=== PATIENT | female | born 1950 | race Caucasian/White ===

== ENCOUNTER 2020-01-13 08:04 | Outpatient (REF) | payer MEDICARE, OTHER, SELFPAY ==
[2020-01-13 09:45] LABS: Thyroid Stimulating Hormone 7.43 uIU/mL (0.32-4.0)
[2020-01-18 07:26] LABS: Thyroglobulin Antibody <1 IU/mL (<=1); Thyroglobulin Level 0.1 ng/mL
== END 2020-01-13 08:05 | disposition home or self-care (01) ==
LOC: HO.LAB 08:04
PROVIDERS: PCP Internal Medicine; Visit Provider Internal Medicine Endocrinology, Diabetes & Metabolism
DX: C73 Malignant neoplasm of thyroid gland (principal)
CPT/HCPCS: 36415; 84432; 84439; 84443; 86800

== ENCOUNTER → 2020-01-17 07:51 | Outpatient (BNVA) | payer MEDICARE, OTHER, SELFPAY | PROVIDERS: PCP Internal Medicine; Visit Provider Internal Medicine Endocrinology, Diabetes & Metabolism | DX: E89.0 Postprocedural hypothyroidism (principal); Z85.850 Personal history of malignant neoplasm of thyroid | CPT/HCPCS: 99212 ==

== ENCOUNTER → 2020-03-04 14:34 | Outpatient (BNVA) | payer MEDICARE, OTHER, SELFPAY | PROVIDERS: Visit Provider Internal Medicine | DX: Z13.89 Encounter for screening for other disorder (principal) | CPT/HCPCS: Q3014 ==

== ENCOUNTER 2020-04-03 | Outpatient (REF) | payer MEDICARE, OTHER, SELFPAY | END 2020-04-03 00:01 | disposition home or self-care (01) | LOC: HO.VC | PROVIDERS: Visit Provider Internal Medicine | DX: Z23 Encounter for immunization (principal) | CPT/HCPCS: 0011A ==

== ENCOUNTER 2020-04-30 | Outpatient (REF) | payer MEDICARE, OTHER, SELFPAY | END 2020-04-30 00:01 | disposition home or self-care (01) | LOC: HO.VC | PROVIDERS: Visit Provider Internal Medicine | DX: Z23 Encounter for immunization (principal) | CPT/HCPCS: 0012A ==

== ENCOUNTER 2020-07-12 09:10 | Outpatient (REF) | payer MEDICARE, OTHER, SELFPAY ==
[2020-07-12 10:49] LABS: Alanine Aminotransferase 21 U/L (0-31); Anion Gap 10 (12-20); Aspartate Amino Transferase 26 U/L (5-31); Blood Urea Nitrogen 28 mg/dL (9-16); Calcium 8.9 mg/dL (8.4-10.2); Carbon Dioxide 28 mmol/L (22-29); Chloride 106 mmol/L (96-108); Cholesterol 200 mg/dL; Estimated Glomerular Filt Rate > 60; Glucose Fasting 82 mg/dL (60-99); HDL Cholesterol 69 mg/dL; LDL Cholesterol Calculated 122 mg/dl; Potassium 4.3 mmol/L (3.3-5.1); Sodium 140 mmol/L (135-145); Triglycerides 46 mg/dL
[2020-07-12 11:01] LABS: Free T4 (Free Thyroxine) 1.31 ng/dL (0.71-1.85)
[2020-07-12 11:13] LABS: Thyroid Stimulating Hormone 0.22 uIU/mL (0.32-4.0); Vitamin D 25-OH Total 31.3 ng/mL (>30)
[2020-07-16 07:56] LABS: Thyroglobulin Antibody <1 IU/mL (<=1); Thyroglobulin Level <0.1 ng/mL
== END 2020-07-12 09:11 | disposition home or self-care (01) ==
LOC: HO.LAB 09:10
PROVIDERS: PCP Internal Medicine; Visit Provider Internal Medicine Endocrinology, Diabetes & Metabolism
DX: I10 Essential (primary) hypertension (principal); J44.9 Chronic obstructive pulmonary disease, unspecified; E89.0 Postprocedural hypothyroidism; Z78.0 Asymptomatic menopausal state
CPT/HCPCS: 36415; 80048; 80061; 82306; 84432; 84439; 84443; 84450; 84460; 86800

== ENCOUNTER → 2020-07-16 07:51 | Outpatient (BNVA) | payer MEDICARE, OTHER, SELFPAY | PROVIDERS: PCP Internal Medicine; Visit Provider Internal Medicine Endocrinology, Diabetes & Metabolism | DX: E89.0 Postprocedural hypothyroidism (principal); C73 Malignant neoplasm of thyroid gland | CPT/HCPCS: 99212 ==

== ENCOUNTER 2020-07-31 13:46 | Outpatient (REF) | payer MEDICARE, OTHER, SELFPAY ==
--- NOTE | ~2020-07-31 | US_ITS ---
EXAMINATION: US SOFT TISSUE NECK CLINICAL INFORMATION: History of thyroid cancer, status post total thyroidectomy in 2000. COMPARISON: 07/20/2019 soft tissue ultrasound. TECHNIQUE: Ultrasound of the neck soft tissues is performed with high- frequency olivera-scale imaging and color Doppler. FINDINGS: THYROID BED: Prior thyroidectomy. No residual thyroid tissue demonstrated in the thyroid bed. No cystic or solid nodules demonstrated in the thyroid bed. RIGHT NECK SOFT TISSUES: Scattered architecturally normal nodes are present. The nodes show normal fatty hilus, normal cortical thickness, and no cystic change or calcification. No abnormal color flow. The largest nodes are as follows: Level 3: 1.0 cm, Long axis Normal german architecture. LEFT NECK SOFT TISSUES: Scattered architecturally normal nodes are present. The nodes show normal fatty hilus, normal cortical thickness, and no cystic change or calcification. No abnormal color flow. The largest nodes are as follows: Level 3: 0.9 cm, long axis. Normal german architecture. US/US soft tiss head and/or neck IMPRESSION: 1. Cervical lymph nodes without pathologic enlargement as detailed above.
== END 2020-07-31 13:47 | disposition home or self-care (01) ==
LOC: HO.US 13:46
PROVIDERS: Visit Provider Internal Medicine Endocrinology, Diabetes & Metabolism
DX: C73 Malignant neoplasm of thyroid gland (principal)
CPT/HCPCS: 76536

== ENCOUNTER 2020-08-28 06:22 | Outpatient (REF) | payer MEDICARE, OTHER, SELFPAY ==
[2020-08-28 07:48] LABS: Free T4 (Free Thyroxine) 1.45 ng/dL (0.71-1.85); Thyroid Stimulating Hormone 0.28 uIU/mL (0.32-4.0)
== END 2020-08-28 06:23 | disposition home or self-care (01) ==
LOC: HO.LAB 06:22
PROVIDERS: PCP Internal Medicine; Visit Provider Internal Medicine Endocrinology, Diabetes & Metabolism
DX: C73 Malignant neoplasm of thyroid gland (principal)
CPT/HCPCS: 36415; 84439; 84443

== ENCOUNTER 2020-11-15 06:07 | Outpatient (REF) | payer MEDICARE, OTHER, SELFPAY ==
[2020-11-15 08:05] LABS: Alanine Aminotransferase 13 U/L (0-31); Alkaline Phosphatase 90 U/L (39-117); Anion Gap 13 (12-20); Aspartate Amino Transferase 20 U/L (5-31); Bilirubin Total 0.6 mg/dL (0.0-1.0); Blood Urea Nitrogen 25 mg/dL (9-16); Carbon Dioxide 28 mmol/L (22-29); Chloride 105 mmol/L (96-108); Estimated Glomerular Filt Rate > 60; Glucose Random 83 mg/dL (60-115); Potassium 4.5 mmol/L (3.3-5.1); Sodium 141 mmol/L (135-145); Total Protein 6.3 g/dL (6.5-8.0)
[2020-11-15 08:27] LABS: Vitamin D 25-OH Total 25.2 ng/mL (>30)
[2020-11-18 14:02] LABS: Calcium (PTHI) 8.9 mg/dL (8.6-10.4); PTHI 52 pg/mL (14-64)
[2020-11-20 15:01] LABS: N-Telopeptide 35 (see note); NTXCreaRU 40 mg/dL (20-275)
== END 2020-11-15 06:08 | disposition home or self-care (01) ==
LOC: HO.LAB 06:07
PROVIDERS: PCP Internal Medicine; Visit Provider Obstetrics & Gynecology Gynecology
DX: M85.9 Disorder of bone density and structure, unspecified (principal)
CPT/HCPCS: 36415; 80053; 82306; 82523; 83970; 84443

== ENCOUNTER 2020-11-22 02:53 | Emergency (ER) | payer MEDICARE, OTHER, SELFPAY ==
[2020-11-22 04:58] VITALS: BP 182/85; PULSE 71; RESP 18; TEMP 36.4; O2SAT 100; BMI 39.3
--- NOTE | 2020-11-22 05:39 | ED_ITS ---
HPI - General Adult General Chief complaint: General Medical Stated complaint: swollen glands/neck spasms Time Seen by Provider: 11/22/20 05:39 Source: patient Mode of arrival: ambulatory Limitations: no limitations History of Present Illness HPI narrative: Neck pain with spasm with waking up. patient could not sleep. no injury, no fever, no sore throat. Right posterior neck Onset (ago): hour(s) Radiation: neck Severity: moderate Pain Consistency: constant Associated symptoms: denies other symptoms Related Data Home Medications Medication Instructions Recorded Confirmed allopurinol 100 mg tablet 100 mg PO BID 12/14/19 07/16/20 calcium citrate 500 mg-vit D3 12.5 g PO 12/14/19 07/16/20 mcg (500 unit)/5 gram oral powder celecoxib 200 mg capsule (Celebrex) 200 mg PO DAILY 12/14/19 07/16/20 cholecalciferol (vitamin D3) 50 50 mcg PO DAILY 12/14/19 07/16/20 mcg (2,000 unit) capsule diclofenac sodium 1 % topical gel 2 g TOPICAL QID 12/14/19 07/16/20 (Voltaren) fluticasone propionate 50 1 spray INTRANASAL DAILY 12/14/19 07/16/20 mcg/actuation nasal spray,suspension (Flonase Allergy Relief) multivit with 1 tab PO DAILY 12/14/19 07/16/20 xnkehqwa-curs-RH-lutein 8 mg iron-400 mcg-300 mcg tablet (Centrum Silver Women) turmeric root extract 500 mg 500 mg PO DAILY 12/14/19 07/16/20 capsule vitamins A,C,N-orhv-sulqyr 7,160 2 tab PO BID 12/14/19 07/16/20 unit-113 mg-100 unit tablet (PreserVision AREDS) flu vacc [id number] 6mos up(PF) ml IM ONCE 02/27/20 07/16/20 pneumococcal 23-constanza ps vaccine 25 ml IM ONCE 02/27/20 07/16/20 mcg/0.5 mL injection syringe varicella-zoster glycoE [id number] IM 02/27/20 07/16/20 adj(PF) 50 mcg/0.5 mL IM susp, kit clotrimazole-betamethasone 1 appl TOPICAL BID 03/04/20 07/16/20 %-0.05 % topical cream furosemide 20 mg tablet (Lasix) 20 mg PO DAILY PRN 03/04/20 07/16/20 escitalopram oxalate 10 mg tablet 10 mg PO DAILY 07/16/20 07/16/20 quetiapine 25 mg tablet 25 mg PO BEDTIME PRN tab 07/16/20 07/16/20 clonazepam 0.5 mg tablet 0.5 mg PO DAILY 08/30/20 escitalopram oxalate 10 mg tablet 10 mg PO DAILY 08/30/20 fluocinolone acetonide oil 0.01 % 2 drp OTIC (EARS) 2XW 08/30/20 ear drops quetiapine 25 mg tablet 25 mg PO BEDTIME 08/30/20 Previous Rx's Medication Instructions Recorded montelukast 10 mg tablet 10 mg PO BEDTIME #90 tab 01/01/20 inhalational spacing device #1 ea 02/27/20 (Flexichamber) losartan 100 mg tablet 100 mg PO DAILY #90 tab 04/11/20 budesonide-formoterol HFA 160 2 puff INHALATION BID #30.6 g 06/11/20 mcg-4.5 mcg/actuation aerosol inhaler (Symbicort) loratadine 10 mg tablet (Allergy 10 mg PO DAILY #90 tab 07/02/20 Relief (loratadine)) amlodipine 2.5 mg tablet 2.5 mg PO DAILY #90 tab 07/19/20 Levoxyl 137 mcg tablet 137 mcg PO DAILY 90 Days #90 tab NS 08/29/20 (levothyroxine) cetirizine 10 mg tablet 10 mg PO BEDTIME PRN #90 tab 09/08/20 albuterol sulfate 90 mcg/actuation 2 puff INHALATION Q4-6H PRN 90 11/14/20 aerosol inhaler Days #8.5 g umeclidinium 62.5 mcg/actuation 1 inh INHALATION Q24H 90 Days #90 11/20/20 blister powder for inhalation ea (Libby Ellipta) naproxen 500 mg tablet (Naprosyn) 500 mg PO BID #20 tab 11/22/20 Allergies Allergy/AdvReac Type Severity Reaction Status Date / Time No Known Allergies Allergy Verified 11/22/20 04:58 Review of Systems Constitutional: Constitutional: Reports no additional constitutional c omplaints Eyes: Eyes: Reports no additional eye complaints ENT: Denies dizziness Cardiovascular: Cardiovascular: Reports no additional cardiovascular complaints Respiratory: Respiratory: Reports as per HPI Gastrointestinal: Gastrointestinal: Reports no additional gastrointestinal complaints Genitourinary: Genitourinary: Reports no additional female genitourinary complaints Musculoskeletal: Musculoskeletal: Reports no additional musculoskeletal complaints Integumentary/Breasts: Skin/Breast: Denies rash Neurologic: Reports system reviewed and no additional complaints, except as documented, Denies dizziness and Denies Sensory deficit (Neuro) Psychiatric: Psychiatric: Denies anxiety PMFSH Past Medical History Medical History Allergic rhinitis COPD (chronic obstructive pulmonary disease) Environmental and seasonal allergies Essential hypertension Generalized anxiety disorder Gout Grief counseling Left humeral fracture Morbid obesity JUAREZ on CPAP Osteoarthritis Papillary thyroid carcinoma Pernicious anemia Postsurgical hypothyroidism Varicose veins of right lower extremity with pain Surgical History Gastric bypass status for obesity H/O vein stripping History of thyroidectomy, total History of total left knee replacement (TKR) Family History Family History Daughter Breast cancer Social History Social History Alcohol intake: current Patient Tobacco Use Status: Never used Tobacco Advance Directives: No Advance Directives Information Provided: No Physical Exam Vital Signs: Vital Signs: Last Vital Signs Temp 97.5 F 11/22/20 04:58 Pulse 71 11/22/20 06:15 Resp 16 11/22/20 06:15 BP 189/72 H 11/22/20 06:15 Pulse Ox 99 11/22/20 06:15 Body Mass Index 39.3 Const: General: healthy appearing Nutritional Appearance: average body habitus Orientation/consciousness: oriented to person and patient oriented x3 Limitations: no limitations HENMT: Head: Yes normal to inspection Ears: external ears normal General nose exam: Normal external nose present Mouth: Normal oral and palatal mucosa present and oropharynx normal Throat: Yes posterior oropharynx normal Eyes: General: appearance normal, both eyes and all related structures Neck: Other: patient with spasm of right trapezius tenderness Chest: Chest palpation & inspection: normal inspection of the chest Resp: Auscultation: clear to auscultation bilaterally Cardio: Jugular venous distension: no JVD Rate: regular rate Rhythm: regular rhythm Heart sounds: S1 normal heart sound present and S2 normal heart sound present GI: Inspection: Yes normal to inspection Palpation (GI): Soft to palpation, nontender and No hepatosplenomegaly present Auscultation: normal bowel sounds : General: Yes no CVA tenderness Back/Spine/Pelvis: Back: no CVA tenderness Skin: General skin exam: no rashes or lesions noted Neuro: General: oriented to person and patient oriented x3 Cranial nerves: Yes CN's II-XII intact bilaterally Motor exam (neuro): 5/5 motor strength present throughout Sensory Exam: No Sensory deficit (Neuro) Extrem: General: Yes normal to inspection Psych: Appearance: grossly normal Course Reevaluation(s) Reevaluation #1: patient neck improved can start to turn her neck will dc home Time: 06:49 Discharge Plan Discharge Clinical Impression: Torticollis Patient Disposition: Home, Self-Care Instructions: Neck Pain (ED) Prescriptions: New naproxen [Naprosyn] 500 mg tablet 500 mg PO BID Qty: 20 RF: 0 No Action montelukast 10 mg tablet 10 mg PO BEDTIME Qty: 90 RF: 3 losartan 100 mg tablet 100 mg PO DAILY Qty: 90 RF: 3 budesonide-formoterol [Symbicort] 160-4.5 mcg/actuation HFA aerosol inhaler 2 puff inhalation BID Qty: 30.6 RF: 4 loratadine [Allergy Relief (loratadine)] 10 mg tablet 10 mg PO DAILY Qty: 90 RF: 0 amlodipine 2.5 mg tablet 2.5 mg PO DAILY Qty: 90 RF: 3 levothyroxine [Levoxyl] 137 mcg tablet 137 mcg PO DAILY 90 Days Qty: 90 RF: 2 cetirizine 10 mg tablet 10 mg PO BEDTIME PRN (Reason: for allergies) Qty: 90 RF: 1 albuterol sulfate 90 mcg/actuation HFA aerosol inhaler 2 puff inhalation Q4-6H PRN (Reason: shortness of breath or wheezing) 90 Days Qty: 8.5 RF: 5 Incruse Ellipta 62.5 mcg/actuation blister with device 1 inh inhalation Q24H 90 Days Qty: 90 RF: 3 fluocinolone acetonide oil 0.01 % drops 2 drp otic (ears) 2XW RF: 0 quetiapine 25 mg tablet 25 mg PO BEDTIME RF: 0 escitalopram oxalate 10 mg tablet 10 mg PO DAILY RF: 0 clonazepam 0.5 mg tablet 0.5 mg PO DAILY RF: 0 cholecalciferol (vitamin D3) 50 mcg (2,000 unit) capsule 50 mcg PO DAILY RF: 0 Centrum Silver Women 8 mg iron-400 mcg-300 mcg tablet 1 tab PO DAILY RF: 0 turmeric root extract 500 mg capsule 500 mg PO DAILY RF: 0 PreserVision AREDS 7,160-113-100 dfjb-nn-luch tablet 2 tab PO BID RF: 0 calcium citrate-vitamin D3 500 mg-12.5 mcg /5 gram powder PO RF: 0 allopurinol 100 mg tablet 100 mg PO BID RF: 0 diclofenac sodium [Voltaren] 1 % gel 2 g topical QID RF: 0 fluticasone propionate [Flonase Allergy Relief] 50 mcg/actuation spray,suspension 1 spray intranasal DAILY RF: 0 celecoxib [Celebrex] 200 mg capsule 200 mg PO DAILY RF: 0 furosemide [Lasix] 20 mg tablet 20 mg PO DAILY PRNRF: 0 Shingrix (PF) 50 mcg/0.5 mL suspension for reconstitution IM RF: 0 Fluzone Quad [id number] (PF) 60 mcg (15 mcg x 4)/0.5 mL syringe IM ONCE RF: 0 Pneumovax-23 25 mcg/0.5 mL syringe IM ONCE RF: 0 (DME) Flexichamber Spacer See Rx Instructions .ROUTE .MEDSUPPLY Qty: 1 RF: 0 quetiapine 25 mg tablet 25 mg PO BEDTIME PRN (Reason: insomnia) RF: 0 escitalopram oxalate 10 mg tablet 10 mg PO DAILY RF: 0 clotrimazole-betamethasone 1-0.05 % cream topical BID RF: 0 Referrals: Jacqueline Thurston MD [Primary Care Provider] - 1 week
--- NOTE | 2020-11-22 05:44 | PC.NURSE ---
Provider at bed side for primary assessment. PT complaining of right sided neck pain. PT is calm and cooperative. Pain is rated 10/10.
[2020-11-22] MEDS: Ketorolac Tromethamine 60 MG/2 ML VIAL IM (05:58)
[2020-11-22 06:15] VITALS: BP 189/72; PULSE 71; RESP 16; O2SAT 99
== END 2020-11-22 07:07 | disposition home or self-care (01) ==
PROVIDERS: Emergency Provider Emergency Medicine; PCP Internal Medicine
DX: M43.6 Torticollis (principal); M54.2 Cervicalgia; R59.0 Localized enlarged lymph nodes; Z79.899 Other long term (current) drug therapy
CPT/HCPCS: 96372; 99284; J1885

== ENCOUNTER → 2021-01-16 07:28 | Outpatient (BNVA) | payer MEDICARE, OTHER, SELFPAY | PROVIDERS: PCP Internal Medicine; Visit Provider Internal Medicine | DX: Z13.89 Encounter for screening for other disorder (principal) | CPT/HCPCS: 99212 ==

== ENCOUNTER 2021-01-16 08:28 | Outpatient (REF) | payer MEDICARE, OTHER, SELFPAY ==
[2021-01-16 11:01] LABS: Alanine Aminotransferase 16 U/L (0-31); Alkaline Phosphatase 89 U/L (39-117); Anion Gap 11 (12-20); Aspartate Amino Transferase 21 U/L (5-31); Bilirubin Total 0.4 mg/dL (0.0-1.0); Blood Urea Nitrogen 17 mg/dL (9-16); Carbon Dioxide 27 mmol/L (22-29); Chloride 106 mmol/L (96-108); Estimated Glomerular Filt Rate > 60; Glucose Random 84 mg/dL (60-115); Phosphorus 3.5 mg/dL (2.7-4.5); Potassium 4.3 mmol/L (3.3-5.1); Sodium 140 mmol/L (135-145); Total Protein 6.5 g/dL (6.5-8.0)
[2021-01-16 11:26] LABS: Free T4 (Free Thyroxine) 1.47 ng/dL (0.71-1.85); Thyroid Stimulating Hormone 0.29 uIU/mL (0.32-4.0)
[2021-01-17 13:07] LABS: Prot Elec - Albumin 3.9 g/dL (3.8-4.8); Prot Elec - Alpha1 0.3 g/dL (0.2-0.3); Prot Elec - Alpha2 0.8 g/dL (0.5-0.9); Prot Elec - Beta 1 0.4 g/dL (0.4-0.6); Prot Elec - Beta 2 0.4 g/dL (0.2-0.5); Prot Elec - Gamma 0.8 g/dL (0.8-1.7); Prot Elec - Total Protein 6.5 g/dL (6.1-8.1)
[2021-01-17 21:27] LABS: Thyroglobulin <0.1 ng/mL; Thyroglobulin Antibodies <1 IU/mL (< or = 1)
[2021-01-18 02:50] LABS: Calcium (PTHI) 9.4 mg/dL (8.6-10.4); PTHI 53 pg/mL (14-64)
[2021-01-20 14:42] LABS: Alkaline Phosphatase Bone 15.7 mcg/L (5.6-29.0)
== END 2021-01-16 08:29 | disposition home or self-care (01) ==
LOC: HO.10HDL 08:28
PROVIDERS: Visit Provider Internal Medicine
DX: M81.0 Age-related osteoporosis without current pathological fracture (principal); E55.9 Vitamin D deficiency, unspecified; E89.0 Postprocedural hypothyroidism; Z85.850 Personal history of malignant neoplasm of thyroid
CPT/HCPCS: 36415; 80053; 82306; 82330; 83970; 84075; 84100; 84165; 84432; 84439; 84443; 86800; 99212

== ENCOUNTER 2021-01-22 09:23 | Outpatient (REF) | payer MEDICARE, OTHER, SELFPAY ==
[2021-01-22 10:54] LABS: Creatinine, mg/dL 77.68
[2021-01-22 15:25] LABS: Creatinine, 24Hr Urine 1.1 G/Day (1.0-2.0); Total Volume 24 Hour Urine 1400 mL
[2021-01-24 16:51] LABS: Calcium, 24 Hr Urine 45 mg/24 h; Calcium/Creatinine Ratio 42 mg/g creat (30-275); Creatinine 24Hr Urine 1.08 g/24 h (0.50-2.15)
[2021-01-28 08:32] LABS: N-Telopeptide 62 (see note); NTXCreaRU 53 mg/dL (20-275)
== END 2021-01-22 09:24 | disposition home or self-care (01) ==
LOC: HO.10HDL 09:23
PROVIDERS: Visit Provider Internal Medicine
DX: M81.0 Age-related osteoporosis without current pathological fracture (principal)
CPT/HCPCS: 82340; 82523; 82570

== ENCOUNTER 2021-02-04 08:00 | Outpatient (RCR) | payer MEDICARE, OTHER, SELFPAY ==
--- NOTE | 2020-12-18 16:24 | MHC.PT.EP ---
[facility] [place] [facility] [place] [facility] [place] [facility] [address] Blayne Garcia [address] [phone] F: [phone] F: [phone] F: [phone] F: [phone] Physical Therapy Plan of Care Date of Evaluation: Date of Surgery: Diagnosis: This is a 70 yo female presenting to skilled PT with a script for torticollis Assessment: This is a 70 yo female presenting to skilled PT with a script for torticollis. Patient states that she woke up early that morning with difficulty moving her neck and pain. Pain has improved since then. She now gets small twinges when turning her head to the R, getting out of bed in the AM. She was prescribed naproxen, which afforded some relief. Denies any accompanying dizziness, no headache, no weakness in extremities reported. Pain is located at the R UT described as stiffness. She has some general achiness at upper back as well. She has been using heat and lidocaine that has been helping. Assessment reveals pain that ranges up to a 4/10. She demos decreased cervical ROM (and shoulder *L shoulder has a history of spiral humeral fx so be cautious with ROM), decreased shoulder and cervical strength, impaired posture with forward head and rounded shoulders, impaired joint mobility with new dx of OP as well as gross functional decline with pain management (more so in the AM) and with turning her head to the R. She is a good candidate for skilled PT 2x/wk for 5wks in order to improve functional movements improve pain and return to normal daily routines safely. Frequency and Duration: The patient will be seen 2x/wk for 5wks Short Term Goals: I in HEP Demo proper cervical alignment and posture with ther-ex, no PT cuing Snf Goals: Demo normal cervical AROM without pain Improve pain to no more than 2/10 at the worst Improve NDI by 8 Tolerate sleeping through the night without waking from pain Demo at least 4+/5 scapular and shoulder strength Treatment Plan: Modalities to reduce pain, spasms and effusion. Manual therapy to restore motion and function. Therapeutic exercise to improve strength and flexibility. Neuromuscular re-education for posture and balance. Therapeutic activities to return to functional activities of daily living. Electronically signed by: Inocencia Bradley PT Please sign and return to therapist. Thank you for your referral.
--- NOTE | 2021-03-06 13:26 | MHC.PT.DC ---
[facility] [place] Office [place] Office [place] [facility] [address] Blayne Garcia [address] [phone] F: [phone] F: [phone] F: [phone] F: [phone] Physical Therapy Discharge Report Diagnosis: This is a 70 yo female presenting to skilled PT with a script for torticollis Date of Surgery: Date of Evaluation: 12/18/20 Date of Discharge: 03/06/21 Treatments to Date: 10 Cancellations to Date: 0 No Shows to Date: 0 Discharge Status: Achieved Goals Improved Function Independent with HEP Discharge Summary: Patient with improved cervical ROM, pain and strength. She is I in HEP, has met her goals and is ready for DC at this time. I kept chart open for 30 days in case symptoms return and patient was educated on this. She is happy with her progress and understands how to manage her pain if it returns Electronically signed by: Inocencia Bradley, PT Please sign and return to therapist. Thank you for your referral.
== END 2021-03-06 13:26 | disposition home or self-care (01) ==
LOC: HO.PTCHIC 08:00
PROVIDERS: PCP Internal Medicine; Visit Provider Internal Medicine
DX: M43.6 Torticollis (principal)
CPT/HCPCS: 97110; 97140; 97162

== ENCOUNTER 2021-02-27 10:20 | Outpatient (REF) | payer MEDICARE, OTHER, SELFPAY ==
[2021-02-27 14:08] LABS: Thyroid Stimulating Hormone 1.16 uIU/mL (0.32-4.0)
== END 2021-02-27 10:21 | disposition home or self-care (01) ==
LOC: HO.10HDL 10:20
PROVIDERS: PCP Internal Medicine; Visit Provider Internal Medicine
DX: E89.0 Postprocedural hypothyroidism (principal)
CPT/HCPCS: 36415; 84439; 84443

== ENCOUNTER 2021-04-02 12:06 | Outpatient (REF) | payer MEDICARE, OTHER, SELFPAY ==
[2021-04-02 15:18] LABS: Vitamin D 25-OH Total 26.3 ng/mL (>30)
== END 2021-04-02 12:07 | disposition home or self-care (01) ==
LOC: HO.10HDL 12:06
PROVIDERS: Visit Provider Obstetrics & Gynecology Gynecology
DX: E55.9 Vitamin D deficiency, unspecified (principal)
CPT/HCPCS: 36415; 82306

== ENCOUNTER → 2021-05-26 08:44 | Outpatient (BNVA) | payer MEDICARE, OTHER, SELFPAY | PROVIDERS: PCP Internal Medicine; Visit Provider Internal Medicine | DX: C73 Malignant neoplasm of thyroid gland (principal) | CPT/HCPCS: 96372 ==

== ENCOUNTER → 2021-05-27 08:46 | Outpatient (BNVA) | payer MEDICARE, OTHER, SELFPAY | PROVIDERS: PCP Internal Medicine; Visit Provider Internal Medicine Endocrinology, Diabetes & Metabolism | DX: Z85.850 Personal history of malignant neoplasm of thyroid (principal) | CPT/HCPCS: 96372 ==

== ENCOUNTER 2021-05-28 06:58 | Outpatient (REF) | payer MEDICARE, OTHER, SELFPAY ==
[2021-05-28 10:04] LABS: Thyroid Stimulating Hormone > 100.00 uIU/mL (0.32-4.0)
[2021-05-29 09:27] LABS: Thyroglobulin <0.1 ng/mL; Thyroglobulin Antibodies <1 IU/mL (< or = 1)
== END 2021-05-28 06:59 | disposition home or self-care (01) ==
LOC: HO.LAB 06:58
PROVIDERS: PCP Internal Medicine; Visit Provider Internal Medicine
DX: Z85.850 Personal history of malignant neoplasm of thyroid (principal)
CPT/HCPCS: 36415; 84432; 84443; 86800

== ENCOUNTER 2021-05-30 06:05 | Outpatient (REF) | payer MEDICARE, OTHER, SELFPAY ==
[2021-05-30 07:32] LABS: Thyroid Stimulating Hormone 21.17 uIU/mL (0.32-4.0)
[2021-06-02 16:25] LABS: Thyroglobulin 0.1 ng/mL; Thyroglobulin Antibodies <1 IU/mL (< or = 1)
== END 2021-05-30 06:06 | disposition home or self-care (01) ==
LOC: HO.LAB 06:05
PROVIDERS: PCP Internal Medicine; Visit Provider Internal Medicine
DX: Z85.850 Personal history of malignant neoplasm of thyroid (principal)
CPT/HCPCS: 36415; 84432; 84443; 86800

== ENCOUNTER 2021-06-05 15:16 | Outpatient (REF) | payer MEDICARE, OTHER, SELFPAY ==
[2021-06-05 16:38] LABS: Free T4 (Free Thyroxine) 1.31 ng/dL (0.71-1.85)
== END 2021-06-05 15:17 | disposition home or self-care (01) ==
LOC: HO.LAB 15:16
PROVIDERS: PCP Internal Medicine; Visit Provider Internal Medicine Endocrinology, Diabetes & Metabolism
DX: E89.0 Postprocedural hypothyroidism (principal)
CPT/HCPCS: 36415; 84439; 84443

== ENCOUNTER 2021-06-27 10:22 | Outpatient (REF) | payer MEDICARE, OTHER, SELFPAY ==
[2021-06-27 12:10] LABS: Vitamin D 25-OH Total 28.8 ng/mL (>30)
[2021-06-30 12:47] LABS: PTHI 76 pg/mL (16-77)
== END 2021-06-27 10:23 | disposition home or self-care (01) ==
LOC: HO.LAB 10:22
PROVIDERS: PCP Internal Medicine; Visit Provider Obstetrics & Gynecology Gynecology
DX: M85.9 Disorder of bone density and structure, unspecified (principal)
CPT/HCPCS: 36415; 82306; 83970

== ENCOUNTER → 2021-07-24 08:13 | Outpatient (BNVA) | payer MEDICARE, OTHER, SELFPAY | PROVIDERS: PCP Internal Medicine; Visit Provider Internal Medicine | DX: E89.0 Postprocedural hypothyroidism (principal); E55.9 Vitamin D deficiency, unspecified; M81.0 Age-related osteoporosis without current pathological fracture; Z85.850 Personal history of malignant neoplasm of thyroid | CPT/HCPCS: Q3014 ==

== ENCOUNTER 2021-08-24 01:50 | Inpatient (IN) | payer MEDICARE, OTHER, SELFPAY ==
[2021-08-24] VITALS (11 sets, daily range): BP systolic 126–159; BP diastolic 31–104; PULSE 73–142; RESP 12–18; TEMP 36.6–36.7; O2SAT 95–100; BMI 40.7
--- NOTE | 2021-08-24 | ECG_ITS ---
Test Reason : RYTHMN CHANGE Blood Pressure : / mmHG Vent. Rate : 069 BPM Atrial Rate : 069 BPM P-R Int : 156 ms QRS Dur : 072 ms QT Int : 406 ms P-R-T Axes : 048 012 021 degrees QTc Int : 435 ms Normal sinus rhythm Possible Left atrial enlargement Cannot rule out Anterior infarct , age undetermined Abnormal ECG When compared with ECG of 24-AUG-2021 02:42, Sinus rhythm has replaced Atrial fibrillation Vent. rate has decreased BY 67 BPM Nonspecific T wave abnormality, improved in Inferior leads Referred By: Jacqueline Saez Electronically Signed By:SANDY WINN
--- NOTE | ~2021-08-24 | XR_ITS ---
EXAMINATION: XR KNEE, LEFT CLINICAL INFORMATION: Fall, pain. COMPARISON: None TECHNIQUE: Four views of the left knee. FINDINGS: A total left knee prosthesis is identified. No fractures are identified. Marked prepatellar soft tissue prominence and subcutaneous reticulation is noted. XR/XR knee LT 4V IMPRESSION: *No acute fractures. *Prepatellar soft tissue inflammatory changes. *Status post total knee arthroplasty.
--- NOTE | ~2021-08-24 | CT_ITS ---
EXAMINATION: CT CERVICAL SPINE WITHOUT CONTRAST; UNENHANCED CT OF THE HEAD. CLINICAL INFORMATION: Fall, pain. COMPARISON: None TECHNIQUE: Routine unenhanced CT of the head with multiple coronal and sagittal reformatted images; routine unenhanced CT of the cervical spine with multiple coronal and sagittal reformatted images. This CT examination was performed using dose optimization techniques as appropriate, variously including the following: *Automated exposure control *Adjustment of mA and/or kV according to patient size (this includes techniques or standardized protocols for targeted exams where dose is matched to indication/reason for exam; i.e. extremities or head) *Use of iterative reconstruction technique DLP: 1315 mGy-cm FINDINGS: A 1.5 cm x 0.8 cm x 1.0 cm extra-axial focus is noted in continuity with the inferior margin of the left tentorial leaf (series 8 image 105, series 3 image 27. This region demonstrates central heterogeneous density with areas of density measuring up to 75 Hounsfield units. The ventricles and sulci are normal in size and configuration. Mild periventricular and subcortical white matter patchy hypodensities are identified. No definitive acute infarcts or areas of definitive intracranial hemorrhage are noted. Prominent frontal and left parietal areas of extracranial soft tissue inflammatory changes are noted. The orbits and globes are normal in appearance. No significant opacification of the visualized paranasal sinuses, mastoid air cells and middle ear cavities. CT cervical spine: No fractures or acute appearing subluxations are noted. Moderate multilevel intervertebral disc space narrowing and endplate osteophytosis is present. 2 mm degenerative type grade 1 anterolisthesis of C2 on C3 is noted. The visualized lung apices are clear. The thyroid is absent and multiple vascular clips are noted in the thyroid bed. Moderate bilateral carotid bulb calcific atherosclerotic plaques. CT/CT cervical spine wo con IMPRESSION: CT head: *No definitive acute intracranial abnormalities. *1.5 cm extra-axial tumor contiguous with the inferior margin of the left tentorium. This finding is suspicious for a meningioma with areas of psammomatous calcification. As clinically indicated, this finding may be further evaluated with unenhanced and IV contrast enhanced MRI. No edema in the adjacent brain parenchyma. *Acute multifocal extracranial soft tissue inflammatory changes. CT cervical spine: *No acute abnormalities. *Multilevel chronic spondylosis. *Status post thyroidectomy. *Moderate bilateral carotid bulb calcific atherosclerosis.
--- NOTE | ~2021-08-24 | CT_ITS ---
EXAMINATION: CT ANGIOGRAM OF THE CHEST WITH AND WITHOUT CONTRAST (CT PULMONARY ANGIOGRAM FOR PE) CLINICAL INFORMATION: Reason for Exam new onset afib, elevated ddimer, fall. COMPARISON: Chest radiograph 05/10/2017 TECHNIQUE: Prior to contrast administration, noncontrast localization images were obtained. Subsequently, multidetector volumetric imaging was performed from the thoracic inlet to below the diaphragms following the administration of 80 mL Omnipaque 350 intravenous contrast. No contrast reaction reported Sagittal, coronal, and MIP oblique sagittal reformatted images were obtained on the CT workstation, uploaded to PACS, and reviewed. This CT examination was performed using dose optimization techniques as appropriate, variously including the following: *Automated exposure control *Adjustment of mA and/or kV according to patient size (this includes techniques or standardized protocols for targeted exams where dose is matched to indication/reason for exam; i.e. extremities or head) *Use of iterative reconstruction technique Total exam dose-length product 630 mGy-cm FINDINGS: Pulmonary arterial system: High density intraluminal opacification of the pulmonary arterial system is noted. No intraluminal filling defects of the pulmonary arteries are noted to specifically suggest pulmonary emboli. The main and central pulmonary arteries are normal in caliber. Mediastinum: The thoracic aorta is normal in caliber and contour. Mild scattered aortic atherosclerosis is noted. Bilateral surgical clips are noted in the expected location of the thyroid. No mediastinal lymphadenopathy. Normal heart size. No pericardial thickening or fluid collections. Lungs and pleura: No pleural effusions or pneumothoraces. No focal pulmonary consolidation. CHEST WALL: No axillary lymphadenopathy. Incidentally visualized abdominal structures: Cholecystectomy clips noted. Suture material which may represent a gastric sleeve resection is noted. The adrenal glands are normal in appearance. Osseous structures: Mild multilevel endplate osteophytosis of the thoracic spine. CT/CT angio chest PE protocol IMPRESSION: *CT pulmonary angiogram negative for pulmonary emboli. *No acute cardiopulmonary abnormalities. VTE: negative
--- NOTE | 2021-08-24 02:21 | ECG_ITS ---
Test Reason : AFIB Blood Pressure : / mmHG Vent. Rate : 136 BPM Atrial Rate : 000 BPM P-R Int : 000 ms QRS Dur : 080 ms QT Int : 308 ms P-R-T Axes : 000 013 -40 degrees QTc Int : 463 ms Atrial fibrillation with rapid ventricular response Low voltage QRS Nonspecific ST and T wave abnormality Abnormal ECG When compared with ECG of 31-MAY-2011 08:57, Atrial fibrillation has replaced Sinus rhythm Vent. rate has increased BY 66 BPM Nonspecific T wave abnormality now evident in Lateral leads Referred By: Jacqueline Saez Electronically Signed By:COOPER DUFFY MD
[2021-08-24] MEDS: ondansetron HCL 4 MG/2 ML VIAL IVPUSH ×2 (02:43→21:03)
[2021-08-24] MEDS: HYDROmorphone HCl 1 MG/ML SYRINGE IVPUSH ×2 (02:45→04:54)
[2021-08-24 02:46] LABS: MANUAL DIFF FLAG NO
[2021-08-24 02:48] LABS: Basophils Absolute Auto 0.1 X10*3/uL (0.0-0.2); Basophils Percent Auto 0.5 % (0-2); Eosinophils Absolute Auto 0.2 X10*3/uL (0.0-0.4); Eosinophils Percent Auto 1.4 % (0-4); Hematocrit 40.1 % (37.0-47.0); Hemoglobin 12.8 g/dl (12.0-16.0); Imm Gran Abs Auto 0.13 X10*3/uL (0.00-0.03); Lymphocytes Absolute Auto 1.6 X10*3/uL (1.2-4.9); Lymphocytes Percent Auto 11.7 % (20-40); Mean Corpuscular HGB Conc 31.9 g/dl (31.0-35.0); Mean Corpuscular Hemoglobin 29.6 pg (27.0-33.0); Mean Corpuscular Volume 92.8 fL (80.0-98.0); Mean Platelet Volume 10.1 fL (9.4-12.3); Monocytes Absolute Auto 0.9 X10*3/uL (0.1-1.2); Monocytes Percent Auto 6.9 % (2-11); Neutrophils Absolute Auto 10.4 x10*3/uL (2.0-8.3); Neutrophils Percent Auto 78.5 % (45-73); Platelet Count 267 X10*3/uL (160-400); Red Blood Count 4.32 X10*6/uL (4.20-5.50); Red Cell Distribution Width 14.2 % (11.0-16.0); White Blood Count 13.2 X10*3/uL (4.8-10.8)
--- NOTE | 2021-08-24 02:50 | ED_ITS ---
HPI - Fall General Chief Complaint: Fall Stated Complaint: fall Time Seen by Provider: 08/24/21 02:20 Source: patient Mode of arrival: EMS Limitations: no limitations History of Present Illness HPI Narrative: 71 yo female with hx of obesity, COPD, thyroid cancer, HTN, arthritis who was drinking ETOH tonight then she states she remembers going to get up and woke up on the floor when she woke up she felt a bump on her head and L knee pain unable to get up. She is unsure what happened. MD complaint: fall Onset (ago): hour(s) (last couple of hours) Fall from: standing Fall witnessed: no Place fall occurred: home Loss of consciousness: unsure Prolonged down time: unclear Symptoms prior to fall: none Context: other (unsure per patient) Location of injury: head Location of injury - extremities: left: knee Severity: moderate Quality: dull and aching Associated symptoms (after fall): other (headache and unable to walk ) Related Data Home Medications Medication Instructions Recorded Confirmed allopurinol 100 mg tablet 100 mg PO BID 12/14/19 07/24/21 calcium citrate 500 mg-vit D3 12.5 g PO 12/14/19 07/24/21 mcg (500 unit)/5 gram oral powder celecoxib 200 mg capsule (Celebrex) 200 mg PO DAILY 12/14/19 07/24/21 cholecalciferol (vitamin D3) 50 50 mcg PO DAILY 12/14/19 07/24/21 mcg (2,000 unit) capsule diclofenac sodium 1 % topical gel 2 g topical QID 12/14/19 07/24/21 (Voltaren) fluticasone propionate 50 1 spray intranasal DAILY 12/14/19 07/24/21 mcg/actuation nasal spray,suspension (Flonase Allergy Relief) multivit with 1 tab PO DAILY 12/14/19 07/24/21 fhukebgg-sqgq-HX-lutein 8 mg iron-400 mcg-300 mcg tablet (Centrum Silver Women) turmeric root extract 500 mg 500 mg PO DAILY 12/14/19 07/24/21 capsule vitamins A,C,E-lxsu-qyscge 7,160 2 tab PO BID 12/14/19 07/24/21 unit-113 mg-100 unit tablet (PreserVision AREDS) varicella-zoster glycoE [id number] IM 02/27/20 07/24/21 adj(PF) 50 mcg/0.5 mL IM susp, kit clotrimazole-betamethasone 1 appl topical BID 03/04/20 07/24/21 %-0.05 % topical cream furosemide 20 mg tablet (Lasix) 20 mg PO DAILY PRN 03/04/20 07/24/21 clonazepam 0.5 mg tablet 0.5 mg PO DAILY 08/30/20 07/24/21 escitalopram oxalate 10 mg tablet 10 mg PO DAILY 08/30/20 07/24/21 fluocinolone acetonide oil 0.01 % 2 drp otic (ears) 2XW 08/30/20 07/24/21 ear drops albuterol sulfate 90 mcg/actuation inhalation 08/24/21 aerosol inhaler allopurinol 100 mg tablet 2 tab PO BID 08/24/21 08/24/21 amlodipine 2.5 mg tablet 1 tab PO DAILY 08/24/21 08/24/21 ammonium lactate 12 % topical cream 1 applic topical BID 08/24/21 08/24/21 budesonide-formoterol HFA 160 inhalation 08/24/21 mcg-4.5 mcg/actuation aerosol inhaler (Symbicort) celecoxib 200 mg capsule 1 cap PO DAILY 08/24/21 08/24/21 clonazepam 0.5 mg tablet 1 tab PO DAILY PRN anxiety 08/24/21 08/24/21 clotrimazole-betamethasone 1 appl topical BID 08/24/21 %-0.05 % topical cream ergocalciferol (vitamin D2) 1,250 1 cap PO QWEEK 08/24/21 08/24/21 mcg (50,000 unit) capsule escitalopram oxalate 10 mg tablet 1 tab PO QAM 08/24/21 08/24/21 levothyroxine 137 mcg tablet 1 tab PO DAILY 08/24/21 08/24/21 (Levoxyl) losartan 100 mg tablet 1 tab PO DAILY 08/24/21 08/24/21 montelukast 10 mg tablet 10 mg PO 08/24/21 naproxen 500 mg tablet 1 tab PO BID 08/24/21 08/24/21 umeclidinium 62.5 mcg/actuation 1 puff inhalation DAILY 08/24/21 08/24/21 blister powder for inhalation (Incruse Ellipta) Previous Rx's Medication Instructions Recorded montelukast 10 mg tablet 10 mg PO BEDTIME #90 tabs 01/01/20 losartan 100 mg tablet 100 mg PO DAILY #90 tabs 04/11/20 loratadine 10 mg tablet (Allergy 10 mg PO DAILY #90 tabs 07/02/20 Relief (loratadine)) albuterol sulfate 90 mcg/actuation 2 puff inhalation Q4-6H PRN 11/14/20 aerosol inhaler shortness of breath or wheezing 90 days #8.5 grams naproxen 500 mg tablet (Naprosyn) 500 mg PO BID #20 tabs 11/22/20 tizanidine 4 mg tablet 4 mg PO BID PRN muscle spasticity 11/26/20 #20 tabs umeclidinium 62.5 mcg/actuation 1 inh inhalation Q24H 90 days #90 12/02/20 blister powder for inhalation ea (Incruse Ellipta) Symbicort 160 mcg-4.5 2 puff inhalation BID 90 days 05/14/21 mcg/actuation HFA aerosol inhaler #30.6 grams (budesonide-formoterol) inhalational spacing device #1 ea 05/28/21 (Flexichamber) cetirizine 10 mg tablet 10 mg PO BEDTIME PRN for allergies 06/23/21 #90 tabs amlodipine 2.5 mg tablet 2.5 mg PO DAILY #90 tabs 07/07/21 Levoxyl 137 mcg tablet 137 mcg PO DAILY 90 days #90 tabs 08/04/21 (levothyroxine) Allergies Allergy/AdvReac Type Severity Reaction Status Date / Time No Known Allergies Allergy Verified 07/24/21 08:20 Review of Systems Review of Systems: Constitutional : No Fever, No Chills ENT/Mouth : No Ear Pain, No Hoarseness, No sore throat Eyes: No Eye Pain, No Swelling, No Redness, No Foreign Body Cardiovascular : No Chest Pain, No SOB Respiratory : No Cough, No Dyspnea Gastrointestinal : No Nausea, No Vomiting, No Diarrhea, No abdominal Pain Genitourinary : No Dysuria, No Hematuria Musculoskeletal : positive joint pain, No Myalgias, pos Joint Swelling Skin : No Skin lacerations, No rash Neuro : No Weakness, No Numbness, pos Loss of Consciousness, No Dizziness, pos Headache Psych : No Anxiety/Panic, No Depression Heme/Lymph: no easy bruising, no Lymphadenopathy Endocrine : No Polyuria, No Polydipsia All other systems reviewed and are negative [facility] Past Medical History Attestation statement: The following information was validated with the patient. Medical History COPD (chronic obstructive pulmonary disease) Essential hypertension Generalized anxiety disorder Gout History of thyroid cancer Left humeral fracture JUAREZ on CPAP Osteoporosis Pernicious anemia Surgical History Gastric bypass status for obesity H/O vein stripping History of total left knee replacement (TKR) Hx of cholecystectomy Hx of shoulder surgery Family History Family History Daughter Breast cancer Social History Social History Housing: House Alcohol intake: current Patient Tobacco Use Status: Never used Tobacco Advance Directives: No Current occupational status: retired Physical Exam Vital Signs: Vital Signs: Last Vital Signs Temp 98.0 F 08/24/21 02:06 Pulse 115 H 08/24/21 02:06 BP 154/104 H 08/24/21 02:06 Pulse Ox 96 08/24/21 02:06 O2 Del Method 08/24/21 02:06 BMI result Body Mass Index 40.7 Appearance: Alert. Oriented X3. No acute distress. Eyes: Pupils equal, round and reactive to light. ENT: Pharynx normal. contusion to posterior occiput Neck: Normal inspection. Neck supple. CVS: tachycardic and irregular heart rate and rhythm. Pulses normal. Respiratory: No respiratory distress. Breath sounds slightly diminished, no chest wall pain Abdomen: Soft and nontender. Obese Skin: Skin warm and dry. Normal skin color. Normal skin turgor. Extremities: No lower extremity edema. L knee tense around knee with large joint effusion and ecchymosis - distal NV intact bounding DP/PT pulse and SILT intact can wiggle toes without issue Neuro: Oriented X 3. No motor deficit. No sensory deficit. Course Course Course Narrative: ddimer elevated new onset afib - CTA ordered dilt gtt ordered still in afib post IV bolus of dilt still increasing dilt gtt repeat pain medications after xrays repeat compartment checks - can wiggle toes, no pain with passive movement of toes, foot warm to touch, SILT intact, 2+ DP pulse hospitalist notified 5am of admission MDM - Fall MDM Narrative Medical decision making narrative: 71 yo female with hx of obesity, COPD, thyroid cancer, HTN, arthritis who was drinking ETOH tonight had a fall - at this time will need CT head, labs, EKG for suspected afib, ddimer, L knee xray - she is NV intact no signs of compartment syndrome at this time. Likely admit. Lab Data Result diagrams: 08/24/21 02:30 08/24/21 02:30 Labs: Lab Results 08/24/21 08/24/21 08/24/21 Range/Units 02:30 02:30 02:30 WBC 13.2 H (4.8-10.8) X10*3/uL RBC 4.32 (4.20-5.50) X10*6/uL Hgb 12.8 (12.0-16.0) g/dl Hct 40.1 (37.0-47.0) % MCV 92.8 (80.0-98.0) fL MCH 29.6 (27.0-33.0) pg MCHC 31.9 (31.0-35.0) g/dl RDW 14.2 (11.0-16.0) % Plt Count 267 (160-400) X10*3/uL MPV 10.1 (9.4-12.3) fL Immature Gran % (Auto) 1.0 H (0.0-0.4) % Neut % (Auto) 78.5 H (45-73) % Lymph % (Auto) 11.7 L (20-40) % [place] % (Auto) 6.9 (2-11) % Eos % (Auto) 1.4 (0-4) % Baso % (Auto) 0.5 (0-2) % Lymph # (Auto) 1.6 (1.2-4.9) X10*3/uL [place] # (Auto) 0.9 (0.1-1.2) X10*3/uL Eos # (Auto) 0.2 (0.0-0.4) X10*3/uL Baso # (Auto) 0.1 (0.0-0.2) X10*3/uL Abs Immat Gran (auto) 0.13 H (0.00-0.03) X10*3/uL Absolute Neuts (auto) 10.4 H (2.0-8.3) x10*3/uL Absolute Nucleated RBC 0.000 (0.0-0.012) X10*3/uL Nucleated RBC % (auto) 0.0 (0.0-0.2) /100WBC PT 10.6 (9.9-13.0) SEC INR 0.9 (0.9-1.1) APTT 33.5 (24.1-38.0) SEC D-Dimer High Sensitivty 943 NG/ML Sodium 144 (135-145) mmol/L Potassium 4.2 (3.3-5.1) mmol/L Chloride 109 H (96-108) mmol/L Carbon Dioxide 25 (22-29) mmol/L Anion Gap 14 (12-20) BUN 16 (9-16) mg/dL Creatinine 0.74 (0.5-1.4) mg/dL Estim Creat Clear Calc 80.5 Estimated GFR > 60 Random Glucose 101 (60-115) mg/dL Calcium 8.6 (8.4-10.2) mg/dL Magnesium 2.0 (1.6-2.6) mg/dL Total Bilirubin < 0.2 (0.0-1.0) mg/dL Direct Bilirubin < 0.2 (0.0-0.5) mg/dL AST 27 (5-31) U/L ALT 15 (0-31) U/L Alkaline Phosphatase 106 (39-117) U/L Total Creatine Kinase 138 (26-140) U/L Troponin I High Sens (<3.5-17.0) ng/L Total Protein 6.7 (6.5-8.0) g/dL Albumin 4.1 (3.5-5.0) g/dL Urine Color Urine Appearance Urine pH (5.0-8.0) Ur Specific [place] (1.005-1.025) Urine Protein (NEG-TRACE) MG/DL Urine Glucose (UA) (NEG) MG/DL Urine Ketones (NEG) MG/DL Urine Blood (NEG) Urine Nitrite (NEG) Ur Leukocyte Esterase (NEG) Urine RBC (0) /HPF Urine WBC (0-4) /HPF Ur Squamous Epith Cells /LPF Urine Bacteria /LPF Urine Mucus /LPF Urine Trichomonas Urine Yeast /HPF Ethyl Alcohol mg/dL COVID-19 (THIERNO) (Negative) COVID-19 Clin Com 08/24/21 08/24/21 08/24/21 Range/Units 02:30 02:30 02:30 WBC (4.8-10.8) X10*3/uL RBC (4.20-5.50) X10*6/uL Hgb (12.0-16.0) g/dl Hct (37.0-47.0) % MCV (80.0-98.0) fL MCH (27.0-33.0) pg MCHC (31.0-35.0) g/dl RDW (11.0-16.0) % Plt Count (160-400) X10*3/uL MPV (9.4-12.3) fL Immature Gran % (Auto) (0.0-0.4) % Neut % (Auto) (45-73) % Lymph % (Auto) (20-40) % [place] % (Auto) (2-11) % Eos % (Auto) (0-4) % Baso % (Auto) (0-2) % Lymph # (Auto) (1.2-4.9) X10*3/uL [place] # (Auto) (0.1-1.2) X10*3/uL Eos # (Auto) (0.0-0.4) X10*3/uL Baso # (Auto) (0.0-0.2) X10*3/uL Abs Immat Gran (auto) (0.00-0.03) X10*3/uL Absolute Neuts (auto) (2.0-8.3) x10*3/uL Absolute Nucleated RBC (0.0-0.012) X10*3/uL Nucleated RBC % (auto) (0.0-0.2) /100WBC PT (9.9-13.0) SEC INR (0.9-1.1) APTT (24.1-38.0) SEC D-Dimer High Sensitivty NG/ML Sodium (135-145) mmol/L Potassium (3.3-5.1) mmol/L Chloride (96-108) mmol/L Carbon Dioxide (22-29) mmol/L Anion Gap (12-20) BUN (9-16) mg/dL Creatinine (0.5-1.4) mg/dL Estim Creat Clear Calc Estimated GFR Random Glucose (60-115) mg/dL Calcium (8.4-10.2) mg/dL Magnesium (1.6-2.6) mg/dL Total Bilirubin (0.0-1.0) mg/dL Direct Bilirubin (0.0-0.5) mg/dL AST (5-31) U/L ALT (0-31) U/L Alkaline Phosphatase (39-117) U/L Total Creatine Kinase (26-140) U/L Troponin I High Sens 3.8 (<3.5-17.0) ng/L Total Protein (6.5-8.0) g/dL Albumin (3.5-5.0) g/dL Urine Color Urine Appearance Urine pH (5.0-8.0) Ur Specific [place] (1.005-1.025) Urine Protein (NEG-TRACE) MG/DL Urine Glucose (UA) (NEG) MG/DL Urine Ketones (NEG) MG/DL Urine Blood (NEG) Urine Nitrite (NEG) Ur Leukocyte Esterase (NEG) Urine RBC (0) /HPF Urine WBC (0-4) /HPF Ur Squamous Epith Cells /LPF Urine Bacteria /LPF Urine Mucus /LPF Urine Trichomonas Urine Yeast /HPF Ethyl Alcohol 191 mg/dL COVID-19 (THIERNO) Negative (Negative) COVID-19 Clin Com See Note 08/24/21 Range/Units 04:14 WBC (4.8-10.8) X10*3/uL RBC (4.20-5.50) X10*6/uL Hgb (12.0-16.0) g/dl Hct (37.0-47.0) % MCV (80.0-98.0) fL MCH (27.0-33.0) pg MCHC (31.0-35.0) g/dl RDW (11.0-16.0) % Plt Count (160-400) X10*3/uL MPV (9.4-12.3) fL Immature Gran % (Auto) (0.0-0.4) % Neut % (Auto) (45-73) % Lymph % (Auto) (20-40) % [place] % (Auto) (2-11) % Eos % (Auto) (0-4) % Baso % (Auto) (0-2) % Lymph # (Auto) (1.2-4.9) X10*3/uL [place] # (Auto) (0.1-1.2) X10*3/uL Eos # (Auto) (0.0-0.4) X10*3/uL Baso # (Auto) (0.0-0.2) X10*3/uL Abs Immat Gran (auto) (0.00-0.03) X10*3/uL Absolute Neuts (auto) (2.0-8.3) x10*3/uL Absolute Nucleated RBC (0.0-0.012) X10*3/uL Nucleated RBC % (auto) (0.0-0.2) /100WBC PT (9.9-13.0) SEC INR (0.9-1.1) APTT (24.1-38.0) SEC D-Dimer High Sensitivty NG/ML Sodium (135-145) mmol/L Potassium (3.3-5.1) mmol/L Chloride (96-108) mmol/L Carbon Dioxide (22-29) mmol/L Anion Gap (12-20) BUN (9-16) mg/dL Creatinine (0.5-1.4) mg/dL Estim Creat Clear Calc Estimated GFR Random Glucose (60-115) mg/dL Calcium (8.4-10.2) mg/dL Magnesium (1.6-2.6) mg/dL Total Bilirubin (0.0-1.0) mg/dL Direct Bilirubin (0.0-0.5) mg/dL AST (5-31) U/L ALT (0-31) U/L Alkaline Phosphatase (39-117) U/L Total Creatine Kinase (26-140) U/L Troponin I High Sens (<3.5-17.0) ng/L Total Protein (6.5-8.0) g/dL Albumin (3.5-5.0) g/dL Urine Color YELLOW Urine Appearance HAZY Urine pH 5.0 (5.0-8.0) Ur Specific [place] 1.025 (1.005-1.025) Urine Protein NEG (NEG-TRACE) MG/DL Urine Glucose (UA) NEG (NEG) MG/DL Urine Ketones NEG (NEG) MG/DL Urine Blood TRACE (NEG) Urine Nitrite NEG (NEG) Ur Leukocyte Esterase NEG (NEG) Urine RBC 0 (0) /HPF Urine WBC 0-2 (0-4) /HPF Ur Squamous Epith Cells TRACE /LPF Urine Bacteria 4+ /LPF Urine Mucus TRACE /LPF Urine Trichomonas Urine Yeast 2+ /HPF Ethyl Alcohol mg/dL COVID-19 ([facility]IERNO) (Negative) COVID-19 Clin Com ECG Data Attestation: I personally reviewed and interpreted this ECG as follows: ECG interpretation date: 08/24/21 ECG interpretation time: 02:56 Interpretation: Rate: 136 Rhythm: afib with RVR [place]: normal . Normal QRS complex. ST T wave : no FREEDOM< nonspecific qTC: normal prior studies: changed from prior The study has been interpreted contemporaneously by me. . Critical Care Time Critical Care Time Critical Care Time: Yes Total Critical Care Time: 45 Attestation: dilt bolus, dilt gtt, CT scans I attest to this time spent taking care of the patient Discharge Plan Discharge Clinical Impression: Atrial fibrillation with rapid ventricular response, Contusion of scalp Contusion of knee, left Qualifiers: Encounter type: initial encounter Qualified Code(s): S80.02XA - Contusion of left knee, initial encounter Alcohol intoxication Qualifiers: Complication of substance-induced condition: uncomplicated Qualified Code(s): F10.920 - Alcohol use, unspecified with intoxication, uncomplicated Patient Disposition: Admitted As Inpatient
[2021-08-24 03:01] LABS: Ethanol 191 mg/dL
[2021-08-24 03:02] LABS: INTERNATIONAL NORM RATIO 0.9 (0.9-1.1); Prothrombin Time 10.6 SEC (9.9-13.0)
[2021-08-24] MEDS: dilTIAZem HCL 50 MG/10 ML VIAL 10 MG IVPUSH (03:02)
[2021-08-24 03:05] LABS: D Dimer High Sensitivity 943 NG/ML; Partial Thromboplastin Time 33.5 SEC (24.1-38.0)
[2021-08-24 03:06] LABS: Alanine Aminotransferase 15 U/L (0-31); Albumin Level 4.1 g/dL (3.5-5.0); Alkaline Phosphatase 106 U/L (39-117); Anion Gap 14 (12-20); Aspartate Amino Transferase 27 U/L (5-31); Bilirubin Direct < 0.2 mg/dL (0.0-0.5); Bilirubin Total < 0.2 mg/dL (0.0-1.0); Blood Urea Nitrogen 16 mg/dL (9-16); Calcium 8.6 mg/dL (8.4-10.2); Carbon Dioxide 25 mmol/L (22-29); Chloride 109 mmol/L (96-108); Creatinine Clr Calc Pharmacy 80.5; Estimated Glomerular Filt Rate > 60; Glucose Random 101 mg/dL (60-115); Potassium 4.2 mmol/L (3.3-5.1); Sodium 144 mmol/L (135-145); Total Protein 6.7 g/dL (6.5-8.0)
[2021-08-24 03:09] LABS: COVID-19 Test Negative (Negative); Troponin-I High Sensitivity 3.8 ng/L (<3.5-17.0)
[2021-08-24] MEDS: iohexoL 350 MG/ML 100 ML INFUS..BTL IV (03:49)
[2021-08-24 04:19] LABS: Appearance Urine HAZY; Color Urine YELLOW; Glucose Urine UA NEG (NEG); Leukocyte Esterase Urine NEG (NEG); Nitrite Urine NEG (NEG); Specific Gravity - Urine 1.025 (1.005-1.025); UACC Culture Trigger NO; Urine Blood TRACE (NEG); Urine Ketones NEG (NEG); Urine Protein NEG (NEG-TRACE)
[2021-08-24] MEDS: dilTIAZem HCL 125 MG in 0.9 % Sodium Chloride 100 ML IVCONT (04:19)
[2021-08-24 04:26] LABS: Bacteria Urine 4+ /LPF; Mucus Urine TRACE /LPF; RBC Urine 0 /HPF (0); Squamous Epithelial Cell Urine TRACE /LPF; WBC Urine 0-2 /HPF (0-4)
--- NOTE | 2021-08-24 07:48 | PC.NURSE ---
patient alert A/O X4 . pupils equal and reactive . lungs clear . skin warm pink and dry .heart beat irregular , AFFib on monitor at 116-120 . Heamatoma noted on back of head from fall , rbady wrap on left knee . scans negative . positive bowel sounds . patient up to bathroom one assist . patient aware plan of care .
--- NOTE | 2021-08-24 07:55 | PC.NURSE ---
patient at rest heart rate on monitor AFFIB 113-150. patient asymptomatic . aware .
--- NOTE | 2021-08-24 08:28 | P.HPHOSP_ITS ---
History of Present Illness Date of Service: 08/24/21 Chief Complaint: Fall 71-year-old woman presented to the ER after a fall. She reports that she was walking out of her rooms and slipped and fell. She fell on both of her knees and may have hit her head but she denies losing consciousness. She was able to open her door and scream at her digital voice/assistant clinical nurse manager device to call an ambulance which was done. She reported that she had drank some alcohol last night but only had about 2 drinks of vodka mixed with cream liquor. She reports that she drinks occasionally on the weekends but not a heavy drinker. She denied chest pain, shortness breath, nausea, vomiting, diarrhea, recent travel, sick contacts, recent illness. In the ER she was found to be in atrial fibrillation with rapid ventricular response in the 130s. , CT showed no acute abnormality but showed question of a meningioma, knee x-ray was negative for any acute fracture dislocation, chest CT was negative for PE. Blood pressures remain stable, she has not been hypoxic. she was given IV Cardizem along with Zofran, Dilaudid in the ER. She will be admitted for further management treatment of acute atrial fibrillation with rapid ventricular response. Review of Systems Review of Systems: Denies any recent fever chills or decrease in appetite respiratory denies any shortness of breath coverage production cardiovascular Denies chest pain gastrointestinal denies any dysphagia abdominal pain nausea vomiting or diarrhea genitourinary denies any dysuria frequency or hematuria musculoskeletal bilateral knee swelling and pain neuropsych denies any weakness or seizures all other systems reviewed are negative [facility] Medical History COPD (chronic obstructive pulmonary disease) Essential hypertension Generalized anxiety disorder Gout History of thyroid cancer Left humeral fracture JUAREZ on CPAP Osteoporosis Pernicious anemia Family History Daughter Breast cancer Pertinent family history: brother had a pacemaker Surgical History Gastric bypass status for obesity H/O vein stripping History of total left knee replacement (TKR) Hx of cholecystectomy Hx of shoulder surgery Social History Housing: House Alcohol intake: current Alcohol intake frequency: a few times a week Alcohol type: hard liquor Patient Tobacco Use Status: Never used Tobacco Advance Directives: No Current occupational status: retired Meds Allergies Allergy/AdvReac Type Severity Reaction Status Date / Time No Known Allergies Allergy Verified 07/24/21 08:20 Active Medications: Current Medications Diltiazem HCl 125 mg/ Sodium (Chloride) 125 mls @ 0 mls/hr IVCONT .Q0M BRYAN; Protocol Last Titration: 08/24/21 05:33 Dose: 20 mg/hr, 20 mls/hr Pharmacy Consult (Consult Rx Perform Med Rec) 1 each MISCELLANE ONCE PRN PRN Reason: Consult order Home Medications Medication Instructions Recorded Confirmed Last Taken Type albuterol sulfate 90 mcg/actuation 2 puff inhalation Q4H PRN 08/24/21 08/24/21 Unknown History aerosol inhaler Shortness Of Breath allopurinol 100 mg tablet 2 tab PO BID 08/24/21 08/24/21 Unknown History amlodipine 2.5 mg tablet 1 tab PO DAILY 08/24/21 08/24/21 Unknown History ammonium lactate 12 % topical cream 1 applic topical BID 08/24/21 08/24/21 Unknown History budesonide-formoterol HFA 160 2 puff inhalation BID 08/24/21 08/24/21 Unknown History mcg-4.5 mcg/actuation aerosol inhaler (Symbicort) celecoxib 200 mg capsule 1 cap PO DAILY 08/24/21 08/24/21 Unknown History clonazepam 0.5 mg tablet 1 tab PO DAILY PRN anxiety 08/24/21 08/24/21 Unknown History clotrimazole-betamethasone 1 1 appl topical BID 08/24/21 08/24/21 Unknown History %-0.05 % topical cream ergocalciferol (vitamin D2) 1,250 1 cap PO QWEEK 08/24/21 08/24/21 Unknown History mcg (50,000 unit) capsule escitalopram oxalate 10 mg tablet 1 tab PO DAILY 08/24/21 08/24/21 Unknown Hist ory levothyroxine 137 mcg tablet 1 tab PO DAILY 08/24/21 08/24/21 Unknown History (Levoxyl) losartan 100 mg tablet 1 tab PO DAILY 08/24/21 08/24/21 Unknown History montelukast 10 mg tablet 10 mg PO BEDTIME 08/24/21 08/24/21 Unknown History naproxen 500 mg tablet 1 tab PO BID 08/24/21 08/24/21 Unknown History quetiapine 25 mg tablet 1 - 2 tab PO BEDTIME PRN insomnia 08/24/21 08/24/21 Unknown History umeclidinium 62.5 mcg/actuation 1 puff inhalation DAILY 08/24/21 08/24/21 Unknow n History blister powder for inhalation (Incruse Ellipta) Physical Exam Vital Signs and Narrative: Vital Signs: Last Vital Signs Temp 98.0 F 08/24/21 07:07 Pulse 97 08/24/21 07:07 Resp 12 08/24/21 07:07 BP 153/60 H 08/24/21 07:07 Pulse Ox 100 08/24/21 07:07 O2 Del Method 08/24/21 07:07 O2 Flow Rate 2 08/24/21 07:07 BMI result Body Mass Index 40.7 Appearing in no acute distress head is normocephalic atraumatic eyes pupils are PERRLA sclera is anicteric mouth throat mucous membranes are intact and moist neck is supple no lymphadenopathy, no JVD noted lung sounds are clear to auscultation Heart rate irregularly irregular positive bowel sounds, abdomen is soft, nontender neuro patient is alert x3, no focal deficits Bilateral knee swelling with bruising Results Labs CBC and Chem 7: 08/24/21 02:30 08/24/21 02:30 Labs: Laboratory Results - last 24 hr 08/24/21 08/24/21 08/24/21 02:30 02:30 02:30 MCV 92.8 MCH 29.6 MCHC 31.9 RDW 14.2 Plt Count 267 MPV 10.1 Immature Gran % (Auto) 1.0 H Neut % (Auto) 78.5 H Lymph % (Auto) 11.7 L Green % (Auto) 6.9 Eos % (Auto) 1.4 Baso % (Auto) 0.5 Lymph # (Auto) 1.6 Green # (Auto) 0.9 Eos # (Auto) 0.2 Baso # (Auto) 0.1 Abs Immat Gran (auto) 0.13 H Absolute Neuts (auto) 10.4 H Absolute Nucleated RBC 0.000 Nucleated RBC % (auto) 0.0 PT 10.6 INR 0.9 APTT 33.5 D-Dimer High Sensitivty 943 Anion Gap 14 Estim Creat Clear Calc 80.5 Estimated GFR > 60 Random Glucose 101 Calcium 8.6 Magnesium 2.0 Total Bilirubin < 0.2 Direct Bilirubin < 0.2 AST 27 ALT 15 Alkaline Phosphatase 106 Total Creatine Kinase 138 Troponin I High Sens Total Protein 6.7 Albumin 4.1 Urine Color Urine Appearance Urine pH Ur Specific [place] Urine Protein Urine Glucose (UA) Urine Ketones Urine Blood Urine Nitrite Ur Leukocyte Esterase Urine RBC Urine WBC Ur Squamous Epith Cells Urine Bacteria Urine Mucus Urine Trichomonas Urine Yeast Ethyl Alcohol COVID-19 ([facility]) COVID-19 Clin Com 08/24/21 08/24/21 08/24/21 02:30 02:30 02:30 MCV MCH MCHC RDW Plt Count MPV Immature Gran % (Auto) Neut % (Auto) Lymph % (Auto) Green % (Auto) Eos % (Auto) Baso % (Auto) Lymph # (Auto) Green # (Auto) Eos # (Auto) Baso # (Auto) Abs Immat Gran (auto) Absolute Neuts (auto) Absolute Nucleated RBC Nucleated RBC % (auto) PT INR APTT D-Dimer High Sensitivty Anion Gap Estim Creat Clear Calc Estimated GFR Random Glucose Calcium Magnesium Total Bilirubin Direct Bilirubin AST ALT Alkaline Phosphatase Total Creatine Kinase Troponin I High Sens 3.8 Total Protein Albumin Urine Color Urine Appearance Urine pH Ur Specific [place] Urine Protein Urine Glucose (UA) Urine Ketones Urine Blood Urine Nitrite Ur Leukocyte Esterase Urine RBC Urine WBC Ur Squamous Epith Cells Urine Bacteria Urine Mucus Urine Trichomonas Urine Yeast Ethyl Alcohol 191 COVID-19 ([facility]) Negative COVID-19 Clin Com See Note 08/24/21 04:14 MCV MCH MCHC RDW Plt Count MPV Immature Gran % (Auto) Neut % (Auto) Lymph % (Auto) Green % (Auto) Eos % (Auto) Baso % (Auto) Lymph # (Auto) Green # (Auto) Eos # (Auto) Baso # (Auto) Abs Immat Gran (auto) Absolute Neuts (auto) Absolute Nucleated RBC Nucleated RBC % (auto) PT INR APTT D-Dimer High Sensitivty Anion Gap Estim Creat Clear Calc Estimated GFR Random Glucose Calcium Magnesium Total Bilirubin Direct Bilirubin AST ALT Alkaline Phosphatase Total Creatine Kinase Troponin I High Sens Total Protein Albumin Urine Color YELLOW Urine Appearance HAZY Urine pH 5.0 Ur Specific [place] 1.025 Urine Protein NEG Urine Glucose (UA) NEG Urine Ketones NEG Urine Blood TRACE Urine Nitrite NEG Ur Leukocyte Esterase NEG Urine RBC 0 Urine WBC 0-2 Ur Squamous Epith Cells TRACE Urine Bacteria 4+ Urine Mucus TRACE Urine Trichomonas Urine Yeast 2+ Ethyl Alcohol COVID-19 ([facility]) COVID-19 Clin Com Imaging Radiologist's Impressions: Impressions Cervical Spine CT 08/24/21 03:45 IMPRESSION: CT head: *No definitive acute intracranial abnormalities. *1.5 cm extra-axial tumor contiguous with the inferior margin of the left tentorium. This finding is suspicious for a meningioma with areas of psammomatous calcification. As clinically indicated, this finding may be further evaluated with unenhanced and IV contrast enhanced MRI. No edema in the adjacent brain parenchyma. *Acute multifocal extracranial soft tissue inflammatory changes. CT cervical spine: *No acute abnormalities. *Multilevel chronic spondylosis. *Status post thyroidectomy. *Moderate bilateral carotid bulb calcific atherosclerosis. Chest CTA 08/24/21 03:45 IMPRESSION: *CT pulmonary angiogram negative for pulmonary emboli. *No acute cardiopulmonary abnormalities. VTE: negative Head CT 08/24/21 03:45 IMPRESSION: CT head: *No definitive acute intracranial abnormalities. *1.5 cm extra-axial tumor contiguous with the inferior margin of the left tentorium. This finding is suspicious for a meningioma with areas of psammomatous calcification. As clinically indicated, this finding may be further evaluated with unenhanced and IV contrast enhanced MRI. No edema in the adjacent brain parenchyma. *Acute multifocal extracranial soft tissue inflammatory changes. CT cervical spine: *No acute abnormalities. *Multilevel chronic spondylosis. *Status post thyroidectomy. *Moderate bilateral carotid bulb calcific atherosclerosis. Knee X-Ray 08/24/21 03:55 IMPRESSION: *No acute fractures. *Prepatellar soft tissue inflammatory changes. *Status post total knee arthroplasty. Assessment and Plan (1) Atrial fibrillation with rapid ventricular response: Status: Acute Plan 71-year-old woman admitted with atrial fibrillation with rapid ventricular resp onse likely secondary to alcohol use and fall with no traumatic injury Atrial fibrillation with rapid ventricular response Possibly related to alcohol use Check TSH, BNP, magnesium Started on Eliquis Metoprolol 25 mg every 6 hours along with digoxin load x3 doses Cardiology following Echocardiogram Fall No traumatic injury other than bruising Physical therapy consultation Alcohol abuse Patient denies heavy alcohol use Discussed the importance of alcohol cessation Care team consult Hypertension Continue home medications Asthma/copd No exacerbation Continue home medications Mental health continue home medications DVT prophylaxis with Shy Full code Attending Arpita Patient likely requires 2 midnights in the hospital for treatment of acute atrial fibrillation with rapid ventricular response, necessitating medication adjustment and additions. She also needs physical therapy consultation after a fall with care team consultation for alcohol use. Quality Stroke Does the patient have a stroke diagnosis?: No VTE Prior VTE?: No VTE Risk Level:: Medical - moderate - high VTE Device Contraindication: Treatment Not Indicated VTE Drug Contraindication: N/A - Med Ordered
--- NOTE | 2021-08-24 08:32 | PHA.MEDREC ---
Pharmacy Consult ? Medication Reconciliation Pharmacy has completed the medication reconciliation. Reviewed med rec done by Carlos Aranda
[2021-08-24] MEDS: Apixaban 5 MG TABLET PO ×2 (09:43→21:51)
[2021-08-24] MEDS: Acetaminophen 325 MG TABLET 650 MG PO ×2 (09:43→16:25)
--- NOTE | 2021-08-24 09:43 | PC.NURSE ---
patient remains in AFFib on monitor in a rate of 124-145 . patient is asymptomatic . aware .
--- NOTE | 2021-08-24 10:14 | PC.NURSE ---
dr. beasley (cardioloist) at bedside pt aware of plan of care.
--- NOTE | 2021-08-24 10:36 | PM.CNCAR ---
History of Present Illness History of Present Illness Date of Service: 08/24/21 Requesting physician: Kya Santiago Consult reason: atrial fibrillation Chief complaint: AFIB RVR Narrative: I was consulted to see Marjorie in cardiology consultation today for new onset atrial fibrillation. She is 71-year-old woman who yesterday tripped and fell down at her home and had knee discomfort as well as had a lump on her head. She therefore decided to come to the emergency room. In the emergency room she was noted to be in atrial fibrillation rapid ventricular response. She was not at all aware that she was having fast heart rate. She was started on Cardizem drip and currently on maximal Cardizem drip at 15 mg an hour. However since mentioning to her she is not feeling rapid heart rate. But had not notice this at home. She said she had visited urgent care 2 weeks ago for ear infection at that time was told that everything was okay and there were no issues with the heart. She has longstanding history of hypertension, sleep apnea, obesity. He has no other cardiac history of congestive heart failure, coronary artery disease, myocardial infarction, stroke, diabetes. Review of Systems Constitutional: Constitutional: Reports no additional constitutional complaints Eyes: Eyes: Reports no additional eye complaints Cardiovascular: Cardiovascular: Denies chest pain, Reports rapid heart rate, Denies leg edema, Denies lightheadedness, Denies Loss of Consciousness and Denies dyspnea Respiratory: Respiratory: Reports no additional respiratory complaints and Denies dyspnea Gastrointestinal: Gastrointestinal: Reports no additional gastrointestinal complaints Genitourinary: Genitourinary: Reports no additional female genitourinary complaints Musculoskeletal: Musculoskeletal: Reports no additional musculoskeletal complaints Integumentary/Breasts: Skin/Breast: Reports system reviewed and no additional complaints, except as docu Neurologic: Reports system reviewed and no additional complaints, except as documented Psychiatric: Psychiatric: Reports no additional psychiatric complaints Endocrine: Endocrine: Reports no additional endocrine complaints Hematologic/Lymphatic: Hematologic/Lymphatic: Reports no additional hematologic/lymphatic complaints Allergic/Immunologic: Allergic/Immunologic: Reports no additional allergic/immunologic complaints PMFSH Past Medical History Medical History COPD (chronic obstructive pulmonary disease) Essential hypertension Generalized anxiety disorder Gout History of thyroid cancer Left humeral fracture JUAREZ on CPAP Osteoporosis Pernicious anemia Family History Family History Daughter Breast cancer Surgical History Surgical History Gastric bypass status for obesity H/O vein stripping History of total left knee replacement (TKR) Hx of cholecystectomy Hx of shoulder surgery Social History Social History Housing: House Alcohol intake: current Alcohol intake frequency: a few times a week Alcohol type: hard liquor Patient Tobacco Use Status: Never used Tobacco Advance Directives: No Current occupational status: retired Meds Allergies Allergy/AdvReac Type Severity Reaction Status Date / Time No Known Allergies Allergy Verified 07/24/21 08:20 Active Medications: Current Medications Acetaminophen (Acetaminophen 325 Mg Tablet) 650 mg PO Q6H PRN PRN Reason: Pain, Mild (Pain Scale 1-3) Last Admin: 08/24/21 09:43 Dose: 650 mg Apixaban (Apixaban 5 Mg Tablet) 5 mg PO BID [facility] Last Admin: 08/24/21 09:43 Dose: 5 mg Diltiazem HCl 125 mg/ Sodium (Chloride) 125 mls @ 0 mls/hr IVCONT .Q0M [facility]; Protocol Last Titration: 08/24/21 05:33 Dose: 20 mg/hr, 20 mls/hr Ondansetron HCl (Ondansetron Hcl 4 Mg/2 Ml Vial) 4 mg IVPUSH Q8H PRN PRN Reason: Nausea and Vomiting Oxycodone HCl (Oxycodone Hcl Immed Release 5 Mg Tablet) 5 mg PO Q4H PRN PRN Reason: Pain, Mild (Pain Scale 1-3) Pharmacy Consult (Consult Rx Perform Med Rec) 1 each MISCELLANE ONCE PRN PRN Reason: Consult order Sodium Chloride (0.9 % Sodium Chloride Flush 3 Ml Syringe) [facility] Medications Medication Instructions Recorded Confirmed Last Taken Type albuterol sulfate 90 mcg/actuation 2 puff inhalation Q4H PRN 08/24/21 08/24/21 Unknown History aerosol inhaler Shortness Of Breath allopurinol 100 mg tablet 2 tab PO BID 08/24/21 08/24/21 Unknown History amlodipine 2.5 mg tablet 1 tab PO DAILY 08/24/21 08/24/21 Unknown History ammonium lactate 12 % topical cream 1 applic topical BID 08/24/21 08/24/21 Unknown History budesonide-formoterol HFA 160 2 puff inhalation BID 08/24/21 08/24/21 Unknown History mcg-4.5 mcg/actuation aerosol inhaler (Symbicort) celecoxib 200 mg capsule 1 cap PO DAILY 08/24/21 08/24/21 Unknown History clonazepam 0.5 mg tablet 1 tab PO DAILY PRN anxiety 08/24/21 08/24/21 Unknown History clotrimazole-betamethasone 1 1 appl topical BID 08/24/21 08/24/21 Unknown History %-0.05 % topical cream ergocalciferol (vitamin D2) 1,250 1 cap PO QWEEK 08/24/21 08/24/21 Unknown History mcg (50,000 unit) capsule escitalopram oxalate 10 mg tablet 1 tab PO DAILY 08/24/21 08/24/21 Unknown History levothyroxine 137 mcg tablet 1 tab PO DAILY 08/24/21 08/24/21 Unknown History (Levoxyl) losartan 100 mg tablet 1 tab PO DAILY 08/24/21 08/24/21 Unknown History montelukast 10 mg tablet 10 mg PO BEDTIME 08/24/21 08/24/21 Unknown History naproxen 500 mg tablet 1 tab PO BID 08/24/21 08/24/21 Unknown History quetiapine 25 mg tablet 1 - 2 tab PO BEDTIME PRN insomnia 08/24/21 08/24/21 Unknown History umeclidinium 62.5 mcg/actuation 1 puff inhalation DAILY 08/24/21 08/24/21 Unknown History blister powder for inhalation (Incruse Ellipta) Physical Exam Vital Signs: Vital Signs: Last Vital Signs Temp 98.0 F 08/24/21 09:45 Pulse 125 H 08/24/21 09:45 Resp 18 08/24/21 09:45 BP 147/31 H 08/24/21 09:45 Pulse Ox 98 08/24/21 09:45 O2 Del Method 08/24/21 09:45 O2 Flow Rate 2 08/24/21 07:07 BMI result Body Mass Index 40.7 Const: General: cooperative, comfortable, no acute distress, alert, awake and anxious Nutritional Appearance: obese Orientation/consciousness: patient oriented x3 Limitations: no limitations HEENT: Head: Yes normocephalic and Yes atraumatic Neck: Neck: Yes trachea midline, Yes supple and Yes no JVD Chest: Chest palpation & inspection: normal inspection of the chest Resp: Effort & Inspection: normal respiratory effort Auscultation: clear to auscultation bilaterally Cardio: Jugular venous distension: no JVD Rate: tachycardic Rhythm: abnormal rhythm irregularly irregular Heart sounds: S1 normal heart sound present, S2 normal heart sound present, no click, no gallops, no murmurs and no rubs GI: Inspection: Yes obesity Auscultation: normal bowel sounds Skin: General skin exam: no rashes or lesions noted Neuro: General: patient oriented x3 and no focal motor deficits Extrem: General: Yes no clubbing, cyanosis or edema Objective Labs and Meds Result diagrams: 08/24/21 02:30 08/24/21 02:30 Lab results: Laboratory Results - last 24 hr 08/24/21 08/24/21 08/24/21 02:30 02:30 02:30 WBC 13.2 H RBC 4.32 Hgb 12.8 Hct 40.1 MCV 92.8 MCH 29.6 MCHC 31.9 RDW 14.2 Plt Count 267 MPV 10.1 Immature Gran % (Auto) 1.0 H Neut % (Auto) 78.5 H Lymph % (Auto) 11.7 L Lawrence % (Auto) 6.9 Eos % (Auto) 1.4 Baso % (Auto) 0.5 Lymph # (Auto) 1.6 Lawrence # (Auto) 0.9 Eos # (Auto) 0.2 Baso # (Auto) 0.1 Abs Immat Gran (auto) 0.13 H Absolute Neuts (auto) 10.4 H Absolute Nucleated RBC 0.000 Nucleated RBC % (auto) 0.0 PT 10.6 INR 0.9 APTT 33.5 D-Dimer High Sensitivty 943 Sodium 144 Potassium 4.2 Chloride 109 H Carbon Dioxide 25 Anion Gap 14 BUN 16 Creatinine 0.74 Estim Creat Clear Calc 80.5 Estimated GFR > 60 Random Glucose 101 Calcium 8.6 Magnesium 2.0 Total Bilirubin < 0.2 Direct Bilirubin < 0.2 AST 27 ALT 15 Alkaline Phosphatase 106 Total Creatine Kinase 138 Troponin I High Sens Total Protein 6.7 Albumin 4.1 Urine Color Urine Appearance Urine pH Ur Specific [place] Urine Protein Urine Glucose (UA) Urine Ketones Urine Blood Urine Nitrite Ur Leukocyte Esterase Urine RBC Urine WBC Ur Squamous Epith Cells Urine Bacteria Urine Mucus Urine Trichomonas Urine Yeast Ethyl Alcohol COVID-19 ([facility]) COVID-19 Clin Com 08/24/21 08/24/21 08/24/21 02:30 02:30 02:30 WBC RBC Hgb Hct MCV MCH MCHC RDW Plt Count MPV Immature Gran % (Auto) Neut % (Auto) Lymph % (Auto) Lawrence % (Auto) Eos % (Auto) Baso % (Auto) Lymph # (Auto) Lawrence # (Auto) Eos # (Auto) Baso # (Auto) Abs Immat Gran (auto) Absolute Neuts (auto) Absolute Nucleated RBC Nucleated RBC % (auto) PT INR APTT D-Dimer High Sensitivty Sodium Potassium Chloride Carbon Dioxide Anion Gap BUN Creatinine Estim Creat Clear Calc Estimated GFR Random Glucose Calcium Magnesium Total Bilirubin Direct Bilirubin AST ALT Alkaline Phosphatase Total Creatine Kinase Troponin I High Sens 3.8 Total Protein Albumin Urine Color Urine Appearance Urine pH Ur Specific [place] Urine Protein Urine Glucose (UA) Urine Ketones Urine Blood Urine Nitrite Ur Leukocyte Esterase Urine RBC Urine WBC Ur Squamous Epith Cells Urine Bacteria Urine Mucus Urine Trichomonas Urine Yeast Ethyl Alcohol 191 COVID-19 ([facility]IERNO) Negative COVID-19 [employer] Com See Note 08/24/21 04:14 WBC RBC Hgb Hct MCV MCH MCHC RDW Plt Count MPV Immature Gran % (Auto) Neut % (Auto) Lymph % (Auto) Lawrence % (Auto) Eos % (Auto) Baso % (Auto) Lymph # (Auto) Lawrence # (Auto) Eos # (Auto) Baso # (Auto) Abs Immat Gran (auto) Absolute Neuts (auto) Absolute Nucleated RBC Nucleated RBC % (auto) PT INR APTT D-Dimer High Sensitivty Sodium Potassium Chloride Carbon Dioxide Anion Gap BUN Creatinine Estim Creat Clear Calc Estimated GFR Random Glucose Calcium Magnesium Total Bilirubin Direct Bilirubin AST ALT Alkaline Phosphatase Total Creatine Kinase Troponin I High Sens Total Protein Albumin Urine Color YELLOW Urine Appearance HAZY Urine pH 5.0 Ur Specific [place] 1.025 Urine Protein NEG Urine Glucose (UA) NEG Urine Ketones NEG Urine Blood TRACE Urine Nitrite NEG Ur Leukocyte Esterase NEG Urine RBC 0 Urine WBC 0-2 Ur Squamous Epith Cells TRACE Urine Bacteria 4+ Urine Mucus TRACE Urine Trichomonas Urine Yeast 2+ Ethyl Alcohol COVID-19 ([facility]) COVID-19 Clin Com Imaging Radiologist's impression: Impressions Cervical Spine CT 08/24/21 03:45 IMPRESSION: CT head: *No definitive acute intracranial abnormalities. *1.5 cm extra-axial tumor contiguous with the inferior margin of the left tentorium. This finding is suspicious for a meningioma with areas of psammomatous calcification. As clinically indicated, this finding may be further evaluated with unenhanced and IV contrast enhanced MRI. No edema in the adjacent brain parenchyma. *Acute multifocal extracranial soft tissue inflammatory changes. CT cervical spine: *No acute abnormalities. *Multilevel chronic spondylosis. *Status post thyroidectomy. *Moderate bilateral carotid bulb calcific atherosclerosis. Chest CTA 08/24/21 03:45 IMPRESSION: *CT pulmonary angiogram negative for pulmonary emboli. *No acute cardiopulmonary abnormalities. VTE: negative Head CT 08/24/21 03:45 IMPRESSION: CT head: *No definitive acute intracranial abnormalities. *1.5 cm extra-axial tumor contiguous with the inferior margin of the left tentorium. This finding is suspicious for a meningioma with areas of psammomatous calcification. As clinically indicated, this finding may be further evaluated with unenhanced and IV contrast enhanced MRI. No edema in the adjacent brain parenchyma. *Acute multifocal extracranial soft tissue inflammatory changes. CT cervical spine: *No acute abnormalities. *Multilevel chronic spondylosis. *Status post thyroidectomy. *Moderate bilateral carotid bulb calcific atherosclerosis. Knee X-Ray 08/24/21 03:55 IMPRESSION: *No acute fractures. *Prepatellar soft tissue inflammatory changes. *Status post total knee arthroplasty. Assessment and Plan (1) Atrial fibrillation with rapid ventricular response: Status: Acute Atrial fibrillation with rapid ventricular response, new onset. Patient is not noticing some symptoms of fast heart rate drop presentation when she was in atrial fibrillation she did not have any symptoms. Unknown duration of atrial fibrillation this point time. Rate is been difficult control on IV Cardizem which is at maximal dose. Will start on p.o. metoprolol 25 mg q.6 hours and give digoxin loading with 0.25 mg IV push q.6 x3 doses. If rate is adequately controlled, will pursue rate control for now. Agree with starting oral anticoagulation therapy with Eliquis, CHADSVSc score of at least 3. We discussed management of atrial fibrillation in details. Will need an echocardiogram which will be done tomorrow. Based on the biatrial chamber sizes LV systolic function will proceed with further treatment options. At this point time given that she is minimally symptomatic with no signs of cardiac decompensation will pursue rate control on LEs rate control is difficult to achieve will pursue QUINTON guided cardioversion. This was discussed with the patient. She understands and agrees. Will continue to follow with you. Procedures Date of Service Date of Service: 08/24/21
[2021-08-24] MEDS: oxyCODONE HCl Immed Release 5 MG TABLET PO ×2 (10:51→21:09)
--- NOTE | 2021-08-24 11:00 | PC.NURSE ---
patient remain remains at AFFIB rythmn on monitor at 130-145 rate . patient asymptomatic . MD aware . patient aware of plan of care .
--- NOTE | 2021-08-24 12:07 | PC.NURSE ---
patient remains at a AFFIB rythmn on monitor at a rate of 128-132 . patient is asymptomatic . MD aware . patient aware of plan of care
[2021-08-24] MEDS: Digoxin 0.5 MG/2 ML AMPUL 0.125 MG IVPUSH ×2 (12:40→18:03)
[2021-08-24] MEDS: Metoprolol Tartrate 25 MG TABLET PO ×3 (12:40→21:02)
[2021-08-24 13:02] LABS: Thyroid Stimulating Hormone 1.09 uIU/mL (0.32-4.0)
--- NOTE | 2021-08-24 13:26 | PC.NURSE ---
AFFIB rythm changed no normal sinus with PVCs at 1231 EKG obtained . patient asymptomatic . vital signs 139/59 HR. 73 . provider aware . patient aware of plan of care.
[2021-08-24] MEDS: 0.9 % Sodium Chloride Flush 3 ML SYRINGE IVFLUSH (16:16)
--- NOTE | 2021-08-24 18:10 | PC.NURSE ---
patient affib on monitor hr regular at 80 . patient asymptomatic . md aware
[2021-08-24] MEDS: Montelukast Sodium 10 MG TABLET PO (21:02)
[2021-08-24] MEDS: allopurinoL 100 MG TABLET 200 MG PO (21:03)
[2021-08-25] VITALS (9 sets, daily range): BP systolic 113–164; BP diastolic 46–78; PULSE 71–87; RESP 12–18; TEMP 36.5–36.8; O2SAT 94–98; BMI 45.5
[2021-08-25] MEDS: 0.9 % Sodium Chloride Flush 3 ML SYRINGE IVFLUSH ×4 (00:56→20:56)
[2021-08-25] MEDS: Digoxin 0.5 MG/2 ML AMPUL 0.125 MG IVPUSH (00:57)
[2021-08-25] MEDS: oxyCODONE HCl Immed Release 5 MG TABLET PO ×3 (01:30→20:54)
--- NOTE | 2021-08-25 04:26 | PC.NURSE ---
Pt alert/oriented. States pain to left knee and lump to head. Noted to be NSR on tele upon first contact. Pt denies any associated sx. PRN Oxy given for pain control, asleep at this time.
[2021-08-25] MEDS: Levothyroxine Sodium 25 MCG TABLET PO (06:56)
[2021-08-25] MEDS: Levothyroxine Sodium 112 MCG TABLET PO (06:56)
[2021-08-25 07:42] LABS: MANUAL DIFF FLAG NO
[2021-08-25 07:44] LABS: Basophils Percent Auto 0.5 % (0-2); Eosinophils Absolute Auto 0.1 X10*3/uL (0.0-0.4); Eosinophils Percent Auto 1.6 % (0-4); Hematocrit 34.6 % (37.0-47.0); Hemoglobin 10.9 g/dl (12.0-16.0); Imm Gran Abs Auto 0.03 X10*3/uL (0.00-0.03); Imm Gran Pct Auto 0.4 % (0.0-0.4); Lymphocytes Absolute Auto 1.4 X10*3/uL (1.2-4.9); Lymphocytes Percent Auto 18.7 % (20-40); Mean Corpuscular HGB Conc 31.5 g/dl (31.0-35.0); Mean Corpuscular Hemoglobin 29.7 pg (27.0-33.0); Mean Corpuscular Volume 94.3 fL (80.0-98.0); Mean Platelet Volume 10.9 fL (9.4-12.3); Monocytes Absolute Auto 1.1 X10*3/uL (0.1-1.2); Monocytes Percent Auto 14.4 % (2-11); Neutrophils Absolute Auto 4.9 x10*3/uL (2.0-8.3); Neutrophils Percent Auto 64.4 % (45-73); Platelet Count 207 X10*3/uL (160-400); Red Blood Count 3.67 X10*6/uL (4.20-5.50); Red Cell Distribution Width 14.2 % (11.0-16.0); White Blood Count 7.7 X10*3/uL (4.8-10.8)
--- NOTE | 2021-08-25 07:46 | PC.NURSE ---
Patient brought over to OVERFLOW room 7 from main ER at approx 0615. Patient helped to reposition for comfort. Patient alert and oriented. Denies drinking daily, just the night she had her fall. HR 70-80, SR. Oriented to unit, bed alarm put on for safety.
[2021-08-25 08:01] LABS: Anion Gap 12 (12-20); Blood Urea Nitrogen 19 mg/dL (9-16); Calcium 8.3 mg/dL (8.4-10.2); Carbon Dioxide 27 mmol/L (22-29); Chloride 104 mmol/L (96-108); Creatinine Clr Calc Pharmacy 79.4; Estimated Glomerular Filt Rate > 60; Glucose Random 97 mg/dL (60-115); Potassium 4.4 mmol/L (3.3-5.1); Sodium 139 mmol/L (135-145)
--- NOTE | 2021-08-25 08:36 | P.CDIC_ITS ---
CDI Concurrent Query Documentation Clarification: PHYSICIAN'S DOCUMENTATION REQUEST Date of Query: 08/25/21 0836 Patient Name: Marjorie Guerrero Admit Date: 08/24/21 Dear Doctor, A review of the medical record indicates additional documentation may be needed. Please review below and update the documentation accordingly Other Clinical Notes Supporting Significance of the BMI: Risk Factors/Clinical Indicators/Treatments BMI: 40.7 5' 3 in height Cardiology notes - Obesity If possible, please provide an associated diagnosis related to the abnormal BMI, such as: For a BMI >= 40: * Overweight * Obesity * Due to excess calories * Drug induced * Due to other cause * Severe or Morbid Obesity * With alveolar hypoventilation * Without alveolar hypoventilation Or: * BMI is not significant * Other (please specify) * Unable to determine Use of terms such as suspected, likely, concern for, or probable (associated with a specific diagnosis that is being evaluated, monitored, or treated as if it exists) are acceptable and can be coded in the inpatient setting, when documented at the time of discharge. Thank you, Dara Lombardi [facility], CDIS Extension: [phone] Please use your independent medical judgment in providing your response. THIS QUERY IS PART OF THE PERMANENT MEDICAL RECORD
--- NOTE | 2021-08-25 08:36 | MHC.CDI.CONC ---
CDI Concurrent Query Documentation Clarification: PHYSICIAN'S DOCUMENTATION REQUEST Date of Query: 08/25/21 0836 Patient Name: Marjorie Guerrero Admit Date: 08/24/21 Dear Doctor, A review of the medical record indicates additional documentation may be needed. Please review below and update the documentation accordingly Other Clinical Notes Supporting Significance of the BMI: Risk Factors/Clinical Indicators/Treatments BMI: 40.7 5' 3 in height Cardiology notes - Obesity If possible, please provide an associated diagnosis related to the abnormal BMI, such as: For a BMI >= 40: Overweight Obesity Due to excess calories Drug induced Due to other cause Severe or Morbid Obesity With alveolar hypoventilation Without alveolar hypoventilation Or: BMI is not significant Other (please specify) Unable to determine Use of terms such as suspected, likely, concern for, or probable (associated with a specific diagnosis that is being evaluated, monitored, or treated as if it exists) are acceptable and can be coded in the inpatient setting, when documented at the time of discharge. Thank you, Dara Lombardi [facility], CDIS Extension: [phone] Please use your independent medical judgment in providing your response. THIS QUERY IS PART OF THE PERMANENT MEDICAL RECORD
--- NOTE | 2021-08-25 09:42 | P.PNCA_ITS ---
Subjective Subjective Date of Service: 08/25/21 Interval history: She states that she feels okay. No specific cardiac complaints at this time. Review of Systems Review of Systems Yes all other systems are reviewed and are negative Constitutional: Reports as per HPI Eyes: Reports as per HPI Reports as per HPI Cardiovascular: Reports as per HPI, Denies acrocyanosis, Denies cool extremities, Denies chest pain, Denies leg edema, Denies lightheadedness, Denies palpitations and Denies dyspnea Respiratory: Reports as per HPI, Reports no additional respiratory complaints and Denies dyspnea Gastrointestinal: Reports as per HPI and Reports no additional gastrointestinal complaints Genitourinary: Reports as per HPI Musculoskeletal: Reports no additional musculoskeletal complaints and Reports as per HPI Skin/Breast: Reports system reviewed and no additional complaints, except as docu Reports system reviewed and no additional complaints, except as documented and Reports as per HPI Psychiatric: Reports no additional psychiatric complaints and Reports as per HPI Endocrine: Reports no additional endocrine complaints, Reports as per HPI and Denies palpitations Hematologic/Lymphatic: Reports no additional hematologic/lymphatic complaints and Reports as per HPI Allergic/Immunologic: Reports no additional allergic/immunologic complaints and Reports as per HPI Physical Exam Vital Signs: Last Vital Signs Temp 97.9 F 08/25/21 06:19 Pulse 87 08/25/21 07:53 Resp 18 08/25/21 07:35 BP 164/78 H 08/25/21 07:53 Pulse Ox 98 08/25/21 07:53 O2 Del Method 08/25/21 07:35 O2 Flow Rate 2 08/24/21 21:10 BMI result Body Mass Index 40.7 Const General: comfortable and no acute distress Orientation/consciousness: patient oriented x3 HEENT Other: Unremarkable Head: Yes normal to inspection Neck Neck: Yes normal visual inspection Chest Chest palpation & inspection: normal inspection of the chest Resp Auscultation: clear to auscultation bilaterally Cardio Palpation: normal PMI Heart sounds: S1 normal heart sound present, S2 normal heart sound present, no gallops, no murmurs and no rubs GI Palpation (GI): Soft to palpation Back/Spine/Pelvis Other: unremarkable Skin General skin exam: no rashes or lesions noted Neuro General: patient oriented x3 Extrem Other: Left knee bruising. Psych Mental Status: mental status grossly normal Objective Labs and Meds Result diagrams: 08/25/21 07:19 08/25/21 07:19 Lab results: Laboratory Results - last 24 hr 08/24/21 08/25/21 08/25/21 02:30 07:19 07:19 WBC 7.7 RBC 3.67 L Hgb 10.9 L Hct 34.6 L MCV 94.3 MCH 29.7 MCHC 31.5 RDW 14.2 Plt Count 207 MPV 10.9 Immature Gran % (Auto) 0.4 Neut % (Auto) 64.4 Lymph % (Auto) 18.7 L Anderson % (Auto) 14.4 H Eos % (Auto) 1.6 Baso % (Auto) 0.5 Lymph # (Auto) 1.4 Anderson # (Auto) 1.1 Eos # (Auto) 0.1 Baso # (Auto) 0.0 Abs Immat Gran (auto) 0.03 Absolute Neuts (auto) 4.9 Absolute Nucleated RBC 0.000 Nucleated RBC % (auto) 0.0 Sodium 139 Potassium 4.4 Chloride 104 Carbon Dioxide 27 Anion Gap 12 BUN 19 H Creatinine 0.75 Estim Creat Clear Calc 79.4 Estimated GFR > 60 Random Glucose 97 Calcium 8.3 L TSH 1.09 Progress Note: A&P Assessment and plan (1) Atrial fibrillation with rapid ventricular response: Status: Acute (2) Essential hypertension: Status: Acute Plan Currently, she is back in sinus rhythm. She is on metoprolol 25 mg q.i.d.. This can be changed to sustained release on discharge. Anticoagulation has already been started. Blood pressure is running high. At home, she is on amlod ipine and losartan. May need medication adjustment as outpatient. Echocardiogram pending for LV function. Time Spent With Patient Time: Total time spent is greater than 50% in coordination of care (as documented) at patient's floor/unit and/or counseling patient: Progress Note: Quality Stroke Does the patient have a stroke diagnosis?: No Procedures Date of Service Date of Service: 08/25/21
[2021-08-25] MEDS: allopurinoL 100 MG TABLET 200 MG PO ×2 (10:51→20:55)
[2021-08-25] MEDS: Celecoxib 200 MG CAPSULE PO (10:51)
[2021-08-25] MEDS: Metoprolol Tartrate 25 MG TABLET PO ×4 (10:52→20:54)
[2021-08-25] MEDS: amLODIPine Besylate 2.5 MG TABLET PO (10:52)
[2021-08-25] MEDS: Apixaban 5 MG TABLET PO ×2 (10:52→20:54)
[2021-08-25] MEDS: Losartan Potassium 50 MG TABLET 100 MG PO (10:53)
[2021-08-25] MEDS: Escitalopram Oxalate 10 MG TABLET PO (10:53)
--- NOTE | 2021-08-25 10:57 | MHC.RECOVRN ---
Met with pt in [facility] 7 after consult placed to CARE Team for alcohol use. Upon approach, pt sitting on edge of bed, awake, alert, engaged in conversation. Pt does not appear in any distress or withdrawal. Pt states I feel better, just sore. Pt reports drinking alcohol occasionally, maybe more in the last year, due to boyfriend passing away in April 2020. Pt states I have a couple vodka drinks on the weekend or to relax after a long day of doing housework. Pt denies concerns regarding alcohol use, has never received treatment around alcohol use, denies ever experiencing withdrawal symptoms, denies cravings. Pt reports this past year has been difficult but engaging in therapy through [facility] in [place] has been helpful. Pt plans to continue with therapy to discuss alcohol use. Discussed other outpatient supports, pt declines referrals at this time. Pt provided with t/w contact information if needed.
--- NOTE | 2021-08-25 11:05 | P.PNIM_ITS ---
Subjective Subjective Date of Service: 08/25/21 Interval History: seen and examined this AM sister in law bedside pt reports knee pain and headache but denies any cardiac symptoms Review of Systems negative except HPI Physical Exam Vital Signs: Vital Signs: Last Vital Signs Temp 97.9 F 08/25/21 06:19 Pulse 87 08/25/21 07:53 Resp 18 08/25/21 07:35 BP 164/78 H 08/25/21 07:53 Pulse Ox 98 08/25/21 07:53 O2 Del Method 08/25/21 07:35 O2 Flow Rate 2 08/24/21 21:10 BMI result Body Mass Index 40.7 Const: Other: General - no acute distress, appears comfortable Cardiovascular - regular rate and rhythm, S1-S2 Lungs - normal respiratory effort, clear to auscultation bilaterally, no wheezing Abdomen - soft, nontender, no rebound or guarding Extremities - L knee in brace Neuro - awake and alert, no focal deficits Objective Data Active Medications Acetaminophen (Acetaminophen 325 Mg Tablet) 650 mg PO Q6H PRN PRN Reason: Pain, Mild (Pain Scale 1-3) Last Admin: 08/24/21 16:25 Dose: 650 mg Documented By: LILY Albuterol Sulfate (Albuterol Sulfate 90 Mcg 8 Gm Inhaler) 2 puff INHALE Q4H PRN PRN Reason: Shortness Of Breath Allopurinol (Allopurinol 100 Mg Tablet) 200 mg PO BID [facility] Last Admin: 08/25/21 10:51 Dose: 200 mg Documented By: GALINA Amlodipine Besylate (Amlodipine Besylate 2.5 Mg Tablet) 2.5 mg PO DAILY [facility]; Protocol Last Admin: 08/25/21 10:52 Dose: 2.5 mg Documented By: GALINA Apixaban (Apixaban 5 Mg Tablet) 5 mg PO BID [facility] Last Admin: 08/25/21 10:52 Dose: 5 mg Documented By: GALINA Celecoxib (Celecoxib 200 Mg Capsule) 200 mg PO DAILY [facility] Last Admin: 08/25/21 10:51 Dose: 200 mg Documented By: GALINA Clonazepam (Clonazepam 0.5 Mg Tablet) 0.5 mg PO DAILY PRN PRN Reason: anxiety Ergocalciferol (Ergocalciferol (Vitamin D2) 1,250 Mcg Capsule) 1,250 mcg PO [facility] Escitalopram Oxalate (Escitalopram Oxalate 10 Mg Tablet) 10 mg PO DAILY [facility] Last Admin: 08/25/21 10:53 Dose: 10 mg Documented By: GALINA Levothyroxine Sodium (Levothyroxine Sodium 25 Mcg Tablet) 25 mcg PO DAILY@0600 [facility] Last Admin: 08/25/21 06:56 Dose: 25 mcg Documented By: ELVIS Levothyroxine Sodium (Levothyroxine Sodium 112 Mcg Tablet) 112 mcg PO DAILY@0600 [facility] Last Admin: 08/25/21 06:56 Dose: 112 mcg Documented By: ELVIS Loratadine (Loratadine 10 Mg Tablet) 10 mg PO BEDTIME PRN PRN Reason: for allergies Losartan Potassium (Losartan Potassium 50 Mg Tablet) 100 mg PO DAILY [facility]; Protocol Last Admin: 08/25/21 10:53 Dose: 100 mg Documented By: GALINA Metoprolol Tartrate (Metoprolol Tartrate 25 Mg Tablet) 25 mg PO QID [facility]; Protocol Last Admin: 08/25/21 10:52 Dose: 25 mg Documented By: GALINA Montelukast Sodium (Montelukast Sodium 10 Mg Tablet) 10 mg PO BEDTIME [facility] Last Admin: 08/24/21 21:02 Dose: 10 mg Documented By: STEPHANIE Non-Formulary Medication (Umeclidinium [Incruse Ellipta]) 1 puff INHALE DAILY [facility] Nystatin/Triamcinolone Acetonide (Nystatin/Triamcinolone Cream 15 Gm Tube) 1 appl TOPICAL BID [facility] Last Admin: 08/25/21 10:44 Dose: Not Given Documented By: GALINA Non-Admin Reason: Patient Refused Ondansetron HCl (Ondansetron Hcl 4 Mg/2 Ml Vial) 4 mg IVPUSH Q8H PRN PRN Reason: Nausea and Vomiting Last Admin: 08/24/21 21:03 Dose: 4 mg Documented By: STEPHANIE Oxycodone HCl (Oxycodone Hcl Immed Release 5 Mg Tablet) 5 mg PO Q4H PRN PRN Reason: Pain, Mild (Pain Scale 1-3) Last Admin: 08/25/21 10:51 Dose: 5 mg Documented By: GALINA Pharmacy Consult (Consult Rx Perform Med Rec) 1 each MISCELLANE ONCE PRN PRN Reason: Consult order Quetiapine Fumarate (Quetiapine Fumarate 25 Mg Tablet) 25 mg PO BEDTIME PRN PRN Reason: insomnia Sodium Chloride (0.9 % Sodium Chloride Flush 3 Ml Syringe) 3 ml IVFLUSH QSHIFT [facility] Last Admin: 08/25/21 10:42 Dose: 3 ml Documented By: GALINA Labs CBC & Chem 7: 08/25/21 07:19 08/25/21 07:19 Labs: Laboratory Results - last 24 hr 08/24/21 08/25/21 08/25/21 02:30 07:19 07:19 MCV 94.3 MCH 29.7 MCHC 31.5 RDW 14.2 Plt Count 207 MPV 10.9 Immature Gran % (Auto) 0.4 Neut % (Auto) 64.4 Lymph % (Auto) 18.7 L Lipscomb % (Auto) 14.4 H Eos % (Auto) 1.6 Baso % (Auto) 0.5 Lymph # (Auto) 1.4 Lipscomb # (Auto) 1.1 Eos # (Auto) 0.1 Baso # (Auto) 0.0 Abs Immat Gran (auto) 0.03 Absolute Neuts (auto) 4.9 Absolute Nucleated RBC 0.000 Nucleated RBC % (auto) 0.0 Anion Gap 12 Estim Creat Clear Calc 79.4 Estimated GFR > 60 Random Glucose 97 Calcium 8.3 L TSH 1.09 Assessment and Plan (1) Atrial fibrillation with rapid ventricular response: Status: Acute Plan ?71-year-old woman admitted with atrial fibrillation with rapid ventricular response likely secondary to alcohol use and fall with no traumatic injury Atrial fibrillation with rapid ventricular response clinically does not appear to be in CHF, TSH wnl coverted over night continue metoprolol 25 q6h echo today on eliquis -- d/w her the risks and benefits including increased bleeding risk with falls. at this time, she would like to continue eliquis cardiology input appreciated Fall No traumatic injury? other than bruising Physical therapy consultation -- home with PT with FWW Alcohol use Patient denies heavy alcohol use Discussed the importance of alcohol cessation Care team consult Hypertension Continue home medications Asthma/copd No exacerbation Continue home medications Mental health continue home medications DVT pptx, Eliquis Full Code Dispo: Home with services pending Echo. Possible d/c later today. Quality Stroke Does the patient have a stroke diagnosis?: No VTE Prior VTE?: No VTE Risk Level:: Medical - moderate - high VTE Device Contraindication: Treatment Not Indicated VTE Drug Contraindication: N/A - Med Ordered
--- NOTE | 2021-08-25 11:05 | PC.NURSE ---
Addendum entered by Gretchen Corona RN 08/25/21 11:12: No remors noted. Original Note: 1045-pt assessed. GCS 15, PEARLALUCILAE. pt up and ambulates with walker. Pain in left knee and top posterior head, where hematoma is noted. Ice pack applied. Left knee wrapped. Dr. Hess at bedside. Pt c/o pain 10/10 on head and 5/10 on left knee. pt denies nausea at this time, taking po well. +2 pitting edema noted on BLE. Left knee and leg is tender to touch, and is wrapped in brady wrap. Pt on RA, lung sounds clear A&P bilaterally throughout. Bowel sounds present. Pt NSR on monitor. SBP 160's and pt took PO BP meds. pulses +2 x4 and pt denies numbness and tingling x4. visitor at bedside.
--- NOTE | 2021-08-25 14:02 | MHC.CM.PN ---
Addendum entered by Brooke Lopez 08/25/21 16:18: [facility] REFERRAL COMPLETED Addendum entered by Brooke Lopez 08/25/21 14:35: P.T. EVALUATION- HOME WITH P.T. AND SCRIPT FOR FRONT WHEELED WALKER Original Note: PT REPORTS SHE LIVES WITH HER DOG, ELENA. SHE DOES NOT HAVE ANY HOME SERVICES AND USES A WALKER AND CRUTCHES NEEDED. SHE IS COVID VACCINATED X3 (MODERNA). PCP ON FILE-VERONICA MENESES. NO HCP ON FILE, PT EDUCATED, REPORTS WILL COMPLETE ONE AT A LATER DATE. HER FRIEND WILL TRANSPORT HER HOME. IMM DELIVERED DISCHARGE PLAN: HOME WITH [facility] SERVICES vs HOME WITHOUT SERVICES
--- NOTE | 2021-08-25 15:18 | PC.NURSE ---
pt is a&ox3, active directory administrator intact, pt ambulated with walker to bathroom with steady gait, vss, denies pain or discomfort, call cervantes within reach, will continue to monitor.
--- NOTE | 2021-08-25 15:19 | PC.NURSE ---
director of cardiac rehabilitation nsr, vss, will continue to monitor.
--- NOTE | 2021-08-25 19:02 | PC.NURSE ---
patient a&ox3, satellite project site monitor intact, nsr, pt denies pain/discomfort, ambulating with walker independently to bathroom-steady gait, pt medicated per order, call cervantes within reach, will continue to monitor.
[2021-08-25] MEDS: Montelukast Sodium 10 MG TABLET PO (20:54)
[2021-08-26 04:00] VITALS: BP 150/69; PULSE 73; RESP 19; TEMP 36.6; O2SAT 94
[2021-08-26] MEDS: Levothyroxine Sodium 25 MCG TABLET PO (06:01)
[2021-08-26] MEDS: Levothyroxine Sodium 112 MCG TABLET PO (06:01)
--- NOTE | 2021-08-26 07:00 | CA_ITS ---
Transthoracic Echocardiogram Patient (Last, First, Middle): Marjorie Guerrero C Gender: Female Date of : 1950 Age: 71 Procedure Date: 08/26/2021 Procedure Type: Transthoracic Echocardiogram Location: [facility] [place] Height: 160.02 cm Weight: 104.33 kg BSA: 2.05 m2 Heart Rate: 70 bpm BP: 152 / 53 mmHg Sfdc Consultant: ROXIE Referring MD: Kya Santiago NP Nut Feeder: Abiel Pelayo MD Symptoms: afib rvr Study Quality: Fair/Contrast ECG Rhythm: Sinus Conclusions: - The left ventricular systolic function is normal. The calculated ejection fraction is 57% by biplane method. - No obvious valvular pathology seen on this study. Findings Procedure Information Contrast agent, definity, is being given per protocol without apparent complications. Left Ventricle Normal left ventricular cavity size. There is normal left ventricular wall thickness. The left ventricular systolic function is normal. The calculated ejection fraction is 57% by biplane method. There is no evidence of regional wall motion abnormalities. E/E prime ratio is >15, consistent with elevated filling pressures. Evidence suggests grade I (mild) diastolic dysfunction. Right Ventricle Normal right ventricular cavity size and systolic function. Atria The left atrium is moderately dilated. The right atrium is normal in size. Aortic Valve There is a normal trileaflet aortic valve. There is no aortic valve stenosis. There is trace (trivial) aortic valve regurgitation. Mitral Valve There is mild mitral annular calcification. There is trace mitral valve regurgitation. There is no mitral valve stenosis. Pulmonic Valve The pulmonic valve is likely normal. Tricuspid Valve There is trace tricuspid valve regurgitation. Tricuspid regurgitation envelope is inadequate for calculation of right ventricular systolic pressure. Great Vessels The asc aorta is normal in size. Venous The inferior vena cava is normal in size and collapses greater than 50% with inspiration. Pericardium/Pleural There is no evidence of pericardial effusion. Prior Study Comparison No significant change compared to prior study dated: 05/17/2017. Recommendations, Care & Conclusions No obvious valvular pathology seen on this study. Measurements 2D Linear Measurements IVSd: 1.01 0.6-0.9/0.6-1.0 cm LVIDd: 5.74 3.9-5.3/4.2-5.9 cm LVIDd Index: 2.80 2.4-3.2/2.2-3.1 cm/m2 LVIDs: 3.79 2.0-3.6 cm LVPWd: 0.87 0.7-1.1 cm Ao Root: 0.00 2.1-3.5 cm LA Diam: 4.80 2.7-3.8/3.0-4.0 cm LAIDs Index: 2.34 1.5-2.3 cm/m2 LV Mass: 263.28 67-162/88-224 g LV Mass Index: 128.43 43-95/49-115 g/m2 LVOT Diam: 2.20 3.0+(-)1.3 cm 2D Systolic Function EF 4C: 60.20 >55% EF 2C: 55.80 >55% EF BiP: 57.30 >55% Mitral Valve MV Pk E: 1.32 MV PK A: 1.14 MV Decel Time: 165.00 E/A: 1.20 E'Lateral: 7.07 E'Medial: 5.11 E/E' Med: 25.80 E/E' Lat: 18.70 PHT: 48.00 MVA PHT: 4.58 Decel [place]: 8.03 Aortic Valve AoV Pk Aleksander: 1.82 AoV Mn Aleksander: 1.28 AoV VTI: 0.37 AoV Pk Grad: 13.00 Aov Mn Grad: 7.00 LEWIS Cont.VTI: 2.11 LVOT LVOT Pk [place]: 0.90 LVOT Mn Aleksander: 0.65 LVOT VTI: 0.21 LVOT Pk Grad: 3.00 LVOT Mn Grad: 2.00 LVOT Diam: 2.20 LVOT Area: 3.80 Diastolic Function MV Pk E: 1.32 MV Pk A: 1.14 E/A: 1.20 E'Medial: 5.11 E/E' Med: 25.80 E' Laterial: 7.07 E/E' Lat: 18.70 Right Ventricle TAPSE (mm): 23.90 TVS' Aleksander: 14.50 Tricuspid Valve RA Press: 3.00 Great Vessels Aorta Ao Root-2D: 0.00 2.0-3.7 cm Sinus of Valsalva: 3.50 2.0-3.[address] [place]: 3.00 1.7-3.4 cm Ao Asc: 3.70 2.1-3.4 cm Pulmonary Veins Pulm Vein S/D 1.90 Pulmonary Valve PV Pk Aleksander: 0.99 Peak PV Grad: 4.00 Updated in Other Vendor System with Status of Final Abiel Pelayo MD electronically signed on 08/26/2021 10:37:22 AM with status of Final
[2021-08-26 07:40] VITALS: BP 157/84; PULSE 80; RESP 18; TEMP 36.4; O2SAT 97
[2021-08-26] MEDS: Metoprolol Tartrate 25 MG TABLET PO ×2 (08:20→13:14)
[2021-08-26] MEDS: oxyCODONE HCl Immed Release 5 MG TABLET PO (08:21)
[2021-08-26] MEDS: allopurinoL 100 MG TABLET 200 MG PO (08:21)
[2021-08-26] MEDS: amLODIPine Besylate 2.5 MG TABLET PO (08:21)
[2021-08-26] MEDS: Apixaban 5 MG TABLET PO (08:21)
[2021-08-26] MEDS: Celecoxib 200 MG CAPSULE PO (08:22)
[2021-08-26] MEDS: 0.9 % Sodium Chloride Flush 3 ML SYRINGE IVFLUSH (08:22)
[2021-08-26] MEDS: Losartan Potassium 50 MG TABLET 100 MG PO (08:22)
[2021-08-26] MEDS: Escitalopram Oxalate 10 MG TABLET PO (08:22)
--- NOTE | 2021-08-26 10:37 | PM.PNCARD ---
Subjective Subjective Date of Service: 08/26/21 Interval history: She denies any cardiac symptoms. Has aches and pains but they seem to be improving as well. Review of Systems Review of Systems Yes all other systems are reviewed and are negative Constitutional: Reports as per HPI Eyes: Reports as per HPI Reports as per HPI Cardiovascular: Reports as per HPI, Denies acrocyanosis, Denies cool extremities, Denies chest pain, Denies leg edema, Denies lightheadedness, Denies palpitations and Denies dyspnea Respiratory: Reports as per HPI, Reports no additional respiratory complaints and Denies dyspnea Gastrointestinal: Reports as per HPI and Reports no additional gastrointestinal complaints Genitourinary: Reports as per HPI Musculoskeletal: Reports no additional musculoskeletal complaints and Reports as per HPI Skin/Breast: Reports system reviewed and no additional complaints, except as docu Reports system reviewed and no additional complaints, except as documented and Reports as per HPI Psychiatric: Reports no additional psychiatric complaints and Reports as per HPI Endocrine: Reports no additional endocrine complaints, Reports as per HPI and Denies palpitations Hematologic/Lymphatic: Reports no additional hematologic/lymphatic complaints and Reports as per HPI Allergic/Immunologic: Reports no additional allergic/immunologic complaints and Reports as per HPI Physical Exam Vital Signs: Last Vital Signs Temp 97.5 F 08/26/21 07:40 Pulse 80 08/26/21 07:40 Resp 18 08/26/21 07:40 BP 157/84 H 08/26/21 07:40 Pulse Ox 97 08/26/21 07:40 O2 Del Method 08/26/21 07:40 O2 Flow Rate 2 08/24/21 21:10 BMI result Body Mass Index 45.5 Const General: comfortable and no acute distress Orientation/consciousness: patient oriented x3 HEENT Other: Unremarkable Head: Yes normal to inspection Neck Neck: Yes normal visual inspection Chest Chest palpation & inspection: normal inspection of the chest Resp Auscultation: clear to auscultation bilaterally Cardio Palpation: normal PMI Heart sounds: S1 normal heart sound present, S2 normal heart sound present, no gallops, no murmurs and no rubs GI Palpation (GI): Soft to palpation Back/Spine/Pelvis Other: unremarkable Skin General skin exam: no rashes or lesions noted Neuro General: patient oriented x3 Extrem Other: Left knee bruising. Psych Mental Status: mental status grossly normal Objective Labs and Meds Result diagrams: 08/25/21 07:19 08/25/21 07:19 Progress Note: A&P Assessment and plan (1) Atrial fibrillation with rapid ventricular response: Status: Acute (2) Essential hypertension: Status: Acute Plan Echocardiogram with preserved LVEF. No significant abnormalities otherwise. She remains in sinus rhythm. Can consolidate beta-neeta dosing. Otherwise, agree with Shy that she is already on. Blood pressure management. She is on amlodipine and losartan. Probably will need higher doses as the blood pressure is running high. Follow-up in the office can be arranged. Time Spent With Patient Time: Total time spent is greater than 50% in coordination of care (as documented) at patient's floor/unit and/or counseling patient: Progress Note: Quality Stroke Does the patient have a stroke diagnosis?: No Procedures Date of Service Date of Service: 08/26/21
--- NOTE | 2021-08-26 11:35 | PM.DS ---
DS: Providers Provider Date of Service: 08/26/21 Date of admission: 08/24/21 08:34 Primary care physician: Jacqueline Thurston MD Consults: 08/24/21 08:24 Consult to Cardiology Routine Consulting Provider: Osmar Ferrari Reason for consultation: afib rvr Has provider been notified: No 08/24/21 12:01 Consult to Care Team Routine Comment: Reason for consultation: alcohol abuse Attending physician on discharge: Dat Hess Discharging clinician: Kya Santiago DS: Diagnosis Discharge Diagnosis (1) Atrial fibrillation with rapid ventricular response: Status: Acute (2) Essential hypertension: Status: Acute DS: Summary Hospital Course Hospital Course: 71-year-old woman presented to the ER after a fall.? She reports that? she was walking out of her rooms and slipped and fell.? She fell on both of her knees and may have hit her head but she denies losing consciousness.? She was able to open her door and scream at? her digital voice/paraprofessional education assistant device to call an ambulance which was done.? She reported that she had drank some alcohol last night but only had about 2 drinks of vodka mixed with cream liquor.? She reports that she drinks occasionally on the weekends but not a heavy drinker.? She denied chest pain, shortness breath, nausea, vomiting, diarrhea, recent travel, sick contacts, recent illness.? In the ER she was found to be in atrial fibrillation with rapid ventricular response in the 130s. , CT showed no acute abnormality but showed question of a meningioma, knee x-ray was negative for any acute fracture dislocation, chest CT was negative for PE.? Blood pressures remain stable, she has not been hypoxic. ? she was given IV Cardizem along with Zofran, Dilaudid in the ER.? She will be admitted for further management treatment of acute atrial fibrillation with rapid ventricular response. Atrial fibrillation with rapid ventricular response. Resolved clinically not to be in CHF, TSH wnl coverted over to NSR Initially on metoprolol 25 q6h, changed to metoprolol SR 50mg BID normal echo on eliquis -- d/w her the risks and benefits including increased bleeding risk with falls. at this time, she would like to continue eliquis cardiology input appreciated Fall No traumatic injury? other than bruising Physical therapy consultation -- home with PT Alcohol use Patient denies heavy alcohol use Discussed the importance of alcohol cessation Care team consulted Hypertension Continue home medications Amlodipine increased to 5mg daily Asthma/copd No exacerbation Continue home medications Mental health continue home medications Time Spent with Patient Time attestation: Total time spent providing and/or coordinating discharge services: Discharge coordination time: Greater than 30 minutes Quality: Safe Use of Opioids Does Pt have an Active Cancer Diagnosis on the Problem List?: No Quality: Stroke Does the patient have a stroke diagnosis?: No Physical Exam Vital Signs: Vital Signs: Last Vital Signs Temp 97.5 F 08/26/21 07:40 Pulse 80 08/26/21 07:40 Resp 18 08/26/21 07:40 BP 157/84 H 08/26/21 07:40 Pulse Ox 97 08/26/21 07:40 O2 Del Method 08/26/21 07:40 O2 Flow Rate 2 08/24/21 21:10 BMI result Body Mass Index 45.5 Appearing in no acute distress head is normocephalic atraumatic eyes pupils are PERRLA sclera is anicteric mouth throat mucous membranes are intact and moist neck is supple no lymphadenopathy, no JVD noted lung sounds are clear to auscultation heart regular rate rhythm, clear S1, S2 positive bowel sounds, abdomen is soft, nontender neuro patient is alert x3, no focal deficits Discharge Plan Discharge Anticipated Discharge Date/Time: 08/26/21 11:18 Patient Disposition: Home Health Service Discharge Diagnosis: atrial fibrillation with rapid ventricular response Referrals: Jacqueline Thurston MD [Primary Care Provider] - 1 Week Osmar Ferrari MD [Physician] - 1 Week Discharge Medications: New amlodipine 2.5 mg Tablet 5 mg PO DAILY Qty: 60 0RF Protocol: Hold for SBP< HOLD for SBP < : 90 Eliquis 5 mg Tablet 5 mg PO BID Qty: 60 0RF metoprolol succinate 50 mg tablet extended release 24 hr 50 mg PO Q12H Qty: 60 0RF Continued (DME) Flexichamber Spacer See Rx Instructions .ROUTE .MEDSUPPLY Qty: 1 0RF Rx Instructions: As directed cetirizine 10 mg tablet 10 mg PO BEDTIME PRN (Reason: for allergies) Qty: 90 1RF allopurinol 100 mg tablet 2 tab PO BID albuterol sulfate 90 mcg/actuation HFA aerosol inhaler 2 puff inhalation Q4H PRN (Reason: Shortness Of Breath) ammonium lactate 12 % cream 1 applic topical BID celecoxib 200 mg capsule 1 cap PO DAILY clonazepam 0.5 mg tablet 1 tab PO DAILY PRN (Reason: anxiety) clotrimazole-betamethasone 1-0.05 % cream 1 appl topical BID escitalopram oxalate 10 mg tablet 1 tab PO DAILY Incruse Ellipta 62.5 mcg/actuation blister with device 1 puff inhalation DAILY levothyroxine [Levoxyl] 137 mcg tablet 1 tab PO DAILY losartan 100 mg tablet 1 tab PO DAILY montelukast 10 mg tablet 10 mg PO BEDTIME naproxen 500 mg tablet 1 tab PO BID budesonide-formoterol [Symbicort] 160-4.5 mcg/actuation HFA aerosol inhaler 2 puff inhalation BID ergocalciferol (vitamin D2) 1,250 mcg (50,000 unit) capsule 1 cap PO QWEEK quetiapine 25 mg tablet 1 - 2 tab PO BEDTIME PRN (Reason: insomnia) Discontinued amlodipine 2.5 mg tablet 1 tab PO DAILY Discharge Orders: Discharge Order (Routine); Ordered 08/26/21 Ordered By: Kya Santiago Diet: advance to usual diet Activity on Discharge: As tolerated Stand Alone Forms: Patient Portal Discharge page Care Plan Goals: avoid alcohol intake Health Concerns: atrial fibrillation with rapid ventricular response Plan of Treatment: Follow-up with plasma center technician for management of medications for atrial fibrillation Take all medications as prescribed Assessment: the discharge summary
--- NOTE | 2021-08-26 11:57 | MHC.CM.PN ---
Patient has been medically cleared for to dc to home today with services. A referral was made to [facility] who has been notified of today's dc.
[2021-08-26 13:15] VITALS: BP 128/59; PULSE 75
--- NOTE | 2021-08-26 14:33 | W.MHC.F2F ---
Service Date Service Date: 08/26/21 Encounter Date of encounter: 08/26/21 Reasons for Services Signs and symptoms assessed: Weakness, knee pain Reason for care home: CV/CP assess and/or care and teach disease management Homebound: Leaving the home is medically contraindicated at this time without the asist of a device and/or another person due th the listed conditions above and below. Reason homebound: unsteady gait / fall risk Certification: Based on the above findings, I certify that this patient is confined to the home and needs intermittent care home care, physical therapy and/or speech therapy, or continues to need occupational therapy. The patient is under my care, and I have initiated the establishment of the plan of care. The patient will be followed by a physician who will periodically review the plan of care.
--- NOTE | 2021-08-26 15:11 | PC.NURSE ---
Alert and oriented. C/O right shoulder blade pain, prn oxycodone given with good effect. VSS, afebrile, no acute resp. distress noted. Took all schedule meds as order. new order to discharge patient home with home care services. Went over discharge instructions, medication administrations and follow up apt with patient, verbalized understanding back. staff transported to the [facility] via w/c, left via care with family/friend.
== END 2021-08-26 14:45 | disposition home health service (06) | DRG 309 ==
LOC: HO.ED 04:36 → HO.EDOVER 08:36 → HO.IMC 08-25 18:49 → HO.EDOVER 08-25 19:38 → HO.IMC 08-25 19:58
PROVIDERS: Admitting Provider Nurse Practitioner Acute Care; Emergency Provider Emergency Medicine; PCP Internal Medicine; Visit Provider Nurse Practitioner Acute Care
DX: I48.91 Unspecified atrial fibrillation (principal); Z68.42 Body mass index [BMI] 45.0-49.9, adult; E66.01 Morbid (severe) obesity due to excess calories; G47.33 Obstructive sleep apnea (adult) (pediatric); J44.9 Chronic obstructive pulmonary disease, unspecified; M10.9 Gout, unspecified; E89.0 Postprocedural hypothyroidism; I10 Essential (primary) hypertension; F10.120 Alcohol abuse with intoxication, uncomplicated; Y90.6 Blood alcohol level of 120-199 mg/100 ml; Z20.822 Contact with and (suspected) exposure to COVID-19; Z85.850 Personal history of malignant neoplasm of thyroid; Z98.84 Bariatric surgery status; Z79.01 Long term (current) use of anticoagulants; Z79.890 Hormone replacement therapy; Z79.899 Other long term (current) drug therapy
CPT/HCPCS: 36415; 70450; 71275; 72125; 73564; 80048; 80076; 81001; 82077; 82550; 83735; 84443; 84484; 85025; 85379; 85610; 85730; 87635; 93005; 93306; 96365; 96375; 96376; 97162; 99285; J1160; J1170; J2405; Q9957; Q9967

== ENCOUNTER → 2021-09-02 15:08 | Outpatient (BNVA) | payer MEDICARE, OTHER, SELFPAY | PROVIDERS: PCP Internal Medicine; Referring Provider Internal Medicine; Visit Provider Internal Medicine Cardiovascular Disease | DX: I48.0 Paroxysmal atrial fibrillation (principal); I10 Essential (primary) hypertension; Z79.01 Long term (current) use of anticoagulants | CPT/HCPCS: 93005; 99212 ==

== ENCOUNTER 2021-09-05 11:00 | Outpatient (REF) | payer MEDICARE, OTHER, SELFPAY ==
--- NOTE | ~2021-09-05 | MR_ITS ---
EXAMINATION: MR BRAIN WITHOUT AND WITH CONTRAST CLINICAL INFORMATION: Abnormal findings on prior CT head. COMPARISON: Head CT 08/24/2021. TECHNIQUE: Multiplanar, multisequence MRI of the brain was obtained before and after the intravenous administration of 10 mL of Gadavist. FINDINGS: As noted on the previous head CT, there is a round 1.5 cm extra-axial mass along the infratentorial surface of the left tentorial leaflet that remains most compatible with a meningioma. There is a smaller 0.7 cm anterior right parafalcine meningioma and there is a small 0.6 cm meningioma along the left lateral convexity on image 15 of series 9. There is moderate chronic microangiopathy. There is no hydrocephalus, extra-axial surface collection, or herniation. The major flow voids at the skull base are preserved. There is no acute infarct on diffusion-weighted imaging. There is no intracranial hemorrhage on the gradient recalled echo acquisition. Partially empty sella. The cerebellar tonsils are normally positioned. The cerebellum and brainstem are normal. The craniocervical junction is normal. Osseous marrow signal intensity is homogenous. Evolving scalp hematomas at the frontal and parietal vertex. Arachnoid granulations within the occipital bone bilaterally. MR/MR head/brain wo/w con IMPRESSION: - As noted on the previous head CT, there is a round 1.5 cm extra-axial mass along the infratentorial surface of the left tentorial leaflet that remains most compatible with a meningioma. There is a smaller 0.7 cm anterior right parafalcine meningioma and there is a small 0.6 cm meningioma along the left lateral convexity on image 15 of series 9. - Evolving scalp hematomas at the frontal and parietal vertex. - There is moderate chronic microangiopathy.
== END 2021-09-05 11:01 | disposition home or self-care (01) ==
LOC: HO.MRI 11:00
PROVIDERS: Visit Provider Internal Medicine
DX: R93.0 Abnormal findings on diagnostic imaging of skull and head, not elsewhere classified (principal)
CPT/HCPCS: 70553; A9585

== ENCOUNTER 2021-09-12 08:52 | Outpatient (RCR) | payer MEDICARE, OTHER, SELFPAY | END 2021-10-24 08:48 | disposition home or self-care (01) | LOC: HO.WCC 08:52 | PROVIDERS: PCP Internal Medicine; Visit Provider Physician Assistant | DX: S80.212A Abrasion, left knee, initial encounter (principal); S80.02XA Contusion of left knee, initial encounter; I48.0 Paroxysmal atrial fibrillation; I10 Essential (primary) hypertension; R60.0 Localized edema; Z79.01 Long term (current) use of anticoagulants; Z87.891 Personal history of nicotine dependence; Z92.3 Personal history of irradiation | CPT/HCPCS: 11042; 97597; 99212; 99213 ==

== ENCOUNTER 2021-09-26 08:46 | Outpatient (REF) | payer MEDICARE, OTHER, SELFPAY ==
--- NOTE | ~2021-09-26 | US_ITS ---
EXAMINATION: US EXTREMITY NONVASCULAR CLINICAL INFORMATION: Contusion. Pain. COMPARISON: None TECHNIQUE: Grayscale and color imaging of the soft tissues of the left lower extremity inferior to the knee. FINDINGS: There is a significant soft tissue edema and multiple complex fluid collections around the knee. Largest discrete collections measure 3.2 x 1.3 x 3.6 cm and 3 x 1 x 1.8 cm. Given the history of contusion, these may represent hematomas. Clinical correlation is recommended and abscess cannot be excluded. US/US extremity nonvascular IMPRESSION: Diffuse soft tissue swelling and multiple small complex fluid collections around the knee. This would be amenable to ultrasound-guided aspiration for diagnostic purposes if clinically indicated. Differential would include hematoma and abscesses.
== END 2021-09-26 08:47 | disposition home or self-care (01) ==
LOC: HO.US 08:46
PROVIDERS: Visit Provider Surgery
DX: S80.02XA Contusion of left knee, initial encounter (principal); S80.212A Abrasion, left knee, initial encounter
CPT/HCPCS: 76882

== ENCOUNTER 2021-10-17 15:17 | Outpatient (REF) | payer MEDICARE, OTHER, SELFPAY ==
[2021-10-17 17:35] LABS: Vitamin D 25-OH Total 27.6 ng/mL (>30)
[2021-10-17 17:37] LABS: Thyroid Stimulating Hormone 0.38 uIU/mL (0.32-4.0); Vitamin D 25-OH Total 27.2 ng/mL (>30)
[2021-10-19 12:52] LABS: Calcium (PTHI) 8.9 mg/dL (8.6-10.4); PTHI 108 pg/mL (16-77)
== END 2021-10-17 15:18 | disposition home or self-care (01) ==
LOC: HO.LAB 15:17
PROVIDERS: Absent Provider Obstetrics & Gynecology Gynecology; PCP Internal Medicine; Visit Provider Internal Medicine
DX: M81.0 Age-related osteoporosis without current pathological fracture (principal); E89.0 Postprocedural hypothyroidism; E55.9 Vitamin D deficiency, unspecified
CPT/HCPCS: 36415; 82306; 83970; 84439; 84443

== ENCOUNTER 2021-10-24 10:10 | Outpatient (REF) | payer MEDICARE, OTHER, SELFPAY ==
[2021-10-24 11:29] LABS: MANUAL DIFF FLAG NO
[2021-10-24 11:39] LABS: Basophils Absolute Auto 0.1 X10*3/uL (0.0-0.2); Basophils Percent Auto 1.1 % (0-2); Eosinophils Absolute Auto 0.3 X10*3/uL (0.0-0.4); Eosinophils Percent Auto 4.8 % (0-4); Hematocrit 40.8 % (37.0-47.0); Hemoglobin 13.1 g/dl (12.0-16.0); Imm Gran Abs Auto 0.01 X10*3/uL (0.00-0.03); Imm Gran Pct Auto 0.2 % (0.0-0.4); Lymphocytes Absolute Auto 1.3 X10*3/uL (1.2-4.9); Lymphocytes Percent Auto 23.3 % (20-40); Mean Corpuscular HGB Conc 32.1 g/dl (31.0-35.0); Mean Corpuscular Hemoglobin 29.9 pg (27.0-33.0); Mean Corpuscular Volume 93.2 fL (80.0-98.0); Monocytes Absolute Auto 0.6 X10*3/uL (0.1-1.2); Monocytes Percent Auto 11.1 % (2-11); Neutrophils Absolute Auto 3.3 x10*3/uL (2.0-8.3); Neutrophils Percent Auto 59.5 % (45-73); Platelet Count 272 X10*3/uL (160-400); Red Blood Count 4.38 X10*6/uL (4.20-5.50); Red Cell Distribution Width 14.1 % (11.0-16.0); White Blood Count 5.6 X10*3/uL (4.8-10.8)
[2021-10-24 12:26] LABS: Anion Gap 15 (12-20); Blood Urea Nitrogen 22 mg/dL (9-16); Calcium 8.3 mg/dL (8.4-10.2); Carbon Dioxide 27 mmol/L (22-29); Chloride 106 mmol/L (96-108); Cholesterol 208 mg/dL; Estimated Glomerular Filt Rate > 60; Glucose Fasting 91 mg/dL (60-99); HDL Cholesterol 76 mg/dL; Iron 76 mcg/dL (30-160); LDL Cholesterol Calculated 122 mg/dl; Percent Iron Saturation 25 % (15-50); Potassium 4.6 mmol/L (3.3-5.1); Sodium 143 mmol/L (135-145); Total Iron Binding Capacity 306 mcg/dL (228-428); Triglycerides 50 mg/dL; Unsaturated Iron Binding 230 ug/dL
== END 2021-10-24 10:11 | disposition home or self-care (01) ==
LOC: HO.HMGCLDS 10:10
PROVIDERS: PCP Internal Medicine; Visit Provider Internal Medicine
DX: D64.9 Anemia, unspecified (principal); E66.01 Morbid (severe) obesity due to excess calories; I10 Essential (primary) hypertension; I48.0 Paroxysmal atrial fibrillation; E89.0 Postprocedural hypothyroidism
CPT/HCPCS: 36415; 80048; 80061; 83540; 85025

== ENCOUNTER → 2022-01-01 11:12 | Outpatient (BNVA) | payer MEDICARE, OTHER, SELFPAY | PROVIDERS: PCP Internal Medicine; Visit Provider Internal Medicine | DX: G47.33 Obstructive sleep apnea (adult) (pediatric) (principal); J44.9 Chronic obstructive pulmonary disease, unspecified; J30.9 Allergic rhinitis, unspecified; E66.01 Morbid (severe) obesity due to excess calories; Z99.89 Dependence on other enabling machines and devices; Z68.41 Body mass index [BMI] 40.0-44.9, adult | CPT/HCPCS: 99212 ==

== ENCOUNTER 2022-01-15 08:31 | Outpatient (REF) | payer MEDICARE, OTHER, SELFPAY ==
[2022-01-15 10:14] LABS: Vitamin D 25-OH Total 27.6 ng/mL (>30)
[2022-01-16 13:41] LABS: Calcium (PTHI) 8.6 mg/dL (8.6-10.4); PTHI 98 pg/mL (16-77)
== END 2022-01-15 08:32 | disposition home or self-care (01) ==
LOC: HO.LAB 08:31
PROVIDERS: PCP Internal Medicine; Visit Provider Obstetrics & Gynecology Gynecology
DX: E55.9 Vitamin D deficiency, unspecified (principal)
CPT/HCPCS: 36415; 82306; 83970

== ENCOUNTER → 2022-03-10 09:34 | Outpatient (BNVA) | payer MEDICARE, OTHER, SELFPAY | PROVIDERS: PCP Internal Medicine; Referring Provider Internal Medicine; Visit Provider Internal Medicine Cardiovascular Disease | DX: I48.0 Paroxysmal atrial fibrillation (principal); I10 Essential (primary) hypertension; Z79.01 Long term (current) use of anticoagulants; Z79.899 Other long term (current) drug therapy | CPT/HCPCS: 99212 ==

== ENCOUNTER 2022-04-08 08:03 | Outpatient (REF) | payer MEDICARE, OTHER, SELFPAY ==
--- NOTE | ~2022-04-08 | MR_ITS ---
EXAMINATION: MR BRAIN WITHOUT AND WITH CONTRAST CLINICAL INFORMATION: Multiple meningiomas. COMPARISON: Brain MRI from 09/05/2021. TECHNIQUE: MRI of the brain was obtained using routine sequences without and following the administration of 10 mL of Gadavist intravenous contrast. FINDINGS: Stable appearance of a dural-based enhancing lesion along the undersurface of the left tentorial leaflet, measuring 1.2 x 0.8 x 0.8 cm. Stable dural based enhancing nodule along the right anterior aspect of the falx cerebri, measuring 0.8 x 0.6 x 0.8 cm. Stable dural based enhancing plaque-like lesion along the lateral aspect of the left frontal lobe, measuring 0.7 x 0.3 x 0.6 cm. No focal restricted diffusion is demonstrated to suggest acute or subacute cerebral ischemia. No evidence of acute or chronic hemorrhagic products on heme-sensitive imaging. Stable appearance of prominent arachnoid pitting in the posterior fossa. Chronic encephalomalacia in the parasagittal posterior aspects of the bilateral cerebellar hemispheres. Scattered and partially confluent periventricular, deep white matter, and brainstem T2 FLAIR hyperintensities consistent with moderate underlying microangiopathy. Proportional prominence of the ventricles and sulcal spaces without evidence of obstructive hydrocephalus. No abnormal mass effect. No midline shift. Normal appearance of the pituitary gland. Normal positioning of the cerebellar tonsils. Normal arterial and venous vascular flow voids are present. No new abnormal contrast enhancement. Normal, homogeneous marrow signal. Mild mucosal thickening of the paranasal sinuses. No signal abnormalities within the mastoids. MR/MR head/brain wo/w con IMPRESSION: 1. No acute intracranial abnormalities. 2. Stable 1.2 cm meningioma along the undersurface of the left tentorial leaflet. Additional smaller meningiomas measure up to 0.8 cm along the right anterior aspect of the falx cerebri and 0.7 cm along the lateral aspect of the left frontal lobe, unchanged. 3. Moderate underlying microangiopathy and generalized cerebral volume loss.
== END 2022-04-08 08:04 | disposition home or self-care (01) ==
LOC: HO.MRI 08:03
PROVIDERS: Visit Provider Neurological Surgery
DX: D42.9 Neoplasm of uncertain behavior of meninges, unspecified (principal)
CPT/HCPCS: 70553; A9585

== ENCOUNTER 2022-05-08 10:52 | Outpatient (REF) | payer MEDICARE, OTHER, SELFPAY ==
[2022-05-08 11:11] LABS: MANUAL DIFF FLAG NO
[2022-05-08 12:08] LABS: Basophils Absolute Auto 0.1 X10*3/uL (0.0-0.2); Eosinophils Absolute Auto 0.2 X10*3/uL (0.0-0.4); Eosinophils Percent Auto 3.4 % (0-4); Hematocrit 40.1 % (37.0-47.0); Hemoglobin 13.2 g/dl (12.0-16.0); Imm Gran Abs Auto 0.01 X10*3/uL (0.00-0.03); Imm Gran Pct Auto 0.2 % (0.0-0.4); Lymphocytes Absolute Auto 1.3 X10*3/uL (1.2-4.9); Lymphocytes Percent Auto 22.3 % (20-40); Mean Corpuscular HGB Conc 32.9 g/dl (31.0-35.0); Mean Corpuscular Hemoglobin 30.5 pg (27.0-33.0); Mean Corpuscular Volume 92.6 fL (80.0-98.0); Mean Platelet Volume 11.2 fL (9.4-12.3); Monocytes Absolute Auto 0.6 X10*3/uL (0.1-1.2); Monocytes Percent Auto 9.9 % (2-11); Neutrophils Absolute Auto 3.8 x10*3/uL (2.0-8.3); Neutrophils Percent Auto 63.2 % (45-73); Platelet Count 242 X10*3/uL (160-400); Red Blood Count 4.33 X10*6/uL (4.20-5.50); Red Cell Distribution Width 15.1 % (11.0-16.0); White Blood Count 5.9 X10*3/uL (4.8-10.8)
[2022-05-08 13:14] LABS: Alanine Aminotransferase 15 U/L (0-31); Albumin Level 3.8 g/dL (3.5-5.0); Alkaline Phosphatase 75 U/L (39-117); Anion Gap 12 (12-20); Aspartate Amino Transferase 24 U/L (5-31); Bilirubin Total 0.4 mg/dL (0.0-1.0); Blood Urea Nitrogen 15 mg/dL (9-16); Calcium 8.9 mg/dL (8.4-10.2); Carbon Dioxide 28 mmol/L (22-29); Chloride 107 mmol/L (96-108); Estimated Glomerular Filt Rate > 60; Glucose Random 86 mg/dL (60-115); Potassium 4.5 mmol/L (3.3-5.1); Sodium 142 mmol/L (135-145); Total Protein 6.1 g/dL (6.5-8.0); Uric Acid 4.3 mg/dL (2.4-5.7)
[2022-05-08 13:28] LABS: Folate 18.1 ng/mL (> or = 4.0); Vitamin B12 706 pg/mL (200-900); Vitamin D 25-OH Total 32.2 ng/mL (>30)
== END 2022-05-08 10:53 | disposition home or self-care (01) ==
LOC: HO.LAB 10:52
PROVIDERS: PCP Internal Medicine; Visit Provider Physician Assistant
DX: M10.041 Idiopathic gout, right hand (principal); D51.0 Vitamin B12 deficiency anemia due to intrinsic factor deficiency; E55.9 Vitamin D deficiency, unspecified; I10 Essential (primary) hypertension
CPT/HCPCS: 36415; 80053; 82306; 82607; 82746; 84550; 85025

== ENCOUNTER 2022-09-02 16:11 | Outpatient (REF) | payer MEDICARE, OTHER, SELFPAY ==
[2022-09-04 16:14] LABS: Calcium (PTHI) 9.2 mg/dL (8.6-10.4); PTHI 73 pg/mL (16-77)
== END 2022-09-02 16:12 | disposition home or self-care (01) ==
LOC: HO.LAB 16:11
PROVIDERS: PCP Internal Medicine; Visit Provider Internal Medicine Endocrinology, Diabetes & Metabolism
DX: E89.0 Postprocedural hypothyroidism (principal); M81.0 Age-related osteoporosis without current pathological fracture; Z79.899 Other long term (current) drug therapy
CPT/HCPCS: 36415; 82306; 83970; 84432; 84439; 84443; 86800; 99212

== ENCOUNTER 2022-09-22 10:08 | Outpatient (AMB) | payer MEDICARE, OTHER, SELFPAY ==
--- NOTE | 2022-09-22 10:12 | MHC.OFFVIS ---
Intake Vital Signs 09/22/22 10:13 Height 5 ft 3 in Weight 232 lb 9.403 oz BMI 41.2 BP 122/72 Blood Pressure Location Lt brachial Position Sitting Pulse 68 Pulse Source Pulse Oximeter Pulse Oximetry (%) 96 Oxygen Delivery Method Room Air Intake Visit Reasons: copd Intake Note: Pt presents today for a f/u. She reports having to use her rescue inhaler often due to the weather and is coughing up mucus in the mornings. Managed Care Liaison Required: No Allergies No Known Allergies Allergy (Verified 09/22/22 10:49) Medication List - Last Reconciled 09/22/22 by Ilene Leo MD albuterol sulfate 90 mcg/actuation 2 puffs inhalation Q4H PRN albuterol sulfate 90 mcg/actuation (ProAir HFA) 2 puffs inhalation Q4-6H PRN alendronate 70 mg PO QWEEK allopurinol 2 tabs PO BID apixaban (Eliquis) 5 mg PO BID budesonide-formoterol 160-4.5 mcg/actuation (Symbicort) 2 puffs inhalation BID calcium citrate 1,000 mg PO DAILY celecoxib 200 mg PO DAILY cetirizine 10 mg PO BEDTIME PRN clonazepam 1 tab PO DAILY PRN diclofenac sodium 1% (Arthritis Pain (diclofenac)) 2 grams topical QID diltiazem HCl (Cardizem CD) 180 mg PO DAILY escitalopram oxalate 10 mg PO DAILY inhalational spacing device (Flexichamber spacer) As directed levothyroxine (Levoxyl) 137 mcg PO DAILY 90 days losartan 100 mg PO DAILY montelukast 10 mg PO BEDTIME ofloxacin 0.3% 0 drps otic (ears) umeclidinium 62.5 mcg/actuation (Incruse Ellipta) 1 puff inhalation DAILY vit C,Z-Sj-lknwx-lutein-zeaxan 250-90-40-1 mg (PreserVision AREDS-2) 1 tab PO BID Do you need a note to return to daycare/school/sports/work: No HPI copd HPI Details THIS 72 YEARS OLD VERY PLEASANT FEMALE A CASE OF MORBID OBESITY, OBSTRUCTIVE SLEEP APNEA, AND CHRONIC OBSTRUCTIVE PULMONARY DISEASE, COMES FOR HER 6 MONTHS FOLLOW-UP. SHE HAS REMAINED VERY STABLE, SYMPTOMS UNDER CONTROL, EXCEPT IN THE PAST SEVERAL WEEKS HAS INCREASED COUGH ESPECIALLY IN THE MORNINGS AND BRINGS UP SMALL AMOUNT OF WHITISH MUCUS. SHE HAD TO USE THE THE RESCUE INHALER LITTLE MORE OFTEN IN THE HOT AND HUMID WEATHER. OTHERWISE SHE HAS BEEN USING HER REGULAR MAINTENANCE INHALERS INCLUDING INCRUSE ELLIPTA AND SYMBICORT. SHE USES HER CPAP VERY REGULARLY AND SLEEPS GOOD AT LEAST 6-7 HOURS PER NIGHT. SHE HAS THE NEW CPAP DEVICE, AND IS QUITE HAPPY WITH THAT. DENIES ANY DAYTIME SLEEPINESS. [facility] Medical History Abrasion, multiple sites Allergic rhinitis Anemia COPD (chronic obstructive pulmonary disease) Environmental and seasonal allergies Essential hypertension Generalized anxiety disorder Gout Grief counseling History of thyroid cancer Left humeral fracture Meningioma Morbid obesity JUAREZ on CPAP Osteoarthritis Osteoporosis Papillary thyroid carcinoma Pernicious anemia Postsurgical hypothyroidism Varicose veins of right lower extremity with pain Vitamin D deficiency Surgical History Gastric bypass status for obesity H/O vein stripping History of thyroidectomy, total History of total left knee replacement (TKR) Hx of cholecystectomy Hx of colonoscopy Hx of shoulder surgery Social History Household Members: None Housing: House Do you presently have visiting nurse or other home services: No Alcohol intake: former Patient Tobacco Use Status: Never used Tobacco e-Cigarette/Vaping Use: Never Used Substance Use Type: Marijuana Current occupational status: retired Cognitive needs: No Hearing needs: No Vision needs: Yes Review of Systems Const All systems reviewed & are unremarkable except as noted in HPI and below ENT Reports nasal congestion (mild occasional ) Card Reports dyspnea on exertion Resp Reports cough (mild intermittent ) and Reports dyspnea on exertion Physical Exam Vital Signs: Last Vital Signs Pulse 68 09/22/22 10:13 BP 122/72 09/22/22 10:13 Pulse Ox 96 09/22/22 10:13 Oxygen Delivery Method Room Air 09/22/22 10:13 BMI result Body Mass Index 41.2 Const General: healthy appearing (Except for being overweight), comfortable, no acute distress, alert and awake Orientation/consciousness: patient oriented x3 HEENT Head: Yes normal to inspection General nose exam: No nasal polyps present and No nasal discharge present Face and sinus: Yes sinuses nontender Mouth: oropharynx normal Throat: Yes posterior oropharynx normal Eyes General: appearance normal, both eyes and all related structures Neck Neck: Yes normal visual inspection, Yes no lymphadenopathy, Yes trachea midline and Yes no JVD Thyroid: Thyroid normal Chest Chest palpation & inspection: normal inspection of the chest, normal palpation of entire chest wall and no tenderness Resp Other: Percussion note resonant, breath sounds are distant with prolonged expiratory phase. Both sides are clear no wheezes rhonchi or crepitations are heard. Cardio Palpation: normal PMI Rate: regular rate Rhythm: regular rhythm Heart sounds: no gallops and no murmurs GI Palpation (GI): Soft to palpation, nontender, No hepatosplenomegaly present and no masses Auscultation: normal bowel sounds Back/Spine/Pelvis Thoracic/Lumbar Spine: thoracic and lumbar spine normal to inspection Skin General skin exam: no rashes or lesions noted Neuro General: patient oriented x3 and no focal motor deficits Cranial nerves: Yes CN's II-XII intact bilaterally Extrem General: Yes normal to inspection, Yes no clubbing, cyanosis or edema and Yes no calf tenderness Psych Appearance: grossly normal and well kempt Speech and movement: Normal speech and movement present Assessment & Plan Assessment & Plan (1) Morbid obesity: Comment: BMI= 41.2 Has lost a few LBs since last year She tries to watch her diet but cannot do much exercise. Code(s): E66.01 - Morbid (severe) obesity due to excess calories (2) Allergic rhinitis: Comment: sees allergy immunology associates, getting allergy shots R/x Cetrazine 10 mg po PRN Code(s): J30.9 - Allergic rhinitis, unspecified (3) JUAREZ on CPAP: Comment: JUAREZ IS WELL TREATED WITH CPAP . SHE HAS THE NEW CPAP MACHINE, WHICH IS WORKING WELL. COMPLIANCE IS GOOD. ENCOURAGED TO USE MORE THAN 6 HOURS PER NIGHT. Code(s): G47.33 - Obstructive sleep apnea (adult) (pediatric); Z99.89 - Dependence on other enabling machines and devices (4) COPD (chronic obstructive pulmonary disease): Comment: Patient has severe obstructive airway disorder. Controlled fairly well with the current regimen: TX : Incruse Ellipta 1 inhalation daily Symbicort 160-4.52 puffs b.i.d. Albuterol HFA 2 puffs Q 4-6 hours p.r.n. Code(s): J44.9 - Chronic obstructive pulmonary disease, unspecified Coding Level of Care Code Est Pt Level 3 (85113) Diagnoses Morbid obesity E66.01 Allergic rhinitis J30.9 JUAREZ on CPAP G47.33; Z99.89 COPD (chronic obstructive pulmonary disease) J44.9
[2022-09-22 10:13] VITALS: BP 122/72; PULSE 68; O2SAT 96; BMI 41.2
== END 2022-09-22 10:48 | disposition home or self-care (01) ==
PROVIDERS: PCP Internal Medicine; Visit Provider Internal Medicine
DX: E66.01 Morbid (severe) obesity due to excess calories (principal); J30.9 Allergic rhinitis, unspecified; G47.33 Obstructive sleep apnea (adult) (pediatric); Z99.89 Dependence on other enabling machines and devices; J44.9 Chronic obstructive pulmonary disease, unspecified
CPT/HCPCS: 99213

== ENCOUNTER → 2022-09-22 10:08 | Outpatient (BNVA) | payer MEDICARE, OTHER, SELFPAY | PROVIDERS: PCP Internal Medicine; Visit Provider Internal Medicine | DX: J44.9 Chronic obstructive pulmonary disease, unspecified (principal); J30.9 Allergic rhinitis, unspecified; G47.33 Obstructive sleep apnea (adult) (pediatric); E66.01 Morbid (severe) obesity due to excess calories; Z68.41 Body mass index [BMI] 40.0-44.9, adult; Z99.89 Dependence on other enabling machines and devices | CPT/HCPCS: 99212 ==

== ENCOUNTER 2022-11-09 09:51 | Outpatient (REF) | payer MEDICARE, OTHER, SELFPAY ==
--- NOTE | ~2022-11-09 | XR_ITS ---
EXAMINATION: XR KNEE, LEFT CLINICAL INFORMATION: Total knee arthroplasty. COMPARISON: Most recent left knee radiographs dated 08/24/2021. TECHNIQUE: AP and lateral views of the left knee. FINDINGS: Total left knee arthroplasty in expected anatomic alignment. No hardware fracture. No perihardware lucency to suggest loosening or infection. No osseous fracture. No concerning lytic or blastic osseous lesion. No significant joint effusion. XR/XR knee LT 2V IMPRESSION: Total left knee arthroplasty without evidence of complication.
[2022-11-09 10:32] LABS: Basophils Percent Auto 0.7 % (0-2); Eosinophils Absolute Auto 0.1 X10*3/uL (0.0-0.4); Eosinophils Percent Auto 2.1 % (0-4); Hematocrit 40.9 % (37.0-47.0); Hemoglobin 13.3 g/dl (12.0-16.0); Imm Gran Abs Auto 0.01 X10*3/uL (0.00-0.03); Imm Gran Pct Auto 0.2 % (0.0-0.4); Lymphocytes Absolute Auto 1.1 X10*3/uL (1.2-4.9); Lymphocytes Percent Auto 18.4 % (20-40); MANUAL DIFF FLAG NO; Mean Corpuscular HGB Conc 32.5 g/dl (31.0-35.0); Mean Corpuscular Hemoglobin 30.5 pg (27.0-33.0); Mean Corpuscular Volume 93.8 fL (80.0-98.0); Mean Platelet Volume 10.1 fL (9.4-12.3); Monocytes Absolute Auto 0.6 X10*3/uL (0.1-1.2); Monocytes Percent Auto 10.3 % (2-11); Neutrophils Percent Auto 68.3 % (45-73); Platelet Count 247 X10*3/uL (160-400); Red Blood Count 4.36 X10*6/uL (4.20-5.50); Red Cell Distribution Width 14.1 % (11.0-16.0); White Blood Count 5.8 X10*3/uL (4.8-10.8)
[2022-11-09 10:58] LABS: Estimated Average Glucose 94 mg/dL; Hemoglobin A1c % 4.9 % (<6.0)
[2022-11-09 11:58] LABS: Folate 15.4 ng/mL (> or = 4.0); Vitamin B12 1001 pg/mL (200-900)
[2022-11-09 15:09] LABS: Alanine Aminotransferase 12 U/L (0-31); Albumin Level 4.1 g/dL (3.5-5.0); Alkaline Phosphatase 79 U/L (39-117); Anion Gap 12 (12-20); Aspartate Amino Transferase 23 U/L (5-31); Bilirubin Total 0.6 mg/dL (0.0-1.0); Blood Urea Nitrogen 23 mg/dL (9-16); Calcium 8.9 mg/dL (8.4-10.2); Carbon Dioxide 27 mmol/L (22-29); Chloride 107 mmol/L (96-108); Cholesterol 195 mg/dL (<200); Estimated Glomerular Filt Rate > 60; Glucose Random 90 mg/dL (60-115); HDL Cholesterol 84 mg/dL (>40); LDL Cholesterol Calculated 99 mg/dL (<100); Potassium 4.1 mmol/L (3.3-5.1); Sodium 142 mmol/L (135-145); Triglycerides 60 mg/dL (<150)
== END 2022-11-09 09:52 | disposition home or self-care (01) ==
LOC: HO.XRAY 09:51
PROVIDERS: PCP Internal Medicine; Visit Provider Physician Assistant
DX: I10 Essential (primary) hypertension (principal); D51.0 Vitamin B12 deficiency anemia due to intrinsic factor deficiency; Z96.652 Presence of left artificial knee joint
CPT/HCPCS: 36415; 73560; 80053; 80061; 82607; 82746; 83036; 85025

== ENCOUNTER 2022-11-20 13:02 | Outpatient (REF) | payer MEDICARE, OTHER, SELFPAY ==
--- NOTE | ~2022-11-20 | CT_ITS ---
EXAMINATION: CT KNEE WITHOUT CONTRAST, LEFT CLINICAL INFORMATION: Fall, knee pain. Knee replacement 2000. X-ray 11/09/2022. COMPARISON: X-ray 11/09/2022. TECHNIQUE: Axial imaging. Sagittal and coronal reconstructions. DLP: 126 mGy-cm FINDINGS: Status post total left knee arthroplasty. There is prominent metallic artifact from the hardware, obscuring the bone and soft tissue. Arthroplasty alignment appears maintained. Artifact limits evaluation for hardware fracture. Bone around the arthroplasty components is obscured by artifact. In the nonobscured bone, no definitive discrete fracture plane is identified. In the nonobscured bone, no osteolysis is seen to suggest loosening or infection. There is mild periosteal prominence along the posterior aspect of the tibial metaphysis, which may be chronic. No significant joint effusion is seen. Limited evaluation of the tendons. The quadriceps tendon grossly appears intact. Patellar tendon is obscured by artifact. There is subcutaneous edema in the anterior knee. Small chronic calcification in the anterior subcutaneous tissues. CT/CT knee LT wo IV con IMPRESSION: Total left knee arthroplasty. Significant metallic artifact limiting evaluation of the periprosthetic bone. No discrete fracture or findings to suggest complication is identified in the nonobscured osseous structures otherwise. Further evaluation with bone scan may be helpful, as clinically indicated.
== END 2022-11-20 13:03 | disposition home or self-care (01) ==
LOC: HO.CT 13:02
PROVIDERS: PCP Internal Medicine; Visit Provider Physician Assistant
DX: Z96.652 Presence of left artificial knee joint (principal)
CPT/HCPCS: 73700

== ENCOUNTER 2022-12-25 11:11 | Outpatient (REF) | payer MEDICARE, OTHER, SELFPAY ==
--- NOTE | ~2022-12-25 | US_ITS ---
EXAMINATION: US PELVIS CLINICAL INFORMATION: Pelvic and perineal pain. Last menstrual period at age 48. Postmenopausal. COMPARISON: Pelvic ultrasound 01/12/2013. TECHNIQUE: Ultrasound of the pelvis is performed using both transabdominal and transvaginal transducers along with Doppler. Transvaginal imaging is performed due to inadequate visualization transabdominally. FINDINGS: The uterus is anteverted, heterogeneous and measures 3.6 x 1.8 x 2.2 cm. A 1.9 x 1.4 x 1.8 cm hypoechoic mass along the right uterine fundus may represent a pedunculated fibroid versus an extrauterine mass and is difficult to characterize due to bowel gas. There is no significant free fluid in the pelvis. Small amount of fluid identified within the cervix. Endometrial double wall thickness is 0.2 cm. Bilateral ovaries were not visualized. Limited visualization due to bowel gas. US/US pelvic and transvaginal IMPRESSION: A 1.9 cm hypoechoic mass along the right uterine fundus may represent a pedunculated fibroid versus an extrauterine mass and is difficult to characterize as visualization is limited due to bowel gas. This mass was not appreciated on the ultrasound of 2012. Gynecologic consultation and possible MRI recommended for further evaluation. This study was presented today 12/28/2022 at 9:19 a.m. for interpretation. PSA staff will provide results to referring provider at this time.
== END 2022-12-25 11:12 | disposition home or self-care (01) ==
LOC: HO.US 11:11
PROVIDERS: Visit Provider Physician Assistant
DX: R10.2 Pelvic and perineal pain (principal)
CPT/HCPCS: 76830; 76856

== ENCOUNTER 2023-01-14 07:50 | Outpatient (REF) | payer MEDICARE, OTHER, SELFPAY ==
--- NOTE | ~2023-01-14 | MR_ITS ---
EXAMINATION: MR PELVIS WITHOUT AND WITH CONTRAST CLINICAL INFORMATION: Possible fibroid seen on ultrasound COMPARISON: Pelvic ultrasound 12/25/2022 TECHNIQUE: Multiplanar sequences are obtained utilizing 10 mL IV gadolinium. Fat suppression sequences are obtained as well. FINDINGS: There is a 15 mm low signal well-defined rounded focus adjacent to the right fundus of the uterus. No enhancement. It is probably a small exophytic fibroid. Uterus appears senescent. No adnexal masses. No ascites. Moderate sigmoid diverticulosis is noted without diverticulitis. Visualized bony structures are intact. There is mild atrophy noted, in the right gluteus medius musculature. Incidental note is made of a 5 mm cyst, in the mid right kidney. No further workup needed. MR/MR pelvis wo/w con IMPRESSION: Probable small fibroid. No suspicious findings. I would recommend repeating the ultrasound in 12 months.
[2023-01-14] MEDS: gadobutroL 10 ML VIAL IVPUSH (08:59)
== END 2023-01-14 07:51 | disposition home or self-care (01) ==
LOC: HO.MRI 07:50
PROVIDERS: PCP Internal Medicine; Visit Provider Physician Assistant
DX: N85.8 Other specified noninflammatory disorders of uterus (principal)
CPT/HCPCS: 72197; A9585

== ENCOUNTER 2023-03-15 08:13 | Outpatient (REF) | payer MEDICARE, OTHER, SELFPAY ==
[2023-03-15 09:57] LABS: Hematocrit 42.4 % (37.0-47.0); Hemoglobin 13.6 g/dl (12.0-16.0); Mean Corpuscular HGB Conc 32.1 g/dl (31.0-35.0); Mean Corpuscular Hemoglobin 29.8 pg (27.0-33.0); Mean Platelet Volume 10.8 fL (9.4-12.3); Platelet Count 258 X10*3/uL (160-400); Red Blood Count 4.56 X10*6/uL (4.20-5.50); Red Cell Distribution Width 14.4 % (11.0-16.0); White Blood Count 5.3 X10*3/uL (4.8-10.8)
[2023-03-15 10:34] LABS: Anion Gap 10 (12-20); Blood Urea Nitrogen 19 mg/dL (9-16); Calcium 9.5 mg/dL (8.4-10.2); Carbon Dioxide 30 mmol/L (22-29); Chloride 106 mmol/L (96-108); Estimated Glomerular Filt Rate > 60; Glucose Random 90 mg/dL (60-115); Potassium 3.9 mmol/L (3.3-5.1); Sodium 142 mmol/L (135-145)
== END 2023-03-15 08:14 | disposition home or self-care (01) ==
LOC: HO.LAB 08:13
PROVIDERS: PCP Internal Medicine; Visit Provider Internal Medicine Cardiovascular Disease
DX: I48.0 Paroxysmal atrial fibrillation (principal); I10 Essential (primary) hypertension
CPT/HCPCS: 36415; 80048; 85027; 93005; 99212

== ENCOUNTER 2023-03-15 08:13 | Outpatient (AMB) | payer MEDICARE, OTHER, SELFPAY ==
[2023-03-15 08:21] VITALS: BP 142/84; PULSE 65; BMI 39.0
--- NOTE | 2023-03-15 08:21 | MHC.OFFVIS ---
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: No Allergies No Known Allergies Allergy (Verified 09/22/22 10:49) Medication List - Last Reconciled 03/15/23 by Osmar Ferrari MD albuterol sulfate 90 mcg/actuation 2 puffs inhalation Q4H PRN albuterol sulfate 90 mcg/actuation (ProAir HFA) 2 puffs inhalation Q4-6H PRN alendronate 70 mg PO QWEEK allopurinol 200 mg PO BID apixaban (Eliquis) 5 mg PO BID budesonide-formoterol 160-4.5 mcg/actuation (Symbicort) 2 puffs inhalation BID calcium citrate 1,000 mg PO DAILY celecoxib 200 mg PO DAILY cetirizine 10 mg PO BEDTIME PRN clonazepam 1 tab PO DAILY PRN diclofenac sodium 1% (Arthritis Pain (diclofenac)) 2 grams topical QID diltiazem HCl (Cardizem CD) 180 mg PO DAILY escitalopram oxalate 10 mg PO DAILY inhalational spacing device (Flexichamber spacer) As directed levothyroxine (Levoxyl) 137 mcg PO DAILY 90 days losartan 100 mg PO DAILY montelukast 10 mg PO BEDTIME ofloxacin 0.3% 0 drps otic (ears) umeclidinium 62.5 mcg/actuation (Incruse Ellipta) 1 inh PO DAILY vit C,O-Oa-jquqt-lutein-zeaxan 250-90-40-1 mg (PreserVision AREDS-2) 1 tab PO BID HPI HPI Comments History of Present Illness Details Marjorie comes for follow-up. She has been doing well. She has been maintain activity level as tolerated. She recently had a viral syndrome which lasted for long time but now has recovered. Exercising again. Denies any prolonged palpitation irregular heartbeat. Blood pressure at home is usually well controlled 120-130 systolic. She denies any exertional chest pain or shortness of breath. No heart failure symptoms. No bleeding issues or neurologic events. Denies any lightheadedness or syncope [facility] Medical History Anemia Meningioma Abrasion, multiple sites Vitamin D deficiency Osteoporosis History of thyroid cancer Generalized anxiety disorder Essential hypertension Grief counseling Environmental and seasonal allergies Allergic rhinitis JUAREZ on CPAP COPD (chronic obstructive pulmonary disease) Left humeral fracture Morbid obesity Postsurgical hypothyroidism Papillary thyroid carcinoma Osteoarthritis Gout Pernicious anemia Varicose veins of right lower extremity with pain Surgical History Hx of colonoscopy Hx of shoulder surgery Hx of cholecystectomy History of total left knee replacement (TKR) History of thyroidectomy, total Gastric bypass status for obesity H/O vein stripping Social History Household Members: None Housing: House Do you presently have visiting nurse or other home services: No Alcohol intake: former Patient Tobacco Use Status: Never used Tobacco e-Cigarette/Vaping Use: Never Used Substance Use Type: Marijuana Current occupational status: retired Cognitive needs: No Hearing needs: No Vision needs: Yes Review of Systems Const Denies chills, Denies fatigue, Denies fever(s), Denies frequent falls, Denies weakness, Denies weight gain and Denies weight loss ENT Denies dizziness Card Denies chest pain, Denies leg edema, Denies lightheadedness, Denies palpitations, Denies dyspnea, Denies dyspnea on exertion, Denies orthopnea and Denies other (loss of consciousness) Resp Denies cough, Denies dyspnea and Denies dyspnea on exertion GI Denies hematochezia and Denies change in stool character Musc Denies abnormal gait, Denies muscle weakness, Denies numbness, Denies radiating pain into limb and Denies tingling Neuro Denies abnormal gait, Denies dizziness, Denies frequent falls, Denies numbness, Denies tingling and Denies weakness Endo Denies fatigue and Denies palpitations Physical Exam Vital Signs: Last Vital Signs Pulse 65 03/15/23 08:21 BP 142/84 H 03/15/23 08:21 BMI result Body Mass Index 39.0 Const General: cooperative, comfortable, no acute distress, alert and awake Nutritional Appearance: obese Orientation/consciousness: patient oriented x3 Limitations: no limitations Neck Neck: Yes trachea midline, Yes supple and Yes no JVD Chest Chest palpation & inspection: normal inspection of the chest Resp Effort & Inspection: normal respiratory effort Auscultation: clear to auscultation bilaterally Cardio Jugular venous distension: no JVD Palpation: normal PMI Rate: regular rate Rhythm: regular rhythm Heart sounds: S1 normal heart sound present, S2 normal heart sound present, no click, no gallops, no murmurs and no rubs GI Inspection: Yes obesity Auscultation: normal bowel sounds Skin General skin exam: no rashes or lesions noted and ecchymosis Neuro General: patient oriented x3 and no focal motor deficits Extrem General: Yes other (Redness in the left lower extremity with the fluid filled skin pouch) Office Procedures EKG Details: EKG shows normal sinus rhythm with poor R-wave progression at 65 beats per minute [id number], Complete Assessment & Plan Assessment & Plan (1) Paroxysmal atrial fibrillation: Comment: Followed by Dr. Ferrari Code(s): I48.0 - Paroxysmal atrial fibrillation Plan: Symptomatic paroxysmal atrial fibrillation doing well at this point time. No recurrence clinically. No change in therapy. Continue to pursue rhythm control approach. No indication for antiarrhythmic drug therapy. Continue Cardizem therapy. Avoidance of stimulants was discussed. Continue full oral anticoagulation, currently on Eliquis 5 mg b.i.d.. Semi annual renal function test should be pursued. Continue participate in physical activity and weight loss program which has shown to reduce recurrence of atrial fibrillation. (2) Essential hypertension: Code(s): I10 - Essential (primary) hypertension Plan: Hypertension, borderline elevated today. However she says at home her blood pressure is generally well controlled. Will not make any changes to her regimen. Continue current antihypertensive therapy. Importance of good blood pressure control was discussed. Advised to continue to monitor blood pressure at home and maintain a log. Low-salt diet was discussed. Continue heart healthy lifestyle with regular physical activity and improving aerobic exercise capacity as well as reducing weight. Will follow up in the clinic in 1 year's time after an echocardiogram. Thank you for allowing me to partake in her care Orders: Orders Basic Metabolic Panel Today I48.0 - Paroxysmal atrial fibrillation Complete Blood Count no Diff Today I48.0 - Paroxysmal atrial fibrillation Coding Level of Care Code Est Pt Level 4 (89569) Diagnoses Paroxysmal atrial fibrillation I48.0 Essential hypertension I10 CPT Codes EKG - CPT: 65392-[id number], Complete ([id number])
== END 2023-03-15 08:46 | disposition home or self-care (01) ==
PROVIDERS: PCP Internal Medicine; Visit Provider Internal Medicine Cardiovascular Disease
DX: I48.0 Paroxysmal atrial fibrillation (principal); I10 Essential (primary) hypertension
CPT/HCPCS: 93010; 99214

== ENCOUNTER 2023-03-29 10:11 | Outpatient (REF) | payer MEDICARE, OTHER, SELFPAY ==
[2023-03-29 12:21] LABS: Free T4 (Free Thyroxine) 1.18 ng/dL (0.71-1.85); Thyroid Stimulating Hormone 0.98 uIU/mL (0.32-4.0)
[2023-04-01 04:29] LABS: Thyroglobulin Antibody <1 IU/mL (<=1); Thyroglobulin Level <0.1 ng/mL
== END 2023-03-29 10:12 | disposition home or self-care (01) ==
LOC: HO.LAB 10:11
PROVIDERS: Visit Provider Internal Medicine Endocrinology, Diabetes & Metabolism
DX: E89.0 Postprocedural hypothyroidism (principal)
CPT/HCPCS: 36415; 84432; 84439; 84443; 86800

== ENCOUNTER 2023-04-06 10:12 | Outpatient (AMB) | payer MEDICARE, OTHER, SELFPAY ==
--- NOTE | 2023-04-06 10:32 | A.OFFVIS_ITS ---
Intake Vital Signs 04/06/23 10:33 Height 5 ft 3 in Weight 221 lb 9.033 oz BMI 39.2 BP 120/82 Blood Pressure Location Lt brachial Position Sitting Pulse 82 Pulse Oximetry (%) 98 Oxygen Delivery Method Room Air Intake Visit Reasons: copd Intake Note: pt is here for JUAREZ follow up and using cpap , but it is not her favorite, just getting over the sinus infection. 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 Required: No Allergies No Known Allergies Allergy (Verified 04/06/23 11:03) Medication List - Last Reconciled 04/06/23 by Ilene Leo MD albuterol sulfate 90 mcg/actuation 2 puffs inhalation Q4H PRN albuterol sulfate 90 mcg/actuation (ProAir HFA) 2 puffs inhalation Q4-6H PRN alendronate 70 mg PO QWEEK allopurinol 200 mg PO BID apixaban (Eliquis) 5 mg PO BID budesonide-formoterol 160-4.5 mcg/actuation (Symbicort) 2 puffs inhalation BID calcium citrate 1,000 mg PO DAILY celecoxib 200 mg PO DAILY cetirizine 10 mg PO BEDTIME PRN clonazepam 1 tab PO DAILY PRN diclofenac sodium 1% (Arthritis Pain (diclofenac)) 2 grams topical QID diltiazem HCl 180 mg PO DAILY escitalopram oxalate 10 mg PO DAILY inhalational spacing device (Flexichamber spacer) As directed levothyroxine (Levoxyl) 137 mcg PO DAILY 90 days losartan 100 mg PO DAILY montelukast 10 mg PO BEDTIME ofloxacin 0.3% 0 drps otic (ears) umeclidinium 62.5 mcg/actuation (Incruse Ellipta) 1 inh PO DAILY vit C,Z-Dg-lqcdu-lutein-zeaxan 250-90-40-1 mg (PreserVision AREDS-2) 1 tab PO BID Do you need a note to return to daycare/school/sports/work: No HPI copd HPI Details THIS 72 YEARS OLD FEMALE, GROSSLY OBESE WITH DIAGNOSIS OF OBSTRUCTIVE SLEEP APNEA, AND ALSO CHRONIC OBSTRUCTIVE PULMONARY DISEASE, COMES FOR FOLLOW-UP AFTER 6 MONTHS. BREATHING HAS BEEN STABLE EXCEPT FOR INTERMITTENT COUGH, AND SOME SHORTNESS OF BREATH ON WALKING UP HILL OR CLIMBING STAIRS. SHE HAS HAD NO ACUTE SPELLS OF WHEEZING. NOW FOR THE PAST 1 WEEK SHE IS SUFFERING FROM UPPER RESPIRATORY INFECTION ( RHINO SINUSITIS) AND IS BEING TREATED THE DOXYCYCLINE 100 B.I.D.. SHE CLAIMS THAT SHE IS GETTING BETTER. SHE USES CPAP REGULARLY, RECENTLY GOT THE NEW CPAP DEVICE. WHICH WORKS WELL SHE USES NASAL PILLOWS WITH PRESSURE OF 8 CM. SHE CANNOT USE THE FACEMASK. SLEEPS WELL. [facility] Medical History (Updated 04/06/23 @ 11:12 by Ilene Leo MD) Obesity (BMI 30-39.9) Anemia Meningioma Abrasion, multiple sites Vitamin D deficiency Osteoporosis History of thyroid cancer Generalized anxiety disorder Essential hypertension Grief counseling Environmental and seasonal allergies Allergic rhinitis JUAREZ on CPAP COPD (chronic obstructive pulmonary disease) Left humeral fracture Morbid obesity Postsurgical hypothyroidism Papillary thyroid carcinoma Osteoarthritis Gout Pernicious anemia Varicose veins of right lower extremity with pain Surgical History Hx of colonoscopy Hx of shoulder surgery Hx of cholecystectomy History of total left knee replacement (TKR) History of thyroidectomy, total Gastric bypass status for obesity H/O vein stripping Social History Household Members: None Housing: House Do you presently have visiting nurse or other home services: No Alcohol intake: former Patient Tobacco Use Status: Never used Tobacco e-Cigarette/Vaping Use: Never Used Substance Use Type: Marijuana Current occupational status: retired Cognitive needs: No Hearing needs: No Vision needs: Yes Review of Systems Const All systems reviewed & are unremarkable except as noted in HPI and below ENT Reports nasal congestion (mild occasional ) Card Reports dyspnea on exertion Resp Reports cough (mild intermittent ) and Reports dyspnea on exertion Physical Exam Vital Signs: Last Vital Signs Pulse 82 04/06/23 10:33 BP 120/82 04/06/23 10:33 Pulse Ox 98 04/06/23 10:33 Oxygen Delivery Method Room Air 04/06/23 10:33 BMI result Body Mass Index 39.2 Const General: healthy appearing (Except for being overweight), comfortable, no acute distress, alert and awake Orientation/consciousness: patient oriented x3 HEENT Head: Yes normal to inspection General nose exam: No nasal polyps present, No nasal discharge present and Other nasal findings present (Mild nasal congestion) Face and sinus: Yes sinuses nontender Mouth: oropharynx normal Throat: Yes posterior oropharynx normal Eyes General: appearance normal, both eyes and all related structures Neck Neck: Yes normal visual inspection, Yes no lymphadenopathy, Yes trachea midline and Yes no JVD Thyroid: Thyroid normal Chest Chest palpation & inspection: normal inspection of the chest, normal palpation of entire chest wall and no tenderness Resp Other: Percussion note resonant, breath sounds are distant with prolonged expiratory phase. Both sides are clear no wheezes rhonchi or crepitations are heard. Cardio Palpation: normal PMI Rate: regular rate Rhythm: regular rhythm Heart sounds: no gallops and no murmurs GI Palpation (GI): Soft to palpation, nontender, No hepatosplenomegaly present and no masses Auscultation: normal bowel sounds Back/Spine/Pelvis Thoracic/Lumbar Spine: thoracic and lumbar spine normal to inspection Skin General skin exam: no rashes or lesions noted Neuro General: patient oriented x3 and no focal motor deficits Cranial nerves: Yes CN's II-XII intact bilaterally Extrem General: Yes normal to inspection, Yes no clubbing, cyanosis or edema and Yes no calf tenderness Psych Appearance: grossly normal and well kempt Speech and movement: Normal speech and movement present Results Reviewed Results Reviewed: Compliance report is reviewed She has used 30/30 nights, 100%. Average use per night 6 hours 46 minutes. There is a slight leak, maximum 79 L/minute Residual AHI only 1.0 Assessment & Plan Assessment & Plan (1) Obesity (BMI 30-39.9): Comment: Continues to be grossly obese. No significant weight loss since last visit. Code(s): E66.9 - Obesity, unspecified Plan: Discussed about weight loss program. She has to cut down calories intake and also do some walking on a daily basis. (2) JUAREZ on CPAP: Comment: KNOWN CASE OF CHRONIC JUAREZ , PARTLY DUE TO HER GROSS OBESITY AND PARTLY DUE TO MILD RETROGANTHIA OF THE LOWER JAW. SHE HAS THE NEW CPAP MACHINE, WHICH IS WORKING WELL. COMPLIANCE IS GOOD. PRESSURE IS 8 CM. USES NASAL PILLOWS. THERE IS A SLIGHT AIR LEAK, BUT RESIDUAL AHI ONLY 1.0 Code(s): G47.33 - Obstructive sleep apnea (adult) (pediatric); Z99.89 - Dependence on other enabling machines and devices Plan: ENCOURAGED TO USE CPAP EVERY NIGHT REGULARLY. (3) COPD (chronic obstructive pulmonary disease): Comment: Patient has severe obstructive airway disorder. Controlled fairly well with the current regimen: Code(s): J44.9 - Chronic obstructive pulmonary disease, unspecified Plan: [place] : Incruse Ellipta 1 inhalation daily Symbicort 160-4.52 CHANGED TO BREO 200-25 1 INH DAILY ( Per Insurance ) Albuterol HFA 2 puffs Q 4-6 hours p.r.n. (4) Allergic rhinitis: Comment: [facility], getting allergy shots Code(s): J30.9 - Allergic rhinitis, unspecified Plan: R/x Cetrazine 10 mg po PRN Coding Level of Care Code Est Pt Level 3 (66245) Diagnoses Obesity (BMI 30-39.9) E66.9 JUAREZ on CPAP G47.33; Z99.89 COPD (chronic obstructive pulmonary disease) J44.9 Allergic rhinitis J30.9
[2023-04-06 10:33] VITALS: BP 120/82; PULSE 82; O2SAT 98; BMI 39.2
== END 2023-04-06 11:04 | disposition home or self-care (01) ==
PROVIDERS: PCP Internal Medicine; Visit Provider Internal Medicine
DX: E66.9 Obesity, unspecified (principal); G47.33 Obstructive sleep apnea (adult) (pediatric); Z99.89 Dependence on other enabling machines and devices; J44.9 Chronic obstructive pulmonary disease, unspecified; J30.9 Allergic rhinitis, unspecified
CPT/HCPCS: 99213

== ENCOUNTER → 2023-04-06 10:12 | Outpatient (BNVA) | payer MEDICARE, OTHER, SELFPAY | PROVIDERS: PCP Internal Medicine; Visit Provider Internal Medicine | DX: J44.9 Chronic obstructive pulmonary disease, unspecified (principal); J30.9 Allergic rhinitis, unspecified; G47.33 Obstructive sleep apnea (adult) (pediatric); E66.9 Obesity, unspecified; Z99.89 Dependence on other enabling machines and devices; Z68.39 Body mass index [BMI] 39.0-39.9, adult | CPT/HCPCS: 99212 ==

== ENCOUNTER 2023-04-07 16:15 | Outpatient (AMB) | payer MEDICARE, OTHER, SELFPAY ==
--- NOTE | 2023-04-07 16:23 | MHC.OFFVIS ---
Intake Vital Signs 04/07/23 16:24 Height 5 ft 3 in Weight 221 lb 5.506 oz BMI 39.2 BP 152/78 H Blood Pressure Location Lt brachial Position Sitting Pulse 77 Pulse Source Pulse Oximeter Intake Visit Reasons: f/u thyroid cancer /secondary hyperparathyroidism Intake Note: Patient presents today for Thyroid Cancer/ Secondary Hyperparathyroidism. Welfare Service Aide Required: No Accompanied by: Self / Same As Patient Allergies No Known Allergies Allergy (Verified 04/07/23 16:25) Medication List - Last Reconciled 04/07/23 by Wil Hesnley MD albuterol sulfate 90 mcg/actuation 2 puffs inhalation Q4H PRN albuterol sulfate 90 mcg/actuation (ProAir HFA) 2 puffs inhalation Q4-6H PRN alendronate 70 mg PO QWEEK allopurinol 200 mg PO BID apixaban (Eliquis) 5 mg PO BID budesonide-formoterol 160-4.5 mcg/actuation (Symbicort) 2 puffs inhalation BID calcium citrate 1,000 mg PO DAILY celecoxib 200 mg PO DAILY cetirizine 10 mg PO BEDTIME PRN clonazepam 1 tab PO DAILY PRN diclofenac sodium 1% (Arthritis Pain (diclofenac)) 2 grams topical QID diltiazem HCl 180 mg PO DAILY escitalopram oxalate 10 mg PO DAILY inhalational spacing device (Flexichamber spacer) As directed levothyroxine (Levoxyl) 137 mcg PO DAILY 90 days losartan 100 mg PO DAILY montelukast 10 mg PO BEDTIME ofloxacin 0.3% 0 drps otic (ears) umeclidinium 62.5 mcg/actuation (Incruse Ellipta) 1 inh PO DAILY vit C,J-Fs-rrksb-lutein-zeaxan 250-90-40-1 mg (PreserVision AREDS-2) 1 tab PO BID HPI HPI Comments History of Present Illness Details 72 YO Female with a PMHx of 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 She also has a new diagnosis of Osteoporosis. She was previously followed by Jackelyn Foster and then by Dr. Trivedi and lastly by Dr. Price. . 1) History of Thyroid Cancer: She was diagnosed on 2000 with papillary thyroid cancer, follicular variant, tumor size 1.4 x 1.0 x 1.2 cm encapsulated, positive transcapular invasion and extrathyroidal extension anteriorly, no lymphatic invasion, margins free of tumor. She had only one LN evaluated and was + for metastatic disease. Remote history of Stage [place] ( T4a, N1a, M0) ? She had surgery on 06/09/[address] Gonzalez at [facility], she was treated with MASSEY 131 98.9 mCi on 07/20/2000, (withdrawal) TSH was 68 MIU/ml, TG level 20.2 no antibodies available. ? WBS completed 07/20/2000 revealed prominent activity within the region of the thyroid bed, and small foci of activity within the right submandibular gland, stomach, bowel and right colon which were thought to be physiologic. She has had periodic US of the neck, which has revealed no abnormal lymphadenopathy or residual tissue within the thyroid bed. US neck 2011, no residual tissue , normal morphology LN. largest was 1.3 cm, no side or level documented in report. Her most recent US of the neck was 07/31/2020, again within normal limits. Labs 07/12/2020 with TSH 0.22, TG <0.1 and TGAb <1. She had a repeat thyrogen stimualted WBS 05/30/2021. Labs TSH >100, TG 0.1 and TGAB <1. WBS revealed multiple foci of uptake in the lower neck when investigated by SPECT-CT thought to be located within the submandibular gland and lingular tonsils and likely physiologic. There was some faint uptake in the upper esophagus, left paratracheal region, and the subcarinal region/lower esophagus. These were thought to be indeterminate without anatomic correlate. She remains on levothyroxine 137 mcg PO daily. She has no complaints today. 2) Osteoporosis: First diagnosed in 2020 with her first screening DEXA. Unfortunately this report has not yet been received. ?Has never been treated. After our initial visit she underwent a full biochemical evaluation for secondary causes of Osteoporosis, which was WNL other than low 24 hour urine calcium. ?Has 1 serving of dietary calcium per day in the form of milk. Takes Calcium supplement 500 mg daily . Takes 4000 IU of Vitamin D daily. ?Denies ever using PPI, anticoagulant, antiepileptic or glucocorticoid medication. ?Fracture history: Had a traumatic fracture of her arm in 2012. ?Height loss: Has lost 1.5 inches of height. 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 Menses always regular. . Menopause age 55. Did not use HRT after. ?History of Kidney stones: Denies ?Denies a Family history of Osteoporosis or hip fracture. ?UTD on dental cleanings and sees dentist every 6 months. No planned upcoming dental work or extractions. US Head and Neck: 07/31/2020 THYROID BED: Prior thyroidectomy. No residual thyroid tissue demonstrated in the thyroid bed. No cystic or solid nodules demonstrated in the thyroid bed. RIGHT NECK SOFT TISSUES: Scattered architecturally normal nodes are present. The nodes show normal fatty hilus, normal cortical thickness, and no cystic change or calcification. No abnormal color flow. The largest nodes are as follows: Level 3: 1.0 cm, Long axis Normal german architecture. LEFT NECK SOFT TISSUES: Scattered architecturally normal nodes are present. The nodes show normal fatty hilus, normal cortical thickness, and no cystic change or calcification. No abnormal color flow. The largest nodes are as follows: Level 3: 0.9 cm, long axis.? Normal german architecture. IMPRESSION: 1. Cervical lymph nodes without pathologic enlargement as detailed above. Thyrogen stimulated WBS: 05/30/2021 Multiple foci of uptake in the lower neck when investigated by SPECT-CT appear within the submandibular gland and ligular tonsils, likely physiologic. Some faint uptake in the upper esophagus, left paratracheal, subcarinal region and the lower esophagus. These were without anatomic correlate, and indeterminate. Labs: Laboratory Tests 05/28/21 05/28/21 05/30/21 07:41 07:41 06:13 TSH > 100.00 H 21.17 H Thyroglobulin <0.1 L Thyroglobulin Anti body 05/30/21 06:13 TSH Thyroglobulin 0.1 L Thyroglobulin Anti body <1 01/16/21 01/16/21 01/16/21 08:30 08:30 08:30 Creatinine 0.69 Estimated GFR > 60 Ionized Calcium 5.0 Alk Phos Bone Spec ific 15.7 PEP Interpretation N-Telopeptide X-li nked 25-OH Vitamin D To tequila TSH Free T4 PTH Intact Calcium (PTH Intac t) Ur 24 Hour Volume Ur Creatinine 24 H our Ur Calcium 24 Hr 01/16/21 01/22/21 01/22/21 08:30 08:00 08:00 Creatinine Estimated GFR Ionized Calcium Alk Phos Bone Spec ific PEP Interpretation SEE NOTE N-Telopeptide X-li nked 25-OH Vitamin D To tequila TSH Free T4 PTH Intact Calcium (PTH Intac t) Ur 24 Hour Volume 1400 Ur Creatinine 24 H our 1.08 Ur Calcium 24 Hr 45 01/22/21 06/05/21 06/27/21 09:00 15:25 10:46 Creatinine Estimated GFR Ionized Calcium Alk Phos Bone Spec ific PEP Interpretation N-Telopeptide X-li nked 62 25-OH Vitamin D To tequila 28.8 TSH 1.30 Free T4 1.31 PTH Intact Calcium (PTH Intac t) Ur 24 Hour Volume Ur Creatinine 24 H our Ur Calcium 24 Hr 06/27/21 10:46 Creatinine Estimated GFR Ionized Calcium Alk Phos Bone Spec ific PEP Interpretation N-Telopeptide X-li nked 25-OH Vitamin D To tequila TSH Free T4 PTH Intact 76 Calcium (PTH Intac t) 9.0 Ur 24 Hour Volume Ur Creatinine 24 H our Ur Calcium 24 Hr [facility] Medical History (Updated 04/06/23 @ 11:12 by Ilene Leo MD) Obesity (BMI 30-39.9) Anemia Meningioma Abrasion, multiple sites Vitamin D deficiency Osteoporosis History of thyroid cancer Generalized anxiety disorder Essential hypertension Grief counseling Environmental and seasonal allergies Allergic rhinitis JUAREZ on CPAP COPD (chronic obstructive pulmonary disease) Left humeral fracture Morbid obesity Postsurgical hypothyroidism Papillary thyroid carcinoma Osteoarthritis Gout Pernicious anemia Varicose veins of right lower extremity with pain Surgical History Hx of colonoscopy Hx of shoulder surgery Hx of cholecystectomy History of total left knee replacement (TKR) History of thyroidectomy, total Gastric bypass status for obesity H/O vein stripping Social History Household Members: None Housing: House Do you presently have visiting nurse or other home services: No Alcohol intake: former Patient Tobacco Use Status: Never used Tobacco e-Cigarette/Vaping Use: Never Used Substance Use Type: Marijuana Current occupational status: retired Cognitive needs: No Hearing needs: No Vision needs: Yes Physical Exam Const Other: There is a healed scar in the neck status post thyroidectomy. There is no cervical adenopathy palpated Assessment & Plan Assessment & Plan (1) Postsurgical hypothyroidism: Code(s): E89.0 - Postprocedural hypothyroidism Plan: Patient with a history of follicular variant of PTC 1.4 cm in greatest dimension, with 1 lymph node positive for metastatic disease,?T4a, N1a, M0.? She is s/p a total thyroidectomy in 2000, and I131 adjuvant treatment with 98.9 mCi 07/20/2000 through the withdrawal method.? She remains on Levothyroxine 137 mcg PO daily with TSH at goal and negative tumor markers.? Repeat US of the neck revealed no evidence of residual disease. Thyrogen stimulated WBS revealed uptake within the neck thought to be physiologic.? There was indeterminate uptake in the chest, but given the undetectable TG levels this is thought to represent artifact.? Now that she is 20 years out from her initial diagnosis, she is cured of her thyroid cancer.? We will continue to monitor yearly non-stimulated TG levels, but no further imaging is required at this time.. She is clinically and biochemically euthyroid on 137 mcg levothyroxine . Plan is to continue the current therapy. At this point, patient can follow-up with her primary care provider who can check TSH perhaps once or twice a year and keep it normal range. She returned back to endocrinology as needed (2) Osteoporosis: Comment: Followed by Dr. Aleman currently on alendronate Code(s): M81.0 - Age-related osteoporosis without current pathological fracture Plan: Currently on calcium, vitamin-D supplementation and alendronate prescribed by Rheumatology. Last year, she had borderline vitamin-D, elevated PTH. PTH is now normalized Continue the current treatment. She should follow-up with Rheumatology regarding osteoporosis Coding Level of Care Code Est Pt Level 3 (37102) Diagnoses Postsurgical hypothyroidism E89.0 Osteoporosis M81.0
[2023-04-07 16:24] VITALS: BP 152/78; PULSE 77; BMI 39.2
== END 2023-04-07 16:36 | disposition home or self-care (01) ==
PROVIDERS: PCP Internal Medicine; Visit Provider Internal Medicine Endocrinology, Diabetes & Metabolism
DX: E89.0 Postprocedural hypothyroidism (principal); M81.0 Age-related osteoporosis without current pathological fracture
CPT/HCPCS: 99213

== ENCOUNTER → 2023-04-07 16:15 | Outpatient (BNVA) | payer MEDICARE, OTHER, SELFPAY | PROVIDERS: PCP Internal Medicine; Visit Provider Internal Medicine Endocrinology, Diabetes & Metabolism | DX: E89.0 Postprocedural hypothyroidism (principal); M81.0 Age-related osteoporosis without current pathological fracture | CPT/HCPCS: 99212 ==

== ENCOUNTER 2023-05-26 10:43 | Outpatient (AMB) | payer MEDICARE, OTHER, SELFPAY ==
[2023-05-26 11:08] VITALS: BP 130/80; PULSE 73; TEMP 36.1; O2SAT 98; BMI 39.1
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
== END 2023-05-26 12:17 | disposition home or self-care (01) ==
PROVIDERS: PCP Internal Medicine; Visit Provider Physician Assistant Medical
DX: M79.642 Pain in left hand (principal)
CPT/HCPCS: 99213

== ENCOUNTER 2023-05-26 11:30 | Outpatient (REF) | payer MEDICARE, OTHER, SELFPAY ==
--- NOTE | ~2023-05-26 | XR_ITS ---
EXAMINATION: XR HAND/WRIST, LEFT CLINICAL INFORMATION: Pain. COMPARISON: None TECHNIQUE: PA, lateral, and oblique views of the left hand and wrist. FINDINGS: Osteopenia. No visible acute fracture or dislocation.. Alignment is anatomic. Joint spaces are relatively maintained. Small spurring at the third DIP joint. No erosions or soft tissue calcifications. XR/XR hand wrist LT IMPRESSION: No radiographic evidence of acute fracture or dislocation. Osteopenia.
== END 2023-05-26 11:31 | disposition home or self-care (01) ==
LOC: HO.HMGCX 11:30
PROVIDERS: PCP Internal Medicine; Visit Provider Physician Assistant Medical
DX: M79.642 Pain in left hand (principal); M85.80 Other specified disorders of bone density and structure, unspecified site
CPT/HCPCS: 73110; 73130

== ENCOUNTER 2023-08-31 10:28 | Outpatient (AMB) | payer MEDICARE, OTHER, SELFPAY ==
[2023-08-31 10:44] VITALS: BP 108/76; PULSE 74; O2SAT 98; BMI 39.2
--- NOTE | 2023-08-31 10:44 | MHC.OFFVIS ---
Vital Signs 08/31/23 10:44 Height 5 ft 3 in Weight 221 lb 9.033 oz BMI 39.2 BP 108/76 Blood Pressure Location Lt brachial Position Sitting Pulse 74 Pulse Source Pulse Oximeter Pulse Oximetry (%) 98 Oxygen Delivery Method Room Air Intake Visit Reasons: COPD Intake Note: pt is here for follow up and states she is doing well with JUAREZ. Music Supervisor Required: No Allergies No Known Allergies Allergy (Verified 08/31/23 10:59) Medication List - Last Reconciled 08/31/23 by Ilene Leo MD albuterol sulfate 90 mcg/actuation 2 puffs inhalation Q4H PRN albuterol sulfate 90 mcg/actuation (ProAir HFA) 2 puffs inhalation Q4-6H PRN alendronate 70 mg PO QWEEK allopurinol 200 mg PO BID apixaban (Eliquis) 5 mg PO BID calcium citrate 1,000 mg PO DAILY celecoxib 200 mg PO DAILY cetirizine 10 mg PO BEDTIME PRN clonazepam 1 tab PO DAILY PRN diclofenac sodium 1% (Arthritis Pain (diclofenac)) 2 grams topical QID fluticasone furoate-vilanterol 200-25 mcg/dose (Breo Ellipta) 1 inh inhalation DAILY 90 days inhalational spacing device (Flexichamber spacer) As directed levothyroxine (Levoxyl) 137 mcg PO DAILY 90 days losartan 100 mg PO DAILY Do you need a note to return to daycare/school/sports/work: No HPI HPI COPD: Details: Marjorie is 73 years old very pleasant female, comes for her routine. Follow-up after 4 months Using her CPAP very regularly every night and sleeps good. Has no issues with the mask or CPAP device. Breathing has been good since she is using Breo, she has used albuterol inhaler only once in the last 4 months. Overall her respiratory status remains very stable. [facility] Medical History Obesity (BMI 30-39.9) Anemia Meningioma Abrasion, multiple sites Vitamin D deficiency Osteoporosis History of thyroid cancer Generalized anxiety disorder Essential hypertension Grief counseling Environmental and seasonal allergies Allergic rhinitis JUAREZ on CPAP COPD (chronic obstructive pulmonary disease) Left humeral fracture Morbid obesity Postsurgical hypothyroidism Papillary thyroid carcinoma Osteoarthritis Gout Pernicious anemia Varicose veins of right lower extremity with pain Surgical History Hx of colonoscopy Hx of shoulder surgery Hx of cholecystectomy History of total left knee replacement (TKR) History of thyroidectomy, total Gastric bypass status for obesity H/O vein stripping Social History Household Members: None Housing: House Do you presently have visiting nurse or other home services: No Alcohol intake: former Patient Tobacco Use Status: Never used Tobacco e-Cigarette/Vaping Use: Never Used Substance Use Type: Marijuana Current occupational status: retired Cognitive needs: No Hearing needs: No Vision needs: Yes Review of Systems Const All systems reviewed & are unremarkable except as noted in HPI and below ENT Reports nasal congestion (mild occasional ) Card Reports dyspnea on exertion Resp Reports cough (mild intermittent ) and Reports dyspnea on exertion Physical Exam Vital Signs: Last Vital Signs Pulse 74 08/31/23 10:44 BP 108/76 08/31/23 10:44 Pulse Ox 98 08/31/23 10:44 Oxygen Delivery Method Room Air 08/31/23 10:44 BMI result Body Mass Index 39.2 Const General: healthy appearing (Except for being overweight), comfortable, no acute distress, alert and awake Orientation/consciousness: patient oriented x3 HEENT Head: Yes normal to inspection General nose exam: No nasal polyps present, No nasal discharge present and Other nasal findings present (Mild nasal congestion) Face and sinus: Yes sinuses nontender Mouth: oropharynx normal Throat: Yes posterior oropharynx normal Eyes General: appearance normal, both eyes and all related structures Neck Neck: Yes normal visual inspection, Yes no lymphadenopathy, Yes trachea midline and Yes no JVD Thyroid: Thyroid normal Chest Chest palpation & inspection: normal inspection of the chest, normal palpation of entire chest wall and no tenderness Resp Other: Percussion note resonant, breath sounds are distant with prolonged expiratory phase. Both sides are clear no wheezes rhonchi or crepitations are heard. Cardio Palpation: normal PMI Rate: regular rate Rhythm: regular rhythm Heart sounds: no gallops and no murmurs GI Palpation (GI): Soft to palpation, nontender, No hepatosplenomegaly present and no masses Auscultation: normal bowel sounds Back/Spine/Pelvis Thoracic/Lumbar Spine: thoracic and lumbar spine normal to inspection Skin General skin exam: no rashes or lesions noted Neuro General: patient oriented x3 and no focal motor deficits Cranial nerves: Yes CN's II-XII intact bilaterally Extrem General: Yes normal to inspection, Yes no clubbing, cyanosis or edema and Yes no calf tenderness Psych Appearance: grossly normal and well kempt Speech and movement: Normal speech and movement present Results Reviewed Results Reviewed: Compliance report for the last 30 nights is reviewed. She has used 30/30 nights., 100% average use it per night, 7 hours 43 minutes. Slight air leak is noted. Residual AHI only 0.7 Assessment & Plan Assessment & Plan (1) JUAREZ on CPAP: Comment: KNOWN CASE OF CHRONIC JUAREZ , PARTLY DUE TO HER GROSS OBESITY AND PARTLY DUE TO MILD RETROGANTHIA OF THE LOWER JAW. SHE HAS THE NEW CPAP MACHINE, WHICH IS WORKING WELL. COMPLIANCE IS GOOD. PRESSURE IS 8 CM. USES NASAL PILLOWS. THERE IS A SLIGHT AIR LEAK, BUT RESIDUAL AHI ONLY 0.7 Code(s): G47.33 - Obstructive sleep apnea (adult) (pediatric); Z99.89 - Dependence on other enabling machines and devices Category: Medical Plan: Commended. for good compliance Continue to use the CPAP every night, make sure the straps are tight. (2) COPD (chronic obstructive pulmonary disease): Comment: Patient has severe obstructive airway disorder. Controlled fairly well with the current regimen . She is very happy with the use of Breo . Code(s): J44.9 - Chronic obstructive pulmonary disease, unspecified Category: Medical Plan: Continue to use Breo 200-25 1 inhalation daily Albuterol HFA 2 puffs Q 6 hours only p.r.n. Coding Level of Care Code Est Pt Level 3 (29507) Diagnoses JUAREZ on CPAP G47.33; Z99.89 COPD (chronic obstructive pulmonary disease) J44.9
== END 2023-08-31 11:05 | disposition home or self-care (01) ==
PROVIDERS: PCP Internal Medicine; Visit Provider Internal Medicine
DX: G47.33 Obstructive sleep apnea (adult) (pediatric) (principal); Z99.89 Dependence on other enabling machines and devices; J44.9 Chronic obstructive pulmonary disease, unspecified
CPT/HCPCS: 99213

== ENCOUNTER → 2023-08-31 10:28 | Outpatient (BNVA) | payer MEDICARE, OTHER, SELFPAY | PROVIDERS: PCP Internal Medicine; Visit Provider Internal Medicine | DX: J44.9 Chronic obstructive pulmonary disease, unspecified (principal); G47.33 Obstructive sleep apnea (adult) (pediatric); Z99.89 Dependence on other enabling machines and devices | CPT/HCPCS: 99212 ==

== ENCOUNTER 2023-12-14 08:00 | Outpatient (REF) | payer MEDICARE, OTHER, SELFPAY ==
[2023-12-14 08:07] LABS: MANUAL DIFF FLAG NO
[2023-12-14 08:37] LABS: Basophils Absolute Auto 0.1 X10*3/uL (0.0-0.2); Basophils Percent Auto 0.9 % (0-2); Eosinophils Absolute Auto 0.2 X10*3/uL (0.0-0.4); Hematocrit 42.2 % (37.0-47.0); Hemoglobin 13.6 g/dl (12.0-16.0); Imm Gran Abs Auto 0.02 X10*3/uL (0.00-0.03); Imm Gran Pct Auto 0.3 % (0.0-0.4); Lymphocytes Absolute Auto 1.6 X10*3/uL (1.2-4.9); Lymphocytes Percent Auto 26.7 % (20-40); Mean Corpuscular HGB Conc 32.2 g/dl (31.0-35.0); Mean Corpuscular Hemoglobin 30.7 pg (27.0-33.0); Mean Corpuscular Volume 95.3 fL (80.0-98.0); Mean Platelet Volume 9.9 fL (9.4-12.3); Monocytes Absolute Auto 0.6 X10*3/uL (0.1-1.2); Monocytes Percent Auto 10.9 % (2-11); Neutrophils Absolute Auto 3.3 x10*3/uL (2.0-8.3); Neutrophils Percent Auto 57.2 % (45-73); Platelet Count 287 X10*3/uL (160-400); Red Blood Count 4.43 X10*6/uL (4.20-5.50); White Blood Count 5.8 X10*3/uL (4.8-10.8)
[2023-12-14 09:01] LABS: Estimated Average Glucose 105 mg/dL; Hemoglobin A1C 122.3715 umol/L; Hemoglobin A1c % 5.3 % (<6.0); Total Hemoglobin (HGBA1C) 3583.6133 umol/L
[2023-12-14 09:12] LABS: Alanine Aminotransferase 20 U/L (0-31); Albumin Level 4.3 g/dL (3.5-5.0); Alkaline Phosphatase 75 U/L (39-117); Anion Gap 11 (12-20); Aspartate Amino Transferase 30 U/L (5-31); Bilirubin Total 0.4 mg/dL (0.0-1.0); Blood Urea Nitrogen 20 mg/dL (9-16); Calcium 9.3 mg/dL (8.4-10.2); Carbon Dioxide 29 mmol/L (22-29); Chloride 107 mmol/L (96-108); Cholesterol 199 mg/dL (<200); Estimated Glomerular Filt Rate > 60; Glucose Random 88 mg/dL (60-115); HDL Cholesterol 82 mg/dL (>40); LDL Cholesterol Calculated 107 mg/dL (<100); Potassium 4.3 mmol/L (3.3-5.1); Sodium 143 mmol/L (135-145); Total Protein 7.4 g/dL (6.5-8.0); Triglycerides 54 mg/dL (<150)
[2023-12-14 09:27] LABS: Free T4 (Free Thyroxine) 1.18 ng/dL (0.71-1.85); Thyroid Stimulating Hormone 2.84 uIU/mL (0.32-4.0); Vitamin D 25-OH Total 43.9 ng/mL (>30)
== END 2023-12-14 08:01 | disposition home or self-care (01) ==
LOC: HO.LAB 08:00
PROVIDERS: PCP Internal Medicine; Visit Provider Physician Assistant
DX: Z00.00 Encounter for general adult medical examination without abnormal findings (principal); Z13.1 Encounter for screening for diabetes mellitus
CPT/HCPCS: 36415; 80053; 80061; 82306; 83036; 84439; 84443; 85025

== ENCOUNTER 2024-02-13 13:51 | Outpatient (REF) | payer MEDICARE, OTHER, SELFPAY ==
--- NOTE | ~2024-02-13 | MR_ITS ---
EXAMINATION: MR BRAIN WITHOUT AND WITH CONTRAST CLINICAL INFORMATION: Multiple meningiomas COMPARISON: MRI brain on 04/08/2022 TECHNIQUE: Multiplanar, multisequence MRI of the brain was obtained before and after the intravenous administration of 10 mL [Gadavist. FINDINGS: Redemonstration of dural based enhancing lesion along the undersurface of the left tentorial leaflet which measures up to 1.2 cm in maximal dimensions, unchanged in size and appearance. Additional dural based enhancing lesions along the right aspect of the falx cerebri anteriorly along the left frontal convexity are also unchanged. No suspicious intracranial enhancement. No acute intracranial hemorrhage or infarct. Scattered and confluent periventricular and deep white matter T2/FLAIR hyperintensities, nonspecific however commonly seen with small vessel ischemic disease. No midline shift or hydrocephalus. No acute extra-axial fluid collections. The osseous structures are unremarkable. The pituitary gland, pineal gland and remaining midline structures are unremarkable. No orbital pathology. The paranasal sinuses and mastoid air cells are clear. MR/MR head/brain wo/w con IMPRESSION: Stable dural based enhancing lesions along the undersurface of the left tentorial leaflet, right aspect of the falx cerebri anteriorly and left frontal convexity, most consistent with meningiomas. Electronically signed by: Renee Layne MD 02/15/2024 01:39 PM EST
--- OUTSIDE RECORDS SUMMARY | 2024-02-13 13:54 | XMS_ITS | Clinical Summary ---
Author Organization Unknown Care Team Providers Care Wire Coiner Name Role Phone GIDEON WEISS, VERONICA URBANO Unavailable Unavaila michelet VILLARREAL PT, RADHA Unavailable Unavailable PRUDENCIO PENA, ISABEL Unavailable Unavailable Payers Payer Name Policy Type Policy Number Effective Date Expira tion Date MEDICARE.NGS.PDGM [id number] Problems Condition Name Condition Details Condition Category Status Onset Date Resolution Date Last Treatment Date Treating Clinician Comments UNSPECIFIED ATRIAL FIBRILLATION Active 08-26 00:00: 00 ESSENTIAL (PRIMARY) HYPERTENSION Active 03-01 00:00: 00 CHRONIC OBSTRUCTIVE PULMONARY DISEASE, UNSPECIFIED Active 03-01 00:00: 00 ANXIETY DISORDER, UNSPECIFIED Active 03-01 00:00: 00 GOUT, UNSPECIFIED Active 03-01 00:00: 00 AGE-RELATED OSTEOPOROSIS W/O CURRENT PATHOLOGICAL FRACTURE Active 03-01 00:00: 00 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 Active 03-01 00:00: 00 SPINAL STENOSIS, SITE UNSPECIFIED Active 03-01 00:00: 00 ALCOHOL ABUSE, UNCOMPLICATE D Active 03-01 00:00: 00 OBSTRUCTIVE SLEEP APNEA (ADULT) (PEDIATRIC) Active 03-01 00:00: 00 DEPENDENCE ON OTHER ENABLING MACHINES AND DEVICES Active 03-01 00:00: 00 MEDICAL 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 SECRETARY (CURRENT) USE OF ANTICOAGULAN TS Active 03-01 00:00: 00 PRISON (CURRENT) USE OF INHALED STEROIDS Active 03-01 00:00: 00 PROBLEMS RELATED TO LIVING ALONE Active 03-01 00:00: 00 HISTORY OF FALLING Active 08-26 00:00: 00 PERSONAL HISTORY OF (HEALED) TRAUMATIC FRACTURE Active 03-01 00:00: 00 BARIATRIC SURGERY STATUS Active 03-01 00:00: 00 PRESENCE OF LEFT ARTIFICIAL KNEE JOINT Active 03-01 00:00: 00 ACQUIRED ABSENCE OF OTHER SPECIFIED PARTS OF DIGESTIVE TRACT Active 03-01 00:00: 00 Allergies, Adverse Reactions, Alerts Allergy Name Allergy Type Status Severity Reaction(s) Onset Date Inactive Date Treating Clinician Comments NO KNOWN ALLERGIES Propensity to adverse reactions Active 08-27 14:05: 54 Medications Ordered Medication Name Filled Medication Name Start Date Stop Date Current Medication? Ordering Clinician Indication Dosage Frequency Signature (SIG) Comments Components allopurinol 100 mg tablet 08-27 00:00: 00 Yes [id number] ARTHRITIS 1 tablet 2 TIMES DAILY 1 tablet 2 TIMES DAILY (route: oral) Med Classific ation: Gout and Hyperuric emia Therapy amlodipine 2.5 mg tablet 08-27 00:00: 00 Yes [id number] BLOOD PRESSURE 2 tablet BEDTIME 2 tablet BEDTIME (route: oral) Med Classific ation: Cardiovas cular Therapy Agents calcium citrate 200 mg (950 mg) tablet 08-27 00:00: 00 Yes [id number] THYROID REMOVAL 1 tablet DAILY 1 tablet DAILY (route: oral) Med Classific ation: Electroly te Balance-N utritiona l Products celecoxib 200 mg capsule 08-27 00:00: 00 Yes [id number] PAIN 1 capsule DAILY 1 capsule DAILY (route: oral) Med Classific ation: Analgesic , Anti-infl ammatory or Antipyret ic cetirizine 10 mg tablet 08-27 00:00: 00 Yes [id number] ALLERGIES 1 tablet BEDTIME 1 tablet BEDTIME (route: oral) Med Classific ation: Respirato ry Therapy Agents clonazepam 0.5 mg tablet 08-27 00:00: 00 Yes [id number] ANXIETY 1 tablet DAILY 1 tablet DAILY (route: oral) Med Classific ation: Central Nervous System Agents Eliquis 5 mg tablet 08-27 00:00: 00 Yes [id number] ATRIAL FIB 1 tablet 2 TIMES DAILY 1 tablet 2 TIMES DAILY (route: oral) Med Classific ation: Hematolog ical Agents escitalopra m 10 mg tablet 08-27 00:00: 00 Yes [id number] ANXUETY/ DEPRESSION 1 tablet DAILY 1 tablet DAILY (route: oral) Med Classific ation: Central Nervous System Agents furosemide 20 mg tablet 08-27 00:00: 00 Yes [id number] SWELLING 1 tablet DAILY 1 tablet DAILY (route: oral) Med Classific ation: Cardiovas cular Therapy Agents Incruse Ellipta 62.5 mcg/actuati on powder for inhalation 08-27 00:00: 00 Yes [id number] ASTHMA 1 inhalat ion DAILY 1 inhalation DAILY (route: inhalation ) Med Classific ation: Respirato ry Therapy Agents Levoxyl 137 mcg tablet 08-27 00:00: 00 Yes [id number] NO THYROID GLAND 1 tablet DAILY 1 tablet DAILY (route: oral) Med Classific ation: Endocrine losartan 100 mg tablet 08-27 00:00: 00 Yes [id number] BLOOD PRESSURE 1 tablet DAILY 1 tablet DAILY (route: oral) Med Classific ation: Cardiovas cular Therapy Agents metoprolol succinate ER 50 mg tablet,exte nded release 24 hr 08-27 00:00: 00 Yes [id number] BLOOD PRESSURE 1 tablet 2 TIMES DAILY 1 tablet 2 TIMES DAILY (route: oral) Med Classific ation: Cardiovas cular Therapy Agents montelukast 10 mg tablet 08-27 00:00: 00 Yes [id number] ASTHMA 1 tablet BEDTIME 1 tablet BEDTIME (route: oral) Med Classific ation: Respirato ry Therapy Agents PreserVisio n AREDS-2 250 mg-90 mg-40 mg-1 mg capsule 08-27 00:00: 00 Yes [id number] EYE HEALTH 1 capsule 2 TIMES DAILY 1 capsule 2 TIMES DAILY (route: oral) Med Classific ation: Alternati ve Therapy ProAir HFA 90 mcg/actuati on aerosol inhaler 08-27 00:00: 00 Yes [id number] SOB WHEEZE 2 puff EVERY 4 HOURS 2 puff EVERY 4 HOURS (route: inhalation ) Med Classific ation: Respirato ry Therapy Agents quetiapine 25 mg tablet 08-27 00:00: 00 Yes [id number] SLEEP 1-2 tablet BEDTIME 1-2 tablet BEDTIME (route: oral) Med Classific ation: Central Nervous System Agents Symbicort 160 mcg-4.5 mcg/actuati on HFA aerosol inhaler 08-27 00:00: 00 Yes [id number] ASTHMA 2 puff 2 TIMES DAILY 2 puff 2 TIMES DAILY (route: inhalation ) Med Classific ation: Respirato ry Therapy Agents Vitamin D3 50 mcg (2,000 unit) tablet 08-27 00:00: 00 Yes [id number] NO THYROID 1 tablet DAILY 1 tablet DAILY (route: oral) Med Classific ation: Electroly te Balance-N utritiona l Products cephalexin 500 mg tablet 09-05 00:00: 00 09-11 23:59 :00 No [id number] CELLULITIS 1 tablet 3 TIMES DAILY 1 tablet 3 TIMES DAILY (route: oral) Med Classific ation: Anti-Infe ctive Agents tramadol 50 mg tablet 09-09 00:00: 00 Yes [id number] PAIN 1 tablet DAILY 1 tablet DAILY (route: oral) Med Classific ation: Analgesic , Anti-infl ammatory or Antipyret ic cephalexin 500 mg capsule 08-29 00:00: 00 09-07 23:59 :00 No [id number] CELLULITIS 1 capsule EVERY 12 HOURS 1 capsule EVERY 12 HOURS (route: oral) Med Classific ation: Anti-Infe ctive Agents alendronate 70 mg tablet 09-23 00:00: 00 Yes [id number] OSTEOPOROSI S Per instruc tions WEEKLY Per instructio ns WEEKLY (route: oral) Med Classific ation: Endocrine Fosamax 70 mg tablet 09-15 00:00: 00 Yes [id number] OSTEOPOROSI S 1 tablet WEEKLY 1 tablet WEEKLY (route: oral) Med Classific ation: Endocrine Immunizations Ordered Immunization Name Filled Immunization Name Date Status Comments Refusal Reason INFLUENZA, TIV (INACTIVATED) 2020-12-18 00:00:00 BOOSTER -COVID-19 VACCINE, COVID-19 VACCINE 2020-10-31 00:00:00 DOSE #2, COVID-19 VACCINE 2020-04-30 00:00:00 DOSE #1, COVID-19 VACCINE 2020-04-03 00:00:00 Vital Signs Vital Name Observation Time Observation Value Commen ts Temperature 2021-10-22 09:54:00.000 98 [degF] Temperature 2021-10-15 11:51:00.000 97.7 [degF] Temperature 2021-10-09 12:32:00.000 97.7 [degF] Temperature 2021-10-09 09:17:00.000 97.7 [degF] Temperature 2021-09-30 11:39:00.000 97 [degF] Temperature 2021-09-25 08:19:00.000 97.6 [degF] Temperature 2021-09-23 09:15:00.000 97.9 [degF] Temperature 2021-09-10 10:08:00.000 97.7 [degF] Temperature 2021-09-09 09:33:00.000 98.2 [degF] Temperature 2021-09-04 08:21:00.000 98.7 [degF] Temperature 2021-08-28 16:04:00.000 97.4 [degF] Temperature 2021-08-27 15:28:00.000 97.1 [degF] BMI (%) 2021-08-27 13:40:24.000 40 kg/m2 Height 2021-08-27 13:40:18.000 63 [in_us] Pulse 2021-10-22 09:54:00.000 60 /min Pulse 2021-10-15 11:51:00.000 65 /min Pulse 2021-10-09 12:32:00.000 61 /min Pulse 2021-10-09 09:17:00.000 63 /min Pulse 2021-09-30 11:39:00.000 70 /min Pulse 2021-09-25 08:19:00.000 66 /min Pulse 2021-09-23 09:15:00.000 63 /min Pulse 2021-09-10 10:08:00.000 66 /min Pulse 2021-09-09 09:33:00.000 68 /min Pulse 2021-09-04 08:21:00.000 69 /min Pulse 2021-08-28 16:04:00.000 69 /min Pulse 2021-08-27 15:28:00.000 62 /min O2 Saturation (%) 2021-10-22 09:54:00.000 98 % O2 Saturation (%) 2021-10-15 11:51:00.000 98 % O2 Saturation (%) 2021-10-09 12:32:00.000 97 % O2 Saturation (%) 2021-10-09 09:17:00.000 97 % O2 Saturation (%) 2021-09-30 11:39:00.000 94 % O2 Saturation (%) 2021-09-25 08:23:00.000 98 % O2 Saturation (%) 2021-09-23 09:16:00.000 96 % O2 Saturation (%) 2021-09-10 10:09:00.000 97 % O2 Saturation (%) 2021-09-09 09:34:00.000 96 % O2 Saturation (%) 2021-09-04 08:22:00.000 97 % Respirations 2021-10-22 09:54:00.000 18 /min Respirations 2021-10-15 11:51:00.000 18 /min Respirations 2021-10-09 12:32:00.000 18 /min Respirations 2021-10-09 09:17:00.000 18 /min Respirations 2021-09-30 11:39:00.000 18 /min Respirations 2021-09-25 08:19:00.000 16 /min Respirations 2021-09-23 09:15:00.000 18 /min Respirations 2021-09-10 10:08:00.000 16 /min Respirations 2021-09-09 09:33:00.000 18 /min Respirations 2021-09-04 08:21:00.000 16 /min Respirations 2021-08-28 16:04:00.000 18 /min Respirations 2021-08-27 15:28:00.000 16 /min Weight (lbs) 2021-08-27 13:40:24.000 230 [lb_av] Systolic Blood Pressure 2021-10-22 09:54:00.000 148 mm [Hg] Systolic Blood Pressure 2021-10-15 11:51:00.000 128 mm [Hg] Systolic Blood Pressure 2021-10-09 12:32:00.000 120 mm [Hg] Systolic Blood Pressure 2021-10-09 09:17:00.000 120 mm [Hg] Systolic Blood Pressure 2021-09-30 11:39:00.000 120 mm [Hg] Systolic Blood Pressure 2021-09-25 08:19:00.000 150 mm [Hg] Systolic Blood Pressure 2021-09-23 09:15:00.000 122 mm [Hg] Systolic Blood Pressure 2021-09-10 10:08:00.000 160 mm [Hg] Systolic Blood Pressure 2021-09-09 09:33:00.000 140 mm [Hg] Systolic Blood Pressure 2021-09-04 08:21:00.000 149 mm [Hg] Systolic Blood Pressure 2021-08-28 16:04:00.000 142 mm [Hg] Systolic Blood Pressure 2021-08-27 15:28:00.000 120 mm [Hg] Diastolic Blood Pressure 2021-10-22 09:54:00.000 82 mm [Hg] Diastolic Blood Pressure 2021-10-15 11:51:00.000 64 mm [Hg] Diastolic Blood Pressure 2021-10-09 12:32:00.000 64 mm [Hg] Diastolic Blood Pressure 2021-10-09 09:17:00.000 82 mm [Hg] Diastolic Blood Pressure 2021-09-30 11:39:00.000 60 mm [Hg] Diastolic Blood Pressure 2021-09-25 08:19:00.000 82 mm [Hg] Diastolic Blood Pressure 2021-09-23 09:15:00.000 80 mm [Hg] Diastolic Blood Pressure 2021-09-10 10:08:00.000 80 mm [Hg] Diastolic Blood Pressure 2021-09-09 09:33:00.000 80 mm [Hg] Diastolic Blood Pressure 2021-09-04 08:21:00.000 85 mm [Hg] Diastolic Blood Pressure 2021-08-28 16:04:00.000 82 mm [Hg] Diastolic Blood Pressure 2021-08-27 15:28:00.000 56 mm [Hg] Plan of Treatment Planned Activity Planned Date Details Comments Future Scheduled Test PHYSICAL T HERAPIST TO EVALUATE FOR MOBILITY AND PAIN [code = PHYSICAL THERAPIST TO EVALUATE FOR MOBILITY AND PAIN] Future Scheduled Test MEDICATION MANAGEMENT; SKILLED NURSE TO REVIEW MEDICATIONS FOR INTERACTIONS, EFFECTIVENESS OF DRUG THERAPY, AND SIGNS/SYMPTOMS OF ADVERSE REACTIONS. MAY INSTRUCT AND REINFORCE MEDICATION TEACHING RELATED TO THE USE OF MEDICATIONS, DOSAGE, FREQUENCY, PURPOSE, SIDE EFFECTS, AND TO REPORT COMPLICATIONS. [code = MEDICATION MANAGEMENT; SKILLED NURSE TO REVIEW MEDICATIONS FOR INTERACTIONS, EFFECTIVENESS OF DRUG THERAPY, AND SIGNS/SYMPTOMS OF ADVERSE REACTIONS. MAY INSTRUCT AND REINFORCE MEDICATION TEACHING RELATED TO THE USE OF MEDICATIONS, DOSAGE, FREQUENCY, PURPOSE, SIDE EFFECTS, AND TO REPORT COMPLICATIONS.] Future Scheduled Test ANTICOAGUL ATION MANAGEMENT; SKILLED NURSE TO ASSESS, TEACH, AND MONITOR EFFECTIVENESS OF ANTICOAGULATION THERAPY. SKILLED NURSE TO INSTRUCT ON SIGNS AND SYMPTOMS OF BLEEDING/ADVERSE REACTIONS TO REPORT TO PHYSICIAN. [code = ANTICOAGULATION MANAGEMENT; SKILLED NURSE TO ASSESS, TEACH, AND MONITOR EFFECTIVENESS OF ANTICOAGULATION THERAPY. SKILLED NURSE TO INSTRUCT ON SIGNS AND SYMPTOMS OF BLEEDING/ADVERSE REACTIONS TO REPORT TO PHYSICIAN. ] Future Scheduled Test COPD MANAG EMENT; SKILLED NURSE TO ASSESS AND TEACH SIGNS/SYMPTOMS OF COPD EXACERBATION AND PROVIDE EARLY INTERVENTIONS TO MINIMIZE RISK OF HOSPITALIZATION. SKILLED NURSE TO INSTRUCT ON SELF-CARE MANAGEMENT INCLUDING BREATHING TECHNIQUES, AIRWAY CLEARANCE, AND PROPER USE OF COPD MEDICATIONS. ASSESS PATIENT/CAREGIVER ABILITY TO MONITOR AND RECORD VITALS SIGNS INCLUDING PULSE OXIMETRY AND BLOOD PRESSURE. PULSE OXIMETER AND BP MONITOR TO BE PROVIDED IF NEEDED . [code = COPD MANAGEMENT; SKILLED NURSE TO ASSESS AND TEACH SIGNS/SYMPTOMS OF COPD EXACERBATION AND PROVIDE EARLY INTERVENTIONS TO MINIMIZE RISK OF HOSPITALIZATION. SKILLED NURSE TO INSTRUCT ON SELF-CARE MANAGEMENT INCLUDING BREATHING TECHNIQUES, AIRWAY CLEARANCE, AND PROPER USE OF COPD MEDICATIONS. ASSESS PATIENT/CAREGIVER ABILITY TO MONITOR AND RECORD VITALS SIGNS INCLUDING PULSE OXIMETRY AND BLOOD PRESSURE. PULSE OXIMETER AND BP MONITOR TO BE PROVIDED IF NEEDED . ] Future Scheduled Test FALL REDUC TION MANAGEMENT; NURSING TO PROVIDE SKILLED ASSESSMENT, EDUCATION, AND INTERVENTION TO IDENTIFY FALL RISK FACTORS SUCH MEDICATIONS THAT MAY CAUSE DIZZINESS, CHRONIC DISEASES, PSYCHOLOGICAL FACTORS, AND EMPOWER/EDUCATE PATIENT/CAREGIVER TO MINIMIZE FALL RISK. [code = FALL REDUCTION MANAGEMENT; NURSING TO PROVIDE SKILLED ASSESSMENT, EDUCATION, AND INTERVENTION TO IDENTIFY FALL RISK FACTORS SUCH MEDICATIONS THAT MAY CAUSE DIZZINESS, CHRONIC DISEASES, PSYCHOLOGICAL FACTORS, AND EMPOWER/EDUCATE PATIENT/CAREGIVER TO MINIMIZE FALL RISK.] Future Scheduled Test SKILLED NU RSE TO ASSESS, EVALUATE, AND DEVELOP AN INDIVIDUALIZED PLAN OF CARE. AGENCY MAY ACCEPT ORDERS FROM CONSULTING PHYSICIANS SN TO OBSERVE/ASSESS RISK FOR FALLS AND INSTRUCT IN FALL PREVENTION, HOME SAFETY, MEDICATION MANAGEMENT, INFECTION PREVENTION, AND NUTRITION MANAGEMENT. SN MAY PERFORM O2 SATURATION LEVEL ON ADMISSION AND PRN TO ASSESS PATIENT, WITH NOTIFICATION TO THE PHYSICIAN IF SATURATION IS 90% IN THE ABSENCE OF MORE SPECIFIC PARAMETERS FROM THE PHYSICIAN. AGENCY MAY PERFORM A RESUMPTION OF CARE VISIT FOLLOWING ANY HOSPITAL ADMISSION. SKILLED NURSE TO ASSESS/EVALUATE CO-MORBID CONDITIONS AND ANY NEW CONDITIONS THAT PRESENT THEMSELVES DURING THIS EPISODE TO IDENTIFY CHANGES AND INTERVENE TO MINIMIZE COMPLICATIONS. [code = SKILLED NURSE TO ASSESS, EVALUATE, AND DEVELOP AN INDIVIDUALIZED PLAN OF CARE. AGENCY MAY ACCEPT ORDERS FROM CONSULTING PHYSICIANS SN TO OBSERVE/ASSESS RISK FOR FALLS AND INSTRUCT IN FALL PREVENTION, HOME SAFETY, MEDICATION MANAGEMENT, INFECTION PREVENTION, AND NUTRITION MANAGEMENT. SN MAY PERFORM O2 SATURATION LEVEL ON ADMISSION AND PRN TO ASSESS PATIENT, WITH NOTIFICATION TO THE PHYSICIAN IF SATURATION IS 90% IN THE ABSENCE OF MORE SPECIFIC PARAMETERS FROM THE PHYSICIAN. AGENCY MAY PERFORM A RESUMPTION OF CARE VISIT FOLLOWING ANY HOSPITAL ADMISSION. SKILLED NURSE TO ASSESS/EVALUATE CO-MORBID CONDITIONS AND ANY NEW CONDITIONS THAT PRESENT THEMSELVES DURING THIS EPISODE TO IDENTIFY CHANGES AND INTERVENE TO MINIMIZE COMPLICATIONS.] Future Scheduled Test PAIN MANAG EMENT; SKILLED NURSE TO OBSERVE, ASSESS, AND PROVIDE EDUCATION ON PAIN MANAGEMENT TECHNIQUES. [code = PAIN MANAGEMENT; SKILLED NURSE TO OBSERVE, ASSESS, AND PROVIDE EDUCATION ON PAIN MANAGEMENT TECHNIQUES.] Future Scheduled Test RISK FOR H OSPITALIZATION; SKILLED NURSE TO INSTRUCT PATIENT/CAREGIVER ON RISK FOR HOSPITALIZATION, TEACH SIGNS AND SYMPTOMS THAT PUT PATIENT AT RISK, WHEN TO NOTIFY NURSE OF COMPLICATIONS/DECLINE, AND WHEN TO CALL 911. SKILLED NURSE TO INSTRUCT PATIENT/CAREGIVER ON: SIGNS AND SYMPTOMS TO BE ON ALERT FOR EARLY INTERVENTION, PRIOR TO NEEDING EMERGENCY SERVICES CALL [facility] NURSE TO KEEP OBSTETRICS/GYNECOLOGY NURSE SYMPTOM REPORT FOR VISIBLE REFERENCE NOTIFY SKILLED NURSE/PHYSICIAN FOR DECLINE IN STATUS WHEN AND HOW TO CALL HOME HEALTH AGENCY FACILITATE PHYSICIAN FOLLOW UP APPOINTMENT IDENTIFY SOCIOECONOMIC CONCERNS AND MAKE APPROPRIATE REFERRAL NEEDED [code = RISK FOR HOSPITALIZATION; SKILLED NURSE TO INSTRUCT PATIENT/CAREGIVER ON RISK FOR HOSPITALIZATION, TEACH SIGNS AND SYMPTOMS THAT PUT PATIENT AT RISK, WHEN TO NOTIFY NURSE OF COMPLICATIONS/DECLINE, AND WHEN TO CALL 911. SKILLED NURSE TO INSTRUCT PATIENT/CAREGIVER ON: SIGNS AND SYMPTOMS TO BE ON ALERT FOR EARLY INTERVENTION, PRIOR TO NEEDING EMERGENCY SERVICES CALL [facility] NURSE TO KEEP OBSTETRICS/GYNECOLOGY NURSE SYMPTOM REPORT FOR VISIBLE REFERENCE NOTIFY SKILLED NURSE/PHYSICIAN FOR DECLINE IN STATUS WHEN AND HOW TO CALL HOME HEALTH AGENCY FACILITATE PHYSICIAN FOLLOW UP APPOINTMENT IDENTIFY SOCIOECONOMIC CONCERNS AND MAKE APPROPRIATE REFERRAL NEEDED] Future Scheduled Test CARDIOVASC ULAR SYSTEM; SKILLED NURSE TO ASSESS AND TEACH RELATED TO ALTERED CARDIOVASCULAR STATUS TO MINIMIZE COMPLICATIONS AND REDUCE HOSPITALIZATION. [code = CARDIOVASCULAR SYSTEM; SKILLED NURSE TO ASSESS AND TEACH RELATED TO ALTERED CARDIOVASCULAR STATUS TO MINIMIZE COMPLICATIONS AND REDUCE HOSPITALIZATION.] Future Scheduled Test HYPERTENSI ON MANAGEMENT; SKILLED NURSE TO ASSESS/TEACH WARNING SIGNS AND SYMPTOMS TO AVOID HOSPITALIZATION. [code = HYPERTENSION MANAGEMENT; SKILLED NURSE TO ASSESS/TEACH WARNING SIGNS AND SYMPTOMS TO AVOID HOSPITALIZATION.] Future Scheduled Test ATRIAL FIB RILLATION MANAGEMENT; SKILLED NURSE TO ASSESS/TEACH WARNING SIGNS AND SYMPTOMS TO AVOID HOSPITALIZATION. [code = ATRIAL FIBRILLATION MANAGEMENT; SKILLED NURSE TO ASSESS/TEACH WARNING SIGNS AND SYMPTOMS TO AVOID HOSPITALIZATION.] Future Scheduled Test SKIN INTEG RITY - SN OBSERVE AND ASSESS INTEGUMENTARY STATUS TO IDENTIFY CHANGES AND INTERVENE TO MINIMIZE COMPLICATIONS. ASSESS LLE FOR ANY S/S SKIN BREAKDOWN, HAS INTACT BLISTERS TO LLE. PROVIDE SKILLED TEACHING OF GENERAL SKIN CARE AND PREVENTION RELATED TO POTENTIAL FOR OR ACTUAL ALTERED SKIN INTEGRITY [code = SKIN INTEGRITY - SN OBSERVE AND ASSESS INTEGUMENTARY STATUS TO IDENTIFY CHANGES AND INTERVENE TO MINIMIZE COMPLICATIONS. ASSESS LLE FOR ANY S/S SKIN BREAKDOWN, HAS INTACT BLISTERS TO LLE. PROVIDE SKILLED TEACHING OF GENERAL SKIN CARE AND PREVENTION RELATED TO POTENTIAL FOR OR ACTUAL ALTERED SKIN INTEGRITY ] Future Scheduled Test AGENCY MAY PERFORM A RESUMPTION OF CARE VISIT FOLLOWING ANY HOSPITAL ADMISSION. PHYSICAL THERAPY TO EVALUATE, ASSESS AND MONITOR, PROVIDE SKILLED THERAPEUTIC INTERVENTION, ACTIVITY, EDUCATION, AND TRAINING TO ADDRESS: TRANSFER TRAINING (PT) GAIT TRAINING (PT) THERAPEUTIC EXERCISES (PT) STAIR TRAINING (PT) PAIN MANAGEMENT (PT) IDENTIFY FALL RISK FACTORS AND ESTABLISH HOME EXERCISE PROGRAM TO MINIMIZE FALL RISK. MAY TEACH THE PATIENT FLOOR RECOVERY WHEN CLINICALLY APPROPRIATE (PT) [code = AGENCY MAY PERFORM A RESUMPTION OF CARE VISIT FOLLOWING ANY HOSPITAL ADMISSION. PHYSICAL THERAPY TO EVALUATE, ASSESS AND MONITOR, PROVIDE SKILLED THERAPEUTIC INTERVENTION, ACTIVITY, EDUCATION, AND TRAINING TO ADDRESS: TRANSFER TRAINING (PT) GAIT TRAINING (PT) THERAPEUTIC EXERCISES (PT) STAIR TRAINING (PT) PAIN MANAGEMENT (PT) IDENTIFY FALL RISK FACTORS AND ESTABLISH HOME EXERCISE PROGRAM TO MINIMIZE FALL RISK. MAY TEACH THE PATIENT FLOOR RECOVERY WHEN CLINICALLY APPROPRIATE (PT)] Goal 2021-10-22 Patient Goal - L OSE WEIGHT, STOP SOCIAL DRINKING AND TAKE BETTER CARE OF MYSELF Goal Provider Goal - Goal Provider Goal - PATIENT/CAREGIVER TO VERBALIZE, AND CONSISTENTLY DEMONSTRATE EFFECTIVE, SAFE MANAGEMENT OF MEDICATION INCLUDING KNOWLEDGE OF EFFECTIVENESS, POTENTIAL SIDE EFFECTS AND DRUG REACTIONS AND WHEN TO CONTACT THE APPROPRIATE CARE PROVIDER. PATIENT/CAREGIVER WILL BE ABLE TO VERBALIZE UNDERSTANDING OF MEDICATION REGIMEN AND ACCURATELY TAKE MEDICATIONS PRESCRIBED WITHOUT ADVERSE EFFECTS BY EOE Goal Provider Goal - INEFFECTIVE ANTICOAGULATION THERAPY WILL BE IDENTIFIED AND PROMPTLY REPORTED TO THE PHYSICIAN. PATIENT / CAREGIVER WILL VERBALIZE UNDERSTANDING OF MEASURES TO MAINTAIN EFFECTIVE ANTICOAGULATION THERAPY BY EOE Goal Provider Goal - PATIENT/CAREGIVER ABLE TO IDENTIFY FALL RISK FACTORS AND IMPLEMENT STRATEGIES TO MINIMIZE FALL RISK. PATIENT/CAREGIVER WILL VERBALIZE/DEMONSTRATE AN ABILITY TO ADHERE TO FALL REDUCTION SELF MANAGEMENT AND LIFE-STYLE CHANGES AT DISCHARGE. PERSONAL GOAL(S) STATED BY PATIENT/CAREGIVER WILL BE MET BY EOE Goal Provider Goal - A PLAN OF CARE WILL BE ESTABLISHED THAT MEETS THE PATIENTS NEEDS. PATIENT WILL DEMONSTRATE OXYGEN SATURATION WITHIN NORMAL LIMITS OR PATIENTS OPTIMAL LEVEL ESTABLISHED BY THE PHYSICIAN THROUGHOUT CARE. CHANGES TO CO-MORBID CONDITIONS AND ANY NEW CONDITIONS WILL BE IDENTIFIED AND REPORTED TO THE PHYSICIAN. Goal Provider Goal - PATIENT / CAREGIVER WILL VERBALIZE / DEMONSTRATE UNDERSTANDING OF PAIN CONTROL MEASURES BY EOE Goal Provider Goal - PATIENT/CAREGIVER WILL VERBALIZE UNDERSTANDING OF SIGNS AND SYMPTOMS THAT PUT THE PATIENT AT RISK FOR HOSPITALIZATION, WHEN TO NOTIFY SN OF COMPLICATIONS/DECLINE AND WHEN TO CALL 911. Goal Provider Goal - PATIENT / CAREGIVER WILL VERBALIZE/DEMONSTRATE UNDERSTANDING OF MEASURES TO MANAGE ALTERED CARDIOVASCULAR STATUS BY EOE Goal Provider Goal - PATIENT / CAREGIVER WILL VERBALIZE/DEMONSTRATE AN ABILITY TO ADHERE TO SELF-MANAGEMENT OF HTN TO MINIMIZE COMPLICATIONS AND AVOID HOSPITALIZATION BY END OF EPISODE. Goal Provider Goal - PATIENT / CAREGIVER WILL VERBALIZE/DEMONSTRATE AN ABILITY TO ADHERE TO SELF-MANAGEMENT OF ATRIAL FIBRILLATION TO MINIMIZE COMPLICATIONS AND AVOID HOSPITALIZATION BY END OF EPISODE. Goal Provider Goal - CHANGES IN SKIN INTEGRITY STATUS WILL BE IDENTIFIED AND REPORTED TO THE PHYSICIAN FOR PROMPT INTERVENTION. PATIENT / CAREGIVER WILL VERBALIZE/DEMONSTRATE ADEQUATE KNOWLEDGE OF INTEGUMENTARY STATUS AND APPROPRIATE MEASURES TO PROMOTE SKIN INTEGRITY AND PREVENT INJURY Goal Provider Goal - PT STG: PATIENT WILL DEMONSTRATE IMPROVED TRANSFERS FROM SUP TO INDEPENDENT WITH LEFT UE ASSIST WITHIN 3 WEEKS PT STG: PATIENT WILL DEMONSTRATE ADEQUATE LEFT STANCE PHASE, CONSISTENT HEEL STRIKE AND ABILITY TO AMBULATE WITHOUT USE OF FURNITURE FOR SUPPORT WITHIN 4 WEEKS PT LTG: PATIENT WILL DEMONSTRATE IMPROVED AMBULATION FROM SBA TO INDEPENDENT WITHOUT AD WITHIN 9 WEEKS PT STG: PATIENT WILL DEMONSTRATE INDEPENDENCE WITH LOWER EXTREMITY HOME EXERCISE PROGRAM WITHIN 4 WEEKS PT LTG: PATIENT WILL DEMONSTRATE IMPROVED FUNCTIONAL STRENGTH EVIDENCED BY FIVE TIMES SIT TO STAND TEST (CUT SCORE >12 SECONDS INDICATES AN INCREASED FALL RISK) IMPROVING FROM 22 SECONDS TO 12 SECONDS WITHIN 9 WEEKS PT LTG: PATIENT WILL DEMONSTRATE INCREASED STRENGTH OF BILATERAL LES FROM 4-/5 TO 4+/5 WITHIN 9 WEEKS IN ORDER TO IMPROVE SAFETY AND STABILITY WITH GAIT AND STAIRS PT LTG: PATIENT WILL DEMONSTRATE IMPROVED ABILITY TO SAFELY NEGOTIATE STAIRS FROM CGA TO INDEPENDENT WITH RAIL WITHIN 9 WEEKS PT GOAL: PATIENT/CAREGIVER WILL VERBALIZE UNDERSTANDING OF PAIN MANAGEMENT BY DISCHARGE. PATIENT/CAREGIVER WILL DEMONSTRATE ADHERENCE TO FALL REDUCTION SELF MANAGEMENT TO MINIMIZE FALL RISK BY DISCHARGE. Reason for Visit INDEPENDENT IN THE HOME Encounters Start Date/Time End Date/Time Encounter Type Admission Type Attending [facility] Care Department Encounter ID Discharge Date Discharge Status Discharge Condition Discharge Reason Percent Goals Met 2021-08-27 00:00:00 2021-10-22 00:00:00 Outpatient NEW ADMISSION ISABEL FLANNERY [facility] [id number] 2021-10-22 00:00:00 DISCHARGE TO HOME OR SELF CARE INDEPENDEN T IN THE HOME HH ONLY - PER CLIENT REQUEST 100.00
[2024-02-13] MEDS: gadobutroL 10 ML VIAL IVPUSH (14:28)
== END 2024-02-13 13:52 | disposition home or self-care (01) ==
LOC: HO.MRI 13:51
PROVIDERS: PCP Internal Medicine; Visit Provider Physician Assistant
DX: D32.0 Benign neoplasm of cerebral meninges (principal)
CPT/HCPCS: 70553; A9585

== ENCOUNTER → 2024-02-28 07:40 | Outpatient (REF) | payer MEDICARE, OTHER, SELFPAY ==
--- NOTE | 2024-02-28 07:44 | CA_ITS ---
Transthoracic Echocardiogram Patient (Last, First, Middle): Marjorie Guerrero C Gender: Female Date of : 1950 Age: 73 Procedure Date: 02/28/2024 Procedure Type: Transthoracic Echocardiogram Location: OP Height: 162. cm Weight: 99.79 kg BSA: 2.03 m2 Heart Rate: 72 bpm BP: 180 / 75 mmHg [employer] Aid: DEBBIE Referring MD: Osmar Ferrari MD Fusion Analyst: Osmar Ferrari MD Symptoms: I48.0 - Paroxysmal atrial fibrillation Study Quality: Adequate ECG Rhythm: Sinus Conclusions: - 1. Low normal LV ejection fraction 50-55% with impaired relaxation filling pattern 2. Early mild aortic stenosis 3. Mildly dilated left atrium 4. Mildly dilated ascending aorta at 4 cm 5. Normal RV systolic pressure 6. No gross pericardial effusion Findings Left Ventricle Mildly increased left ventricular cavity size. There is normal left ventricular wall thickness. The left ventricular systolic function is low normal. The visually estimated ejection fraction is between 50-55%. Spectral Doppler is indicative of an impaired relaxation filling pattern. E/E prime ratio is between 8 and 15 consistent with indeterminate filling pressures. Right Ventricle Normal right ventricular cavity size and systolic function. Atria The left atrium is mildly dilated. There is no evidence of interatrial shunt. The right atrium is likely dilated. Aortic Valve There is mild calcification of the aortic valve. There is mild aortic valve stenosis. There is mild aortic valve regurgitation. Mitral Valve There is mild anterior and posterior mitral leaflet thickening. There is trace mitral valve regurgitation. There is no mitral valve stenosis. Pulmonic Valve The pulmonic valve was not well visualized. Tricuspid Valve Likely normal tricuspid valve structure and function. There is trace tricuspid valve regurgitation. The right ventricular systolic pressure is normal. The right ventricular systolic pressure is 10 mmHg. Normal right atrial pressure. There is no evidence of pulmonary hypertension. Great Vessels The pulmonary artery was not well visualized. There is mild dilatation of the ascending aorta measuring 4.00 cm. Small plaque is seen in the sino tubular ridge. Venous The inferior vena cava is normal in size and collapses greater than 50% with inspiration. Pericardium/Pleural There is no evidence of pericardial effusion. Prior Study Comparison Changes noted compared to prior study dated: 08/26/2021. Low normal LV ejection fraction is noted with mildly dilated left atrium and early mild aortic stenosis. Measurements 2D Linear Measurements IVSd: 0.98 0.6-0.9/0.6-1.0 cm LVIDd: 5.66 3.9-5.3/4.2-5.9 cm LVIDd Index: 2.79 2.4-3.2/2.2-3.1 cm/m2 LVIDs: 3.19 2.0-3.6 cm LVPWd: 1.02 0.7-1.1 cm LA Diam: 4.90 2.7-3.8/3.0-4.0 cm LAIDs Index: 2.41 1.5-2.3 cm/m2 LV Mass: 279.41 67-162/88-224 g LV Mass Index: 137.64 43-95/49-115 g/m2 LVOT Diam: 2.20 3.0+(-)1.3 cm 2D Systolic Function EF 4C: 53.10 >55% EF 2C: 51.00 >55% EF BiP: 52.20 >55% Mitral Valve MV Pk E: 0.96 MV PK A: 1.26 MV Decel Time: 187.00 E/A: 0.80 E'Lateral: 6.64 E'Medial: 5.00 E/E' Med: 19.20 E/E' Lat: 14.50 PHT: 55.00 MVA PHT: 4.00 Decel [place]: 5.13 Aortic Valve AoV Pk Aleksander: 1.72 AoV Mn Aleksander: 1.27 AoV VTI: 0.45 AoV Pk Grad: 12.00 Aov Mn Grad: 8.00 LEWIS Cont.VTI: 2.15 LVOT LVOT Pk Aleksander: 0.96 LVOT Mn Aleksnader: 0.66 LVOT VTI: 0.26 LVOT Pk Grad: 4.00 LVOT Mn Grad: 2.00 LVOT Diam: 2.20 LVOT Area: 3.80 Diastolic Function MV Pk E: 0.96 MV Pk A: 1.26 E/A: 0.80 E'Medial: 5.00 E/E' Med: 19.20 E' Laterial: 6.64 E/E' Lat: 14.50 Right Ventricle TAPSE (mm): 26.40 TVS' Aleksander: 15.90 Tricuspid Valve TR Pk Aleksander: 1.34 TR Pk Grad: 7.00 RA Press: 3.00 RVSP: 10.00 Great Vessels Aorta Sinus of Valsalva: 3.30 2.0-3.5 cm Ao Asc: 4.00 2.1-3.4 cm Ao Arch: 3.50 Pulmonary Valve PV Pk Aleksander: 1.06 Peak PV Grad: 4.00 Updated in Other Vendor System with Status of Final Osmar Ferrari MD electronically signed on 02/29/2024 11:25:30 AM with status of Final
--- OUTSIDE RECORDS SUMMARY | 2024-02-28 07:45 | XMS_ITS | Clinical Summary ---
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) USE OF ANTICOAGULAN TS Active 03-01 00:00: 00 LONG-TERM (CURRENT) USE OF INHALED STEROIDS Active 03-01 [...] 100 mg tablet 08-27 00:00: 00 Yes [id number] ARTHRITIS 1 tablet 2 TIMES DAILY 1 tablet 2 TIMES DAILY (route: oral) Med Classific ation: Gout and Hyperuric emia Therapy amlodipine 2.5 mg tablet 08-27 00:00: 00 Yes [id number] BLOOD PRESSURE 2 tablet BEDTIME 2 tablet BEDTIME (route: oral) Med Classific ation: Cardiovas cular Therapy Agents calcium citrate 200 mg (950 mg) tablet 08-27 00:00: 00 Yes [id number] THYROID REMOVAL 1 tablet DAILY 1 tablet DAILY (route: oral) Med Classific ation: Electroly te Balance-N utritiona l Products celecoxib 200 mg capsule 08-27 00:00: 00 Yes [id number] PAIN 1 capsule DAILY 1 capsule DAILY (route: oral) Med Classific ation: Analgesic , Anti-infl ammatory or Antipyret ic cetirizine 10 mg tablet 08-27 00:00: 00 Yes [id number] ALLERGIES 1 tablet BEDTIME 1 tablet BEDTIME (route: oral) Med Classific ation: Respirato ry Therapy Agents clonazepam 0.5 mg tablet 08-27 00:00: 00 Yes [id number] ANXIETY 1 tablet DAILY 1 tablet DAILY (route: oral) Med Classific ation: Central Nervous System Agents Eliquis 5 mg tablet 08-27 00:00: 00 Yes [id number] ATRIAL FIB 1 tablet 2 TIMES DAILY 1 tablet 2 TIMES DAILY (route: oral) Med Classific ation: Hematolog ical Agents escitalopra m 10 mg tablet 08-27 00:00: 00 Yes [id number] ANXUETY/ DEPRESSION 1 tablet DAILY 1 tablet DAILY (route: oral) Med Classific ation: Central Nervous System Agents furosemide 20 mg tablet 08-27 00:00: 00 Yes [id number] SWELLING 1 tablet DAILY 1 tablet DAILY (route: oral) Med Classific ation: Cardiovas cular Therapy Agents Incruse Ellipta 62.5 mcg/actuati on powder for inhalation 08-27 00:00: 00 Yes [id number] ASTHMA 1 inhalat ion DAILY 1 inhalation DAILY (route: inhalation ) Med Classific ation: Respirato ry Therapy Agents Levoxyl 137 mcg tablet 08-27 00:00: 00 Yes [id number] NO THYROID GLAND 1 tablet DAILY 1 tablet DAILY (route: oral) Med Classific ation: Endocrine losartan 100 mg tablet 08-27 00:00: 00 Yes [id number] BLOOD PRESSURE 1 tablet DAILY 1 tablet DAILY (route: oral) Med Classific ation: Cardiovas cular Therapy Agents metoprolol succinate ER 50 mg tablet,exte nded release 24 hr 08-27 00:00: 00 Yes [id number] BLOOD PRESSURE 1 tablet 2 TIMES DAILY 1 tablet 2 TIMES DAILY (route: oral) Med Classific ation: Cardiovas cular Therapy Agents montelukast 10 mg tablet 08-27 00:00: 00 Yes [id number] ASTHMA 1 tablet BEDTIME 1 tablet BEDTIME (route: oral) Med Classific ation: Respirato ry Therapy Agents PreserVisio n AREDS-2 250 mg-90 mg-40 mg-1 mg capsule 08-27 00:00: 00 Yes [id number] EYE HEALTH 1 capsule 2 TIMES DAILY 1 capsule 2 TIMES DAILY (route: oral) Med Classific ation: Alternati ve Therapy ProAir HFA 90 mcg/actuati on aerosol inhaler 08-27 00:00: 00 Yes [id number] SOB WHEEZE 2 puff EVERY 4 HOURS 2 puff EVERY 4 HOURS (route: inhalation ) Med Classific ation: Respirato ry Therapy Agents quetiapine 25 mg tablet 08-27 00:00: 00 Yes [id number] SLEEP 1-2 tablet BEDTIME 1-2 tablet BEDTIME (route: oral) Med Classific ation: Central Nervous System Agents Symbicort 160 mcg-4.5 mcg/actuati on HFA aerosol inhaler 08-27 00:00: 00 Yes [id number] ASTHMA 2 puff 2 TIMES DAILY 2 puff 2 TIMES DAILY (route: inhalation ) Med Classific ation: Respirato ry Therapy Agents Vitamin D3 50 mcg (2,000 unit) tablet 08-27 00:00: 00 Yes [id number] NO THYROID 1 tablet DAILY 1 tablet DAILY (route: oral) Med Classific ation: Electroly te Balance-N utritiona l Products cephalexin 500 mg tablet 09-05 00:00: 00 09-11 23:59 :00 No [id number] CELLULITIS 1 tablet 3 TIMES DAILY 1 tablet 3 TIMES DAILY (route: oral) Med Classific ation: Anti-Infe ctive Agents tramadol 50 mg tablet 09-09 00:00: 00 Yes [id number] PAIN 1 tablet DAILY 1 tablet DAILY (route: oral) Med Classific ation: Analgesic , Anti-infl ammatory or Antipyret ic cephalexin 500 mg capsule 08-29 00:00: 00 09-07 23:59 :00 No [id number] CELLULITIS 1 capsule EVERY 12 HOURS 1 capsule EVERY 12 HOURS (route: oral) Med Classific ation: Anti-Infe ctive Agents alendronate 70 mg tablet 09-23 00:00: 00 Yes [id number] OSTEOPOROSI S Per instruc tions WEEKLY Per instructio ns WEEKLY (route: oral) Med Classific ation: Endocrine Fosamax 70 mg tablet 09-15 00:00: 00 Yes [id number] OSTEOPOROSI S 1 tablet WEEKLY 1 tablet [...] EMERGENCY SERVICES CALL [facility] NURSE TO KEEP POLL WATCHER SYMPTOM REPORT FOR VISIBLE REFERENCE NOTIFY SKILLED [...] EMERGENCY SERVICES CALL [facility] NURSE TO KEEP POLL WATCHER SYMPTOM REPORT FOR VISIBLE REFERENCE NOTIFY SKILLED [...] End Date/Time Encounter Type Admission Type Attending [facility] Care Department Encounter ID Discharge Date Discharge Status Discharge Condition Discharge Reason Percent Goals Met 2021-08-27 00:00:00 2021-10-22 00:00:00 Outpatient NEW ADMISSION ISABEL FLANNERY [facility] [id number] 2021-10-22 00:00:00 DISCHARGE TO HOME OR SELF CARE INDEPENDEN T IN THE HOME HH ONLY - PER CLIENT REQUEST 100.00
--- OUTSIDE RECORDS SUMMARY | 2024-02-28 07:45 | XMS_ITS | Clinical Summary ---
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) USE OF ANTICOAGULAN TS Active 03-01 00:00: 00 NURSING HOME (CURRENT) USE OF INHALED STEROIDS Active 03-01 [...] 100 mg tablet 08-27 00:00: 00 Yes [id number] ARTHRITIS 1 tablet 2 TIMES DAILY 1 tablet 2 TIMES DAILY (route: oral) Med Classific ation: Gout and Hyperuric emia Therapy amlodipine 2.5 mg tablet 08-27 00:00: 00 Yes [id number] BLOOD PRESSURE 2 tablet BEDTIME 2 tablet BEDTIME (route: oral) Med Classific ation: Cardiovas cular Therapy Agents calcium citrate 200 mg (950 mg) tablet 08-27 00:00: 00 Yes [id number] THYROID REMOVAL 1 tablet DAILY 1 tablet DAILY (route: oral) Med Classific ation: Electroly te Balance-N utritiona l Products celecoxib 200 mg capsule 08-27 00:00: 00 Yes [id number] PAIN 1 capsule DAILY 1 capsule DAILY (route: oral) Med Classific ation: Analgesic , Anti-infl ammatory or Antipyret ic cetirizine 10 mg tablet 08-27 00:00: 00 Yes [id number] ALLERGIES 1 tablet BEDTIME 1 tablet BEDTIME (route: oral) Med Classific ation: Respirato ry Therapy Agents clonazepam 0.5 mg tablet 08-27 00:00: 00 Yes [id number] ANXIETY 1 tablet DAILY 1 tablet DAILY (route: oral) Med Classific ation: Central Nervous System Agents Eliquis 5 mg tablet 08-27 00:00: 00 Yes [id number] ATRIAL FIB 1 tablet 2 TIMES DAILY 1 tablet 2 TIMES DAILY (route: oral) Med Classific ation: Hematolog ical Agents escitalopra m 10 mg tablet 08-27 00:00: 00 Yes [id number] ANXUETY/ DEPRESSION 1 tablet DAILY 1 tablet DAILY (route: oral) Med Classific ation: Central Nervous System Agents furosemide 20 mg tablet 08-27 00:00: 00 Yes [id number] SWELLING 1 tablet DAILY 1 tablet DAILY (route: oral) Med Classific ation: Cardiovas cular Therapy Agents Incruse Ellipta 62.5 mcg/actuati on powder for inhalation 08-27 00:00: 00 Yes [id number] ASTHMA 1 inhalat ion DAILY 1 inhalation DAILY (route: inhalation ) Med Classific ation: Respirato ry Therapy Agents Levoxyl 137 mcg tablet 08-27 00:00: 00 Yes [id number] NO THYROID GLAND 1 tablet DAILY 1 tablet DAILY (route: oral) Med Classific ation: Endocrine losartan 100 mg tablet 08-27 00:00: 00 Yes [id number] BLOOD PRESSURE 1 tablet DAILY 1 tablet DAILY (route: oral) Med Classific ation: Cardiovas cular Therapy Agents metoprolol succinate ER 50 mg tablet,exte nded release 24 hr 08-27 00:00: 00 Yes [id number] BLOOD PRESSURE 1 tablet 2 TIMES DAILY 1 tablet 2 TIMES DAILY (route: oral) Med Classific ation: Cardiovas cular Therapy Agents montelukast 10 mg tablet 08-27 00:00: 00 Yes [id number] ASTHMA 1 tablet BEDTIME 1 tablet BEDTIME (route: oral) Med Classific ation: Respirato ry Therapy Agents PreserVisio n AREDS-2 250 mg-90 mg-40 mg-1 mg capsule 08-27 00:00: 00 Yes [id number] EYE HEALTH 1 capsule 2 TIMES DAILY 1 capsule 2 TIMES DAILY (route: oral) Med Classific ation: Alternati ve Therapy ProAir HFA 90 mcg/actuati on aerosol inhaler 08-27 00:00: 00 Yes [id number] SOB WHEEZE 2 puff EVERY 4 HOURS 2 puff EVERY 4 HOURS (route: inhalation ) Med Classific ation: Respirato ry Therapy Agents quetiapine 25 mg tablet 08-27 00:00: 00 Yes [id number] SLEEP 1-2 tablet BEDTIME 1-2 tablet BEDTIME (route: oral) Med Classific ation: Central Nervous System Agents Symbicort 160 mcg-4.5 mcg/actuati on HFA aerosol inhaler 08-27 00:00: 00 Yes [id number] ASTHMA 2 puff 2 TIMES DAILY 2 puff 2 TIMES DAILY (route: inhalation ) Med Classific ation: Respirato ry Therapy Agents Vitamin D3 50 mcg (2,000 unit) tablet 08-27 00:00: 00 Yes [id number] NO THYROID 1 tablet DAILY 1 tablet DAILY (route: oral) Med Classific ation: Electroly te Balance-N utritiona l Products cephalexin 500 mg tablet 09-05 00:00: 00 09-11 23:59 :00 No [id number] CELLULITIS 1 tablet 3 TIMES DAILY 1 tablet 3 TIMES DAILY (route: oral) Med Classific ation: Anti-Infe ctive Agents tramadol 50 mg tablet 09-09 00:00: 00 Yes [id number] PAIN 1 tablet DAILY 1 tablet DAILY (route: oral) Med Classific ation: Analgesic , Anti-infl ammatory or Antipyret ic cephalexin 500 mg capsule 08-29 00:00: 00 09-07 23:59 :00 No [id number] CELLULITIS 1 capsule EVERY 12 HOURS 1 capsule EVERY 12 HOURS (route: oral) Med Classific ation: Anti-Infe ctive Agents alendronate 70 mg tablet 09-23 00:00: 00 Yes [id number] OSTEOPOROSI S Per instruc tions WEEKLY Per instructio ns WEEKLY (route: oral) Med Classific ation: Endocrine Fosamax 70 mg tablet 09-15 00:00: 00 Yes [id number] OSTEOPOROSI S 1 tablet WEEKLY 1 tablet [...] EMERGENCY SERVICES CALL [facility] NURSE TO KEEP FUEL CELL TEST ENGINEER SYMPTOM REPORT FOR VISIBLE REFERENCE NOTIFY SKILLED [...] EMERGENCY SERVICES CALL [facility] NURSE TO KEEP FUEL CELL TEST ENGINEER SYMPTOM REPORT FOR VISIBLE REFERENCE NOTIFY SKILLED [...] End Date/Time Encounter Type Admission Type Attending [facility] Care Department Encounter ID Discharge Date Discharge Status Discharge Condition Discharge Reason Percent Goals Met 2021-08-27 00:00:00 2021-10-22 00:00:00 Outpatient NEW ADMISSION ISABEL FLANNERY [facility] [id number] 2021-10-22 00:00:00 DISCHARGE TO HOME OR SELF CARE INDEPENDEN T IN THE HOME HH ONLY - PER CLIENT REQUEST 100.00
== END ==
LOC: HO.CARD 07:40
PROVIDERS: PCP Internal Medicine; Visit Provider Internal Medicine Cardiovascular Disease
DX: I48.0 Paroxysmal atrial fibrillation (principal)
CPT/HCPCS: 93306

== ENCOUNTER → 2024-02-28 07:44 | Outpatient (BNV) | payer MEDICARE, OTHER, SELFPAY | PROVIDERS: PCP Internal Medicine; Visit Provider Internal Medicine Cardiovascular Disease | DX: I35.2 Nonrheumatic aortic (valve) stenosis with insufficiency (principal) | CPT/HCPCS: 93306 ==

== ENCOUNTER 2024-03-14 08:06 | Outpatient (AMB) | payer MEDICARE, OTHER, SELFPAY ==
--- OUTSIDE RECORDS SUMMARY | 2024-03-14 08:10 | XMS_ITS | Clinical Summary ---
Author Organization Unknown Care Team Providers Care Drop Wire Hanger Name Role Phone GIDEON WEISS, VERONICA URBANO Unavailable Unavaila michelet VILLARREAL PT, RADHA Unavailable Unavailable PRUDENCIO PENA, ISABEL Unavailable Unavailable Payers Payer Name Policy Type Policy Number Effective Date Expira tion Date MEDICARE.NGS.PDGM [id number] Problems Condition Name Condition Details Condition Category [...] MACHINES AND DEVICES Active 03-01 00:00: 00 PENITENTIARY (CURRENT) USE OF ANTICOAGULAN TS Active 03-01 00:00: 00 BOILER OUT (CURRENT) USE OF INHALED STEROIDS Active 03-01 [...] 100 mg tablet 08-27 00:00: 00 Yes [id number] ARTHRITIS 1 tablet 2 TIMES DAILY 1 tablet 2 TIMES DAILY (route: oral) Med Classific ation: Gout and Hyperuric emia Therapy amlodipine 2.5 mg tablet 08-27 00:00: 00 Yes [id number] BLOOD PRESSURE 2 tablet BEDTIME 2 tablet BEDTIME (route: oral) Med Classific ation: Cardiovas cular Therapy Agents calcium citrate 200 mg (950 mg) tablet 08-27 00:00: 00 Yes [id number] THYROID REMOVAL 1 tablet DAILY 1 tablet DAILY (route: oral) Med Classific ation: Electroly te Balance-N utritiona l Products celecoxib 200 mg capsule 08-27 00:00: 00 Yes [id number] PAIN 1 capsule DAILY 1 capsule DAILY (route: oral) Med Classific ation: Analgesic , Anti-infl ammatory or Antipyret ic cetirizine 10 mg tablet 08-27 00:00: 00 Yes [id number] ALLERGIES 1 tablet BEDTIME 1 tablet BEDTIME (route: oral) Med Classific ation: Respirato ry Therapy Agents clonazepam 0.5 mg tablet 08-27 00:00: 00 Yes [id number] ANXIETY 1 tablet DAILY 1 tablet DAILY (route: oral) Med Classific ation: Central Nervous System Agents Eliquis 5 mg tablet 08-27 00:00: 00 Yes [id number] ATRIAL FIB 1 tablet 2 TIMES DAILY 1 tablet 2 TIMES DAILY (route: oral) Med Classific ation: Hematolog ical Agents escitalopra m 10 mg tablet 08-27 00:00: 00 Yes [id number] ANXUETY/ DEPRESSION 1 tablet DAILY 1 tablet DAILY (route: oral) Med Classific ation: Central Nervous System Agents furosemide 20 mg tablet 08-27 00:00: 00 Yes [id number] SWELLING 1 tablet DAILY 1 tablet DAILY (route: oral) Med Classific ation: Cardiovas cular Therapy Agents Incruse Ellipta 62.5 mcg/actuati on powder for inhalation 08-27 00:00: 00 Yes [id number] ASTHMA 1 inhalat ion DAILY 1 inhalation DAILY (route: inhalation ) Med Classific ation: Respirato ry Therapy Agents Levoxyl 137 mcg tablet 08-27 00:00: 00 Yes [id number] NO THYROID GLAND 1 tablet DAILY 1 tablet DAILY (route: oral) Med Classific ation: Endocrine losartan 100 mg tablet 08-27 00:00: 00 Yes [id number] BLOOD PRESSURE 1 tablet DAILY 1 tablet DAILY (route: oral) Med Classific ation: Cardiovas cular Therapy Agents metoprolol succinate ER 50 mg tablet,exte nded release 24 hr 08-27 00:00: 00 Yes [id number] BLOOD PRESSURE 1 tablet 2 TIMES DAILY 1 tablet 2 TIMES DAILY (route: oral) Med Classific ation: Cardiovas cular Therapy Agents montelukast 10 mg tablet 08-27 00:00: 00 Yes [id number] ASTHMA 1 tablet BEDTIME 1 tablet BEDTIME (route: oral) Med Classific ation: Respirato ry Therapy Agents PreserVisio n AREDS-2 250 mg-90 mg-40 mg-1 mg capsule 08-27 00:00: 00 Yes [id number] EYE HEALTH 1 capsule 2 TIMES DAILY 1 capsule 2 TIMES DAILY (route: oral) Med Classific ation: Alternati ve Therapy ProAir HFA 90 mcg/actuati on aerosol inhaler 08-27 00:00: 00 Yes [id number] SOB WHEEZE 2 puff EVERY 4 HOURS 2 puff EVERY 4 HOURS (route: inhalation ) Med Classific ation: Respirato ry Therapy Agents quetiapine 25 mg tablet 08-27 00:00: 00 Yes [id number] SLEEP 1-2 tablet BEDTIME 1-2 tablet BEDTIME (route: oral) Med Classific ation: Central Nervous System Agents Symbicort 160 mcg-4.5 mcg/actuati on HFA aerosol inhaler 08-27 00:00: 00 Yes [id number] ASTHMA 2 puff 2 TIMES DAILY 2 puff 2 TIMES DAILY (route: inhalation ) Med Classific ation: Respirato ry Therapy Agents Vitamin D3 50 mcg (2,000 unit) tablet 08-27 00:00: 00 Yes [id number] NO THYROID 1 tablet DAILY 1 tablet DAILY (route: oral) Med Classific ation: Electroly te Balance-N utritiona l Products cephalexin 500 mg tablet 09-05 00:00: 00 09-11 23:59 :00 No [id number] CELLULITIS 1 tablet 3 TIMES DAILY 1 tablet 3 TIMES DAILY (route: oral) Med Classific ation: Anti-Infe ctive Agents tramadol 50 mg tablet 09-09 00:00: 00 Yes [id number] PAIN 1 tablet DAILY 1 tablet DAILY (route: oral) Med Classific ation: Analgesic , Anti-infl ammatory or Antipyret ic cephalexin 500 mg capsule 08-29 00:00: 00 09-07 23:59 :00 No [id number] CELLULITIS 1 capsule EVERY 12 HOURS 1 capsule EVERY 12 HOURS (route: oral) Med Classific ation: Anti-Infe ctive Agents alendronate 70 mg tablet 09-23 00:00: 00 Yes [id number] OSTEOPOROSI S Per instruc tions WEEKLY Per instructio ns WEEKLY (route: oral) Med Classific ation: Endocrine Fosamax 70 mg tablet 09-15 00:00: 00 Yes [id number] OSTEOPOROSI S 1 tablet WEEKLY 1 tablet [...] EMERGENCY SERVICES CALL [employer] NURSE TO KEEP EXHAUST MACHINE OPERATOR SYMPTOM REPORT FOR VISIBLE REFERENCE NOTIFY SKILLED [...] EMERGENCY SERVICES CALL [facility] NURSE TO KEEP EXHAUST MACHINE OPERATOR SYMPTOM REPORT FOR VISIBLE REFERENCE NOTIFY SKILLED [...] End Date/Time Encounter Type Admission Type Attending [facility] Care Department Encounter ID Discharge Date Discharge Status Discharge Condition Discharge Reason Percent Goals Met 2021-08-27 00:00:00 2021-10-22 00:00:00 Outpatient NEW ADMISSION ISABEL FLANNERY [facility] [id number] 2021-10-22 00:00:00 DISCHARGE TO HOME OR SELF CARE INDEPENDEN T IN THE HOME HH ONLY - PER CLIENT REQUEST 100.00
--- OUTSIDE RECORDS SUMMARY | 2024-03-14 08:10 | XMS_ITS | Clinical Summary ---
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 (CURRENT) USE OF INHALED STEROIDS Active 03-01 [...] 100 mg tablet 08-27 00:00: 00 Yes [id number] ARTHRITIS 1 tablet 2 TIMES DAILY 1 tablet 2 TIMES DAILY (route: oral) Med Classific ation: Gout and Hyperuric emia Therapy amlodipine 2.5 mg tablet 08-27 00:00: 00 Yes [id number] BLOOD PRESSURE 2 tablet BEDTIME 2 tablet BEDTIME (route: oral) Med Classific ation: Cardiovas cular Therapy Agents calcium citrate 200 mg (950 mg) tablet 08-27 00:00: 00 Yes [id number] THYROID REMOVAL 1 tablet DAILY 1 tablet DAILY (route: oral) Med Classific ation: Electroly te Balance-N utritiona l Products celecoxib 200 mg capsule 08-27 00:00: 00 Yes [id number] PAIN 1 capsule DAILY 1 capsule DAILY (route: oral) Med Classific ation: Analgesic , Anti-infl ammatory or Antipyret ic cetirizine 10 mg tablet 08-27 00:00: 00 Yes [id number] ALLERGIES 1 tablet BEDTIME 1 tablet BEDTIME (route: oral) Med Classific ation: Respirato ry Therapy Agents clonazepam 0.5 mg tablet 08-27 00:00: 00 Yes [id number] ANXIETY 1 tablet DAILY 1 tablet DAILY (route: oral) Med Classific ation: Central Nervous System Agents Eliquis 5 mg tablet 08-27 00:00: 00 Yes [id number] ATRIAL FIB 1 tablet 2 TIMES DAILY 1 tablet 2 TIMES DAILY (route: oral) Med Classific ation: Hematolog ical Agents escitalopra m 10 mg tablet 08-27 00:00: 00 Yes [id number] ANXUETY/ DEPRESSION 1 tablet DAILY 1 tablet DAILY (route: oral) Med Classific ation: Central Nervous System Agents furosemide 20 mg tablet 08-27 00:00: 00 Yes [id number] SWELLING 1 tablet DAILY 1 tablet DAILY (route: oral) Med Classific ation: Cardiovas cular Therapy Agents Incruse Ellipta 62.5 mcg/actuati on powder for inhalation 08-27 00:00: 00 Yes [id number] ASTHMA 1 inhalat ion DAILY 1 inhalation DAILY (route: inhalation ) Med Classific ation: Respirato ry Therapy Agents Levoxyl 137 mcg tablet 08-27 00:00: 00 Yes [id number] NO THYROID GLAND 1 tablet DAILY 1 tablet DAILY (route: oral) Med Classific ation: Endocrine losartan 100 mg tablet 08-27 00:00: 00 Yes [id number] BLOOD PRESSURE 1 tablet DAILY 1 tablet DAILY (route: oral) Med Classific ation: Cardiovas cular Therapy Agents metoprolol succinate ER 50 mg tablet,exte nded release 24 hr 08-27 00:00: 00 Yes [id number] BLOOD PRESSURE 1 tablet 2 TIMES DAILY 1 tablet 2 TIMES DAILY (route: oral) Med Classific ation: Cardiovas cular Therapy Agents montelukast 10 mg tablet 08-27 00:00: 00 Yes [id number] ASTHMA 1 tablet BEDTIME 1 tablet BEDTIME (route: oral) Med Classific ation: Respirato ry Therapy Agents PreserVisio n AREDS-2 250 mg-90 mg-40 mg-1 mg capsule 08-27 00:00: 00 Yes [id number] EYE HEALTH 1 capsule 2 TIMES DAILY 1 capsule 2 TIMES DAILY (route: oral) Med Classific ation: Alternati ve Therapy ProAir HFA 90 mcg/actuati on aerosol inhaler 08-27 00:00: 00 Yes [id number] SOB WHEEZE 2 puff EVERY 4 HOURS 2 puff EVERY 4 HOURS (route: inhalation ) Med Classific ation: Respirato ry Therapy Agents quetiapine 25 mg tablet 08-27 00:00: 00 Yes [id number] SLEEP 1-2 tablet BEDTIME 1-2 tablet BEDTIME (route: oral) Med Classific ation: Central Nervous System Agents Symbicort 160 mcg-4.5 mcg/actuati on HFA aerosol inhaler 08-27 00:00: 00 Yes [id number] ASTHMA 2 puff 2 TIMES DAILY 2 puff 2 TIMES DAILY (route: inhalation ) Med Classific ation: Respirato ry Therapy Agents Vitamin D3 50 mcg (2,000 unit) tablet 08-27 00:00: 00 Yes [id number] NO THYROID 1 tablet DAILY 1 tablet DAILY (route: oral) Med Classific ation: Electroly te Balance-N utritiona l Products cephalexin 500 mg tablet 09-05 00:00: 00 09-11 23:59 :00 No [id number] CELLULITIS 1 tablet 3 TIMES DAILY 1 tablet 3 TIMES DAILY (route: oral) Med Classific ation: Anti-Infe ctive Agents tramadol 50 mg tablet 09-09 00:00: 00 Yes [id number] PAIN 1 tablet DAILY 1 tablet DAILY (route: oral) Med Classific ation: Analgesic , Anti-infl ammatory or Antipyret ic cephalexin 500 mg capsule 08-29 00:00: 00 09-07 23:59 :00 No [id number] CELLULITIS 1 capsule EVERY 12 HOURS 1 capsule EVERY 12 HOURS (route: oral) Med Classific ation: Anti-Infe ctive Agents alendronate 70 mg tablet 09-23 00:00: 00 Yes [id number] OSTEOPOROSI S Per instruc tions WEEKLY Per instructio ns WEEKLY (route: oral) Med Classific ation: Endocrine Fosamax 70 mg tablet 09-15 00:00: 00 Yes [id number] OSTEOPOROSI S 1 tablet WEEKLY 1 tablet [...] EMERGENCY SERVICES CALL [facility] NURSE TO KEEP WRAPPER HAND SYMPTOM REPORT FOR VISIBLE REFERENCE NOTIFY SKILLED [...] EMERGENCY SERVICES CALL [facility] NURSE TO KEEP WRAPPER HAND SYMPTOM REPORT FOR VISIBLE REFERENCE NOTIFY SKILLED [...] End Date/Time Encounter Type Admission Type Attending [facility] Care Department Encounter ID Discharge Date Discharge Status Discharge Condition Discharge Reason Percent Goals Met 2021-08-27 00:00:00 2021-10-22 00:00:00 Outpatient NEW ADMISSION ISABEL FLANNERY [facility] [id number] 2021-10-22 00:00:00 DISCHARGE TO HOME OR SELF CARE INDEPENDEN T IN THE HOME HH ONLY - PER CLIENT REQUEST 100.00
--- NOTE | 2024-03-14 08:19 | A.OFFVIS_ITS ---
Vital Signs 03/14/24 08:27 Height 5 ft 3 in Weight 233 lb 11.04 oz BMI 41.4 BP 120/72 Blood Pressure Location Lt brachial Position Sitting Pulse 64 Intake Visit Reasons: 1 yr f/up Intake Note: 1 year follow-up with ekg [facility] Community Health Outreach Worker Required: No Allergies No Known Allergies Allergy (Verified 08/31/23 10:59) Medication List - Last Reconciled 03/14/24 by Osmar Ferrari MD albuterol sulfate 90 mcg/actuation 2 puffs inhalation Q4H PRN albuterol sulfate 90 mcg/actuation (ProAir HFA) 2 puffs inhalation Q4-6H PRN alendronate 70 mg PO QWEEK allopurinol 200 mg PO BID apixaban (Eliquis) 5 mg PO BID calcium citrate 1,000 mg PO DAILY celecoxib 200 mg PO DAILY cetirizine 10 mg PO BEDTIME PRN clonazepam 1 tab PO DAILY PRN diclofenac sodium 1% (Arthritis Pain (diclofenac)) 2 grams topical QID fluticasone furoate-vilanterol 200-25 mcg/dose (Breo Ellipta) 1 inh inhalation D AILY 90 days inhalational spacing device (Flexichamber spacer) As directed levothyroxine (Levoxyl) 137 mcg PO DAILY 90 days losartan 100 mg PO DAILY umeclidinium 62.5 mcg/actuation (Incruse Ellipta) 1 inh inhalation DAILY 90 days HPI Comments Details: Marjorie comes for follow-up. Overall she is doing well from cardiac perspective. No new exertional symptoms of chest pain or shortness of breath. No prolonged palpitation irregular heartbeat consistent with atrial fibrillation. No issues with the blood thinners with no bleeding or neurologic events. Last creatinine in November was within normal limits. Recent echocardiogram showed normal LV ejection fraction with mildly dilated ascending aorta and early mild aortic stenosis. She is currently main issue is sinusitis. She is also interested in participate in weight loss program using 1 of the medicines to do the same. [facility] Medical History Obesity (BMI 30-39.9) Anemia Meningioma Abrasion, multiple sites Vitamin D deficiency Osteoporosis History of thyroid cancer Generalized anxiety disorder Essential hypertension Grief counseling Environmental and seasonal allergies Allergic rhinitis JUAREZ on CPAP COPD (chronic obstructive pulmonary disease) Left humeral fracture Morbid obesity Postsurgical hypothyroidism Papillary thyroid carcinoma Osteoarthritis Gout Pernicious anemia Varicose veins of right lower extremity with pain Surgical History Hx of colonoscopy Hx of shoulder surgery Hx of cholecystectomy History of total left knee replacement (TKR) History of thyroidectomy, total Gastric bypass status for obesity H/O vein stripping Social History Household Members: None Housing: House Do you presently have visiting nurse or other home services: No Alcohol intake: former Patient Tobacco Use Status: Never used Tobacco e-Cigarette/Vaping Use: Never Used Substance Use Type: Marijuana Current occupational status: retired Cognitive needs: No Hearing needs: No Vision needs: Yes Review of Systems Const Denies chills, Denies fatigue, Denies fever(s), Denies frequent falls, Denies weakness, Denies weight gain and Denies weight loss ENT Denies dizziness Card Denies chest pain, Denies leg edema, Denies lightheadedness, Denies palpitations, Denies dyspnea, Denies dyspnea on exertion, Denies orthopnea and Denies other (loss of consciousness) Resp Denies cough, Denies dyspnea and Denies dyspnea on exertion GI Denies hematochezia and Denies change in stool character Musc Denies abnormal gait, Denies muscle weakness, Denies numbness, Denies radiating pain into limb and Denies tingling Neuro Denies abnormal gait, Denies dizziness, Denies frequent falls, Denies numbness, Denies tingling and Denies weakness Endo Denies fatigue and Denies palpitations Physical Exam Vital Signs: Last Vital Signs Pulse 64 03/14/24 08:27 BP 120/72 03/14/24 08:27 BMI result Body Mass Index 41.4 Const General: cooperative, comfortable, no acute distress, alert and awake Nutritional Appearance: obese Orientation/consciousness: patient oriented x3 Limitations: no limitations Neck Neck: Yes trachea midline, Yes supple and Yes no JVD Chest Chest palpation & inspection: normal inspection of the chest Resp Effort & Inspection: normal respiratory effort Auscultation: clear to auscultation bilaterally Cardio Jugular venous distension: no JVD Palpation: normal PMI Rate: regular rate Rhythm: regular rhythm Heart sounds: S1 normal heart sound present, S2 normal heart sound present, no click, no gallops, Murmur heart sound present systolic early and no rubs GI Inspection: Yes obesity Auscultation: normal bowel sounds Skin General skin exam: no rashes or lesions noted and ecchymosis Neuro General: patient oriented x3 and no focal motor deficits Extrem General: Yes other (Redness in the left lower extremity with the fluid filled skin pouch) Office Procedures EKG Details: EKG shows normal sinus rhythm with normal EKG [id number], Complete Assessment & Plan Assessment & Plan (1) Paroxysmal atrial fibrillation: Comment: Followed by Dr. Ferrari Code(s): I48.0 - Paroxysmal atrial fibrillation Category: Medical Plan: Highly symptomatic paroxysmal atrial fibrillation has remained suppressed. Has done well with rhythm control approach will continue pursue rhythm control appro ach. Currently not on any antiarrhythmic in his not indicated. Continue full oral anticoagulation, currently on Eliquis 5 mg b.i.d.. Semi annual renal function test should be pursued. Continue aggressive blood pressure control. She would benefit from aggressive weight loss program as well and consider GLP 1 antagonist such as Ozempic which may help her in the process of losing weight. Avoidance of stimulants was discussed. (2) Ascending aorta enlargement: Code(s): I77.89 - Other specified disorders of arteries and arterioles Category: Medical Plan: Mildly dilated ascending aorta without any significant abnormalities. Continue aggressive blood pressure control. Advised to avoid sudden strenuous isometric activity. Follow-up echocardiogram in 1 year's time. No indication for surgical intervention. (3) Essential hypertension: Code(s): I10 - Essential (primary) hypertension Category: Medical Plan: Blood pressure which is currently well optimized advised to monitor blood pressure regularly at home and maintain a log. Target goal blood pressure less than 130/84. Will benefit from weight loss. Low-salt diet was discussed. Will follow up in the clinic in 1 year's time, sooner p.r.n.. Thank you for allowing me to partake in his care Coding Level of Care Code Est Pt Level 4 (68333) Complex EM visit Add On G2211 Diagnoses Paroxysmal atrial fibrillation I48.0 Ascending aorta enlargement I77.89 Essential hypertension I10 CPT Codes EKG - CPT: 02157-[id number], Complete ([id number])
[2024-03-14 08:27] VITALS: BP 120/72; PULSE 64; BMI 41.4
== END 2024-03-14 08:49 | disposition home or self-care (01) ==
PROVIDERS: PCP Internal Medicine; Visit Provider Internal Medicine Cardiovascular Disease
DX: I48.0 Paroxysmal atrial fibrillation (principal); I77.89 Other specified disorders of arteries and arterioles; I10 Essential (primary) hypertension
CPT/HCPCS: 93010; 99214; G2211

== ENCOUNTER → 2024-03-14 08:06 | Outpatient (BNVA) | payer MEDICARE, OTHER, SELFPAY | PROVIDERS: PCP Internal Medicine; Visit Provider Internal Medicine Cardiovascular Disease | DX: I48.0 Paroxysmal atrial fibrillation (principal); I77.89 Other specified disorders of arteries and arterioles; I10 Essential (primary) hypertension | CPT/HCPCS: 93005; 99212 ==

== ENCOUNTER 2024-03-22 10:33 | Outpatient (AMB) | payer MEDICARE, OTHER, SELFPAY ==
[2024-03-22 10:44] VITALS: BP 140/70; PULSE 66; O2SAT 98; BMI 41.6
--- NOTE | 2024-03-22 10:44 | A.OFFVIS_ITS ---
Vital Signs 03/22/24 10:44 Height 5 ft 3 in Weight 234 lb 12.677 oz BMI 41.6 BP 140/70 H Blood Pressure Location Lt brachial Position Sitting Pulse 66 Pulse Source Pulse Oximeter Pulse Oximetry (%) 98 Oxygen Delivery Method Room Air Intake Visit Reasons: COPD Intake Note: pt is here for follow up, and using cpap is going good, and incruse and breo are working. Ultra Sound Technician Required: No Allergies No Known Allergies Allergy (Verified 03/22/24 10:52) Medication List - Last Reconciled 03/22/24 by Ilene Leo MD albuterol sulfate 90 mcg/actuation 2 puffs inhalation Q4H PRN alendronate 70 mg PO QWEEK allopurinol 200 mg PO BID apixaban (Eliquis) 5 mg PO BID calcium citrate 1,000 mg PO DAILY celecoxib 200 mg PO DAILY cetirizine 10 mg PO BEDTIME PRN clonazepam 1 tab PO DAILY PRN diclofenac sodium 1% (Arthritis Pain (diclofenac)) 2 grams topical QID fluticasone furoate-vilanterol 200-25 mcg/dose (Breo Ellipta) 1 inh inhalation DAILY 90 days inhalational spacing device (Flexichamber spacer) As directed levothyroxine (Levoxyl) 137 mcg PO DAILY 90 days losartan 100 mg PO DAILY umeclidinium 62.5 mcg/actuation (Incruse Ellipta) 1 inh inhalation DAILY 90 days Do you need a note to return to daycare/school/sports/work: No HPI HPI COPD: Details: SOFYA IS 73 YEARS OLD VERY PLEASANT FEMALE, WHO IS HERE TODAY FOR HER 6 MONTHS FOLLOW-UP FOR JUAREZ AND COPD. SHE IS USING HER CPAP VERY REGULARLY, AND LIKES HER CURRENT NASAL PILLOWS. SHE USES ALMOST 8 HOURS EVERY NIGHT AND SLEEPS WELL. THERE IS NO ISSUE WITH THE CPAP MACHINE OR THE NASAL PILLOWS AT THIS TIME. COPD REMAINS VERY STABLE WITH THE USE OF BREO AND INCRUSE ELLIPTA. SHE HAS NEEDED TO USE ALBUTEROL ONLY ONCE OR TWICE IN THE LAST FEW MONTHS. SHE DOES USE CETIRIZINE 10 MG ONCE A DAY P.R.N. FOR NASAL CONGESTION. SHE REMAINS OVERWEIGHT AND HAS DIFFICULTY IN LOSING SHE CAN NOT EXERCISE MUCH. SHE IS GOING TO DISCUSS WITH HER PRIMARY CARE PHYSICIAN ABOUT WEIGHT MANAGEMENT PROGRAM AND ALSO POSSIBILITY OF USING OZEMPIC . COUNT INCLUDES THE [facility] Medical History Obesity (BMI 30-39.9) Anemia Meningioma Abrasion, multiple sites Vitamin D deficiency Osteoporosis History of thyroid cancer Generalized anxiety disorder Essential hypertension Grief counseling Environmental and seasonal allergies Allergic rhinitis JUAREZ on CPAP COPD (chronic obstructive pulmonary disease) Left humeral fracture Morbid obesity Postsurgical hypothyroidism Papillary thyroid carcinoma Osteoarthritis Gout Pernicious anemia Varicose veins of right lower extremity with pain Surgical History Hx of colonoscopy Hx of shoulder surgery Hx of cholecystectomy History of total left knee replacement (TKR) History of thyroidectomy, total Gastric bypass status for obesity H/O vein stripping Social History Household Members: None Housing: House Do you presently have visiting nurse or other home services: No Alcohol intake: former Patient Tobacco Use Status: Never used Tobacco e-Cigarette/Vaping Use: Never Used Substance Use Type: Marijuana Current occupational status: retired Cognitive needs: No Hearing needs: No Vision needs: Yes Review of Systems Const All systems reviewed & are unremarkable except as noted in HPI and below Eyes Reports no additional complaints ENT Reports nasal congestion (mild occasional ) Card Reports dyspnea on exertion Resp Reports cough (mild intermittent ) and Reports dyspnea on exertion GI Reports no additional complaints Reports no additional complaints Musc Reports back pain and Reports arthralgias Neuro Reports no additional complaints Psych Reports no additional complaints Endo Reports no additional complaints Jerardo/Lymph Reports no additional complaints Physical Exam Vital Signs: Last Vital Signs Pulse 66 03/22/24 10:44 BP 140/70 H 03/22/24 10:44 Pulse Ox 98 03/22/24 10:44 Oxygen Delivery Method Room Air 03/22/24 10:44 BMI result Body Mass Index 41.6 Const General: healthy appearing (Except for being overweight), comfortable, no acute distress, alert and awake Orientation/consciousness: patient oriented x3 HEENT Head: Yes normal to inspection General nose exam: No nasal polyps present, No nasal discharge present and Other nasal findings present (Mild nasal congestion) Face and sinus: Yes sinuses nontender Mouth: oropharynx normal Throat: Yes posterior oropharynx normal Eyes General: appearance normal, both eyes and all related structures Neck Neck: Yes normal visual inspection, Yes no lymphadenopathy, Yes trachea midline and Yes no JVD Thyroid: Thyroid normal Chest Chest palpation & inspection: normal inspection of the chest, normal palpation of entire chest wall and no tenderness Resp Other: Percussion note resonant, breath sounds are distant with prolonged expiratory phase. Both sides are clear no wheezes rhonchi or crepitations are heard. Cardio Palpation: normal PMI Rate: regular rate Rhythm: regular rhythm Heart sounds: no gallops and no murmurs GI Palpation (GI): Soft to palpation, nontender, No hepatosplenomegaly present and no masses Auscultation: normal bowel sounds Back/Spine/Pelvis Thoracic/Lumbar Spine: thoracic and lumbar spine normal to inspection Skin General skin exam: no rashes or lesions noted Neuro General: patient oriented x3 and no focal motor deficits Cranial nerves: Yes CN's II-XII intact bilaterally Extrem General: Yes normal to inspection, Yes no clubbing, cyanosis or edema and Yes no calf tenderness Psych Appearance: grossly normal and well kempt Speech and movement: Normal speech and movement present Results Reviewed Results Reviewed: COMPLIANCE REPORT IS REVIEWED AND HE HAS USED CPAP 100% OF THE NIGHT WITH AVERAGE USAGE PER NIGHT 8 HOURS 6 MINUTES. THERE IS A SAYS AIR LEAK OF 76 L/MINUTE MAXIMUM BUT 95TH PERCENTILE IS ONLY 1.4. RESIDUAL AHI 1.5 Assessment & Plan Assessment & Plan (1) Obesity (BMI 30-39.9): Comment: Continues to be grossly obese. Current BMI= 41.6 No significant weight loss since last visit. Code(s): E66.9 - Obesity, unspecified Category: Medical Plan: Discussed about the weight She is watching her diet carefully but can not do much exercise. Use of Tirzepatide is now approved for obstructive sleep apnea. I have suggested to the patient to talk to primary care physician see if she could be started on this agent. (2) COPD (chronic obstructive pulmonary disease): Comment: Patient has severe obstructive airway disorder. Controlled fairly well with the current regimen . She is very happy with the use of Breo . Code(s): J44.9 - Chronic obstructive pulmonary disease, unspecified Category: Medical Plan: Continue Breo 200-25 1 inhalation daily Incruse Ellipta 1 inhalation daily. Albuterol HFA 2 puffs Q 6 hours only p.r.n.. (3) JUAREZ on CPAP: Comment: KNOWN CASE OF CHRONIC JUAREZ , PARTLY DUE TO HER GROSS OBESITY AND PARTLY DUE TO MILD RETROGANTHIA OF THE LOWER JAW. SHE HAS THE NEW CPAP MACHINE, WHICH IS WORKING WELL., NOW SHE IS USING NASAL PILLOWS AND FEELS MORE COMFORTABLE WITH THAT, COMPLIANCE IS GOOD. PRESSURE IS 8 CM. USES NASAL PILLOWS. THERE IS A SOME AIR LEAK, BUT RESIDUAL AHI ONLY 1.5 . Code(s): G47.33 - Obstructive sleep apnea (adult) (pediatric); Z99.89 - Dependence on other enabling machines and devices Category: Medical Plan: COMMENDED FOR GOOD COMPLIANCE AND ADVISED TO CONTINUE USING CPAP EVERY NIGHT Coding Level of Care Code Est Pt Level 3 (53102) Diagnoses Obesity (BMI 30-39.9) E66.9 COPD (chronic obstructive pulmonary disease) J44.9 JUAREZ on CPAP G47.33; Z99.89
--- OUTSIDE RECORDS SUMMARY | 2024-03-22 11:44 | XMS_ITS | Patient Health Record ---
Author Organization [facility] Address [address] [place] [address] [address] [place] [address] Care Team Providers Care Casing In Line Feeder Name Role Phone BROOKS NIETO Primary Care Provider Soraya Mejia Unavailable [phone] Allergies No Known Allergies Reason For Referral No Information Medications Medication SIG (Take, Route, Frequency, Duration) Notes Start Date End Date Status Allopurinol 100MG 1 ORAL twice daily f or -3 07/06/2013 Active Furosemide 20 MG 1 tablet Orally prn Not-Taking Amoxicillin 500MG 4 CAPS ORAL 1 HOUR BEFORE PROCEDURES for -3 07/06/2013 Active Myrbetriq 25 MG 1 tablet Orally Once a day Active Calcium Citrate Plus - 1000 mg Orally On ce a day Active Flonase 50 MCG/ACT 1 spray in each nost ril Nasally Once a day Not-Taking Centrum Silver Women 50+ Active Celecoxib 200 MG 1 capsule with food Orally Once a day for 30 day(s) Active ProAir HFA 108 (90 Base) MCG/ACT 2 puffs as needed Inhalation every 4 hrs Not-Takin g Breo Ellipta 200-25 MCG/ACT 1 puff Inhalation Once a day Active Losartan Potassium 100 MG 1 tablet Orall y Once a day Active clonazePAM 0.5 MG 1 tablet Orally as needed Active Levoxyl 137 MCG 1 tablet Orally Once a day Active Eliquis 5 MG 1 tablet Orally Twic e a day for 30 day(s) Active PreserVision AREDS - 1 tablet Orally Twi ce a day Active Alendronate Sodium 70 MG 1 tablet 30 min utes before the first food, beverage or medicine of the day with plain water Orally for 30 day(s) Active Vitamin D3 2000 IU 1 ORAL daily for -3 05/11/2011 Active Incruse Ellipta 62.5 MCG/INH 1 puff Inhalation Once a day Active Clotrimazole-Betamethason e 1-0.05 % APPLY TO AFFECTED AREA TWICE A DAY EXTERNALLY FOR 14 DAYS (MUST LAST 30 DAYS) for 30 Not-Taking Cetirizine HCl 10 MG 1 tablet Orally Onc e a day for 30 day(s) Active Social History Tobacco Use: Social History Observation Description Date Details (start date - stop date) Former Smoker NA - NA AUDIT-C (Standard) Question Answer Notes Did you have a drink contain ing alcohol in the past year? Yes How often did you have six o r more drinks on one occasion in the past year? Never (0 point) How many drinks did you have on a typical day when you were drinking in the past year? 1 or 2 drinks (0 point) How often did you have a dri nk containing alcohol in the past year? Monthly or less (1 point) Points 1 Interpretation Negative Tobacco Control (Standard) Question Answer Notes Tobacco use: Former smoker How long has it been since you last smoked? Grea ter than 10 years Problems Problem Type SNOMED Code ICD Code Onset Dates Problem Status W/U Status Risk Notes Problem Vitamin D deficiency (03130005) Vitamin D deficiency, unspecified (E55.9) Active confirmed Problem Postmenopausal atrophic vaginitis (26876366) Postmenopausal atrophic vaginitis (N95.2) Active confirmed Problem Age-related osteoporosis (646383995) Age-related osteoporosis without current pathological fracture (M81.0) Active confirmed Problem Urinary incontinence (977048935) Unspecified urinary incontinence (R32) Active confirmed Problem Hyperparathyroidism (41752434) Hyperparathyroid ism, unspecified (E21.3) Active confirmed Problem Morbid obesity (disorder) (330018280) Morbid (severe) obesity due to excess calories (E66.01) Active confirmed Problem Localized morphea (340234076) Lichen sclerosus et atrophicus (L90.0) Active confirmed Problem Unspecified menopausal and perimenopausal disorder (N95.9) Active confirmed Problem Vitamin D deficiency (06536359) Vitamin D deficiency, unspecified (E55.9) Active confirmed Problem Leiomyoma of uterus (32134268) Leiomyoma of uterus, unspecified (218.9) Active confirmed Major Problem Hypothyroidism (79120290) Unspecified hypothyroidism (244.9) Active confirmed Major Problem Gout (29461188) Gout, unspecified (274.9) Active confirmed Major Problem Essential hypertension (53159466) Unspecified essential hypertension (401.9) Active confirmed Major Problem Menopausal symptom (69595522) Symptomatic menopausal or female climacteric states (627.2) Active confirmed Major Problem Gynecological examination normal (674272403105084) Routine gynecological examination (V72.31) Active confirmed Major Problem Screening for malignant neoplasm of colon (189503942) Special screening for malignant neoplasms, colon (V76.51) Active confirmed Major Vital Signs Temperature 97.4 degrees Fahrenheit 10/29/2023 Blood pressure diastolic 76 mm Hg 10/29/2023 Height 62.25 in 10/29/2023 Blood pressure systolic 122 mm Hg 10/29/2023 Weight 225 lbs 10/29/2023 BMI 40.82 kg/m2 10/29/2023 Encounters Encounter Location Date Provider Diagnosis [facility] [address] [place] [address] 10/29/2023 Soraya Love Encounter for gynecological examination (general) (routine) with abnormal findings Z01.411 ; Encounter for screening mammogram for malignant neoplasm of breast Z12.31 ; Family history of malignant neoplasm of breast Z80.3 ; Age-related osteoporosis without current pathological fracture M81.0 ; Lichen sclerosus et atrophicus L90.0 and Leiomyoma of uterus, unspecified D25.9 [facility] [address] [place] [address] 10/29/2023 Soraya Love Assessments Encounter Date Diagnosis (ICD Code) Assessment Notes Treatment Notes Treatment Clinical Notes Section Notes 10/29/2023 Encounter for gynecological examination (general) (routine) with abnormal findings (ICD-10 - Z01.411) NO MORE PAP TESTS 10/29/2023 Encounter for screening mammogram for malignant neoplasm of breast (ICD-10 - Z12.31) REGULAR MAMMOGRAMS AND SBE'S WERE RECOMMENDED. 10/29/2023 Family history of malignant neoplasm of breast (ICD-10 - Z80.3) DISCUSSED STRONG FAMILY HX OF BREAST CA. PAT IS BRCA NEGATIVE. 10/29/2023 Age-related osteoporosis without current pathological fracture (ICD-10 - M81.0) DISCUSSED OSTEOPOROSIS AND ITS IMPACT ON HER HEALTH. ADEQUATE CALCIUM AND VIT D. WEIGHT BEARING EXERCISES. OSTEO PRECAUTIONS. CONTINUE CARE WITH DR SILVA. BMD ORDERED FOR 2023. 10/29/2023 Lichen sclerosus et atrophicus (ICD-10 - L90.0) REASSURED PAT THAT LESIONS HAVE NOT RECURRED. 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 10/29/2023 Leiomyoma of uterus, unspecified (ICD-10 - D25.9) DISCUSSED PREVIOUS PELVIC ULTRASOUND SHOWING FIBROIDS. Plan Of Treatment Pending Test Test Name Order Date Ultrasound : Breast, left 08/24/2014 MAMMOGRAM, SCREENING 09/16/2022 MAMMOGRAM, SCREENING 07/09/2014 Bone Density 07/09/2014 Bone Density 09/04/2020 25OH VITAMIN D 12/02/2020 25OH VITAMIN D 06/10/2021 25OH VITAMIN D 10/23/2021 25OH VITAMIN D 11/07/2020 25OH VITAMIN D 04/03/2021 25OH VITAMIN D 07/02/2021 COMPREHENSIVE METABOLIC PANEL 11/07/2020 N-TELOPEPTIDE CROSS 11/07/2020 PTH, INTACT 10/23/2021 PTH, INTACT 06/10/2021 PTH, INTACT 04/03/2021 PTH, INTACT 11/07/2020 THIN PREP,HPV,RISA IF HPV+ (>29YR)(SCRN) 11/23/2017 TSH 11/07/2020 BONE DENSITY 09/16/2022 BONE DENSITY 10/29/2023 MM Digital Mammo Screening 12/06/2018 MM Digital Mammo Screening 10/29/2023 MM Digital Mammo Screening 09/16/2022 ULTRASOUND: PELVIC W/TRANSVAGINAL 2017 Next Appt Details Provider Name:Soraya Ibanez darrius, 11/02/2024 01:20:00 PM, [address] [facility], [address], [place], [address], Insurance Providers Payer Name Payer Address Payer Phone Subscriber Number Group Number Insured Name Patient Relationship to Insured Coverage Start Date Coverage End Date MEDICARE [address] [place], [place] [id number] SOFYA HILLIARD Self - patient is the insured [facility] [address] [place], [place] [id number] SOFYA HILLIARD Self - patient is the insured Medical (General) History Medical History History ICD Code Gout, unspecified M10.9 Essential (primary) hypertension I10 Hypothyroidism, unspecified E03.9 Menopausal and female climacteric states N95.1 Leiomyoma of uterus, unspecified D25.9 Morbid (severe) obesity due to excess ca lories E66.01 Lichen sclerosus et atrophicus L90.0 Disorder of bone density and structure, unspecified M85.9 Family history of malignant neoplasm of breast Z80.3 Vitamin D deficiency, unspecified E55.9 Age-related osteoporosis without current pathological fracture M81.0 Postmenopausal atrophic vaginitis N95.2 Surgical History Surgery Date(Month/Year) Cholecystectomy Colonoscopy/Endoscopy Gastric Bypass Left Knee Arthroscopic Surgery Tonsillectomy Thyroidectomy Endometrial Abaltion Varicose Vein Stripping Phlebectomies Rt Shoulder Bone Spur removal 09/2016 Hammer Toe Surgery 04/22/18 Hospitalization History Reason Date(Month/Year) See Surgical Hx
--- OUTSIDE RECORDS SUMMARY | 2024-03-22 11:44 | XMS_ITS ---
Author Organization [facility] Address [address] [facility] [address] [place] [address] Care Team Providers Care Crown Ironer Name Role Phone BRIANCECE BROOKS Primary Care Provider Soraya Mejia [phone] REASON FOR VISIT ULTRA CANCELLED/NOT NEEDED Encounters Encounter Location Date Provider Diagnosis [facility] [address] [place] [address] [address] [place] [address] 10/29/2023 Soraya Love Plan Of Treatment Next Appt Details Provider Name:Soraya rizo, 11/02/2024 01:20:00 PM, [address] [facility], [address], [place], [address], Progress Notes * SOFYA HILLIARDDOB:[birth year] (73 yo F)Acc No.[id number]:10/29/2023 Patient:?SOFYA HILLIARD :1950???Age:73 Y???Sex:Female Address:[address] [place] [address], [place], [address] * true * Date:? Generated for Printi lyn/Laura/eTransmitting on:?03/22/2024 11:44 AM EST
--- OUTSIDE RECORDS SUMMARY | 2024-03-22 11:44 | XMS_ITS ---
Author Organization [facility] Address [address] [facility] ([place], [place]) [address] [place] [address] Care Team Providers Care Middle School Coach Name Role Phone BROOKS NIETO Primary Care Provider Soraya Mejia Unavailable [phone] REASON FOR VISIT ULTRA - FIBROIDS Encounters Encounter Location Date Provider Diagnosis [facility] [address] [place] [address] [address] [place] [address] 11/17/2023 Soraya Love Plan Of Treatment Next Appt Details Provider Name:Soraya rizo, 11/02/2024 01:20:00 PM, [address] [facility], [address], [place], [address], Progress Notes * SOFYA HILLIARDDOB:[birth year] (73 yo F)Acc No.[id number]:11/17/2023 PROGRESS NOTES Patient:?SOFYA HILLIARD Appointment Provider:?Soraya rizo M.D. :1950???Age:73 Y???Sex:Female D ate:11/17/2023 Address:[address] [place], [place] [id number] Pcp:BROOKS NIETO Subjective: * Chief Complaints: * ???1. ULTRA - FIBROIDS. * Medical History:? Objective: * Vitals:? Assessment: Plan: * Treatment: * Images: Billing Information: * Visit Code:? * Procedure Codes:? * Electronic signature of Riki Love MD on 03/22/2024 at 11:44 AM EST Sign off status: Pending * Appointment Provider:?Soraya Love M.D. Date:?11/17/2023 Generated for Sarah nicholson/Laura/Jorge on:?03/22/2024 11:44 AM EST
--- OUTSIDE RECORDS SUMMARY | 2024-03-22 11:44 | XMS_ITS ---
Author Organization [email or web address] [facility] Address [address] [address] Care Team Providers Care Staff Midwife Name Role Phone BRIANCECE BROOKS Primary Care Provider Soraya Mejia Unavailable [phone] Allergies No Known Allergies REASON FOR VISIT INTERVAL - MED CHECK Medications Medication SIG (Take, Route, Frequency, Duration) Notes Start Date End Date Status Centrum Silver Women 50+ Active Breo Ellipta 200-25 MCG/ACT 1 puff Inhalation Once a day Active clonazePAM 0.5 MG 1 tablet Orally as needed Active Eliquis 5 MG 1 tablet Orally Twic e a day for 30 day(s) Active Myrbetriq 25 MG 1 tablet Orally Once a day Active Clotrimazole-Betamethason e 1-0.05 % APPLY TO AFFECTED AREA TWICE A DAY EXTERNALLY FOR 14 DAYS (MUST LAST 30 DAYS) for 30 Not-Taking Flonase 50 MCG/ACT 1 spray in each nost ril Nasally Once a day Not-Taking ProAir HFA 108 (90 Base) MCG/ACT 2 puffs as needed Inhalation every 4 hrs Not-Takin g Furosemide 20 MG 1 tablet Orally prn Not-Taking Amoxicillin 500MG 4 CAPS ORAL 1 HOUR BEFORE PROCEDURES for -3 07/06/2013 Active Vitamin D3 2000 IU 1 ORAL daily for -3 05/11/2011 Active Celecoxib 200 MG 1 capsule with food Orally Once a day for 30 day(s) Active Losartan Potassium 100 MG 1 tablet Orall y Once a day Active Levoxyl 137 MCG 1 tablet Orally Once a day Active PreserVision AREDS - 1 tablet Orally Twi ce a day Active Allopurinol 100MG 1 ORAL twice daily f or -3 07/06/2013 Active Calcium Citrate Plus - 1000 mg Orally On ce a day Active Incruse Ellipta 62.5 MCG/INH 1 puff Inhalation Once a day Active Cetirizine HCl 10 MG 1 tablet Orally Onc e a day for 30 day(s) Active Alendronate Sodium 70 MG 1 tablet 30 min utes before the first food, beverage or medicine of the day with plain water Orally for 30 day(s) Active Social History Tobacco [...] last smoked? Grea ter than 10 years Vital Signs Temperature 97.4 degrees Fahrenheit 10/29/19 24 Blood pressure systolic 122 mm Hg 10/29/19 24 Blood pressure diastolic 76 mm Hg 024 Height 62.25 in 10/29/2023 Weight 225 lbs 10/29/2023 BMI 40.82 kg/m2 10/29/2023 Encounters Encounter Location Date Provider Diagnosis Total [address] [address] 10/29/2023 Soraya Love Encounter for gynecological examination (general) (routine) with abnormal findings Z01.411 ; Encounter for screening mammogram for malignant neoplasm of breast Z12.31 ; Family history of malignant neoplasm of breast Z80.3 ; Age-related osteoporosis without current pathological fracture M81.0 ; Lichen sclerosus et atrophicus L90.0 and Leiomyoma of uterus, unspecified D25.9 Assessments Encounter Date Diagnosis (ICD Code) Assessment [...] PELVIC ULTRASOUND SHOWING FIBROIDS. Plan Of Treatment Treatment Notes Assessment Notes Encounter for gynecological examination (general) (routine) with abnormal findings NO MORE PAP TESTS Encounter for screening mamm ogram for malignant neoplasm of breast REGULAR MAMMOGRAMS AND SBE'S WERE RECOMMENDED. Family history of malignant neoplasm of breast DISCUSSED STRONG FAMILY HX OF BREAST CA. PAT IS BRCA NEGATIVE. Age-related osteoporosis wit hout current pathological fracture DISCUSSED OSTEOPOROSIS AND ITS IMPACT ON HER HEALTH. ADEQUATE CALCIUM AND VIT D. WEIGHT BEARING EXERCISES. OSTEO PRECAUTIONS. CONTINUE CARE WITH DR SILVA. BMD ORDERED FOR 2023. Lichen sclerosus et atrophicus REASSURED PAT THAT LESIONS HAVE NOT RECURRED. 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 Leiomyoma of uterus, unspecified DISCUSS ED PREVIOUS PELVIC ULTRASOUND SHOWING FIBROIDS. Pending Test Test Name Order Date BONE DENSITY 10/29/2023 MM Digital Mammo Screening 10/29/2023 Next Appt Details Follow Up: 1 Year, Reason: Provider Name:Soraya rizo, 11/02/2024 01:20:00 PM, [address], [address], [place], [address], Progress Notes * SOFYA HILLIARDDOB:[birth year] (73 yo F)Acc No.[id number]:10/29/2023 Patient:?SOFYA HILLIARD Appointment Provider:?Soraya rizo M.D. :1950???Age:73 Y???Sex:Female D ate:10/29/2023 Address:[address] [place], [place] [id number] Pcp:BROOKS NIETO Subjective: * Chief Complaints: * ???INTERVAL - MED CHECK * HPI: ???New/Follow-up Patient Consult:? HEMAL ENTERED MENOPAUSE IN 1998.? HER PARTNER OF COVID IN 2020.? SHE IS NOT SEXUALLY ACTIVE. SHE HAD C/O URINARY INCONTINENCE.? SHE WAS SEEN BY DR CARIAS AND PLACE ON MYRBETRIQ IN OCT 2022.? SHE IS BETTER. SHE WAS DIAGNOSED TO HAVE A MENINGIOMA YEARS AGO AND SEES A NEUROLOGIST REGULARLY. VULVAR BIOPSY DONE IN 2015 SHOWED LICHEN SCLEROSUS.? SHE RESPONDED WELL TO CLOBETASOL THERAPY AND IS ON A WEEKLY MAINTENANCE DOSE. PELVIC ULTRSOUND DONE IN 2022 SHOWED FIBROIDS. CROW'S 3 MATERNAL AUNTS HAD BREAST CA AND HER MOTHER HAD OVARIAN CA.? CROW HERSELF IS BRCA NEGATIVE. HER LAST MAMMOGRAM DONE IN AUGUST 2023 SHOWED BREASTS ARE NOT DENSE AND WAS NORMAL. HER LAST PAP TEST IN 2020 WAS NEGATIVE AND HPV NEGATIVE. HER LAST BMD IN 2020 SHOWED OSTEOPOROSIS WITH T-SCORE OF -2.5 AT THE FEMORAL NECK.? SHE USUALLY HAS HER BMD'S DONE IN DR SILVA'S OFFICE BUT HIS TECH RESIGNED.? WE WILL ORDER ANOTHER BMD TO BE DONE AT [facility].? CROW HAS BEEN PLACED ON FOSAMAX BY DR SILVA.? SHE HAS NO HX OF FRACTURES. SHE HAD A COLONOSCOPY DONE IN 2014. MODERNA X 3. * ROS:?general:?no?chest pain.?no?palpitations.?no?headache.?no?cough.?no?shortness of breath.?no?fever.?no?unexplained weight loss.?no?nausea/vomiting.?no?change in bowel movements.?no blood in stool.?no?genitourinary complaints.?no?skin complaints.? * Medical History:? 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 * OB History:?Total pregnancies?0.? * Surgical History:?Cholecyste ctomy Colonoscopy/Endoscopy Gastric Bypass Left Knee Arthroscopic Surgery Tonsillectomy Thyroidectomy Endometrial Abaltion Varicose Vein Stripping Phlebectomies Rt Shoulder Bone Spur removal 09/2016Hammer Toe Surgery 04/22/18 * Hospitalization/Major Diagno stic Procedure:?See Surgical Hx * Family History:?Mother: dece ased 74 yrs, Ovarian Cancer.?Father: 74 yrs.?Maternal aunt: Breast Cancer.? Maternal Aunt: Breast Cancer Maternal Aunt: Breast Cancer. * Social History:?Tobacco Use:?Tobacco Control (Standard)?Tobacco use:?Former smoker ?How long has it been since you last smoked??Greater than 10 years ???Sexual History:?Sexual History?Had sex in the past 12 months (vaginal, oral, or anal)?: Yes, with: Men only, Use protection?: No, Have you ever had a Sexually transmitted disease?: No.?Details of Sexual History?Are you sexually active??Yes ???Drugs/Alcohol:?Drugs?Have you used drugs other than those for medical reasons in the past 12 months??No ???Miscellaneous:?Children: no. ?Domestic violence: no. ?Exercise: yes. ?Home smoke detector use: yes. ?Marital status: single. ?Natural support system: yes. ?Occupation: Retired. ?Sexual abuse: no. ?Sexually active: yes, monogamous relationship. ?Travel outside of the [place]: no. ?Verbal abuse: no. ???Drug/Alcohol:?AUDIT-C (Standard)?Did you have a drink containing alcohol in the past year??Yes ?How often did you have six or more drinks on one occasion in the past year??Never (0 point) ?How many drinks did you have on a typical day when you were drinking in the past year??1 or 2 drinks (0 point) ?How often did you have a drink containing alcohol in the past year??Monthly or less (1 point) ?Points?1 ?Interpretation?Negative * Medications:?TakingMyrbetriq 25 MG Tablet Extended Release 24 Hour 1 tablet Orally Once a day Centrum Silver Women 50+ Breo Ellipta 200-25 MCG/ACT Aerosol Powder Breath Activated 1 puff Inhalation Once a day clonazePAM 0.5 MG Tablet 1 tablet Orally as needed Eliquis 5 MG Tablet 1 tablet Orally Twice a day Alendronate Sodium 70 MG Tablet 1 tablet 30 minutes before the first food, beverage or medicine of the day with plain water Orally Incruse Ellipta 62.5 MCG/INH Aerosol Powder Breath Activated 1 puff Inhalation Once a day Cetirizine HCl 10 MG Tablet 1 tablet Orally Once a day Allopurinol 100MG 30 1 ORAL twice daily Calcium Citrate Plus - Tablet 1000 mg Orally Once a day Celecoxib 200 MG Capsule 1 capsule with food Orally Once a day Losartan Potassium 100 MG Tablet 1 tablet Orally Once a day Levoxyl 137 MCG Tablet 1 tablet Orally Once a day PreserVision AREDS - Tablet 1 tablet Orally Twice a day Vitamin D3 2000 IU 30 1 ORAL daily Amoxicillin 500MG 4 CAPS ORAL 1 HOUR BEFORE PROCEDURES Taking Myrbetriq 25 MG Tablet Extended Release 24 Hour 1 tablet Orally Once a day Taking Centrum Silver Women 50+ Taking Breo Ellipta 200-25 MCG/ACT Aerosol Powder Breath Activated 1 puff Inhalation Once a day Taking clonazePAM 0.5 MG Tablet 1 tablet Orally as needed Taking Eliquis 5 MG Tablet 1 tablet Orally Twice a day Taking Alendronate Sodium 70 MG Tablet 1 tablet 30 minutes before the first food, beverage or medicine of the day with plain water Orally Taking Incruse Ellipta 62.5 MCG/INH Aerosol Powder Breath Activated 1 puff Inhalation Once a day Taking Cetirizine HCl 10 MG Tablet 1 tablet Orally Once a day Taking Allopurinol 100MG 30 1 ORAL twice daily Taking Calcium Citrate Plus - Tablet 1000 mg Orally Once a day Taking Celecoxib 200 MG Capsule 1 capsule with food Orally Once a day Taking Losartan Potassium 100 MG Tablet 1 tablet Orally Once a day Taking Levoxyl 137 MCG Tablet 1 tablet Orally Once a day Taking PreserVision AREDS - Tablet 1 tablet Orally Twice a day Taking Vitamin D3 2000 IU 30 1 ORAL daily Taking Amoxicillin 500MG 4 CAPS ORAL 1 HOUR BEFORE PROCEDURES Not-TakingFurosemide 20 MG Tablet 1 tablet Orally prn Flonase 50 MCG/ACT Suspension 1 spray in each nostril Nasally Once a day ProAir HFA 108 (90 Base) MCG/ACT Aerosol Solution 2 puffs as needed Inhalation every 4 hrs Clotrimazole-Betamethasone 1-0.05 % Cream APPLY TO AFFECTED AREA TWICE A DAY EXTERNALLY FOR 14 DAYS (MUST LAST 30 DAYS) Not-Taking Furosemide 20 MG Tablet 1 tablet Orally prn Not-Taking Flonase 50 MCG/ACT Suspension 1 spray in each nostril Nasally Once a day Not-Taking ProAir HFA 108 (90 Base) MCG/ACT Aerosol Solution 2 puffs as needed Inhalation every 4 hrs Not-Taking Clotrimazole-Betamethasone 1- 0.05 % Cream APPLY TO AFFECTED AREA TWICE A DAY EXTERNALLY FOR 14 DAYS (MUST LAST 30 DAYS) DiscontinuedMetoprolol Succinate ER 50 MG Tablet Extended Release 24 Hour 1 tablet Orally Twice a day amLODIPine Besylate 2.5 MG Tablet 1 tablet Orally Twice a day Montelukast Sodium 10 MG Tablet 1 tablet Orally Once a day Symbicort 160-4.5 MCG/ACT Aerosol 2 puffs Inhalation Twice a day Diclofenac Sodium 1 % Gel APPLY 2 GM 3 TIMES A DAY NEEDED External QUEtiapine Fumarate 25 MG Tablet 1 tablet at bedtime Orally As needed Clobetasol Propionate 0.05 % Ointment 1 application to affected area Externally ONCE A WEEK Lidocaine-Prilocaine 2.5-2.5 % Cream APPLY TO AFFECTED LEG 2 HRS BEFORE THE PROCEDURE APPLY THICK LAYER & LOOSELY COVER WITH PLASTIC WRAP External Escitalopram Oxalate 10 MG Tablet 1 tablet Orally Once a day LORazepam 0.5 MG Tablet (Schedule IV Drug) TAKE 1 TABLET BY MOUTH DAILY NEEDED FOR ANXIETY Oral Vitamin D (Ergocalciferol) 80213 UNIT Capsule 1 capsule Orally EVERY WEEK Medication List reviewed and reconciled with the patientDiscontinued Metoprolol Succinate ER 50 MG Tablet Extended Release 24 Hour 1 tablet Orally Twice a day Discontinued amLODIPine Besylate 2.5 MG Tablet 1 tablet Orally Twice a day Discontinued Montelukast Sodium 10 MG Tablet 1 tablet Orally Once a day Discontinued Symbicort 160-4.5 MCG/ACT Aerosol 2 puffs Inhalation Twice a day Discontinued Diclofenac Sodium 1 % Gel APPLY 2 GM 3 TIMES A DAY NEEDED External Discontinued QUEtiapine Fumarate 25 MG Tablet 1 tablet at bedtime Orally As needed Discontinued Clobetasol Propionate 0.05 % Ointment 1 application to affected area Externally ONCE A WEEK Discontinued Lidocaine- Prilocaine 2.5-2.5 % Cream APPLY TO AFFECTED LEG 2 HRS BEFORE THE PROCEDURE APPLY THICK LAYER & LOOSELY COVER WITH PLASTIC WRAP External Discontinued Escitalopram Oxalate 10 MG Tablet 1 tablet Orally Once a day Discontinued LORazepam 0.5 MG Tablet (Schedule IV Drug) TAKE 1 TABLET BY MOUTH DAILY NEEDED FOR ANXIETY Oral Discontinued Vitamin D (Ergocalciferol) 21002 UNIT Capsule 1 capsule Orally EVERY WEEK Medication List reviewed and reconciled with the patient * Allergies:?N.K.D.A.no[Allerg ies Verified] Objective: * Vitals:?Ht: 62.25 in, Wt: 22 5 lbs, BMI:40.82Index, BP: 122/76 mm Hg, Temp: 97.4 F. * Examination: ???General Examination: ?GENERAL APPEARANCE:?in no acute distress, well developed, well nourished.?BREASTS:?normal, no dimpling, no discharge, no drainage, no masses palpable bilaterally, nontender.?CASINO FLOOR WALKER exam: ?EXTERNAL GENITALIA:?Normal female. No lesions, erythema or discharge, no recurrence of lichen sclerosus.?VAGINA:?pink barrow. No discharge or lesions. No cystocele or rectocele.?CERVIX:?No cervical motion tenderness, discharge or lesions.?UTERUS:?IRREGULARLY ENLARGED TO 12 WEEKS, NONTENDER.?ADNEXA:?no masses or tenderness bilaterally.? Assessment: * Assessment: 1.?Encounter for gynecologic al examination (general) (routine) with abnormal findings - Z01.411???2.?Encounter for screening mammogram for malignant neoplasm of breast - Z12.31???3.?Family history of malignant neoplasm of breast - Z80.3???4.?Age- related osteoporosis without current pathological fracture - M81.0???5.?Lichen sclerosus et atrophicus - L90.0???6.?Leiomyoma of uterus, unspecified - D25.9??? Plan: * Treatment: 2.?Encounter for screening m ammogram for malignant neoplasm of breast?Imaging: MM Digital Mammo Screening Notes: REGULAR MAMMOGRAMS AND SBE'S WERE RECOMMENDED.?? 3.?Family history of maligna nt neoplasm of breast? Notes: DISCUSSED STRONG FAMILY HX OF BREAST CA. PAT IS BRCA NEGATIVE.?? 4.?Age-related osteoporosis without current pathological fracture?Imaging: BONE DENSITY Notes: DISCUSSED OSTEOPOROSIS AND ITS IMPACT ON HER HEALTH. ADEQUATE CALCIUM AND VIT D. WEIGHT BEARING EXERCISES. OSTEO PRECAUTIONS. CONTINUE CARE WITH DR SILVA. BMD ORDERED FOR 2023.?? 5.?Lichen sclerosus et atrop hicus? Notes: REASSURED PAT THAT LESIONS HAVE NOT RECURRED. CONTINUE MAINTENANCE DOSE, APPLY THIN FILM ONCE WEEKLY.?? 6.?Leiomyoma of uterus, unsp ecified? Notes: DISCUSSED PREVIOUS PELVIC ULTRASOUND SHOWING FIBROIDS. ?? * Procedure Codes:? * Follow Up:?1 Year * Images: Billing Information: * Visit Code:? * Procedure Codes:? * Sign off status: Completed true * Appointment Provider:?Soraya Love M.D. Date:?10/29/2023 Generated for Sarah nicholson/Laura/Sergeiitting on:?03/22/2024 11:44 AM EST History and Physical Notes * HPI (History of Present Illness) Category Sub-Category Detail Notes Category Not es New/Follow-up Patient Consult HEMAL ENTERED MENOPAUSE IN 1998. HER PARTNER OF COVID IN 2020. SHE IS NOT SEXUALLY ACTIVE. SHE HAD C/O URINARY INCONTINENCE. SHE WAS SEEN BY DR CARIAS AND PLACE ON MYRBETRIQ IN OCT 2022. SHE IS BETTER. SHE WAS DIAGNOSED TO HAVE A MENINGIOMA YEARS AGO AND SEES A NEUROLOGIST REGULARLY. VULVAR BIOPSY DONE IN 2015 SHOWED LICHEN SCLEROSUS. SHE RESPONDED WELL TO CLOBETASOL THERAPY AND IS ON A WEEKLY MAINTENANCE DOSE. PELVIC ULTRSOUND DONE IN 2022 SHOWED FIBROIDS. CROW'S 3 MATERNAL AUNTS HAD BREAST CA AND HER MOTHER HAD OVARIAN CA. CROW HERSELF IS BRCA NEGATIVE. HER LAST MAMMOGRAM DONE IN AUGUST 2023 SHOWED BREASTS ARE NOT DENSE AND WAS NORMAL. HER LAST PAP TEST IN 2020 WAS NEGATIVE AND HPV NEGATIVE. HER LAST BMD IN 2020 SHOWED OSTEOPOROSIS WITH T-SCORE OF -2.5 AT THE FEMORAL NECK. SHE USUALLY HAS HER BMD'S DONE IN DR SILVA'S OFFICE BUT HIS TECH RESIGNED. WE WILL ORDER ANOTHER BMD TO BE DONE AT [facility]. CROW HAS BEEN PLACED ON FOSAMAX BY DR SILVA. SHE HAS NO HX OF FRACTURES. SHE HAD A COLONOSCOPY DONE IN 2014. MODERNA X 3. Examination Category Sub-Category Detail Notes Category Not es General Examination GENERAL APPEARANCE: in no ac [place] distress, well developed, well nourished BREASTS: normal, no dimpling, no discharge, no drainage, no masses palpable bilaterally, nontender CASINO FLOOR WALKER exam CERVIX: No cervical motion tendernes s, discharge or lesions VAGINA: pink barrow. No disch arge or lesions. No cystocele or rectocele EXTERNAL GENITALIA: Normal female. No le sions, erythema or discharge, no recurrence of lichen sclerosus UTERUS: IRREGULARLY ENLARGED TO 12 WEEKS, NONTENDER ADNEXA: no masses or tendern ess bilaterally
--- OUTSIDE RECORDS SUMMARY | 2024-03-22 11:45 | XMS_ITS | Continuity of Care Document ---
Author Organization [facility] Address [address] [facility] [place] [address] [place] [address] Assessment Encounter Date Assessment Date Assessment LastModified by Organization Details LastModified Time 03/10/2024 03/10/2024 Patient agreed and verbally consents to this audio and video Telehealth appt via a secure platform [email or web address] Not available 03/10/2024 15:09:43 Plan of Treatment Reminders Order Date Submit Date Provider Last Modified By Organization Details Last Modified Time Details Appointments NEW PROBLEM 15 2024 10:00A M CIARRA AYALA Not available Not available Not available ANNUAL EXAM 2024 09:30A M CIARRA AYALA Not available Not available Not available Lab None recorded. Referral None recorded. Procedures None recorded. Surgeries None recorded. Imaging None recorded. Medication Orders prednison e 10 mg tablet [address] [facility]acy #[id number], [address] [place], [address], 03/10/2024 15:11:35 amoxicill in 875 mg-potass ium clavulana te 125 mg tablet [address] [facility]arm[facility] #[id number], [address] [place], [address], 03/10/2024 15:11:34 Patient TargetsNo targets recorded. Patient InstructionsNo instructions recorded. Reason for Referral None Reported. Results Created Date Observation Date Name Description Value Unit Range Abnormal Flag Note LastModifiedBy Organization Detail LastModifiedTime 02/15/20 24 02/13/2024 MRI, brain , w/wo contr ast No observ ation record ed. [address] (Medical Records) [address] [place], [address], 02/15/2024 15:43:40 02/15/20 24 02/13/2024 MRI, brain , w/wo contr ast No observ ation record ed. [address] (Medical Records) [address] [place], [address], 02/15/2024 15:43:40 02/25/20 24 01/31/2024 bone densi ty No observ ation record ed. [email or web address] Not Available 2023 09:03:50 03/06/19 25 01/31/2024 bone densi ty No observ ation record ed. [email or web address] [address], [address], 03/06/2024 10:26:34 03/06/19 25 01/31/2024 DEXA No observ ation record ed. [facility] [address], [address], 03/06/2024 11:04:34 03/06/19 25 01/31/2024 bone densi ty No observ ation record ed. [facility] [address], [address], 03/06/2024 11:04:53 03/06/19 25 01/31/2024 bone densi ty No observ ation record ed. [email or web address] [address], [address], 03/06/2024 13:44:05 Result Notes None recorded. Problems Name Problem SNOMED Code Status Onset Date Resolution Date Notes Provider Name and Address Organization Details Recorded Time Phlebiti s 87586137 Active 2022 [facility] 3 08:41:18 Herpes zoster 0899082 Active 2022 [facility] 3 08:41:23 Late onset asthma 257165865 Active 2022 Yudith daily, [facility] 3 08:41:35 Sleep apnea 97299073 Active 2022 on CPAP Yudith daily, [facility] 3 08:44:27 History of malignan t neoplasm of thyroid 649349346 Active 2022 Yudith daily, [facility] 3 08:42:02 Hammer toe 779136107 Active 2022 correctiv e surgery 04/22/2018 CIARRA AYALA [address] [facility], [place], [address], [facility] 3 09:52:08 Hyperten sive disorder 63509369 Active 2022 Yudith daily, [facility] 3 08:43:15 Paroxysm al atrial fibrilla tion 365829119 Active 2022 Yudith daily, [facility] 3 08:43:20 Chronic obstruct joseph pulmonar y disease 97916721 Active 2022 Yudith daily, [facility] 08:43:49 An[facility] 59670248 [facility] Gout 37582336 Active 2022 Yudith daily, [facility] 3 08:44:03 Fracture of humerus 21221072 Active 2022 Yudith daily, [facility] 3 08:44:14 Osteopor osis 60096915 Active 2022 Yudith daily [facility] 08:44:33 Pernicio us anemia 13048247 Active 2022 Yudith daily [facility] 3 08:44:41 Vitamin D deficien cy 44906153 Active 2022 CIARRA AYALA [address] [place], [address], [facility] 3 09:47:05 Hematoma of lower leg 860018393 Active 2022 Fadi Wilkinson DO [address] [place], [address], [facility] 3 12:49:51 Inguinal pain 404025467 Active 2022 CIARRA AYALA [address] [place], [address], [facility] 3 10:09:55 Mass of uterus 11323795397 9109 Active 2022 CIARRA AYALA [address] [place] [address], [address], [facility] 3 13:45:02 Acute bacteria l sinusiti s 06549017 Active 2022 CIARRA AYALA [address] [place], [address], [facility] 3 09:33:03 Urinary incontin ence 394642672 Active 2022 CIARRA AYALA [address] [place] [address], [address], [facility] 3 09:35:08 Acute sinusiti s 08567433 Active 2023 CIARRA AYALA [address] [place] [address], [address], [facility] 4 14:50:48 Seasonal allergic rhinitis 308474306 Active 2023 CIARRA AYALA [address] [place] [address], [address], [facility] 4 10:22:32 Hypothyr oidism 11610523 Active 2023 CIARRA AYALA [address] [place] [address], [address], [facility] 4 10:23:00 Intracra nial meningio wa 901162398 Active 2023 CIARRA AYALA [address] [place], [address], [facility] 4 09:21:59 Atrial fibrilla tion 08487399 Active 2023 CIARRA AYALA [address] [place], [address], [facility] 4 09:25:09 Acute bronchit is 63171370 Active 2024 CIARRA AYALA [address] [place], [address], [facility] 5 10:20:24 Problem Notes None recorded. Procedures Surgical History Date Name Laterality Status Provider Name and Address Organization Details Recorded Time hammer toe operation completed CIARRA AYALA [address] [place] [address], [phone], [facility] 05/07/2022 09:52:24 thyroidectomy completed CIARRA MATHEWS [address] [place] [address], [address], [facility] 05/07/2022 09:52:55 laparoscopic sleeve gastrectomy completed CIARRA AYALA [address] [place] [address], [address], [facility] 05/07/2022 09:53:06 total knee replacement completed CIARRA AYALA [address] [place] [address], [address], [facility] 05/07/2022 09:53:23 cholecystectomy completed CIARRA ECHOLS [address] [place] [address], [address], [facility] 05/07/2022 09:53:32 Imaging Results None recorded. Procedure Notes None recorded. Medical Equipment None Reported. Allergies No known drug allergies Medications Name Sig Start Date Stop Date Status Note LastModified by Organization Details LastModified Time quetiapine 25 mg tablet TAKE 1-2 TABLETS DAILY AT BEDTIME NEEDED FOR INSOMNIA active Not Available Not Available No t Available celecoxib 200 mg capsule TAKE 1 CAPSULE DAILY active Not Available Not Available No t Available prednisone 10 mg tablet Take 2 tablets every day by oral route for 10 days. active Not Available Not Available No t Available cetirizine 10 mg tablet Take 1 tablet every day by oral route for 90 days. 12/09 completed Not Available Not Available Not Available azithromyci n 250 mg tablet TAKE 2 TABLETS (500 MG) BY ORAL ROUTE ONCE DAILY FOR 1 DAY THEN 1 TABLET (250 MG) BY ORAL ROUTE ONCE DAILY FOR 4 DAYS active Not Available Not Available No t Available diltiazem CD 180 mg capsule,ext ended release 24 hr TAKE 1 CAPSULE DAILY active Not Available Not Available No t Available benzonatate 200 mg capsule TAKE 1 CAPSULE BY MOUTH THREE TIMES A DAY NEEDED FOR 7 DAYS 03/03 completed Not Available Not Available Not Available metoprolol succinate ER 50 mg tablet,exte nded release 24 hr TAKE 1 TABLET BY MOUTH EVERY 12 HOURS 05/07 completed Not Available Not Available Not Available alendronate 70 mg tablet PLEASE SEE ATTACHED FOR DETAILED DIRECTION S active Not Available Not Available No t Available clonazepam 0.5 mg tablet TAKE 1 TABLET DAILY NEEDED active Not Available Not Available No t Available amlodipine 2.5 mg tablet TAKE 2 TABLETS BY MOUTH DAILY 05/07 completed Not Available Not Available Not Available allopurinol 100 mg tablet TAKE 2 TABLETS ONCE DAILY active Not Available Not Available No t Available tramadol 50 mg tablet TAKE ONE TABLET EVERY 6 HOURS FOR PAIN active Not Available Not Available No t Available OptiChamber active Not Available Not A vailable Not Available ofloxacin 0.3 % ear drops INSTILL 1 DROP INTO EACH EAR ONCE DAILY DIRECTED FOR 7 DAYS. 05/07 completed Not Available Not Available Not Available cephalexin 500 mg capsule TAKE 1 CAPSULE BY MOUTH EVERY 8 HOURS NEEDED FOR 5 DAYS. 05/07 completed Not Available Not Available Not Available clotrimazol e-betametha sone 1 %-0.05 % topical cream APPLY TO AFFECTED AREA TWICE A DAY EXTERNALL Y FOR 14 DAYS (MUST LAST 30 DAYS) active Not Available Not Available No t Available montelukast 10 mg tablet TAKE 1 TABLET BY MOUTH AT BEDTIME 02/19 completed Not Available Not Available Not Available codeine 10 mg-guaifene sin 100 mg/5 mL oral liquid Take 10 mL every 4 hours by oral route. 2024 active Not Available Not Available Not Avai lable ergocalcife rol (vitamin D2) 1,250 mcg (50,000 unit) capsule TAKE 1 CAPSULE BY MOUTH EVERY WEEK 05/07 completed Not Available Not Available Not Available clobetasol 0.05 % topical ointment USE 1 APPLICATI ON TO AFFECTED AREA EXTERNALL Y ONCE A WEEK 05/07 completed Not Available Not Available Not Available estradiol 0.01% (0.1 mg/gram) vaginal cream USE DIRECTED: 1 GRAM PER VAGINA 3 TIMES PER WEEK active Not Available Not Available No t Available methylpredn isolone 4 mg tablets in a dose pack Take 1 dose pk by oral route. active Not Available Not Available No t Available losartan 100 mg tablet Take 1 tablet every day by oral route. active Not Available Not Available No t Available doxycycline hyclate 100 mg tablet TAKE 1 TABLET BY MOUTH TWICE A DAY FOR 10 DAYS 12/09 completed Not Available Not Available Not Available amoxicillin 875 mg-potassiu m clavulanate 125 mg tablet Take 1 tablet every 12 hours by oral route for 10 days. active Not Available Not Available No t Available Levoxyl 137 mcg tablet TAKE 1 TABLET DAILY active Not Available Not Available No t Available escitalopra m 10 mg tablet TAKE 1 TABLET BY MOUTH EVERY DAY IN THE MORNING 02/19 completed Not Available Not Available Not Available solifenacin 10 mg tablet TAKE 1 TABLET DAILY DIRECTED active Not Available Not Available No t Available ProAir HFA 90 mcg/actuati on aerosol inhaler Inhale 2 puffs every 4 hours by inhalatio n route as needed. active Not Available Not Available No t Available Symbicort 160 mcg-4.5 mcg/actuati on HFA aerosol inhaler Inhale 2 puffs twice a day by inhalatio n route for 90 days. active Not Available Not Available No t Available Symbicort 80 mcg-4.5 mcg/actuati on HFA aerosol inhaler INHALE 2 PUFFS TWICE A DAY 09/14 completed Not Available Not Available Not Available diclofenac 1 % topical gel APPLY TO AFFECTED AREA TWICE A DAY active Not Available Not Available No t Available Sandra Calvin [facility] spacer USE DIRECTED. active Not Available Not Available No t Available mirabegron ER 25 mg tablet,exte nded release 24 hr TAKE 1 TABLET DAILY 01/25 completed Not Available Not Available Not Available Eliquis 5 mg tablet TAKE 1 TABLET TWICE A DAY FOR ATRIAL FIBRILLAT ION active Not Available Not Available No t Available Incruse Ellipta 62.5 mcg/actuati on powder for inhalation USE 1 INHALATIO N ORALLY DAILY FOR CHRONIC OBSTRUCTI VE PULMONARY DISEASE active Not Available Not Available No t Available Flonase Allergy Relief 50 mcg/actuati on nasal spray,suspe nsion [place] 1 spray every day by intranasa l route. active Not Available Not Available No t Available Breo Ellipta 200 mcg-25 mcg/dose powder for inhalation USE 1 INHALATIO N ORALLY DAILY FOR CHRONIC OBSTRUCTI VE PULMONARY DISEASE active Not Available Not Available No t Available Thyrogen 0.9 mg intramuscul ar solution 05/07 completed Not Available Not Available Not Available Vitals None Recorded Social History Question Answer Notes LastModified by Organizat ion Details LastModified Time Tobacco Smoking Status Former Smoker Yudith daily [facility] 05/07/2022 09:32:24 What Is Your Level Of Alcohol Consumption? Occasional Information not available 05/07/2022 Are You Blind Or Do You Have Difficulty Seeing? No Information not available 05/07/2022 What Is Your Level Of Caffeine Consumption? Occasional Information not available 05/07/2022 In The 14 Days Before Symptom Onset, Have You Had Close Contact With A Laboratory-confi rmed COVID-19 While That Case Was Ill? No [email or web address] Information not available 02/19/2023 In The 14 Days Before Symptom Onset, Have You Had Close Contact With A Person Who Is Under Investigation For COVID-19 While That Person Was Ill? No [email or web address] Information not available 02/19/2023 Have You Been To An Area Known To Be High Risk For COVID-19? No [email or web address] Information not available 02/19/2023 Are You Currently Employed? No Information not available 12/10/2023 Are You Deaf Or Do You Have Serious Difficulty Hearing? No Information not available 05/07/2022 What Type Of Diet Are You Following? REGULAR No Carb Diet, Eats Raw Vegetables Information not available 05/07/2022 How Many Days Of Moderate To Strenuous Exercise, Like A Brisk Walk, Did You Do In The Last 7 Days? 7 Goes To The Gym And Walks A Lot Information not available 05/07/2022 On Those Days That You Engage In Moderate To Strenuous Exercise, How Many Minutes, On Average, Do You Exercise? 7 Information not available 05/07/2022 Are There Any Guns Present In Your Home? No Information not available 05/07/2022 What Was The Date Of Your Most Recent Tobacco Screening? 01/26/2024 Information not available 01/26/2024 How Many Children Do You Have? 0 Information not available 05/07/2022 Do You Use Your Seat Belt Or Car Seat Routinely? Yes Information not available 05/07/2022 Are You Sexually Active? No Information not available 05/07/2022 Are You Passively Exposed To Smoke? No Information not available 05/07/2022 Do You Feel Stressed (tense, Restless, Nervous, Or Anxious, Or Unable To Sleep At Night)? [id number] Information not available 05/07/2022 Do You Use Any Illicit Or Recreational Drugs? No [email or web address] Information not available 02/19/2023 Do You Use Sunscreen Routinely? No Information not available 05/07/2022 Do You Or Have You Ever Used Any Other Forms Of Tobacco Or Nicotine? No [email or web address] Information not available 02/19/2023 Sex: Female Functional Status Question Answer Note LastModified by Organizat ion Details LastModified Time Do you have difficulty walking or climbing stairs? No Information not available 05/07/2022 Are you able to walk? YESWOREST Information not available 05/07/2022 Do you have difficulty doing errands alone? No Information not available 05/07/2022 Are you able to care for yourself? Yes Information not available 05/07/2022 Do you have difficulty dressing or bathing? No Information not available 05/07/2022 What is your exercise level? Moderate Information not available 05/07/2022 Mental Status Question Answer Note LastModified by Organization D etails LastModified Time Do you have difficulty concentrating, remembering or making decisions? No Information no t available 05/07/2022 Family History Relationship Description Onset Age of this Age Resolved Age Notes LastModified by Organization Details LastModified Time Father No current problems or disability [email or web address] Not available 05/07 09:44:08 Mother No current problems or disability [email or web address] Not available 05/07 09:44:08 Notes:no significant fam hx Medical History No medical history recorded. Gynecological History Statement/Question Response STIs/STDs N Menses Monthly N HPV Vaccine N If Post Menopausal, Age at Menopause 65 Sexual Problems? N Sexually Active? N Obstetrics History GPAL:G 0 P 0 0 0 0 Immunizations Vaccine Type Date Status Note Provider Nam e and Address Organization Details Recorded Time influenza, unspecified formulation 2 kp Arias [facility] 05/07/2022 09:32:19 COVID-19, mRNA, LNP-S, PF, 100 mcg/0.5mL dose or 50 mcg/0.25mL dose 1 kp Arias [facility] 05/07/2022 09:36:54 COVID-19, mRNA, LNP-S, PF, 100 mcg/0.5mL dose or 50 mcg/0.25mL dose 1 kp Arias [facility] 05/07/2022 09:36:59 COVID-19, mRNA, LNP-S, PF, 100 mcg/0.5mL dose or 50 mcg[facility]0.25mL [facility] 09:37:05 COVID-19, mRNA, LNP-S, PF, 100 mcg/0.5mL dose or 50 mcg/0.25mL dose 2 kp Arias [facility] 05/07/2022 09:37:10 COVID-19, mRNA, LNP-S, PF, 30 mcg/0.3 mL dose 2 kp daily [facility] 05/07/2022 09:37:20 zoster recombinant 0 completed Nader daily, [facility] 09/13/2022 09:32:02 zoster recombinant 1 completed Nader daily, [facility] 09/13/2022 09:32:24 influenza, unspecified formulation 4 completed CIARRA AYALA [address] [place], [address], [facility] 12/10/2023 13:45:44 Past Encounters Encounter ID Performer Location Encounter Start Date Encounter Closed Date Diagnosis/Indication Diagnosis SNOMED-CT Code Diagnosis ICD10 Code Diagnosis Note [id number] CIARRA AYALA [facility] [address] [facility],[place] [address] 03/10/2024 09:47:35 03/10/2024 15:39:35 Acute bronchitis 45702016 J20.8 Health Concerns Section Related Observation LastModified by Organization Detai ls LastModified Time None Recorded Concern Status LastModified by Organization Details LastModified Time None Recorded Payers Encounter Date Sequence Insurance Name Policy Number Policy Roberts Covered Member ID Roberts Member ID Guarantor Name 03/10/2024 2 [employer] [facility] [id number] Marjorie Guerrero [id number] Marjorie Guerrero 03/10/2024 1 MEDICARE B-MD: [facility] Marjorie Guerrero [id number] Marjorie Guerrero Notes Date Note Type Note Provider Name a nd Address Organization Details Recorded Time 03/10/2024 text/html c/o URI symptoms The patient is participating in this appointment via telemedicine communication with a phone call/video calling service (Doxy)The patient consents to use of these platforms in place of an in-person appointment due to either sick symptoms the patient is presenting with or current office closure due to COVID exposure in order to keep our office staff and patients safe The patient presents to the office today with concerns of sick symptoms including sinus pain, cough, chest congestion medrol and zpak worked for a bit then symptoms worsened again The symptoms started originally 02/29/24The patient reports exposure to friends and family who had similar symptomsThe patient symptoms mainly involves the sinus pain and cough Pertinent comorbidities include age The patient symptoms are alleviated by restThe patient symptoms are exacerbated by activity, bending over The patient has tested for COVID-19 and the results was negative x1 today CIARRA AYALA [address] [facility], [place], [address], [facility] 03/10/2024 15:14:27 OBGyn Episode No OBEpisode recorded.
--- OUTSIDE RECORDS SUMMARY | 2024-03-22 11:45 | XMS_ITS | Data Portability ---
Author Organization [facility] Home Service Address [address] [place] [address] Assessment Encounter Date Assessment Date Assessment LastModified by Organization Details LastModified Time 11/09/2022 11/09/2022 The patient denies recent falls or recurrent falls. Denies instability, weakness, abnormal gait, or difficulties with movement. The patient wears correct, supportive shoes and is not otherwise severely visually impaired. The patient is full weight bearing and if using the assistance of a cane or walker feels supported and stable with the use of such devices. All medical conditions have been taken into account that may pose a risk for the patient for falls. Home salomón, carpets and/or rugs do not pose a challenge for the patient. The patient has been educated about the use of vitamin D supplementation for bone health and prevention of hypotensive episodes that may increase risk for fall. All question and concerns were answered to the patient's satisfaction. [email or web address] Not available 11/09/2022 09:13:06 02/19/2023 02/19/2023 Patient agreed and verbally consents to this audio and video Telehealth appt via a secure platform [email or web address] Not available 02/19/2023 09:34:35 01/26/2024 01/26/2024 Patient presented for medication refill. Patient tolerating medication well at current dose without adverse effects. Refilled as below. Discussed plan with patient, who expressed understanding. Follow up as noted below. [email or web address] Not available 01/26/2024 09:18:28 03/10/2024 03/10/2024 Patient agreed and verbally consents [...] Not available Not available Not available Lab vitamin B12 + folate, serum or blood 2022 023 [facility], [address] [place] [address], [address], 11/09/2022 09:20:47 CMP, serum or plasma 2022 023 [facility], [address] [place] [address], [address], 11/10/2022 12:55:42 lipid panel, blood 2022 023 [facility], [address] [place] [address], [address], 11/10/2022 12:55:42 CBC w/ auto diff 2022 023 [facility], [address] [place] [address], [address], 11/09/2022 11:37:41 hemoglobi n A1c, QN, blood 2022 023 [facility], [address] [place] [address], [address], 11/09/2022 11:37:41 CMP, serum or plasma 2023 024 [facility], [address] [place] [address], [address], 12/10/2023 13:58:36 CBC w/ auto diff 2023 024 [facility], [address] [place] [address], [address], 12/10/2023 13:58:36 lipid panel, blood 2023 024 [facility], [address] [place] [address], [address], 12/10/2023 13:58:36 vitamin D, 25-hydrox y, total, serum 2023 024 [facility], [address] [place] [address], [address], 12/10/2023 13:58:36 TSH + free T4, serum 2023 [facility], [address] [place] [address], [address], 12/10/2023 13:58:36 hemoglobi n A1c, QN, blood 2023 024 [facility], [address] [place] [address], [address], 12/10/2023 13:58:36 Referral None recorded. Procedures None recorded. Surgeries None recorded. Imaging XR, knee, 3 view 2022 023 [facility] Central Scheduling, [address] [place] [address], [address], 11/11/2022 12:17:16 MRI, brain, w/wo contrast 2023 024 [facility] Central Scheduling, [address] [place] [address], [address], 02/02/2024 08:32:36 Medication Orders Medrol (Catrachito) 4 mg tablets in a dose pack 2022 [facility]acy #[id number], [address] [facility], [place], [address], 12/10/2023 13:39:36 amoxicill in 875 mg-potass ium clavulana te 125 mg tablet 2022 023 [email or web address] [facility]/Pharmacy #[id number], [address] [place], [address], 03/03/2023 10:54:46 benzonata te 200 mg capsule 2022 023 rtba [id number] [address] [place], [address], 03/03/2023 10:54:43 clonazepa m 0.5 mg tablet 2022 023 [facility], [facility], CIARRA Campo, [address], 02/19/2023 09:36:27 solifenac in 10 mg tablet 2023 024 [facility], [place], [address], 01/26/2024 09:19:50 prednison e 10 mg tablet 2024 025 [facility], [address] [place], [address], 03/10/2024 15:11:35 amoxicill in 875 mg-potass ium clavulana te 125 mg tablet 2024 025 [facility], [address] [place], [address], 03/10/2024 15:11:34 Patient TargetsNo targets recorded. Patient Instructions Encounter Date Encounter Id Patient Instructions Last Modified By Organization Details Last Modified Time 11/09/2022 [id number] pulse oximetry* RUTH Not available 11/09/2022 09:22:42 Reason for Referral None Reported. Results Created Date Observation Date Name Description Value Unit Range Abnormal Flag Note LastModifiedBy Organization Detail LastModifiedTime 11/10/19 23 11/09/2022 pulse oxime try* Result 97% Not Available [facility] [address] [place] [address] [address], [place], [address], 10/29/2022 09:02:21 11/12/19 23 11/09/2022 XR, knee, 3 view No observ ation record ed. [email or web address] [facility] (Medical Records) [address] [place], [address], 11/11/2022 14:48:20 11/21/19 23 11/20/2022 CT, knee, w/o contr ast No observ ation record ed. [facility] (Medical Records) [address] [place], [address], 11/23/2022 09:04:43 12/29/19 23 12/25/2022 US, pelvi s No observ ation record ed. [email or web address] [place] [address] (Medical Records) [address] [place], [address], 12/30/2022 14:46:58 12/30/19 23 12/25/2022 US, pelvi s, trans abdom inal + trans vagin al No observ ation record ed. [email or web address] [facility] Central Scheduling [address] [place], [address], 12/29/2022 12:59:08 01/15/20 23 01/14/2023 MRI, pelvi s, w/wo contr ast No observ ation record ed. [facility] (Medical Records) [address] [place], [address], 01/15/2023 09:00:02 05/26/19 24 05/26/2023 XR, wrist No observ ation record ed. [facility] [place], [address], 05/26/2023 16:01:17 09/13/19 24 09/13/2023 MAMMO , scree micaela, digit al, bilat eral No observ ation record ed. Not Available 2023 08:27:01 01/26/20 24 07/31/2020 US, head + neck, soft tissu e No observ ation record ed. Not Available 2023 09:39:37 01/26/20 24 08/24/2021 CT, head + brain , w/o contr ast No observ ation record ed. [facility] Not Available 2023 09:38:39 01/26/20 24 09/05/2021 CT, head + brain , w/wo contr ast No observ ation record ed. [facility] Not Available 2023 09:41:02 01/26/20 24 04/08/2022 CT, head + brain , w/wo contr ast No observ ation record ed. [facility] Not Available 2023 09:42:43 02/15/20 24 02/13/2024 MRI, brain , w/wo contr ast No observ ation record ed. [address] (Medical Records) [address] [place], [address], 02/15/2024 15:43:40 02/15/20 24 02/13/2024 MRI, brain , w/wo contr ast No observ ation record ed. [address] (Medical Records) [address] [place], [address], 02/15/2024 15:43:40 02/25/20 24 01/31/2024 bone densi ty No observ ation record ed. [email or web address] Not Available 2023 09:03:50 03/06/1901/31/2024 bone densi ty No observ ation record ed. [email or web address] [facility] [address], [address], 03/06/2024 10:26:34 03/06/19 25 01/31/2024 DEXA No observ ation record ed. [email or web address] [facility] [address], [address], 03/06/2024 11:04:34 03/06/19 25 01/31/2024 bone densi ty No observ ation record ed. [email or web address] [facility] [place], [address], 03/06/2024 11:04:53 03/06/19 25 01/31/2024 bone densi ty No observ ation record ed. [email or web address] [facility] [address] [place] [address], [address], 03/06/2024 13:44:05 Result Notes None recorded. Problems Name Problem SNOMED Code Status Onset Date Resolution Date Notes Provider Name and Address Organization Details Recorded Time Phlebiti s 19390298 Active 2022 Yudith daily [facility] 3 08:41:18 Herpes zoster 3203096 Active 2022 Yudith daily [facility] 3 08:41:23 Late onset asthma 254789958 Active 2022 Yudith daily [facility] 3 08:41:35 Sleep apnea 63642984 Active 2022 on CPAP Yudith daily [facility] 3 08:44:27 History of malignan t neoplasm of thyroid 475977719 Active 2022 Yudith daily [facility] 3 08:42:02 Hammer toe 208479729 Active 2022 correctiv e surgery 04/22/2018 CIARRA AYALA [address] [place] [address], [address], [facility] 3 09:52:08 Hyperten sive disorder 96674464 Active 2022 Yudith daily [facility] 3 08:43:15 Paroxysm al atrial fibrilla tion 565227883 Active 2022 Yudith daily [facility] 3 08:43:20 Chronic obstruct joseph pulmonar y disease 22290685 Active 2022 Yudith daily, [facility] 3 08:43:49 Anxiety 70843335 Active 2022 Yudith Hugo null, [facility] 3 08:43:57 Gout 33255365 Active 2022 Yudithcornelio Arias null, [facility] 3 08:44:03 Fracture of humerus 03318021 Active 2022 Yudith Hugo null, [facility] 3 08:44:14 Osteopor osis 32089419 Active 2022 Yudith Hugo null, [facility] 3 08:44:33 Pernicio us anemia 11134369 Active 2022 Yudithcornelio Arias null, [facility] 3 08:44:41 Vitamin D deficien cy 65264957 Active 2022 CIARRA AYALA [address] [place], [address], [facility] 3 09:47:05 Hematoma of lower leg 929405256 Active 2022 Fadi Wilkinson DO [address] [place], [address], [facility] 3 12:49:51 Inguinal pain 466605856 Active 2022 CIARRA AYALA [address] [place], [address], [facility] 3 10:09:55 Mass of uterus 07330291109 9109 Active 2022 CIARRA AYALA [address] [place], [address], [facility] 3 13:45:02 Acute bacteria l sinusiti s 60729203 Active 2022 CIARRA AYALA [address] [place], [address], [facility] 3 09:33:03 Urinary incontin ence 811610754 Active 2022 CIARRA AYALA [address] [place], [address], [facility] 3 09:35:08 Acute sinusiti s 30503263 Active 2023 CIARRA AYALA [address] [place], [address], [facility] 4 14:50:48 Seasonal allergic rhinitis 102471889 Active 2023 CIARRA AYALA [address] [place], [address], [facility] 4 10:22:32 Hypothyr oidism 48710211 Active 2023 CIARRA AYALA [address] [place] [address], [address], [facility] 4 10:23:00 Intracra nial meningio tx 670695241 Active 2023 CIARRA AYALA [address] [place], [address], [facility] 4 09:21:59 Atrial fibrilla tion 16487706 Active 2023 CIARRA AYALA [address] [place] [address], [address], [facility] 4 09:25:09 Acute bronchit is 11291727 Active 2024 CIARRA AYALA [address] [place] [address], [address], [facility] 5 10:20:24 Problem Notes None recorded. Procedures Surgical History Date Name Laterality Status Provider Name and Address Organization Details Recorded Time hammer toe operation completed CIARRA AYALA [address] [place] [address], [address], [facility] 05/07/2022 09:52:24 thyroidectomy completed CIARRA MATHEWS [address] [place] [address], [address], [facility] 05/07/2022 09:52:55 laparoscopic sleeve gastrectomy completed CIARRA AYALA [address] [place], [address], [facility] 05/07/2022 09:53:06 total knee replacement completed CIARRA AYALA [address] [place], [address], [facility] 05/07/2022 09:53:23 cholecystectomy completed CIARRA ECHOLS [address] [place], [address], [facility] 05/07/2022 09:53:32 Imaging Results Imaging Date Name Status LastModified by Organization Details LastModified Time 11/09/2022 XR, knee, 3 view completed [email or web address] [facility] (Medical Records) [address] [place], [address], 11/11/2022 14:48:20 11/20/2022 CT, knee, w/o contrast completed [facility] (Medical Records) [address] [place], [address], 11/23/2022 09:04:43 12/25/2022 US, pelvis completed [email or web address] [place] [address] (Medical Records) [address] [place], [address], 12/30/2022 14:46:58 12/25/2022 US, pelvis, transabdominal + transvaginal completed [email or web address] [facility] Central Scheduling [address] [place], [address], 12/29/2022 12:59:08 01/14/2023 MRI, pelvis, w/wo contrast completed [facility] (Medical Records) [address] [place], [address], 01/15/2023 09:00:02 05/26/2023 [facility] [place], [address], 05/26/2023 16:01:17 09/13/2023 MAMMO, screening, digital, bilateral completed Information not available 09/14/2023 08:27:01 07/31/2020 US, head + neck, soft tissue completed Information not available 01/26/2024 09:39:37 08/24/2021 CT, head + brain, w/o contrast completed [facility] Information not available 01/26/2024 09:38:39 09/05/2021 CT, head + brain, w/wo contrast completed [facility] Information not available 01/26/2024 09:41:02 04/08/2022 CT, head + brain, w/wo contrast completed [facility] Information not available 01/26/2024 09:42:43 02/13/2024 MRI, brain, w/wo contrast completed [address] (Medical Records) [address] [place], [address], 02/15/2024 15:43:40 02/13/2024 MRI, brain, w/wo contrast completed [address] (Medical Records) [address] [place] [address], [address], 02/15/2024 15:43:40 01/31/2024 bone density completed Information not available 02/25/2024 09:03:50 01/31/2024 bone density completed [email or web address] [facility] [address] [place] [address], [address], 03/06/2024 10:26:34 01/31/2024 DEXA completed [email or web address] [facility] [address] [place] [address], [address], 03/06/2024 11:04:34 01/31/2024 bone density completed [email or web address] [facility] [address] [place] [address], [address], 03/06/2024 11:04:53 01/31/2024 bone density completed [email or web address] [facility] [address] [facility], [place], [address], 03/06/2024 13:44:05 Procedure Notes None recorded. Medical Equipment None [...] Not Available No t Available Sandra Calvin [facility] spacer USE DIRECTED. active Not Available Not [...] Relief 50 mcg/actuati on nasal spray,suspe nsion [place] 1 spray every day by intranasa l route. active Not Available Not Available No t Available Breo Ellipta 200 mcg-25 mcg/dose powder for inhalation USE 1 INHALATIO N ORALLY DAILY FOR CHRONIC OBSTRUCTI VE PULMONARY DISEASE active Not Available Not Available No t Available Thyrogen 0.9 mg intramuscul ar solution 05/07 completed Not Available Not Available Not Available Vitals Date Recorded Body height Body mass index (BMI) Body weight Heart rate Oxygen saturation Oxygen saturation in Arterial blood by Pulse oximetry Systolic blood pressure Diastolic blood pressure Provider Name and Address Organization Details Last Updated DateTime 3 160.02 cm 41.1 kg/m2 668578. 43 g 73 /min 97 % 97 % 136 mm[Hg] 84 mm[Hg] Maggie Trejo [facility] 3 09:01:57 Date Recorded Body height Body mass index (BMI) Body weight Heart rate Oxygen saturation Oxygen saturation in Arterial blood by Pulse oximetry Systolic blood pressure Diastolic blood pressure Provider Name and Address Organization Details Last Updated DateTime 4 160.02 cm 39.8 kg/m2 245328. 49 g 75 /min 96 % 96 % 132 mm[Hg] 88 mm[Hg] Rowena Jaime [facility] 4 13:40:59 Date Recorded Body height Body mass index (BMI) Body weight Heart rate Oxygen saturation Oxygen saturation in Arterial blood by Pulse oximetry Systolic blood pressure Diastolic blood pressure Provider Name and Address Organization Details Last Updated DateTime 4 160.02 cm 40.2 kg/m2 629761. 11 g 77 /min 95 % 95 % 166 mm[Hg] 80 mm[Hg] Rowena Jaime [facility] 4 09:14:50 Social History Question Answer Notes LastModified by Organizat ion Details LastModified Time Tobacco Smoking Status Former Smoker Yudith Hugo daily [facility] 05/07/2022 09:32:24 What Is Your [...] COVID-19 While That Case Was Ill? No [email or web address] Information not available 02/19/2023 In The 14 Days Before Symptom Onset, Have You Had Close Contact With A Person Who Is Under Investigation For COVID-19 While That Person Was Ill? No [email or web address] Information not available 02/19/2023 Have You Been To An Area Known To Be High Risk For COVID-19? No Information not available 02/19/2023 Are You Currently [...] Anxious, Or Unable To Sleep At Night)? [id number] Information not available 05/07/2022 Do You Use Any Illicit Or Recreational Drugs? No [email or web address] Information not available 02/19/2023 Do You Use Sunscreen Routinely? No Information not available 05/07/2022 Do You Or Have You Ever Used Any Other Forms Of Tobacco Or Nicotine? No [email or web address] Information not available 02/19/2023 Sex: Female Functional [...] Details Recorded Time influenza, unspecified formulation [facility] 09:32:19 COVID-19, mRNA, LNP-S, PF, 100 mcg/0.5mL dose or 50 mcg/0.25mL dose [facility] 09:36:54 COVID-19, mRNA, LNP-S, PF, 100 mcg/0.5mL dose or 50 mcg/0.25mL dose 1 kp daily [facility] 05/07/2022 09:36:59 COVID-19, mRNA, LNP-S, PF, 100 mcg/0.5mL dose or 50 mcg/0.25mL dose 1 kp daily [facility] 05/07/2022 09:37:05 COVID-19, mRNA, LNP-S, PF, 100 mcg/0.5mL dose or 50 mcg/0.25mL dose 2 kp daily [facility] 05/07/2022 09:37:10 COVID-19, mRNA, LNP-S, PF, 30 mcg/0.3 mL dose 2 kp daily [facility] 05/07/2022 09:37:20 zoster recombinant 0 completed Nader daily [facility] 09/13/2022 09:32:02 zoster recombinant 1 kp Wilkinson [facility] 09/13/2022 09:32:24 influenza, unspecified formulation 4 completed CIARRA AYALA [address] [place] [address], [address], [facility] 12/10/2023 13:45:44 Past Encounters Encounter ID Performer Location Encounter Start Date Encounter Closed Date Diagnosis/Indication Diagnosis SNOMED-CT Code Diagnosis ICD10 Code Diagnosis Note [id number] CIARRA AYALA [facility] [address] [facility], [place] [address] 05/07/2022 09:19:18 05/07/2022 10:05:56 Paroxysmal atrial fibrillation 800162642 I48.0 stable Chronic ob structive pulmonary disease 07349598 J41.0 stable Gout 31770602 M10.041 stable Pernicious anemia 870044 09 D51.0 will recheck levels Vitamin D deficiency 347 70987 E55.9 will recheck levels History of malignant neoplasm of thyroid 397882621 Z85.850 stable, thyroid removedsee s endo through [facility] Hypertensive disorder 38 970926 I10 will set up with lab workazebxiou s today at [facility] [id number] aFdi Wilkinson DO [facility] [address] [facility],[place] [address] 06/24/2022 11:55:19 06/24/2022 15:24:16 Hypertensive disorder 43737673 I10 doing well Paroxysmal atrial fibrillation 987603483 I48.0 no palpitatio ns since presentati on Hematoma of lower leg 44 2463240 S80.12XD resolved [id number] CIARRA AYALA [facility] [address] [facility],[place] [address] 09/14/2022 15:29:09 09/14/2022 16:37:22 Chronic obstructive pulmonary disease 35426464 J41.0 stableneed s refillphar magi changed in chart Hypertensive disorder 38 590122 I10 stable Paroxysmal atrial fibrillation 398992948 I48.0 stable [id number] CIARRA AYALA [facility] [address] [facility], [place] [address] 11/09/2022 08:56:24 11/09/2022 10:11:54 Anxiety 59783140 F41.1 stable Chronic ob structive pulmonary disease 30014787 J41.0 stableneed s refillphar magi changed in chart Hypertensive disorder 38 726042 I10 stable Paroxysmal atrial fibrillation 841270811 I48.0 stable Pernicious anemia 980430 09 D51.0 will recheck levels Vitamin D deficiency 347 97800 E55.9 will recheck levels History of left total knee replacement 7191964112 453603 Z96.652 will set up with XR [id number] CIARRA AYALA [facility] [address] [facility] [address],[place] [address] 02/19/2023 08:27:30 02/19/2023 11:18:39 Acute bacterial sinusitis 10682561 J01.00 Urinary incontinence 165 902384 N39.3 doing well on myrbetriq Anxiety 58234808 F41.1 stable [id number] CIARRA AYALA [facility] [address] [facility] [address],[place] [address] 12/10/2023 13:31:34 12/10/2023 14:13:56 Active or passive immunization 797681613 Z23 stable Adult heal th examination 504963210 Z00.00 BP is excellent Depression screening 171 197842 Z13.31 SCREENING NEGATIVE [id number] CIARRA AYALA [facility] [address] [facility] [address],[place] [address] 01/26/2024 09:08:37 01/26/2024 09:33:39 Renewal of prescription 734557327 Z76.0 stable Urinary incontinence 165 952613 N39.3 stable Intracrani al meningioma 913185586 D32.0 case from her onc from thyroid case, recommende d fu screening Atrial fibrillation 4943 6004 I48.0 stable Chronic ob structive pulmonary disease 10742652 J41.0 stable [id number] CIARRA AYALA [facility] [address] [facility] [address] [address] 03/10/2024 09:47:35 03/10/2024 15:39:35 Acute bronchitis 64719933 J20.8 Health Concerns Section Related Observation LastModified by Organization Detai ls LastModified Time None Recorded Concern Status LastModified by Organization Details LastModified Time None Recorded Advance Directives Directive None Recorded Payers Encounter Date Sequence Insurance Name Policy Number Policy Roberts Covered Member ID Roberts Member ID Guarantor Name 11/09/2022 2 [facility] [id number] Marjorie Yolanda [id number] Marjorie Yolanda 11/09/2022 1 [place] [facility] Marjorie C Nakina [id number] Marjorie Nakina 02/19/2023 2 [facility] [id number] Marjorie Nakina [id number] Marjorie Nakina 02/19/2023 1 [place] [facility] Marjorie C Yolanda [id number] Marjorie Yolanda 12/10/2023 2 [facility] [id number] Marjorie Nakina [id number] Marjorie Nakina 12/10/2023 1 [place] [facility] Marjorie C Yolanda [id number] 5 Marjorie Nakina 01/26/2024 2 [facility] [id number] 8 Marjorie Yolanda [id number] Marjorie Yolanda 01/26/2024 1 [place] [facility] Marjorie C Yolanda [id number] 5 Marjorie Nakina 03/10/2024 2 [facility] [id number] Marjorie Nakina [id number] Marjorie Nakina 03/10/2024 1 [place] [facility] Marjorie C Yolanda [id number] 5 Marjorie Nakina Notes Date Note Type Note Provider Name a nd Address Organization Details Recorded Time 3 text/html Annual WellnessReported bypatient.Diet and Nutrition:healthy diet; discussed vitamin and supplement use; discussed portion control; discussed maintaining calcium balance; discussed diet improvement Fracture Risk:no history of fractures; no recent explained fracture; no sudden unexplained fractures; no previous musculoskeletal injuries Physical Activity:does not exercise on a regular basis; discussed weightbearing activities; stopped going to the gym Additional Lifestyle Factors:no tobacco use; no alcohol intake; stopped drinking alcohol Depression Risk:never feels sad, empty, or tearful; no loss of interest in activities; no significant changes in weight; no sleep disturbances or insomnia; no agitation; no loss of energy; no feelings of worthlessness or guilt; no thoughts of suicide; no history of depression; no history of mood disorders Hearing:no loss of hearing Vision:no vision problems fell on to her knee (L) which has a TKRstill stiff and achy, worried about the replacement [address] [place], [address], [facility] 11/09/2022 09:23:35 3 text/html medicaiton check telemed phone callpt consents to phone call the patient reports that sinus pain, nasal congestion and sore throat, ear painthe patient reports that she started with symptoms yesterday will start on treatment urinary incontinence improved myrbetriq will take over klonapin [address] [place], [address], [facility] 02/19/2023 09:41:51 4 text/html Annual WellnessReported bypatient.Diet and Nutrition:healthy diet; discussed vitamin and supplement use; discussed portion control; discussed maintaining calcium balance; discussed diet improvement Fracture Risk:no history of fractures; no recent explained fracture; no sudden unexplained fractures; no previous musculoskeletal injuries Physical Activity:exercises on a regular basis; recent increase in physical activity; good physical condition; discussed weightbearing activities; discussed exercise habits Additional Lifestyle Factors:no tobacco use; drinks alcohol (mild-moderate) Depression Risk:never feels sad, empty, or tearful; no loss of interest in activities; no significant changes in weight; no sleep disturbances or insomnia; no agitation; no loss of energy; no feelings of worthlessness or guilt; no thoughts of suicide; no history of depression; no history of mood disorders Hearing:no loss of hearing Vision:no vision problemsNotes:has her fu for dentist next year BP is excellent [address] [place], [address], [facility] 12/10/2023 14:01:03 4 text/html f/u medication urinary incontinence: will set with alt since the mirabegron is now not covered meningioma: needs f/u MRI from previous scan from her oncologistzak at previous imaging, will f/u to make sure no changes have occurred atrial fib: stable, no worsening symptomsno sob, no chest pain, no fever, no chills COPD: stable otherwise doing wellno other questions today [address] [place], [address], [facility] 01/26/2024 09:30:02 5 text/html c/o URI symptoms The patient is participating in this appointment via telemedicine communication with a phone call/video calling service ([employer])The patient consents to use of these platforms [...] was negative x1 today [address] [place], [address], [facility] 03/10/2024 15:14:27 OBGyn Episode No OBEpisode recorded.
--- OUTSIDE RECORDS SUMMARY | 2024-03-22 11:45 | XMS_ITS ---
Author Organization [facility] Address [address] [place] [address] Care Team Providers Care Flight Mechanic Name Role Phone Fadi Wilkinson MD Primary Care Provider Jasmyne Denson [phone] REASON FOR VISIT ON Encounters Encounter Location Date Provider Diagnosis [facility] [address] [place] [address] 02/22/2024 Jasmyne Gil Plan Of Treatment Next Appt Details Provider Name:Jasmyne whitney, 05/03/2024 01:00:00 PM, [address] [place], [address], Progress Notes * Marjorie HILLIARD CDOB:1950 (73 yo F)Acc No.[id number]:02/22/2024 Patient:?Marjorie HILLIARD :1950???Age:73 Y???Sex:Female Address:[place], [address] * true * Date:? Generated for Printi ng/Laura/eTransmitting on:?03/22/2024 11:44 AM EST
--- OUTSIDE RECORDS SUMMARY | 2024-03-22 11:45 | XMS_ITS | Patient Health Record ---
[facility] Address [address] [facility] [address] [facility] [place] [address] Care Team Providers Care Science Technicians Name Role Phone Fadi Wilkinson MD Primary Care Provider Jasmyne Denson Unavailable [phone] Allergies No Known Allergies Reason For Referral No Information Medications Medication SIG (Take, Route, Frequency, Duration) Notes Start Date End Date Status Diclofenac Sodium 1 % as directed Transdermal PRN Active Vitamin D 1 tablet Orally Once a day Active Symbicort 160-4.5 MCG/ACT 2 puffs Inhala tion Twice a day Active Furosemide 20 MG 1 tablet Orally Once a day for 30 day(s) PRN Active Flonase PRN Active Loratadine 10 MG 1 tablet Orally Once a day for 30 day(s) Active Levoxyl 150 MCG 1 tablet in the morn ing on an empty stomach Orally Once a day for 30 day(s) Active Allopurinol 100 MG 1 tablet Orally Once a day for 30 day(s) Active Montelukast Sodium 10 MG 1 tablet Orally Once a day for 30 day(s) Active Losartan Potassium 100 MG 1 tablet Orall y Once a day for 30 day(s) Active Cetirizine HCl Activ e PreserVision AREDS 2 - as directed Orally Active amLODIPine Besylate 2.5 MG 1 tablet Oral ly Once a day for 30 day(s) Active ProAir HFA 108 (90 Base) MCG/ACT 1 puff as needed Inhalation every 4 hrs PRN Active Celecoxib 200 MG 1 capsule with food Orally Once a day for 30 day(s) Active Calcium Citrate 1000 1 tablet Orally Onc e a day Active Spiriva Respimat 1.25 MCG/ACT 2 puffs Inhalation Once a day Active Ammonium Lactate 12 % 1 application to a ffected area Externally to feet Twice a day for 30 days Active Immunizations Vaccine Route Administration Date Status Comme nts COVID-19 Moderna Vaccine Unknown 04/30/2020 Administere d 1st 06/01/20 Social History Tobacco Use: Social History Observation Description Date Details (start date - stop date) Former Smoker NA - NA Tobacco use other than smoking: Question Answer Notes Are you an other tobacco user? No Tobacco Control (Standard) Question Answer Notes Tobacco use: Former smoker Additional Findings: Tobacco non-user Ex-cigaret te smoker AUDIT-C (Standard) Question Answer Notes Did you have a drink contain ing alcohol in the past year? Yes How often did you have six o r more drinks on one occasion in the past year? Declined to specify (0 point) How many drinks did you have on a typical day when you were drinking in the past year? Declined to specify (0 point) How often did you have a dri nk containing alcohol in the past year? Declined to specify (0 point) Points 0 Interpretation Negative Problems Problem Type SNOMED Code ICD Code Onset Dates Problem Status W/U Status Risk Notes Problem Acquired hammer toe of right foot (6915968741696 105) Other hammer toe(s) (acquired), right foot (M20.41) Active confirmed Problem Acquired hammer toe of left foot (2855358646760 103) Other hammer toe(s) (acquired), left foot (M20.42) Active confirmed Encounters Encounter Location Date Provider Diagnosis [facility] [address] [address] 02/22/2024 Jasmyne Gil Plan Of Treatment Pending Test Test Name Order Date [id number] - Tenotomy, open flexor 03/14/2020 Next Appt Details Provider Name:Jasmyne whitney, 05/03/2024 01:00:00 PM, [address] [place] [address], [phone], Insurance Providers Payer Name Payer Address Payer Phone Subscriber Number Group Number Insured Name Patient Relationship to Insured Coverage Start Date Coverage End Date Medicare National [employer] [address] [place] [address] [id number] Marjorie Guerrero Self - patient is the insured [facility] [address] [place] [address] [id number] Marjorie Guerrero Self - patient is the insured Medical (General) History Medical History History ICD Code asthma Back,Hip,and Knee pain Cancer- thyroid Gall bladder removed High blood pressure thyroid Measles Mumps Chicken pox Bone implants/screws Gout Anxiety Arthritis Joint implants/screws Hepatitis Sleep apnea Surgical History Surgery Date(Month/Year) tonsillectomy Age 4-5 thyroidectomy 2001 gall bladder 2002 gastric bypass surgery 2004 knee replacement 2011 vein stripping/leg surgery Age 28 Bone Spurs right shoulder removal 2016 endovenous lazer surgery [id number] colonoscopy 2016 endoscopy 2016 hammer toe surgery 04/22/2018 endovenous laser 03/25/2020 removal bone spurs right shoulder 2017 ruptured vericose veins [phone] Hospitalization History Reason Date(Month/Year) Spiral fracture- left arm 2011
== END 2024-03-22 11:04 | disposition home or self-care (01) ==
PROVIDERS: PCP Internal Medicine; Visit Provider Internal Medicine
DX: E66.9 Obesity, unspecified (principal); J44.9 Chronic obstructive pulmonary disease, unspecified; G47.33 Obstructive sleep apnea (adult) (pediatric); Z99.89 Dependence on other enabling machines and devices
CPT/HCPCS: 99213

== ENCOUNTER → 2024-03-22 10:33 | Outpatient (BNVA) | payer MEDICARE, OTHER, SELFPAY | PROVIDERS: PCP Internal Medicine; Visit Provider Internal Medicine | DX: J44.9 Chronic obstructive pulmonary disease, unspecified (principal); E66.9 Obesity, unspecified; G47.33 Obstructive sleep apnea (adult) (pediatric); Z99.89 Dependence on other enabling machines and devices; Z68.41 Body mass index [BMI] 40.0-44.9, adult | CPT/HCPCS: 99212 ==

== ENCOUNTER 2024-08-30 07:58 | Outpatient (REF) | payer MEDICARE, OTHER, SELFPAY ==
--- NOTE | ~2024-08-30 | XR_ITS ---
EXAMINATION: XR BILATERAL HIPS WITH AP PELVIS CLINICAL INFORMATION: RT SIDED LOW BACK PAIN,LUMBARGO COMPARISON: None available. TECHNIQUE: AP view of the pelvis and 2 views of each hip were obtained. FINDINGS: Pelvis images demonstrate mild to moderate degenerative changes in the SI joints, greater on right. Anterior superior iliac spine enthesophytes are noted. Right hip demonstrates greater trochanter enthesophytes. Joint space demonstrates mild axial narrowing. Left hip joint demonstrates small greater trochanter enthesophytes. There is subtle medial joint space narrowing. XR/XR hip BI w PEL1V IMPRESSION: Mild axial joint space narrowing, right greater than left hip. SI joint degenerative changes, right greater than left. IMPRESSION: Normal pelvis and hips. Electronically signed by: Abundio Esquivel MD 08/30/2024 02:52 PM EDT
--- NOTE | ~2024-08-30 | XR_ITS ---
EXAMINATION: XR LUMBOSACRAL SPINE CLINICAL INFORMATION: LOW BACK PAIN,LUMBAGO COMPARISON: None available. TECHNIQUE: Three views of the lumbosacral spine. FINDINGS: Atherosclerotic calcifications in the aorta are moderate. T12-L1: There is mild disc space spurring. L1-2: There is endplate sclerosis and osteophytes. L2-3: There is subtle retrolisthesis, mild disc space during, and endplate osteophytes. L3-4: There is minimal grade 1 retrolisthesis and facet arthropathy. There is sclerosis and irregularity between the spines of L3-L4. L4-5: There is grade 1 anterolisthesis and mild disc space narrowing and facet sclerosis and osteophytes. L5-S1: There is subtle retrolisthesis and facet sclerosis with osteophytes. XR/XR lumbar spine 2-3V IMPRESSION: Multilevel degenerative disc disease and facet arthropathy. 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 Electronically signed by: Abundio Esquivel MD 08/30/2024 02:55 PM EDT
--- OUTSIDE RECORDS SUMMARY | 2024-08-30 08:01 | XMS_ITS | Data Portability ---
Author Organization [facility] Telehealth Patient Home Address [address] [place] [address] Assessment Encounter Date Assessment Date Assessment LastModified by Organization Details LastModified Time 01/26/2024 01/26/2024 Patient presented for medication refill. Patient tolerating medication well at current dose without adverse effects. Refilled as below. Discussed plan with patient, who expressed understanding . Follow up as noted below. [email or web address] Not available 01/26/2024 09:18:28 03/10/2024 03/10/2024 Patient agreed and verbally consents to this audio and video Telehealth appt via a secure platform [email or web address] Not available 03/10/2024 15:09:43 Plan of Treatment Reminders Order Date Submit Date Provider Last Modified By Organization Details Last Modified Time Details Appointments ANNUAL EXAM 2024 09:30A M CIARRA AYALA Not available Not available Not available Lab None recorded. Referral None recorded. Procedures None recorded. Surgeries None recorded. Imaging MRI, brain, w/wo contrast 2023 024 [facility] Central Scheduling, [address] [place] [address], [address], 02/02/2024 08:32:36 Medication Orders prednison e 10 mg tablet 2024 025 [facility][id number], [address] [place], [address], 08/11/2024 11:28:19 baclofen 10 mg tablet 2024 025 [facility][id number], [address] [place], [address], 08/11/2024 11:28:19 Zepbound 5 mg/0.5 mL subcutane ous pen injector 2024 025 [id number] [address] [place], [address], 08/11/2024 11:26:22 Zepbound 2.5 mg/0.5 mL subcutane ous pen injector 2024 025 [facility], Located [facility], CIARRA [place], [address], 05/23/2024 12:11:05 prednison e 10 mg tablet 2024 025 [id number] [address] [place], [address], 08/11/2024 11:26:32 amoxicill in 875 mg-potass ium clavulana te 125 mg tablet 2024 025 [id number] [address] [place], [address], 08/11/2024 10:57:08 solifenac in 10 mg tablet 2023 024 [facility], Located Within [facility], [place], [address], 01/26/2024 09:19:50 Patient TargetsNo targets recorded. Patient InstructionsNo instructions recorded. Reason for Referral None Reported. Results Created Date Observation Date Name Description Value Unit Range Abnormal Flag Note LastModifiedBy Organization Detail LastModifiedTime 01/26/20 24 07/31/2020 US, head + neck, soft tissu e No observ ation record ed. Not Available 2023 09:39:37 01/26/2008/24/2021 CT, head + brain , w/o contr [...] contr ast No observ ation record ed. [address] (Medical Records) [address] [place], [address], 02/15/2024 15:43:40 02/15/20 24 02/13/2024 MRI, brain , w/wo contr ast No observ ation record ed. [address] (Medical Records) [address] [place], [address], 02/15/2024 15:43:40 02/25/20 24 01/31/2024 bone densi ty No observ ation record ed. [email or web address] Not Available 2023 09:03:50 03/06/19 25 01/31/2024 bone densi ty No observ ation record ed. [email or web address] [address], [address], 03/06/2024 10:26:34 03/06/19 25 01/31/2024 DEXA No observ ation record ed. [email or web address] [address], [address], 03/06/2024 11:04:34 03/06/19 25 01/31/2024 bone densi ty No observ ation record ed. [address], [address], 03/06/2024 11:04:53 03/06/19 25 01/31/2024 bone densi ty No observ ation record ed. [email or web address] [address] [facility], [place], [address], 03/06/2024 13:44:05 Result Notes None recorded. Problems Name Problem SNOMED Code Status Onset Date Resolution Date Notes Provider Name and Address Organization Details Recorded Time Phlebiti s 67547668 Active 2022 Yudith daily [facility] 3 08:41:18 Herpes zoster 1219851 Active 2022 Yudith daily [facility] 3 08:41:23 Late onset asthma 131490192 Active 2022 Yudith daily [facility] 3 08:41:35 Sleep apnea 66078404 Active 2022 on CPAP Yudith daily [facility] 3 08:44:27 History of malignan t neoplasm of thyroid 453416841 Active 2022 Yudith daily [facility] 3 08:42:02 Hammer toe 023452183 Active 2022 correctiv e surgery 04/22/[address] [place] [address], [address], [facility] 3 09:52:08 Hyperten sive disorder 87061058 Active 2022 Yudith daily [facility] 08:43:15 Paroxysm al atrial fibrilla tion 626901958 Active 2022 Yudith daily [facility] 3 08:43:20 Chronic obstruct joseph pulmonar y disease 38276615 Active 2022 Yudith daily [facility] 3 08:43:49 Anxiety 62741082 Active 2022 Yudith daily [facility] 3 08:43:57 Gout 82005662 Active 2022 Yudith daily [facility] 3 08:44:03 Fracture of humerus 88068681 Active 2022 Yudith daily, [facility] 3 08:44:14 Osteopor osis 66085982 Active 2022 Yudith Arias null, [facility] 3 08:44:33 Pernicio us anemia 97932164 Active 2022 Yudith Airas null, [facility] 3 08:44:41 Vitamin D deficien cy 11930358 Active 2022 CIARRA AYALA [address] [place], [address], [facility] 3 09:47:05 Hematoma of lower leg 357126353 Active 2022 Fadi Wilkinson, [address] [place], [address], [facility] 3 12:49:51 Inguinal pain 562646899 Active 2022 CIARRA AYALA [address] [place], [address], [facility] 3 10:09:55 Mass of uterus 48266467779 9109 Active 2022 CIARRA AYALA [address] [place], [address], [facility] 3 13:45:02 Acute bacteria l sinusiti s 12837155 Active 2022 CIARRA AYALA [address] [place], [address], [place] [facility] 3 09:33:03 Urinary incontin ence 939274599 Active 2022 CIARRA AYALA [address] [place], [address], [facility] 3 09:35:08 Acute sinusiti s 42219328 Active 2023 CIARRA AYALA [address] [place], [address], [facility] 4 14:50:48 Seasonal allergic rhinitis 149546749 Active 2023 CIARRA AYALA [address] [place], [address], [facility] 4 10:22:32 Hypothyr oidism 45800907 Active 2023 CIARRA AYALA [address] [place], [address], [facility] 4 10:23:00 Intracra nial meningio ms 226694838 Active 2023 CIARRA AYALA [address] [place], [address], [facility] 4 09:21:59 Atrial fibrilla tion 53652951 Active 2023 CIARRA AYALA [address] [place], [address], [facility] 4 09:25:09 Acute bronchit is 94720395 Active 2024 CIARRA AYALA [address] [place], [address], [facility] 5 10:20:24 Acute low back pain 217162345 Active 2024 CIARRA AYALA [address] [place], [address], [facility] 5 11:25:15 Acute back pain with sciatica 618057877 Active 2024 CIARRA AYALA [address] [place] [address], [address], [facility] 5 10:13:42 Problem Notes None recorded. Procedures Surgical History Date Name Laterality Status Provider Name and Address Organization Details Recorded Time hammer toe operation completed CIARRA AYALA [address] [place], [address], [facility] 05/07/2022 09:52:24 thyroidectomy completed CIARRA MATHEWS [address] [place], [address], [facility] 05/07/2022 09:52:55 laparoscopic sleeve gastrectomy completed CIARRA AYALA [address] [place], [address], [facility] 05/07/2022 09:53:06 total knee replacement completed CIARRA AYALA [address] [place], [address], [facility] 05/07/2022 09:53:23 cholecystectomy completed CIARRA ECHOLS [address] [place], [address], [facility] 05/07/2022 09:53:32 Imaging Results None recorded. Procedure Notes None recorded. Medical Equipment None Reported. Allergies No known drug allergies Medications Name Sig Start Date Stop Date Status Note LastModified by Organization Details LastModified Time quetiapine 25 mg tablet TAKE 1-2 TABLETS DAILY AT BEDTIME NEEDED FOR INSOMNIA 05/10 completed Not Available Not Available Not Available celecoxib 200 mg capsule TAKE 1 CAPSULE DAILY active Not Available Not Available No t Available prednisone 10 mg tablet TAKE 4 TABS BY MOUTH DAILY X2 DAYS, 3 TABS DAILY X2 DAYS, 2 TABS DAILY X2 DAYS, 1 TAB DAILY X2 DAYS active Not Available Not Available No t Available cetirizine 10 mg tablet Take 1 tablet every day by oral route for 90 days. 12/09 completed Not Available Not Available Not Available azithromyci n 250 mg tablet TAKE 2 TABLETS BY MOUTH TODAY, THEN TAKE 1 TABLET DAILY FOR 4 DAYS DIRECTED 05/10 completed Not Available Not Available Not Available diltiazem CD 180 mg capsule,ext ended [...] completed Not Available Not Available Not Available meloxicam 15 mg tablet Take 1 tablet every day by oral route with meal(s) for 30 days. 2024 active Not Available Not Available Not Avai lable alendronate 70 mg tablet PLEASE SEE ATTACHED [...] No t Available tramadol 50 mg tablet Take 1 tablet every 6 hours by oral route as needed for 7 days. 2024 active Not Available Not Available Not Avai lable OptiChamber active Not Available Not A vailable Not Available ofloxacin 0.3 % ear drops INSTILL 1 DROP INTO EACH EAR ONCE DAILY DIRECTED FOR 7 DAYS. 05/07 completed Not Available Not Available Not Available baclofen 10 mg tablet TAKE 1 TABLET BY MOUTH THREE TIMES A DAY NEEDED FOR 10 DAYS active Not Available Not Available No t Available cephalexin 500 mg capsule TAKE 1 [...] mL every 4 hours by oral route. 05/10 completed Not Available Not Available Not Available ergocalcife rol (vitamin D2) 1,250 mcg (50,000 [...] Take 1 dose pk by oral route. 03/24 completed Not Available Not Available Not Available losartan 100 mg tablet Take 1 tablet every day by oral route. active Not Available Not Available No t Available doxycycline hyclate 100 mg tablet TAKE 1 TABLET BY MOUTH TWICE A DAY FOR 10 DAYS 12/09 completed Not Available Not Available Not Available amoxicillin 875 mg-potassiu m clavulanate 125 mg tablet TAKE 1 TABLET BY MOUTH EVERY 12 HOURS FOR 7 DAYS 08/11 completed Not Available Not Available Not Available Levoxyl 137 mcg tablet TAKE 1 [...] Available Not Available No t Available [facility] spacer USE DIRECTED. active Not Available Not [...] Relief 50 mcg/actuati on nasal spray,suspe nsion [place] 1 spray every day by intranasa l route. active Not Available Not Available No t Available Breo Ellipta 200 mcg-25 mcg/dose powder for inhalation USE 1 INHALATIO N ORALLY DAILY FOR CHRONIC OBSTRUCTI VE PULMONARY DISEASE active Not Available Not Available No t Available Thyrogen 0.9 mg intramuscul ar solution 05/07 completed Not Available Not Available Not Available Mounjaro 2.5 mg/0.5 mL subcutaneou s pen injector active Not Available Not Available Not Available Zepbound 5 mg/0.5 mL subcutaneou s pen injector INJECT 5 MG SUBCUTANE OUSLY WEEKLY 08/11 completed Not Available Not Available Not Available Zepbound 2.5 mg/0.5 mL subcutaneou s pen injector INJECT 2.5 MG SUBCUTANE OUSLY WEEKLY 05/23 completed Not Available Not Available Not Available Zepbound 7.5 mg/0.5 mL subcutaneou s pen injector INJECT 7.5 MG SUBCUTANE OUSLY WEEKLY active Not Available Not Available No t Available Vitals Date Recorded Body height Body mass index (BMI) Body weight Heart rate Oxygen saturation Oxygen saturation in Arterial blood by Pulse oximetry Systolic blood pressure Diastolic blood pressure Provider Name and Address Organization Details Last Updated DateTime 5 160.02 cm 41.5 kg/m2 901918. 41 g 74 /min 97 % 97 % 162 mm[Hg] 78 mm[Hg] [facility] 5 10:01:44 Date Recorded Body height Body mass index (BMI) Body weight Heart rate Oxygen saturation Oxygen saturation in Arterial blood by Pulse oximetry Systolic blood pressure Diastolic blood pressure Provider Name and Address Organization Details Last Updated DateTime 5 160.02 cm 39.3 kg/m2 237680. 51 g 75 /min 99 % 99 % 142 mm[Hg] 86 mm[Hg] Jared Quispe [facility] 5 10:04:39 Date Recorded Body height Body mass index (BMI) Body weight Heart rate Oxygen saturation Oxygen saturation in Arterial blood by Pulse oximetry Systolic blood pressure Diastolic blood pressure Provider Name and Address Organization Details Last Updated DateTime 5 160.02 cm 36.4 kg/m2 89484.5 9 g 73 /min 96 % 96 % 124 mm[Hg] 74 mm[Hg] Rowena Jaime [place] [facility] 5 11:08:41 Date Recorded Body height Body mass index (BMI) Body weight Heart rate Oxygen saturation Oxygen saturation in Arterial blood by Pulse oximetry Systolic blood pressure Diastolic blood pressure Provider Name and Address Organization Details Last Updated DateTime 4 160.02 cm 40.2 kg/m2 529844. 11 g 77 /min 95 % 95 % 166 mm[Hg] 80 mm[Hg] Rowena Addison [facility] 4 09:14:50 Social History Question Answer Notes LastModified by Organizat ion Details LastModified Time Tobacco Smoking Status [facility] 09:32:24 Are You Blind Or Do You Have Difficulty Seeing? No Information not available 05/07/2022 What Is Your Level Of Caffeine Consumption? Occasional Information not available 05/07/2022 In The 14 Days Before Symptom Onset, Have You Had Close Contact With A Laboratory-confi rmed COVID-19 While That Case Was Ill? No [email or web address] Information not available 02/19/2023 In The 14 Days Before Symptom Onset, Have You Had Close Contact With A Person Who Is Under Investigation For COVID-19 While That Person Was Ill? No [email or web address] Information not available 02/19/2023 Have You Been To An Area Known To Be High Risk For COVID-19? No [email or web address] Information not available 02/19/2023 Are You Deaf Or Do You Have [...] Date Of Your Most Recent Tobacco Screening? 08/11/2024 Information not available 08/11/2024 How Many Children Do You Have? 0 Information not available 05/07/2022 Do You Use Your Seat Belt Or Car Seat Routinely? Yes Information not available 05/07/2022 Are You Sexually Active? No Information not available 05/07/2022 Are You Passively Exposed To Smoke? No Information not available 05/07/2022 Do You Use Sunscreen Routinely? No Information not available 05/07/2022 Do You Have Difficulty Walking Or Climbing Stairs? No Information not available 05/07/2022 Sex: Female Functional Status Question Answer Note LastModified by [employer] ion Details LastModified Time Do you use any illicit or recreational drugs? No [email or web address] Information not available 02/19/2023 Do you or have you ever used any other forms of tobacco or nicotine? No [email or web address] Information not available 02/19/2023 What is your level of alcohol consumption? Occasional Information not available 05/07/2022 Are you currently employed? No Information not available 12/10/2023 Are you able to walk? YESWOREST Information not available 05/07/2022 Do you have difficulty doing errands alone? No Information not available 05/07/2022 Are you able to care for yourself? Yes Information n ot available 05/07/2022 Do you have difficulty dressing or bathing? No Information not available 05/07/2022 What is your exercise level? Moderate Information not available 05/07/2022 Mental Status Question Answer Note LastModified by Organizat ion Details LastModified Time Do you feel stressed (tense, restless, nervous, or anxious, or unable to sleep at night)? [id number] Information not available 05/07/2022 Do you have difficulty concentrating, remembering or [...] Time influenza, unspecified formulation 2 [facility] 09:32:19 COVID-19, mRNA, LNP-S, PF, 100 mcg/0.5mL dose or 50 mcg/0.25mL dose 1 kp daily [facility] 05/07/2022 09:36:54 COVID-19, mRNA, LNP-S, PF, 100 mcg/0.5mL dose or 50 mcg/0.25mL dose 1 kp daily [facility] 05/07/2022 09:36:59 COVID-19, mRNA, LNP-S, PF, 100 mcg/0.5mL dose or 50 mcg/0.25mL dose 1 kp daily [facility] 05/07/2022 09:37:05 COVID-19, mRNA, LNP-S, PF, 100 mcg/0.5mL dose or 50 mcg/0.25mL dose 2 kp daily [facility] 05/07/2022 09:37:10 COVID-19, mRNA, LNP-S, PF, 30 mcg/0.3 mL dose 2 kp daily [facility] 05/07/2022 09:37:20 zoster recombinant 0 completed Nader Wilkinson [facility] 09/13/2022 09:32:02 zoster recombinant [facility] 09/13/2022 09:32:24 influenza, unspecified formulation 4 completed CIARRA AYALA [address] [place], [address], [facility] 12/10/2023 13:45:44 Past Encounters Encounter ID Performer Location Encounter Start Date Encounter Closed Date Diagnosis/Indication Diagnosis SNOMED-CT Code Diagnosis ICD10 Code Diagnosis Note [id number] [facility] [address] [facility] [address],[place] [address] 05/07/2022 09:19:18 05/07/2022 10:05:56 Paroxysmal atrial fibrillation 354387606 I48.0 stable Chronic ob structive pulmonary disease 86376223 J41.0 stable Gout 66410855 M10.041 stable Pernicious anemia 146168 09 D51.0 will recheck levels Vitamin D deficiency 347 15183 E55.9 will recheck levels History of malignant neoplasm of thyroid 493453115 Z85.850 stable, thyroid removedsee s endo through [facility] Hypertensive disorder 38 303749 I10 will set up with lab workanxiou s today at [facility] [id number] [facility] [address],[place] [address] 06/24/2022 11:55:19 06/24/2022 15:24:16 Hypertensive disorder 21273082 I10 doing well Paroxysmal atrial fibrillation 317719194 I48.0 no palpitatio ns since presentati on Hematoma of lower leg 44 7413338 S80.12XD resolved [id number] [facility] [address], [place] [address] 09/14/2022 15:29:09 09/14/2022 16:37:22 Chronic obstructive pulmonary disease 21076220 J41.0 stableneed s refillphar magi changed in chart Hypertensive disorder 38 927630 I10 stable Paroxysmal atrial fibrillation 926525248 I48.[id number] [facility] [address] [facility], [place] [address] 11/09/2022 08:56:24 11/09/2022 10:11:54 Anxiety 28754479 F41.1 stable Chronic ob structive pulmonary disease 44662680 J41.0 stableneed s refillphar magi changed in chart Hypertensive disorder 38 803923 I10 stable Paroxysmal atrial fibrillation 471395925 I48.0 stable Pernicious anemia 762665 09 D51.0 will recheck levels Vitamin D deficiency 347 03859 E55.9 will recheck levels History of left total knee replacement 9381641340 751016 Z96.652 will set up with XR [id number] Fadi Wilkinson [facility] [address],[place] [address] 02/19/2023 08:27:30 02/19/2023 11:18:39 Acute bacterial sinusitis 75478603 J01.00 Urinary incontinence 165 139677 N39.3 doing well on myrbetriq Anxiety 84739251 F41.[id number] [facility] [address],[place] [address] 12/10/2023 13:31:34 12/10/2023 14:13:56 Active or passive immunization 252408560 Z23 stable Adult heal th examination 707677413 Z00.00 BP is excellent Depression screening 171 827703 Z13.31 SCREENING NEGATIVE [id number] Fadi Wilkinson [facility] [email or web address] [address] 01/26/2024 09:08:37 01/26/2024 09:33:39 Renewal of prescription 121278158 Z76.0 stable Urinary incontinence 165 887933 N39.3 stable Intracrani al meningioma 767206118 D32.0 case from her onc from thyroid case, recommende d fu screening Atrial fibrillation 4943 6004 I48.0 stable Chronic ob structive pulmonary disease 68498883 J41.[id number] [facility] [address],[place] [address] 03/10/2024 09:47:35 03/10/2024 15:39:35 Acute bronchitis 23610136 J20.8 [id number] [facility] [address],[place] [address] 03/24/2024 09:53:55 03/24/2024 10:32:40 Intracranial meningioma 646955337 D32.0 stable Atrial fibrillation 4943 6004 I48.0 stable Chronic ob structive pulmonary disease 37781715 J41.0 stable Body mass index 40+ - severely obese 576599677 Z68.41 under obesity, JUAREZ, heart disease/af ib, HTN and HLD [id number] [facility] [address],[place] [address] 05/10/2024 09:53:51 05/10/2024 14:41:18 Body mass index 40+ - severely obese 874706252 Z68.41 needs next dose up Acute bact erial sinusitis 69297475 J01.[id number] [facility] [address] [address] [place] [facility] [place] [address] 08/11/2024 10:46:35 08/11/2024 12:14:30 Depression screening 616955233 Z13.31 SCREENING NEGATIVE Acute low back pain 2788 34049 M54.50 will set up with prednisone and baclofen Health Concerns Section Related Observation LastModified by Organization Detai ls LastModified Time None Recorded Concern Status LastModified by Organization Details LastModified Time None Recorded Advance Directives Directive None Recorded Payers Insurance Date Sequence Insurance Name Policy Number Policy Roberts Covered Member ID Roberts Member ID Guarantor Name 08/11/2024 2 [facility] - [facility] [id number] Marjorie Guerrero [id number] Marjorie Guerrero 08/11/2024 1 [place]: [employer] Marjorie Guerrero [id number] Marjorie Guerrero Notes Date Note Type Note Provider Name a nd Address Organization Details Recorded Time 4 text/html f/u medication urinary incontinence: will set with alt since the mirabegron is now not covered meningioma: needs f/u MRI from previous scan from her oncologistbenign at previous imaging, will f/u to make sure no changes have occurred atrial fib: stable, no worsening symptomsno sob, no chest pain, no fever, no chills COPD: stable otherwise doing wellno other questions today CIARRA AYALA [address] [place], [address], [facility] 01/26/2024 09:30:02 5 text/html c/o URI symptoms The patient is participating in this appointment via telemedicine communication with a phone call/video calling service ([employer])The patient consents to use of these platforms [...] was negative x1 today CIARRA AYALA [address] [place], [address], [facility] 03/10/2024 15:14:27 5 text/html f/u weight loss/sleep apnea patient is diagnosed with JUAREZ, atrial fibrillation, HLD, HTNrecommended by her personal lines sales executive to start on Zepbound for the obesity and the JUAREZ the patient and I discussed options, will place order and f/u with patient for the prior auth that will most likely be needed patient is fairly activedoes eat will, tries to keep calorie count to around 1000 to 1200 calories per daywalks her dog a lot does have to be careful about activity due to the impact on her heart will fu with the order and PA CIARRA AYALA [address] [place], [address], [facility] 03/24/2024 10:28:11 5 text/html medication f/u BMI/JUAREZ: patient has been doing well on the zepbound no side effects, tolerates it well, needs next dose up the patient has been doing well overallthe patient is down from 234 lbs so 222 lbs the patient recovered from the acute sinusitisthe patient did well on the abx, no side effects improving sinus infection will monitor symptoms CIARRA [address] [place], [address], [facility] 05/10/2024 10:17:46 5 text/html c/o lumbago with sciatica right side started last night, yesterday, suddern sharp electric sensation from her buttock to her right knee, no trauma or injuryis active but nothing different than normalmost likely sciatica given presentationworsens after sitting prolonged period of time and laying flat the patient and I discussed optionswill start on pred taper and baclofen for conservative approach and she will update me on Wednesday CIARRA AYALA [address] [place], [address], [facility] 08/11/2024 11:31:58 OBGyn Episode No OBEpisode recorded.
--- OUTSIDE RECORDS SUMMARY | 2024-08-30 08:02 | XMS_ITS | Patient Health Record ---
Author Organization [facility] Address [address] [place] [address] Care Team Providers Care Aircraft Designer Name Role Phone Jaja WEISS, Fadi Primary Care Provider Jasmyne Denson Unavailable [phone] Allergies No Known Allergies Reason For Referral No Information Medications Medication SIG (Take, Route, Frequency, Duration) Notes Start Date End Date Status Zepbound 2.5 MG/0.5ML 0.5 mL Subcutaneous Active Calcium Citrate 1000 1 tablet Orally Once a day Active ProAir HFA Active Celecoxib 200 MG 1 capsule with food Orally Once a day; Duration: 30 day(s) Active Flonase Active Levoxyl 150 MCG 1 tablet in the morn ing on an empty stomach Orally Once a day; Duration: 30 day(s) Active clonazePAM 0.5 MG 1 tablet Orally Once a day Active Losartan Potassium 100 MG 1 tablet Orall y Once a day; Duration: 30 day(s) Active Breo Ellipta 200-25 MCG/ACT 1 puff Inhalation Once a day Active Alendronate Sodium 70 MG 1 tablet 30 min utes before the first food, beverage or medicine of the day with plain water Orally Active Allopurinol 100 MG 1 tablet Orally Once a day; Duration: 30 day(s) Active Eliquis 5 MG as directed Orally Active Vitamin D 1 tablet Orally Once a day Active Myrbetriq 25 MG 1 tablet Orally Once a day Active Incruse Ellipta 62.5 MCG/ACT 1 puff Inhalation Once a day Active Centrum Women - as directed Orally Active Immunizations Vaccine Route Administration Date Status Comme nts COVID-19 Moderna Vaccine Unknown 04/30/2020 Administere d 1st 06/01/20 Social History Tobacco Use: Social History Observation Description Date Details (start date - stop date) Never Smoker NA - NA Tobacco use other than smoking: Question Answer Notes Are you an other tobacco user? No Tobacco Control (Standard) Question Answer Notes Tobacco use: Nonsmoker Additional Findings: Tobacco non-user Ex-cigaret te smoker [...] Problem Acquired hammer toe of right foot (1911574326453903) Other hammer toe(s) (acquired), right foot (M20.41) Active confirmed Problem Acquired hammer toe of left foot (5197532323382341) Other hammer toe(s) (acquired), left foot (M20.42) Active confirmed Problem Localized, primary osteoarthritis of the ankle and/or foot (507268545) Arthritis of joint of lesser toe, right (M19.071) Active confirmed Vital Signs Blood pressure diastolic 76 mm Hg 05/03/2024 Height 5ft3in in 05/03/2024 Blood pressure systolic 130 mm Hg 05/03/2024 Weight 220 lbs 05/03/2024 BMI 38.97 kg/m2 05/03/2024 Encounters Encounter Location Date Provider Diagnosis [facility] [address] 05/03/2024 Jasmyne Gil Pain in right toe(s) M79.674 ; Other hammer toe(s) (acquired), right foot M20.41 ; Arthritis of joint of lesser toe, right M19.071 and [place] [facility] [address] 02/22/2024 Jasmyne Gil [address] [address] 05/03/2024 Jasmyne Gil Assessments Encounter Date Diagnosis (ICD Code) Assessment Notes Treatment Notes Treatment Clinical Notes Section Notes 05/03/2024 Pain in right toe(s) (ICD-10 - M79.674) 05/03/2024 Other hammer toe(s) (acquired), right foot (ICD-10 - M20.41) 05/03/2024 Arthritis of joint of lesser toe, right (ICD-10 - M19.071) 05/03/2024 [place] (ICD-10 - L84) Plan Of Treatment Pending Test Test Name Order Date X ray : Foot, right 3V 05/03/2024 77475 - Tenotomy, open flexor 03/14/2020 Insurance Providers Payer Name Payer Address Payer Phone Subscriber Number Group Number Insured Name Patient Relationship to Insured Coverage Start Date Coverage End Date Medicare National Govt S[employer] [address] [place] [address] [id number] Marjorie Guerrero Self - patient is the insured [employer] [address] [place] [address] [id number] Marjorie Guerrero Self - patient is [...] right shoulder removal 2016 endovenous lazer surgery [phone] colonoscopy 2016 endoscopy 2016 hammer toe surgery 04/22/2018 endovenous laser 03/25/2020 removal bone spurs right shoulder 2017 ruptured vericose veins [phone] Hospitalization History Reason Date(Month/Year) Spiral fracture- left arm 2011
--- OUTSIDE RECORDS SUMMARY | 2024-08-30 08:02 | XMS_ITS | Patient Health Record ---
Author Organization [facility] Address [address] [place] [address] [address] [place] [address] Care Team Providers Care Power Press Tender Name Role Phone BROOKS NIETO Primary Care Provider Soraya Mejia Unavailable [phone] Allergies No Known Allergies Reason For Referral No Information Medications Medication SIG (Take, Route, Frequency, Duration) Notes Start Date End Date Status Allopurinol 100MG 1 ORAL twice daily; Duration: -3 07/06/2013 Active Furosemide 20 MG 1 tablet Orally prn Not-Taking Amoxicillin 500MG 4 CAPS ORAL 1 HOUR BEFORE PROCEDURES; Duration: -3 07/06/2013 Active Myrbetriq 25 MG 1 tablet Orally Once a day Active Calcium Citrate Plus - 1000 mg Orally On ce a day Active Flonase 50 MCG/ACT 1 spray in each nost ril Nasally Once a day Not-Taking Centrum Silver Women 50+ Active Celecoxib 200 MG 1 capsule with food Orally Once a day; Duration: 30 day(s) Active ProAir HFA 108 (90 [...] MG 1 tablet Orally Twic e a day; Duration: 30 day(s) Active PreserVision AREDS - 1 tablet Orally Twi ce a day Active Alendronate Sodium 70 MG 1 tablet 30 min utes before the first food, beverage or medicine of the day with plain water Orally; Duration: 30 day(s) Active Vitamin D3 2000 IU 1 ORAL daily; Durati on: -3 05/11/2011 Active Incruse Ellipta 62.5 MCG/INH 1 puff Inhalation Once a day Active Clotrimazole-Betamethason e 1-0.05 % APPLY TO AFFECTED AREA TWICE A DAY EXTERNALLY FOR 14 DAYS (MUST LAST 30 DAYS); Duration: 30 Not-Takin g Cetirizine HCl 10 MG 1 tablet Orally Onc e a day; Duration: 30 day(s) Active Social History Tobacco Use: [...] Status Risk Notes Problem Vitamin D deficiency (05252952) Vitamin D deficiency, unspecified (E55.9) Active confirmed Problem Postmenopausal atrophic vaginitis (43552242) Postmenopausal atrophic vaginitis (N95.2) Active confirmed Problem Age-related osteoporosis (480328396) Age-related osteoporosis without current pathological fracture (M81.0) Active confirmed Problem Urinary incontinence (055199522) Unspecified urinary incontinence (R32) Active confirmed Problem Hyperparathyroidism (77069136) Hyperparathyroid ism, unspecified (E21.3) Active confirmed Problem Morbid obesity (disorder) (101479850) Morbid (severe) obesity due to excess calories (E66.01) Active confirmed Problem Localized morphea (437767832) Lichen sclerosus et atrophicus (L90.0) Active confirmed Problem Unspecified menopausal and perimenopausal disorder (N95.9) Active confirmed Problem Vitamin D deficiency (44532651) Vitamin D deficiency, unspecified (E55.9) Active confirmed Problem Leiomyoma of uterus (37386831) Leiomyoma of uterus, unspecified (218.9) Active confirmed Major Problem Hypothyroidism (58023182) Unspecified hypothyroidism (244.9) Active confirmed Major Problem Gout (38236964) Gout, unspecified (274.9) Active confirmed Major Problem Essential hypertension (93785430) Unspecified essential hypertension (401.9) Active confirmed Major Problem Menopausal symptom (25330331) Symptomatic menopausal or female climacteric states (627.2) Active confirmed Major Problem Gynecological examination normal (073385358316530) Routine gynecological examination (V72.31) Active confirmed Major Problem Screening for malignant neoplasm of colon (865897327) Special screening for malignant neoplasms, colon (V76.51) Active confirmed Major Vital Signs Temperature 97.4 degrees Fahrenheit 10/29/2023 Blood pressure diastolic 76 mm Hg 10/29/2023 Height 62.25 in 10/29/2023 Blood pressure systolic 122 mm Hg 10/29/2023 Weight 225 lbs 10/29/2023 BMI 40.82 kg/m2 10/29/2023 Encounters Encounter Location Date Provider Diagnosis [place] [address] [address] [address] 10/29/2023 Soraya Love Encounter for gynecological examination (general) (routine) with abnormal findings Z01.411 ; Encounter for screening mammogram for malignant neoplasm of breast Z12.31 ; Family history of malignant neoplasm of breast Z80.3 ; Age-related osteoporosis without current pathological fracture M81.0 ; Lichen sclerosus et atrophicus L90.0 and Leiomyoma of uterus, unspecified D25.9 [facility] [place] [address] [address] [address] 10/29/2023 Soraya Love Assessments Encounter Date Diagnosis [...] Ultrasound : Breast, left 08/24/2014 MAMMOGRAM, SCREENING 07/09/2014 MAMMOGRAM, SCREENING 09/16/2022 Bone Density 09/04/2020 Bone Density 07/09/2014 25OH VITAMIN D 12/02/2020 25OH VITAMIN D 06/10/2021 25OH VITAMIN D 10/23/2021 25OH VITAMIN D 07/02/2021 25OH VITAMIN D 11/07/2020 25OH VITAMIN D 04/03/2021 COMPREHENSIVE METABOLIC PANEL 11/07/2020 N-TELOPEPTIDE CROSS 11/07/2020 PTH, INTACT 10/23/2021 PTH, INTACT 06/10/2021 PTH, INTACT 04/03/2021 PTH, INTACT 11/07/2020 THIN PREP,HPV,RISA IF HPV+ (>29YR)(SCRN) 11/23/2017 TSH 11/07/2020 BONE DENSITY 09/16/2022 BONE DENSITY 10/29/2023 MM Digital Mammo Screening 12/06/2018 MM Digital Mammo Screening 10/29/2023 MM Digital Mammo Screening 09/16/2022 ULTRASOUND: PELVIC W/TRANSVAGINAL 2017 Next Appt Details Provider Name:Soraya Roger rizo, 11/02/2024 01:20:00 PM, [address] [facility], [address], [place], [address], Insurance Providers Payer Name Payer Address Payer Phone Subscriber Number Group Number Insured Name Patient Relationship to Insured Coverage Start Date Coverage End Date MEDICARE [address] [place], [place] [id number] ARMINDA, SOFYA Self - patient is the insured [facility] [address] [place] [address] [id number] SOFYA HILLIARD Self - patient is [...]
--- OUTSIDE RECORDS SUMMARY | 2024-08-30 08:02 | XMS_ITS | Patient Health Record ---
Author Organization [facility] Address [address] [place] [address] Care Team Providers Care Sales Marketing Coordinator Name Role Phone Mamadou Magdaleno M.D. Primary Care Provider Patti judjanessaWil Pickett Unavailable [phone] Allergies Allergen (clinical drug ingredient) Drug/Non Drug Allergy documented on EMR Reaction Allergy Type Onset Date Status seasonal (uncoded) Unknown Allergy A ctive Reason For Referral No Information Medications Medication SIG (Take, Route, Fr equency, Duration) Notes Start Date End Date Status Lisinopril 10mg 1 tablet Orally Once a day Active Aspir-81 81 MG 1 tablet Orally Once a day Active Vitamin D 2000iu 1 tablet Orally Once a day Active Vitamin B12 1000mcg 1 tablet im monthly Active Synthroid 0.15mg 1 tablet Orally Once a day Active Allopurinol 100 MG 1 tablet Orally twice a day Active MoviPrep 100 GM as directed Orally a s directed for 1 dose 05/16/2014 Active LORazepam .5mg 1 tablet as needed Orally prn Active Ibuprofen 600mg 1 tablet Orally prn Active Problems Problem Type SNOMED Code ICD Code Onset Dates Problem Status W/U Status Risk Notes Problem Vitamin B6 deficiency (987335016) Vitamin B<SUB>6</SUB> deficiency (266.1) Active confirmed Problem Vitamin deficiency (24597355) Deficiency of other vitamins (269.1) Active confirmed Problem Iron deficiency anemia (280.9) Active confirmed Plan Of Treatment Future Test Test Name Order Date UPPER GI ENDOSCOPY 05/15/2014 COLONOSCOPY 05/15/2014 Insurance Providers Payer Name Payer Address Payer Phone Subscriber Number Group Number Insured Name Patient Relationship to Insured Coverage Start Date Coverage End Date [employer] [address] [place] [address] [id number] SOFYA HILLIARD Self - patient is the insured Medical (General) History Medical History History ICD Code colonoscopy 05-20-2005-neg ex cept for diverticulosis---3 hemoccult cards negative as well HTN Denies MD,DM,CVA,Lung disease,renal dise ase Hypothyroidism--thyroid cancer as below Gout B12 deficiency--receiving B12 shots Surgical History Surgery Date(Month/Year) Gastric bypass in December [address] Gonzalez with a subswquent 90 pound weight loss Eye surgery-Lasik cholecystectomy vein stripping in her 's left knee replacement in 2010 Thyroidectomy in 2000 for cancer Having LE vein surgeries with
== END 2024-08-30 07:59 | disposition home or self-care (01) ==
LOC: HO.XRAY 07:58
PROVIDERS: PCP Internal Medicine; Visit Provider Physician Assistant
DX: M54.41 Lumbago with sciatica, right side (principal)
CPT/HCPCS: 72100; 73521

== ENCOUNTER → 2024-08-30 08:05 | Outpatient (BNV) | payer MEDICARE, OTHER, SELFPAY | PROVIDERS: PCP Internal Medicine; Visit Provider Radiology Diagnostic Radiology | DX: M16.0 Bilateral primary osteoarthritis of hip (principal); M51.370 Other intervertebral disc degeneration, lumbosacral region with discogenic back pain only | CPT/HCPCS: 72100; 73521 ==

== ENCOUNTER → 2024-09-14 06:19 | Outpatient (BNV) | payer MEDICARE, OTHER, SELFPAY | PROVIDERS: PCP Internal Medicine; Visit Provider Radiology Diagnostic Radiology | DX: G96.191 Perineural cyst (principal) | CPT/HCPCS: 72148 ==

== ENCOUNTER 2024-09-14 07:14 | Outpatient (REF) | payer MEDICARE, OTHER, SELFPAY ==
--- NOTE | ~2024-09-14 | MR_ITS ---
CLINICAL HISTORY: KISSING SPINE, BAASTRUP DISEASE OF LUMBAR R O HERNIATION OR IMPINGMENT MRI lumbar spine without contrast Comparison: None provided Findings: 1 cm well-defined predominantly cystic lesion right canal at L3-4. Thecal sac is compressed and displaced by this lesion. Question cystic tumor versus perineural cyst. Recommend repeat study with IV contrast and directed images. L5-S1 facet hypertrophy without canal stenosis. L4-5 facet hypertrophy and slight anterolisthesis. Mild canal stenosis with neural foraminal narrowing. L3-4 findings discussed above. There is facet hypertrophy and severe spinal stenosis. L2-3 facet hypertrophy and osteophytosis without canal stenosis. Large T11-12 central osteophyte and/or disc bulge. Mild spinal stenosis without neural foraminal narrowing. Remaining levels demonstrate minimal degenerative change. No other canal or neural foraminal narrowing. No acute bony signal abnormality identified. Bony alignment is normal with exception of the L4-5 level. Impression: 1 cm right intra canalicular cystic abnormality at L3-4 Family results in severe spinal stenosis and thecal sac displacement Recommend follow-up directed study without and with contrast Multilevel degenerative change as outlined above This document has been electronically signed by: Itz Chacon MD on 09/14/2024 22:43:03
== END 2024-09-14 07:15 | disposition home or self-care (01) ==
LOC: HO.MRI 07:14
PROVIDERS: PCP Internal Medicine; Visit Provider Physician Assistant
DX: M48.26 Kissing spine, lumbar region (principal)
CPT/HCPCS: 72148

== ENCOUNTER 2024-09-21 09:59 | Outpatient (REF) | payer MEDICARE, OTHER, SELFPAY ==
--- OUTSIDE RECORDS SUMMARY | 2023-09-22 06:00 | XMS_ITS ---
Author Organization [facility] Address [address] [facility] [address] [place] [address] Care Team Providers Care Sugar Plantation Manager Name Role Phone BROOKS NIETO Primary Care Provider Soraya Mejia Unavailable [phone] REASON FOR VISIT INTERVAL - MED CHECK Encounters Encounter Location Date Provider Diagnosis [facility] [employer] [address] [address] 09/22/2023 Soraya Love Plan Of Treatment Next Appt Details Provider Name:Soraya rizo, 11/02/2024 01:20:00 PM, [address] [place] [address], [address], [place], [address], Progress Notes * SOFYA HILLIARDDOB:[birth year] (74 yo F)Acc No.[id number]:09/22/2023 Patient: CROW HUTCHINSONRICIA Appointment Provider: Marshall Love M.D. :1950 A ge:73 Y S ex:Female Date:09/22/2023 Address:[address] [place], [place] [phone] Pcp:BROOKS NIETO Subjective: * Chief Complaints: * [...] current pathological fracture, Postmenopausal atrophic vaginitis. * Living Skills Advisor History: G ravida/ Para 0 /0. S [...] Electronic signature of Riki Love MD on 09/21/2024 at 10:50 AM EDT Sign off status: Pending * Appointment Provider: Marshall Love M.D. Date: 09/22/2023 Generated for Sarah nicholson/Laura/Sergeiitting on: 09/21/2024 10:50 AM EDT
--- NOTE | ~2024-09-21 | MR_ITS ---
EXAMINATION: MR LUMBAR SPINE WITH CONTRAST CLINICAL INFORMATION: Follow-up postcontrast examination for cystic abnormality at L3-4. Synovial cyst versus cystic neoplasm. COMPARISON: MR lumbar 09/14/2024. TECHNIQUE: The patient returned for MR imaging of the lumbar spine following sequences: sagittal T2, axial T1 pre and fat-sat, and axial and sagittal T1 post fat saturated sequences. FINDINGS: The cystic abnormality previously described at L3-4 demonstrates no perceptible nodular or other enhancement, appears to be arising from the right facet joint and is consistent with a synovial cyst. It measures approximately 1.2 x 1.0 x 1.7 cm (AP, TRV, CC). This is severely compressing the right subarticular recess, and severely compressing the right aspect of the thecal sac resulting in severe central canal stenosis, and severe right subarticular recess stenosis. There is undoubtedly impingement of the traversing L4 nerve roots on the right, and possibly impingement of the L5 roots as well. There is no abnormal intra-axial or extra medullary enhancement at any level. No abnormal bone marrow enhancement is identified. MR/MR lumbar spine w con IMPRESSION: 1. 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 It is resulting in severe right subarticular recess and severe central canal stenosis. 2. Remainder of findings stable, as previously described on the prior report. Electronically signed by: Moris Arreaga MD 09/21/2024 11:27 AM EDT
--- OUTSIDE RECORDS SUMMARY | 2024-09-21 10:49 | XMS_ITS | Clinical Summary ---
Author Organization [facility] Address [address] [address] Phone Care Team Providers Care Bridges Supervisor Name Role Phone Fadi Wilkinson Primary Care Provider [phone] Allergies No known active allergies Medications AMOXICILLIN/POTA SSIUM CLAV (AMOXICILLIN-POT CLAVULANATE ORAL) Take by mouth. Active LISINOPRIL ORAL Take by mouth. Active LEVOTHYROXINE SODIUM (LEVOTHYROXINE ORAL) Take by mouth. Active ALLOPURINOL ORAL Take by mouth. Active CHOLECALCIFEROL, VITAMIN D3, (VITAMIN D3 ORAL) Take by mouth. Active CYANOCOBALAMIN, VITAMIN B-12, (VITAMIN B-12 ORAL) Take by mouth. Active CYANOCOBALAMIN, VITAMIN B-12, (VITAMIN B-12 INJ) Inject as directed. Active FERROUS SULFATE ORAL Take by mouth. Active TURMERIC ROOT EXTRACT ORAL Take by mouth. Active VIT C/E/ZN/COPPR/LUT EIN/ZEAXAN (PRESERVISION AREDS 2 ORAL) Take by mouth. Active loratadine (CLARITIN) 10 mg tablet Take 10 mg by mouth daily. Active celecoxib (CELEBREX) 200 MG capsule Take 200 mg by mouth 2 (two) times a day. Active losartan (COZAAR) 100 MG tablet Take 100 mg by mouth daily. Active montelukast (SINGULAIR) 10 mg tablet Take 10 mg by mouth nightly at bedtime. Active tiotropium bromide (SPIRIVA RESPIMAT) 1.25 mcg/actuation Mist Inhale into the lungs. Active ELIQUIS 5 mg tablet 05/10/2023 Active BREO ELLIPTA 200-25 mcg/dose inhaler 06/25/2023 Active MYRBETRIQ 25 mg Tb24 04/12/2023 Active Active Problems No known active problems Family History Medical History Relation Comments Breast cancer Maternal Aunt Cancer Mother Ovarian Relation Status Comments Maternal Aunt Mother Social History Tobacco Use Types Packs/Day Years Used Date Smoking Tobacco: Former Smokeless Tobacco: Former Alcohol Use Standard Drinks/Week Comments Yes 0 (1 standard drink = 0.6 oz pur e alcohol) Occasionally/socially Education Answer Date Recorded Are you interested in more education? Not on shawn e 06/26/2022 Are you concerned about learning? Not on file 06/26/2022 No 06/26/2022 No 06/26/2022 Digital Access Answer Date Recorded No 07/27/2022 No 07/27/2022 Reliable internet access at home? Not on file 07/27/2022 Device with a working camera? Not on file Comments Unknown Sex and Gender Information Value Date Recorded Sex Assigned at Female 03/08/2017 9:37 AM EST Legal Sex Female 8:24 AM EDT Gender Identity Not on file Sexual Orientation Not on file Last Filed Vital Signs Vital Sign Reading Time Taken Comments Blood Pressure 138/85 06/28/2023 6:10 PM EDT Pulse 77 06/28/2023 6:10 PM EDT Temperature 36.7 C (98 F) 06/28/2023 6:10 PM EDT Respiratory Rate 12 06/28/2023 6:10 PM EDT Oxygen Saturation 95% 06/28/2023 6:10 PM EDT Inhaled Oxygen Concentration - - Weight - - Height - - Body Mass Index - - Plan of Treatment Health Maintenance Due Date Last Done Comments CREATININE LEVEL 1950 LIPID PANEL 1950 POTASSIUM LEVEL 1950 TSH LEVEL 1950 DEPRESSION SCREENING 1962 SMOKING Hx and SMOKELESS TOBACCO SCREENING 07/22/1963 HEPATITIS C SCREENING 1968 MAMMOGRAM 1990 COLOGUARD 07/22/1995 COLONOSCOPY 07/22/1995 COLORECTAL CANCER SCREENING 07/22/1995 FIT TEST 07/22/1995 FOBT 07/22/1995 SIGMOIDOSCOPY 07/22/1995 VIRTUAL COLONOSCOPY 07/22/1995 OSTEOPOROSIS SCREENING INITIAL (ONE-TIME) 07/22/2015 COVID-19 VACCINE ( season) 2023 05/11/2023, 12/08/2022, 11/27/2021, Additional history exists Adult Td,Tdap Booster 05/10/2033 05/11/2023 ZOSTER VACCINES Completed 03/04/2020, 11/29, 07/02/2015 PNEUMOCOCCAL VACCINES (50+ years) Completed 10/10/2021, 01/10/2016 RSV VACCINE Completed 11/03/2022 HEPATITIS A VACCINES Aged Out No long er eligible based on patient's age to complete this topic HIB VACCINES Aged Out No longer eligi ble based on patient's age to complete this topic MENINGOCOCCAL VACCINES (ACWY) Aged Out No longer eligible based on patient's age to complete this topic MENINGOCOCCAL VACCINES (B) Aged Out N o longer eligible based on patient's age to complete this topic Medical Devices Not on file Insurance MEDICARE PART A & B [facility] MEDICARE SUPPLEMENT MEDICARE PART A & B [employer] MEDICARE SUPPLEMENT MEDICARE PART A & [facility] [employer] MEDICARE SUPPLEMENT MEDICARE PART A & B [facility] MEDICARE SUPPLEMENT MEDICARE PART A & B [facility] MEDICARE SUPPLEMENT MEDICARE PART A & B [facility] MEDICARE SUPPLEMENT MEDICARE PART A & B Member Subscriber Plan / Payer ( fective 2015-Present) Name:Marjorie Guerrero Member ID:[id number] Relation to Subscriber:Self Name:Marjorie Guerrero Subscriber ID:[id number] Payer ID:[id number] Group ID:Not on file Type:Medicare Address: [employer] [address] MEDICARE SUPPLEMENT MEDICARE PART A & B [facility] MEDICARE SUPPLEMENT MEDICARE PART A & B [facility] MEDICARE SUPPLEMENT Care Teams Bridges Supervisor Relationship Specialty Start Date End Date Fadi Wilkinson DO [email or web address] PCP - General Internal Medicine 06/28/23 Additional Source Comments The information contained in this document represents components of the legal health record. It is not the complete legal health record.[facility]
--- OUTSIDE RECORDS SUMMARY | 2024-09-21 10:50 | XMS_ITS | Data Portability ---
Author Organization [facility], Telehealth Patient Home Address [address] [place] [address] Assessment Encounter Date Assessment Date Assessment LastModified [...] Imaging MRI, brain, w/wo contrast 2023 024 [facility] Central Scheduling, [address] [place] [address], [address], 02/02/2024 08:32:36 Medication Orders prednison e 10 mg tablet 2024 025 [facility]Pharmacy #[id number], [address] [place], [address], 08/11/2024 11:28:19 baclofen 10 mg tablet 2024 025 [facility]Pharmacy #[id number], [address] [place], [address], 08/11/2024 11:28:19 Zepbound 5 mg/0.5 mL subcutane ous pen injector 2024 025 [facility] [address] [place], [address], 08/11/2024 11:26:22 Zepbound 2.5 mg/0.5 mL subcutane ous pen injector 2024 025 [facility], [facility], CIARRA Camp[place], [address], 05/23/2024 12:11:05 prednison e 10 mg tablet 2024 025 [facility] [address] [place], [address], 08/11/2024 11:26:32 amoxicill in 875 mg-potass ium clavulana te 125 mg tablet 2024 025 [facility] [address] [place], [address], 08/11/2024 10:57:08 solifenac in 10 mg tablet 2023 024 [facility], [facility], [place], [address], 01/26/2024 09:19:50 Patient TargetsNo targets recorded. Patient [...] contr ast No observ ation record ed. [address] (Medical Records) [address] [place], [address], 02/15/2024 15:43:40 02/15/20 24 02/13/2024 MRI, brain , w/wo contr ast No observ ation record ed. [address] (Medical Records) [address] [place], [address], 02/15/2024 15:43:40 02/25/20 24 01/31/2024 bone densi ty No observ ation record ed. [email or web address] Not Available 2023 09:03:50 03/06/19 25 01/31/2024 bone densi ty No observ ation record ed. [email or web address] [address], [address], 03/06/2024 10:26:34 03/06/19 25 01/31/2024 DEXA No observ ation record ed. [facility] [address], [address], 03/06/2024 11:04:34 03/06/19 25 01/31/2024 bone densi ty No observ ation record ed. [address], [address], 03/06/2024 11:04:53 03/06/19 25 01/31/2024 bone densi ty No observ ation record ed. [email or web address] [address] [place], [address], 03/06/2024 13:44:05 08/31/19 25 08/30/2024 XR, hip + pelvi s, bilat eral, 2 view No observ ation record ed. [facility] (Medical Records) [address] [place], [address], 08/30/2024 16:47:25 08/31/19 25 08/30/2024 XR, hip + pelvi s, bilat eral, 2 view No observ ation record ed. [facility] (Medical Records) [address] [place], [address], 08/30/2024 16:47:26 08/31/19 25 08/30/2024 XR, lumbo sacra l spine , 2 or 3 view No observ ation record ed. [facility] (Medical Records) [address] [place], [address], 08/30/2024 16:47:26 08/31/19 25 08/30/2024 XR, lumbo sacra l spine , 2 or 3 view No observ ation record ed. [facility] (Medical Records) [address] [place], [address], 08/30/2024 16:47:26 09/14/19 25 09/13/2024 MAMMO , scree micaela, digit al, bilat eral No observ ation record ed. [email or web address] [facility] [address] [facility] [address], [place], [address], 09/14/2024 07:41:39 09/15/19 25 09/14/2024 MRI, lumba r spine , w/o contr ast No observ ation record ed. [facility] (Medical Records) [address] [place], [address], 09/15/2024 12:45:32 Result Notes None recorded. Problems Name Problem SNOMED Code Status Onset Date Resolution Date Notes Provider Name and Address Organization Details Recorded Time Phlebiti s 87944923 Active 2022 Yudith daily [facility] [employer] [facility] [employer] 3 08:41:18 Herpes zoster 7556442 Active 2022 Yudith daily [employer] [facility] [employer] 3 08:41:23 Late onset asthma 557543780 Active 2022 Yudith daily [employer] [facility] [employer] 3 08:41:35 Sleep apnea 39346545 Active 2022 on CPAP Yudith daily [facility] [employer] [facility] 3 08:44:27 History of malignan t neoplasm of thyroid 786146261 Active 2022 Yudith daily [employer] [facility] [employer] 3 08:42:02 Hammer toe 304659275 Active 2022 correctiv e surgery 04/22/2018 CIARRA AYALA [address] [place], [address], [facility] 3 09:52:08 Hyperten sive disorder 52904892 Active 2022 Yudith daily [employer] 3 08:43:15 Paroxysm al atrial fibrilla tion 928321994 Active 2022 Yudith daily [employer] 3 08:43:20 Chronic obstruct joseph pulmonar y disease 35976037 Active 2022 Yudith daily [facility] [employer] [facility] [employer] 3 08:43:49 Anxiety 73310812 Active 2022 Yudith daily [facility] [facility] [employer] 3 08:43:57 Gout 65073676 Active 2022 Yudith daily [facility] [employer] [facility] [employer] 3 08:44:03 Fracture of humerus 25222908 Active 2022 Yudith daily [facility] [employer] [facility] [employer] 3 08:44:14 Osteopor osis 33146644 Active 2022 Yudith daily, [facility] 3 08:44:33 Pernicio us anemia 72499002 Active 2022 Yudith daily, [employer] 3 08:44:41 Vitamin D deficien cy 46420421 Active 2022 CIARRA AYALA [address] [place], [address], [facility] 3 09:47:05 Hematoma of lower leg 621551447 Active 2022 Fadi Wilkinson DO [address] [place], [address], [facility] 3 12:49:51 Inguinal pain 368553572 Active 2022 CIARRA AYALA [address] [place], [address], [facility] 3 10:09:55 Mass of uterus 05727961108 9109 Active 2022 CIARRA AYALA [address] [place], [address], [facility] 3 13:45:02 Acute bacteria l sinusiti s 61908858 Active 2022 CIARRA AYALA [address] [place], [address], [facility] 3 09:33:03 Urinary incontin ence 651630966 Active 2022 CIARRA AYALA [address] [place], [address], [facility] 3 09:35:08 Acute sinusiti s 58661277 Active 2023 CIARRA AYALA [address] [place], [address], [facility] 4 14:50:48 Seasonal allergic rhinitis 619159552 Active 2023 CIARRA AYALA [address] [place], [address], [facility] 4 10:22:32 Hypothyr oidism 58081610 Active 2023 CIARRA AYALA [address] [place], [address], [facility] 4 10:23:00 Intracra nial meningio ks 679541824 Active 2023 CIARRA AYALA [address] [place], [address], [facility] 4 09:21:59 Atrial fibrilla tion 27376727 Active 2023 CAIRRA AYALA [address] [place], [address], [facility] 4 09:25:09 Acute bronchit is 13370777 Active 2024 CIARRA AYALA [address] [place], [address], [facility] 5 10:20:24 Acute low back pain 957905418 Active 2024 CIARRA AYALA [address] [place], [address], [facility] 5 11:25:15 Acute back pain with sciatica 828460059 Active 2024 CIARRA AYALA [address] [place], [address], [facility] 5 10:13:42 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 Procedures Surgical History Date Name Laterality Status Provider Name and Address Organization Details Recorded Time hammer toe operation completed CIARRA AYALA [address] [place], [address], [facility] 05/07/2022 09:52:24 thyroidectomy completed CIARRA MATHEWS [address] [place], [address], [facility] 05/07/2022 09:52:55 laparoscopic sleeve gastrectomy completed CIARRA AYALA [address] [place], [address], [facility] 05/07/2022 09:53:06 total knee replacement completed CIARRA AYALA [address] [place], [address], [facility] 05/07/2022 09:53:23 cholecystectomy completed CIARRA ECHOLS [address] [place], [address], [facility] 05/07/2022 09:53:32 Imaging Results None recorded. [...] Available Not Available meloxicam 15 mg tablet TAKE 1 TABLET EVERY DAY BY ORAL ROUTE WITH MEAL FOR 30 DAYS. active Not Available Not Available No t Available alendronate 70 mg tablet PLEASE SEE [...] t Available tramadol 50 mg tablet TAKE 1 TABLET BY MOUTH EVERY 6 HOURS NEEDED FOR 7 DAYS 2024 active Not Available Not Available Not [...] Not Available No t Available Sandra Calvin [facility] spacer USE DIRECTED. active Not Available [...] Relief 50 mcg/actuati on nasal spray,suspe nsion [place] 1 spray every day by intranasa l [...] in Arterial blood by Pulse oximetry Systolic And Diastolic Provider Name and Address Organization Details Last Updated DateTime 5 160.02 cm 41.5 kg/m2 503872. 41 g 74 /min 97 % 97 % 162/78 mm[Hg] Rowena Jaime [facility] 5 10:01:44 Date Recorded Body height Body mass index (BMI) Body weight Heart rate Oxygen saturation Oxygen saturation in Arterial blood by Pulse oximetry Systolic And Diastolic Provider Name and Address Organization Details Last Updated DateTime 5 160.02 cm 39.3 kg/m2 192381. 51 g 75 /min 99 % 99 % 142/86 mm[Hg] Jared Quispe [facility] 5 10:04:39 Date Recorded Body height Body mass index (BMI) Body weight Heart rate Oxygen saturation Oxygen saturation in Arterial blood by Pulse oximetry Systolic And Diastolic Provider Name and Address Organization Details Last Updated DateTime 5 160.02 cm 36.4 kg/m2 38456.5 9 g 73 /min 96 % 96 % 124/74 mm[Hg] Rowena Drew [facility] 5 11:08:41 Date Recorded Body height Body mass index (BMI) Body weight Heart rate Oxygen saturation Oxygen saturation in Arterial blood by Pulse oximetry Systolic And Diastolic Provider Name and Address Organization Details Last Updated DateTime 4 160.02 cm 40.2 kg/m2 730837. 11 g 77 /min 95 % 95 % 166/80 mm[Hg] Rowena Jaime [facility] 4 09:14:50 Social History Question Answer Notes LastModified by Organizat ion Details LastModified Time Tobacco Smoking Status [facility] 09:32:24 Are You Blind Or Do You Have Difficulty Seeing? No Information not available 05/07/2022 What Is Your Level Of Caffeine Consumption? Occasional Information not available 05/07/2022 In The 14 Days Before Symptom Onset, Have You Had Close Contact With A Laboratory-confi rmed COVID-19 While That Case Was Ill? No [email or web address] Information not available 02/19/2023 In The 14 Days Before Symptom Onset, Have You Had Close Contact With A Person Who Is Under Investigation For COVID-19 While That Person Was Ill? No [email or web address] Information not available 02/19/2023 Have You Been To An Area Known To Be High Risk For COVID-19? No [email or web address] Information not available 02/19/2023 Are You Deaf [...] Organizat ion Details LastModified Time Do you use any illicit or recreational drugs? No [email or web address] Information not available 02/19/2023 Do you or have you ever used any other forms of tobacco or nicotine? No Information not available 02/19/2023 What is your [...] anxious, or unable to sleep at night)? [id number] Information not available 05/07/2022 Do you have [...] Time influenza, unspecified formulation 2 completed Yudith daily [facility] 05/07/2022 09:32:19 COVID-19, mRNA, LNP-S, PF, 100 mcg/0.5mL dose or 50 mcg/0.25mL dose 1 kp daily [facility] 05/07/2022 09:36:54 COVID-19, mRNA, LNP-S, PF, 100 mcg/0.5mL dose or 50 mcg/0.25mL dose 1 kp daliy [facility] 05/07/2022 09:36:59 COVID-19, mRNA, LNP-S, PF, 100 mcg/0.5mL dose or 50 mcg/0.25mL dose 1 kp daily [facility] 05/07/2022 09:37:05 COVID-19, mRNA, LNP-S, PF, 100 mcg/0.5mL dose or 50 mcg/0.25mL dose 2 kp daily [facility] 05/07/2022 09:37:10 COVID-19, mRNA, LNP-S, PF, 30 mcg/0.3 mL dose 2 kp daily [facility] 05/07/2022 09:37:20 zoster recombinant 0 [facility]22 09:32:02 zoster recombinant 1 completed Nader daily [facility] 09/13/2022 09:32:24 influenza, unspecified formulation 4 completed CIARRA AYALA [address] [place], [address], [facility] 12/10/2023 13:45:44 Past Encounters Encounter ID Performer Location Encounter Start Date Encounter Closed Date Diagnosis/Indication Diagnosis SNOMED-CT Code Diagnosis ICD10 Code Diagnosis Note [id number] Fadi Wilkinson [facility] [address] [facility],[place] [address] 05/07/2022 09:19:18 05/07/2022 10:05:56 Paroxysmal atrial fibrillation 219284850 I48.0 stable Chronic ob structive pulmonary disease 39355617 J41.0 stable Gout 52970355 M10.041 stable Pernicious anemia 366933 09 D51.0 will recheck levels Vitamin D deficiency 347 93738 E55.9 will recheck levels History of malignant neoplasm of thyroid 827968687 Z85.850 stable, thyroid removedsee s endo through [facility] Hypertensive disorder 38 108723 I10 will set up with lab workanxiou s today at [facility] [id number] Fadi Wilkinson [facility] [address] [facility],[place] [address] 06/24/2022 11:55:19 06/24/2022 15:24:16 Hypertensive disorder 02374305 I10 doing well Paroxysmal atrial fibrillation 521855106 I48.0 no palpitatio ns since presentati on Hematoma of lower leg 44 1047980 S80.12XD resolved [id number] Fadi Wilkinson [facility] [address] [facility],[place] [address] 09/14/2022 15:29:09 09/14/2022 16:37:22 Chronic obstructive pulmonary disease 11884725 J41.0 stableneed s refillphar magi changed in chart Hypertensive disorder 38 084026 I10 stable Paroxysmal atrial fibrillation 246053526 I48.0 stable [id number] Fadi Wilkinson [facility] [address] [facility],[place] [address] 11/09/2022 08:56:24 11/09/2022 10:11:54 Anxiety 79306247 F41.1 stable Chronic ob structive pulmonary disease 25615199 J41.0 stableneed s refillphar magi changed in chart Hypertensive disorder 38 076035 I10 stable Paroxysmal atrial fibrillation 184000357 I48.0 stable Pernicious anemia 783576 09 D51.0 will recheck levels Vitamin D deficiency 347 65257 E55.9 will recheck levels History of left total knee replacement 9610689178 033747 Z96.652 will set up with XR [id number] Fadi Wilkinson [facility] [address] [facility] [address],[place] [address] 02/19/2023 08:27:30 02/19/2023 11:18:39 Acute bacterial sinusitis 28284985 J01.00 Urinary incontinence 165 147095 N39.3 doing well on myrbetriq Anxiety 05622223 F41.1 stable [id number] [facility] [address] [facility],[place] [address] 12/10/2023 13:31:34 12/10/2023 14:13:56 Active or passive immunization 770454449 Z23 stable Adult heal th examination 041455516 Z00.00 BP is excellent Depression screening 171 089204 Z13.31 SCREENING NEGATIVE [id number] Fadi Wilkinson [facility] [address] [facility] [address] [address] 01/26/2024 09:08:37 01/26/2024 09:33:39 Renewal of prescription 445689833 Z76.0 stable Urinary incontinence 165 800583 N39.3 stable Intracrani al meningioma 118747776 D32.0 case from her onc from thyroid case, recommende d fu screening Atrial fibrillation 4943 6004 I48.0 stable Chronic ob structive pulmonary disease 47648551 J41.0 stable [id number] Fadi Wilkinson [facility] [address] [place] [address] 03/10/2024 09:47:35 03/10/2024 15:39:35 Acute bronchitis 91775042 J20.8 [id number] Fadi Wilkinson [facility] [address] [place] [address] 03/24/2024 09:53:55 03/24/2024 10:32:40 Intracranial meningioma 097413972 D32.0 stable Atrial fibrillation 4943 6004 I48.0 stable Chronic ob structive pulmonary disease 99803286 J41.0 stable Body mass index 40+ - severely obese 205473222 Z68.41 under obesity, JUAREZ, heart disease/af ib, HTN and HLD [id number] Fadi Wilkinson [facility] [address] [place] [address] 05/10/2024 09:53:51 05/10/2024 14:41:18 Body mass index 40+ - severely obese 757092981 Z68.41 needs next dose up Acute bact erial sinusitis 41000577 J01.00 improving [id number] [facility] [address] [place] [address] 08/11/2024 10:46:35 08/11/2024 12:14:30 Depression screening 090857607 Z13.31 SCREENING NEGATIVE Acute low back pain 2788 25115 M54.50 will set up with prednisone and baclofen Health Concerns Section Related Observation LastModified by Organization Detai ls LastModified Time None Recorded Concern Status LastModified by Organization Details LastModified Time None Recorded Advance Directives Directive None Recorded Payers Insurance Date Sequence Insurance Name Policy Number Policy Roberts Covered Member ID Roberts Member ID Guarantor Name 08/11/2024 2 FOR[facility]LY [facility] INDEMNITY [facility]AN - [facility] [id number] Marjorie Guerrero [id number] Marjorie Guerrero 08/11/2024 1 MEDICARE B-UT: [facility] Marjorie Guerrero [id number] Marjorie Guerrero Notes Date Note Type Note Provider Name a nd Address Organization Details Recorded Time 4 text/html ROS as noted in the HPI f/u medication urinary incontinence: will set with alt since the mirabegron is now not covered meningioma: needs f/u MRI from previous scan from her oncologistbenign at previous imaging, will f/u to make sure no changes have occurred atrial fib: stable, no worsening symptomsno sob, no chest pain, no fever, no chills COPD: stable otherwise doing wellno other questions today CIARRA AYALA [address] [place], [address], [facility] 01/26/2024 09:30:02 5 text/html ROS as noted in the HPI c/o URI symptoms The patient is participating in this appointment via telemedicine communication with a phone call/video calling service ([employer])The patient consents to use of these platforms [...] was negative x1 today CIARRA AYALA [address] [place], [address], [facility] 03/10/2024 15:14:27 5 text/html ROS as noted in the HPI f/u weight loss/sleep apnea patient is diagnosed with JUAREZ, atrial fibrillation, HLD, HTNrecommended by her patent law specialist to start on Zepbound for the obesity [...] the order and PA CIARRA AYALA [address] [place], [address], [facility] 03/24/2024 10:28:11 5 text/html ROS as noted in the HPI medication f/u BMI/JUAREZ: patient has been doing well on the zepbound no side effects, tolerates it well, needs next dose up the patient has been doing well overallthe patient is down from 234 lbs so 222 lbs the patient recovered from the acute sinusitisthe patient did well on the abx, no side effects improving sinus infection will monitor symptoms CIARRA AYALA [address] [place], [address], [facility] 05/10/2024 10:17:46 5 text/html ROS as noted in the HPI c/o lumbago with sciatica right side started [...] update me on Wednesday CIARRA AYALA [address] [place], [address], [facility] 08/11/2024 11:31:58 OBGyn Episode No OBEpisode recorded.
--- OUTSIDE RECORDS SUMMARY | 2024-09-21 10:50 | XMS_ITS | Patient Health Record ---
Author Organization [facility] Address [address] [facility] [place] [address] Care Team Providers Care Manager Of Data Name Role Phone Jaja WEISS, Fadi Primary Care Provider Jasmyne Denson Unavailable [phone] Allergies No Known Allergies Reason For Referral [...] Problem Acquired hammer toe of right foot (3029256650025013) Other hammer toe(s) (acquired), right foot (M20.41) Active confirmed Problem Acquired hammer toe of left foot (9713018847946677) Other hammer toe(s) (acquired), left foot (M20.42) Active confirmed Problem Localized, primary osteoarthritis of the ankle and/or foot (207546621) Arthritis of joint of lesser toe, right (M19.071) Active confirmed Vital Signs Blood pressure diastolic 76 mm Hg 05/03/2024 Height 5ft3in in 05/03/2024 Blood pressure systolic 130 mm Hg 05/03/2024 Weight 220 lbs 05/03/2024 BMI 38.97 kg/m2 05/03/2024 Encounters Encounter Location Date Provider Diagnosis [facility] [address] 05/03/2024 Jasmyne Gil Pain in right toe(s) M79.674 ; Other hammer toe(s) (acquired), right foot M20.41 ; Arthritis of joint of lesser toe, right M19.071 [facility] [place] [facility] [address] 02/22/2024 Jasmyne Gil [address] [address] 05/03/2024 Jasmyne Gil Assessments Encounter Date Diagnosis (ICD Code) Assessment Notes Treatment Notes Treatment Clinical Notes Section Notes 05/03/2024 Pain in right toe(s) (ICD-10 - M79.674) 05/03/2024 Other hammer toe(s) (acquired), right foot (ICD-10 - M20.41) 05/03/2024 Arthritis of joint of lesser toe, right (ICD-10 - M19.071) 05/03/2024 [place] (ICD-10 - L84) Plan Of Treatment Pending Test Test Name Order Date X ray : Foot, right 3V 05/03/2024 04788 - Tenotomy, open flexor 03/14/2020 Insurance Providers Payer Name Payer Address Payer Phone Subscriber Number Group Number Insured Name Patient Relationship to Insured Coverage Start Date Coverage End Date Medicare [employer] [address] [place] [address] [id number] Marjorie Guerrero Self - patient is the insured 6 [employer] [address] [place] [address] [id number] Marjorie Guerrero Self - patient is [...] right shoulder removal 2016 endovenous lazer surgery [phone] colonoscopy 2016 endoscopy 2016 hammer toe surgery 04/22/2018 endovenous laser 03/25/2020 removal bone spurs right shoulder 2017 ruptured vericose veins [phone] Hospitalization History Reason Date(Month/Year) Spiral fracture- left arm 2011
--- OUTSIDE RECORDS SUMMARY | 2024-09-21 10:50 | XMS_ITS | Patient Health Record ---
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 Primary Care Provider Patti judjanessaWil Pickett Unavailable [phone] Allergies Allergen (clinical drug ingredient) Drug/Non Drug [...] Status Risk Notes Problem Vitamin B6 deficiency (952721590) Vitamin B<SUB>6</SUB> deficiency (266.1) Active confirmed Problem Vitamin deficiency (73728072) Deficiency of other vitamins (269.1) Active confirmed Problem Iron deficiency anemia (92430239) Iron deficiency anemia (280.9) Active confirmed Plan Of Treatment Future Test Test Name Order Date UPPER GI ENDOSCOPY 05/15/2014 COLONOSCOPY 05/15/2014 Insurance Providers Payer Name Payer Address Payer Phone Subscriber Number Group Number Insured Name Patient Relationship to Insured Coverage Start Date Coverage End Date [facility] [employer] TH INDEMNITY [address] [place] [address] [id number] SOFYA HILLIARD Self - patient is the insured Medical (General) History Medical History History ICD Code colonoscopy 05-20-2005-neg ex cept for diverticulosis---3 hemoccult cards negative as well HTN Denies [place],DM,CVA,Lung disease,renal dise ase Hypothyroidism--thyroid cancer as below Gout B12 deficiency--receiving B12 shots Surgical History Surgery Date(Month/Year) Gastric bypass in December [address] Gonzalez with a subswquent 90 pound weight loss Eye surgery-Lasik cholecystectomy vein stripping in her 's left knee replacement in 2010 Thyroidectomy in 2000 for cancer Having LE vein surgeries with
== END 2024-09-21 10:00 | disposition home or self-care (01) ==
LOC: HO.MRI 09:59
PROVIDERS: PCP Internal Medicine; Visit Provider Physician Assistant
DX: G47.33 Obstructive sleep apnea (adult) (pediatric) (principal); G96.89 Other specified disorders of central nervous system; E66.9 Obesity, unspecified; J44.9 Chronic obstructive pulmonary disease, unspecified; Z68.34 Body mass index [BMI] 34.0-34.9, adult; Z99.89 Dependence on other enabling machines and devices; Z79.899 Other long term (current) drug therapy
CPT/HCPCS: 72149; 99212; A9585

== ENCOUNTER → 2024-09-21 10:20 | Outpatient (BNV) | payer MEDICARE, OTHER, SELFPAY | PROVIDERS: PCP Internal Medicine; Visit Provider Radiology Diagnostic Radiology | DX: M71.38 Other bursal cyst, other site (principal) | CPT/HCPCS: 72149 ==

== ENCOUNTER 2024-09-21 10:59 | Outpatient (AMB) | payer MEDICARE, OTHER, SELFPAY ==
[2024-09-21 11:08] VITALS: BP 110/78; PULSE 73; O2SAT 99; BMI 34.2
--- NOTE | 2024-09-21 11:08 | MHC.OFFVIS ---
Vital Signs 09/21/24 11:08 Height 5 ft 3 in Weight 192 lb 14.472 oz BMI 34.2 BP 110/78 Blood Pressure Location Lt brachial Position Sitting Pulse 73 Pulse Source Pulse Oximeter Pulse Oximetry (%) 99 Oxygen Delivery Method Room Air Intake Visit Reasons: COPD Intake Note: pt is here for follow up and states she is feeling good, breathing is well. Track Dresser Required: No Allergies No Known Allergies Allergy (Verified 09/21/24 11:22) Medication List - Last Reconciled 09/21/24 by Ilene Leo MD albuterol sulfate 90 mcg/actuation 2 puffs inhalation Q4H PRN alendronate 70 mg PO QWEEK allopurinol 200 mg PO BID apixaban (Eliquis) 5 mg PO BID calcium citrate 1,000 mg PO DAILY celecoxib 200 mg PO DAILY cetirizine 10 mg PO BEDTIME PRN clonazepam 1 tab PO DAILY PRN diclofenac sodium 1% (Arthritis Pain (diclofenac)) 2 grams topical QID diltiazem HCl CD 180 mg PO DAILY fluticasone furoate-vilanterol 200-25 mcg/dose (Breo Ellipta) 1 inh inhalation DAILY 90 days inhalational spacing device (Flexichamber spacer) As directed levothyroxine (Levoxyl) 137 mcg PO DAILY 90 days meloxicam 15 mg PO DAILY solifenacin 10 mg PO DAILY tirzepatide (weight loss) (Zepbound) 7.5 mg subcut QWEEK tramadol 50 mg PO Q6H PRN umeclidinium 62.5 mcg/actuation (Incruse Ellipta) 1 inh inhalation DAILY 90 days Do you need a note to return to daycare/school/sports/work: No HPI HPI COPD: Details: Marjorie, 74 years old very pleasant female, comes for 6 months follow-up. She uses Incruse Ellipta once a day and Breo once a day, and has not needed to use albuterol except for just a few times in the last 6 months. Very happy about her breathing. She has lost 42 lb in the last 6 months, and is so excited about this, this is due to Zepbound therapy. Sleep apnea well controlled, she uses her CPAP religiously every night and sleeps up to 8 hours per night. Has no issues with the use of CPAP. Even though she has lost weight and may have overcome the sleep apnea but she still would like to continue using the CPAP. Main problem is pain and stiffness of the lower back, she just had MRI of the spine this a.m.. She is being treated by her primary care physician. [facility] Medical History Obesity (BMI 30-39.9) Anemia Meningioma Abrasion, multiple sites Vitamin D deficiency Osteoporosis History of thyroid cancer Generalized anxiety disorder Essential hypertension Grief counseling Environmental and seasonal allergies Allergic rhinitis JUAREZ on CPAP COPD (chronic obstructive pulmonary disease) Left humeral fracture Morbid obesity Postsurgical hypothyroidism Papillary thyroid carcinoma Osteoarthritis Gout Pernicious anemia Varicose veins of right lower extremity with pain Surgical History Hx of colonoscopy Hx of shoulder surgery Hx of cholecystectomy History of total left knee replacement (TKR) History of thyroidectomy, total Gastric bypass status for obesity H/O vein stripping Social History Household Members: None Housing: House Do you presently have visiting nurse or other home services: No Alcohol intake: former Patient Tobacco Use Status: Never used Tobacco e-Cigarette/Vaping Use: Never Used Substance Use Type: Marijuana Current occupational status: retired Cognitive needs: No Hearing needs: No Vision needs: Yes Review of Systems Const All systems reviewed & are unremarkable except as noted in HPI and below Eyes Reports no additional complaints ENT Reports nasal congestion (mild occasional ) Card Reports dyspnea on exertion Resp Reports cough (mild intermittent ) and Reports dyspnea on exertion GI Reports no additional complaints Reports no additional complaints Musc Reports back pain and Reports arthralgias Neuro Reports no additional complaints Psych Reports no additional complaints Endo Reports no additional complaints Jerardo/Lymph Reports no additional complaints Physical Exam Vital Signs: Last Vital Signs Pulse 73 09/21/24 11:08 BP 110/78 09/21/24 11:08 Pulse Ox 99 09/21/24 11:08 Oxygen Delivery Method Room Air 09/21/24 11:08 BMI result Body Mass Index 34.2 Const General: healthy appearing (Except for being overweight), comfortable, no acute distress, alert and awake Orientation/consciousness: patient oriented x3 HEENT Head: Yes normal to inspection General nose exam: No nasal polyps present, No nasal discharge present and Other nasal findings present (Mild nasal congestion) Face and sinus: Yes sinuses nontender Mouth: oropharynx normal Throat: Yes posterior oropharynx normal Eyes General: appearance normal, both eyes and all related structures Neck Neck: Yes normal visual inspection, Yes no lymphadenopathy, Yes trachea midline and Yes no JVD Thyroid: Thyroid normal Chest Chest palpation & inspection: normal inspection of the chest, normal palpation of entire chest wall and no tenderness Resp Other: Percussion note resonant, breath sounds are distant with prolonged expiratory phase. Both sides are clear no wheezes rhonchi or crepitations are heard. Cardio Palpation: normal PMI Rate: regular rate Rhythm: regular rhythm Heart sounds: no gallops and no murmurs GI Palpation (GI): Soft to palpation, nontender, No hepatosplenomegaly present and no masses Auscultation: normal bowel sounds Back/Spine/Pelvis Thoracic/Lumbar Spine: thoracic and lumbar spine normal to inspection and thoraco-lumbar ROM limited Skin General skin exam: no rashes or lesions noted Neuro General: patient oriented x3 and no focal motor deficits Cranial nerves: Yes CN's II-XII intact bilaterally Extrem General: Yes normal to inspection, Yes no clubbing, cyanosis or edema and Yes no calf tenderness Psych Appearance: grossly normal and well kempt Speech and movement: Normal speech and movement present Results Reviewed Results Reviewed: The compliance report shows 100% usage average use it per night 8 hours 33 minutes. She is on a low pressure of 8 cm. And residual AHI only 1.3. Assessment & Plan Assessment & Plan (1) Obesity (BMI 30-39.9): Comment: Continues to be obese. But has lost about 42 lb in the last 6 months, as she has been on Zepbound injection. Current BMI= 34.2 she is excited about this. Code(s): E66.9 - Obesity, unspecified Category: Medical Plan: Continue the present treatment. With further weight loss we will have to discuss about giving up on the use of CPAP. At present however she wants to continue using because she gets good. sleep with an (2) JUAREZ on CPAP: Comment: KNOWN CASE OF CHRONIC JUAREZ , PARTLY DUE TO HER GROSS OBESITY AND PARTLY DUE TO MILD RETROGANTHIA OF THE LOWER JAW. SHE HAS THE NEW CPAP MACHINE, WHICH IS WORKING WELL., NOW SHE IS USING NASAL PILLOWS AND FEELS MORE COMFORTABLE WITH THAT, COMPLIANCE IS GOOD. PRESSURE IS 8 CM. USES NASAL PILLOWS. THERE IS A SOME AIR LEAK, BUT RESIDUAL AHI ONLY 1.3 Code(s): G47.33 - Obstructive sleep apnea (adult) (pediatric); Z99.89 - Dependence on other enabling machines and devices Category: Medical Plan: Commended for good compliance and continue using daily (3) COPD (chronic obstructive pulmonary disease): Comment: Patient has severe obstructive airway disorder. Controlled fairly well with the current regimen . She is very happy with the use of Breo . Code(s): J44.9 - Chronic obstructive pulmonary disease, unspecified Category: Medical Plan: Continue using Incruse Ellipta 1 inhalation daily Breo 200- 25 1 inhalation daily Albuterol HFA 2 puffs Q 4-6 hours p.r.n. which she does not need much at this time. Coding Level of Care Code Est Pt Level 3 (30593) Diagnoses Obesity (BMI 30-39.9) E66.9 JUAREZ on CPAP G47.33; Z99.89 COPD (chronic obstructive pulmonary disease) J44.9
== END 2024-09-21 11:28 | disposition home or self-care (01) ==
PROVIDERS: PCP Internal Medicine; Visit Provider Internal Medicine
DX: E66.9 Obesity, unspecified (principal); G47.33 Obstructive sleep apnea (adult) (pediatric); Z99.89 Dependence on other enabling machines and devices; J44.9 Chronic obstructive pulmonary disease, unspecified
CPT/HCPCS: 99213

== ENCOUNTER 2024-10-06 10:09 | Outpatient (AMB) | payer MEDICARE, OTHER, SELFPAY ==
--- OUTSIDE RECORDS SUMMARY | 2023-09-22 06:00 | XMS_ITS ---
Author Organization [facility] Address [address] [facility] [address] [place] [address] Care Team Providers Care Nurse Obgyn Name Role Phone BROOKS NIETO Primary Care Provider Soraya Mejia Unavailable [phone] REASON FOR VISIT INTERVAL - MED CHECK Encounters Encounter Location Date Provider Diagnosis [facility] [address] [address] 09/22/2023 Soraya Love Plan Of Treatment Next Appt Details Provider Name:Soraya rizo, 11/02/2024 01:20:00 PM, [address] [place] [address], [address], [place], [address], Progress Notes * SOFYA HILLIARDDOB:[birth year] (74 yo F)Acc No.[id number]:09/22/2023 Patient: CROW HUTCHINSONRICIA Appointment Provider: Marshall Love M.D. :1950 A ge:73 Y S ex:Female Date:09/22/2023 Address:[address] [place], [place] [id number] Pcp:BROOKS NIETO Subjective: * Chief Complaints: * [...] current pathological fracture, Postmenopausal atrophic vaginitis. * Commercial Relief Driver History: G ravida/ Para 0 /0. S [...] Electronic signature of Riki Love MD on 10/06/2024 at 10:12 AM EDT Sign off status: Pending * Appointment Provider: Marshall Love M.D. Date: 0 09/22/2023 Generated for Sarah nicholson/Laura/Sergeiitting on: 0 10/06/2024 10:12 AM EDT
--- OUTSIDE RECORDS SUMMARY | 2024-10-06 10:12 | XMS_ITS | Clinical Summary ---
Author Organization [facility] Address [address] [address] Phone Care Team Providers Care Print Shop Manager Name Role Phone Fadi Wilkinson Primary Care Provider [phone] Allergies No known active allergies Medications AMOXICILLIN/POTA [...] file Insurance MEDICARE PART A & B [facility] MEDICARE SUPPLEMENT MEDICARE PART A & B [employer] MEDICARE SUPPLEMENT MEDICARE PART A & [facility] SUPPLE[facility] MEDICARE PART A & B [facility] MEDICARE SUPPLEMENT MEDICARE PART A & B [facility] MEDICARE SUPPLEMENT MEDICARE PART A & B [facility] MEDICARE SUPPLEMENT MEDICARE PART A & B Member Subscriber Plan / Payer ( fective 2015-Present) Name:Marjorie Guerrero Member ID:[id number] Relation to Subscriber:Self Name:Marjorie Guerrero Subscriber ID:[id number] Payer ID:[id number] Group ID:Not on file Type:Medicare Address: [employer] [address] MEDICARE SUPPLEMENT MEDICARE PART A & B [facility] MEDICARE SUPPLEMENT MEDICARE PART A & B [facility] MEDICARE SUPPLEMENT Care Teams Print Shop Manager Relationship Specialty Start Date End Date Fadi Wilkinson DO [email or web address] PCP - General Internal Medicine 06/28/23 Additional Source Comments The information contained in this document represents components of the legal health record. It is not the complete legal health record.[facility]
--- OUTSIDE RECORDS SUMMARY | 2024-10-06 10:13 | XMS_ITS | Patient Health Record ---
Author Organization [facility] Address [address] [place] [address] Care Team Providers Care Courtesy Van Driver Name Role Phone Mamadou Magdaleno M.D. Primary Care Provider Patti judjanessaWil Pickett Unavailable [phone] Allergies Allergen (clinical drug ingredient) Drug/Non Drug [...] Status Risk Notes Problem Vitamin B6 deficiency (459632309) Vitamin B<SUB>6</SUB> deficiency (266.1) Active confirmed Problem Vitamin deficiency (99776870) Deficiency of other vitamins (269.1) Active confirmed Problem Iron deficiency anemia (17408404) Iron deficiency anemia (280.9) Active confirmed Plan Of Treatment Future Test Test Name Order Date UPPER GI ENDOSCOPY 05/15/2014 COLONOSCOPY 05/15/2014 Insurance Providers Payer Name Payer Address Payer Phone Subscriber Number Group Number Insured Name Patient Relationship to Insured Coverage Start Date Coverage End Date [facility] [employer] TH INDEMNITY [address] [place] [address] [id number] SOFYA HILLIARD Self - patient is the insured Medical (General) History Medical History History ICD Code colonoscopy 05-20-2005-neg ex cept for diverticulosis---3 hemoccult cards negative as well HTN Denies [place],DM,CVA,Lung disease,renal dise ase Hypothyroidism--thyroid cancer as below Gout B12 deficiency--receiving B12 shots Surgical History Surgery Date(Month/Year) Gastric bypass in December [address] Gonzalez with a subswquent 90 pound weight loss Eye surgery-Lasik cholecystectomy vein stripping in her 's left knee replacement in 2010 Thyroidectomy in 2000 for cancer Having LE vein surgeries with
--- OUTSIDE RECORDS SUMMARY | 2024-10-06 10:13 | XMS_ITS | Patient Health Record ---
Author Organization [facility] Address [address] [facility] [place] [address] Care Team Providers Care Food Service Hotel Runner Name Role Phone Jaja WEISS, Fadi Primary Care Provider Jasmyne Denson Unavailable [phone] Allergies No Known Allergies Reason For Referral [...] Problem Acquired hammer toe of right foot (0706479767911848) Other hammer toe(s) (acquired), right foot (M20.41) Active confirmed Problem Acquired hammer toe of left foot (4757971551282802) Other hammer toe(s) (acquired), left foot (M20.42) Active confirmed Problem Localized, primary osteoarthritis of the ankle and/or foot (693517971) Arthritis of joint of lesser toe, right (M19.071) Active confirmed Vital Signs Blood pressure diastolic 76 mm Hg 05/03/2024 Height 5ft3in in 05/03/2024 Blood pressure systolic 130 mm Hg 05/03/2024 Weight 220 lbs 05/03/2024 BMI 38.97 kg/m2 05/03/2024 Encounters Encounter Location Date Provider Diagnosis [facility] [address] 05/03/2024 Jasmyne Gil Pain in right toe(s) M79.674 ; Other hammer toe(s) (acquired), right foot M20.41 ; Arthritis of joint of lesser toe, right M19.071 and [place] [facility] [address] 02/22/2024 Jasmyne Gil [address] [address] 05/03/2024 Jasmyne Gil Assessments Encounter Date Diagnosis (ICD Code) Assessment Notes Treatment Notes Treatment Clinical Notes Section Notes 05/03/2024 Pain in right toe(s) (ICD-10 - M79.674) 05/03/2024 Other hammer toe(s) (acquired), right foot (ICD-10 - M20.41) 05/03/2024 Arthritis of joint of lesser toe, right (ICD-10 - M19.071) 05/03/2024 [place] (ICD-10 - L84) Plan Of Treatment Pending Test Test Name Order Date X ray : Foot, right 3V 05/03/2024 46824 - Tenotomy, open flexor 03/14/2020 Insurance Providers Payer Name Payer Address Payer Phone Subscriber Number Group Number Insured Name Patient Relationship to Insured Coverage Start Date Coverage End Date Medicare National Govt Sv[employer] [address] [place] [address] [id number] Marjorie Guerrero Self - patient is the insured 6 [employer] [address] [place] [address] [id number] Marjorie Guerrero Self - patient is [...] right shoulder removal 2016 endovenous lazer surgery [id number] colonoscopy 2016 endoscopy 2016 hammer toe surgery 04/22/2018 endovenous laser 03/25/2020 removal bone spurs right shoulder 2017 ruptured vericose veins [phone] Hospitalization History Reason Date(Month/Year) Spiral fracture- left arm 2011
--- NOTE | 2024-10-06 10:34 | A.SPINEOV_ITS ---
Intake Visit Reasons: severe stenosis Intake Note: Ms. Guerrero is here today c/o low back pain. MRI done @ [facility] [place]. 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 HPI: This 74-year-old female developed acute radiating pain down both legs after walking on the treadmill on 08/26/2024. Since that time she is debilitated. She can not walk or stand and she has constant electric shocks going down her legs. Recently she also noticed tingling down her legs. Sitting down is the best position but she needs to be careful as any increase in abdominal pressure would produce radiating pain down her legs. No urinary or fecal incontinence. Anti-inflammatories and tramadol reduce the symptoms. PMH: AFib, hypertension, asthma, sleep apnea, osteoporosis, gout, arthritis, thyroidectomy, cholecystectomy, gastric bypass, knee replacement Medications: Alendronate, allopurinol, Breo Ellipta, calcium citrate, Dona cook, diltiazem, Eliquis, levothyroxine, Myrbytric vitamins B12 and D, tramadol Allergies: NKDA Social history: Lives by herself. Nonsmoker Physical Exam: Pleasant female in obvious agony. She stands in a flexed po sition. Straight leg raise produces radiation down both legs. Subjective tingling down both legs. No motor deficits. Normal reflexia. 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 This patient is at risk for cauda equina syndrome. I warned her for symptoms of urinary or fecal incontinence or progressive numbness and weakness. There is no conservative measurements that will resolve the cyst and therefore I offered her a removal of this large mass to decompress the spinal canal and to relieve her symptoms and prevent neurological deficits. She needs to stop her Eliquis 3 days prior to surgery and her NSAIDs 5 days prior to surgery. She visits her process inspector Dr. Santiago on an annual basis and has been stable over the years. She is scheduled for 11/02/2024 Thank you for allowing me to participate in your patients care. 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
== END 2024-10-06 11:43 | disposition home or self-care (01) ==
LOC: HO.HNS 10:09
PROVIDERS: PCP Internal Medicine; Visit Provider Neurological Surgery
DX: D33.9 Benign neoplasm of central nervous system, unspecified (principal)
CPT/HCPCS: 99204

== ENCOUNTER → 2024-10-06 10:09 | Outpatient (BNVA) | payer MEDICARE, OTHER, SELFPAY | PROVIDERS: PCP Internal Medicine; Visit Provider Neurological Surgery | DX: D33.9 Benign neoplasm of central nervous system, unspecified (principal); M48.062 Spinal stenosis, lumbar region with neurogenic claudication | CPT/HCPCS: 99202 ==

== ENCOUNTER → 2024-10-13 14:09 | Outpatient (BNV) | payer MEDICARE, OTHER, SELFPAY | PROVIDERS: PCP Internal Medicine; Visit Provider Internal Medicine Cardiovascular Disease | DX: R94.31 Abnormal electrocardiogram [ECG] [EKG] (principal); Z01.810 Encounter for preprocedural cardiovascular examination | CPT/HCPCS: 93010 ==

== ENCOUNTER 2024-10-27 13:25 | Outpatient (AMB) | payer MEDICARE, OTHER, SELFPAY ==
--- OUTSIDE RECORDS SUMMARY | 2023-09-22 06:00 | XMS_ITS ---
Author Organization [facility] Address [address] [facility] [address] [place] [address] Care Team Providers Care Photo Finish Photographer Name Role Phone BROOKS NIETO Primary Care Provider Soraya Mejia Unavailable [phone] REASON FOR VISIT INTERVAL - MED CHECK Encounters Encounter Location Date Provider Diagnosis [facility] [address] [address] 09/22/2023 Soraya Love Plan Of Treatment Next Appt Details Provider Name:Soraya rizo, 02/14/2025 11:00:00 AM, [address] [place] [address], [facility] [address], [place], [address], Progress Notes * SOFYA HILLIARDDOB:[birth year] (74 yo F)Acc No.[id number]:09/22/2023 Patient: DASHAWN HUTCHINSONIA Appointment Provider: Marshall Love M.D. :1950 A ge:73 Y S ex:Female Date:09/22/2023 Address:[address] [place], [place] [id number] Pcp:BROOKS NIETO Subjective: * Chief Complaints: * [...] current pathological fracture, Postmenopausal atrophic vaginitis. * Kiln Fireman History: G ravida/ Para 0 /0. S [...] Electronic signature of Riki Love MD on 10/27/2024 at 01:38 PM EDT Sign off status: Pending * Appointment Provider: Marshall Love M.D. Date: 09/22/2023 Generated for Sarah nicholson/Laura/Sergeiitting on: 0 10/27/2024 01:38 PM EDT
--- OUTSIDE RECORDS SUMMARY | 2023-11-17 07:00 | XMS_ITS ---
Author Organization [facility] Address [address] [facility] [address] [place] [address] Care Team Providers Care Lead Web Developer Name Role Phone BROOKS NIETO Primary Care Provider Soraya Mejia Unavailable [phone] REASON FOR VISIT ULTRA - FIBROIDS Encounters Encounter Location Date Provider Diagnosis [facility] [address] [place] [address] 11/17/2023 Soraya Love Plan Of Treatment Next Appt Details Provider Name:Soraya rizo, 02/14/2025 11:00:00 AM, [address] [facility], [address], [place], [address], Progress Notes * SOFAY HILLIARDDOB:[birth year] (74 yo F)Acc No.[id number]:11/17/2023 PROGRESS NOTES Patient: Bhavesh VINES SOFYA Appointment Provider: Marshall Love M.D. :1950 A ge:73 Y S ex:Female Date:11/17/2023 Address:[address] [place], [place] [phone] Pcp:BROOKS NIETO Subjective: * Chief Complaints: * 1 . ULTRA - FIBROIDS. * Medical History: Objective: * Vitals: Assessment: Plan: * Treatment: * Images: Billing Information: * Visit Code: * Procedure Codes: * Electronic signature of Riki Love MD on 10/27/2024 at 01:38 PM EDT Sign off status: Pending * Appointment Provider: Marshall Love M.D. Date: 0 11/17/2023 Generated for Sarah nicholson/Laura/Jorge on: 0 10/27/2024 01:38 PM EDT
--- OUTSIDE RECORDS SUMMARY | 2024-10-27 13:38 | XMS_ITS | Patient Health Record ---
Author Organization [facility] Address [address] [place] [address] Care Team Providers Care Credit Controller Name Role Phone Mamadou Magdaleno M.D. Primary Care Provider Patti Wil Casillas Unavailable [phone] Allergies Allergen (clinical drug ingredient) Drug/Non Drug [...] Status Risk Notes Problem Vitamin B6 deficiency (525893025) Vitamin B<SUB>6</SUB> deficiency (266.1) Active confirmed Problem Vitamin deficiency (52016952) Deficiency of other vitamins (269.1) Active confirmed Problem Iron deficiency anemia (280.9) Active confirmed Encounters Encounter Location Date Provider Diagnosis [facility] [address] [place] [address] 10/13/2024 Wil Rucker Plan Of Treatment Future Test Test Name Order Date UPPER GI ENDOSCOPY 05/15/2014 COLONOSCOPY 05/15/2014 Insurance Providers Payer Name Payer Address Payer Phone Subscriber Number Group Number Insured Name Patient Relationship to Insured Coverage Start Date Coverage End Date [facility] [address] [place] [address] [id number] ARMINDA SFOYA Self - patient is the insured Medical (General) History Medical History History ICD Code colonoscopy 05-20-2005-neg ex cept for diverticulosis---3 hemoccult cards negative as well HTN Denies [place],DM,CVA,Lung disease,renal dise ase Hypothyroidism--thyroid cancer as below Gout B12 deficiency--receiving B12 shots Surgical History Surgery Date(Month/Year) Gastric bypass in December [address] Gonzalez with a subswquent 90 pound weight loss Eye surgery-Lasik cholecystectomy vein stripping in her 20's left knee replacement in 2010 Thyroidectomy in 2000 for cancer Having LE vein surgeries with
--- OUTSIDE RECORDS SUMMARY | 2024-10-27 13:38 | XMS_ITS | Clinical Summary ---
Author Organization [facility] Address [address] [address] Phone Care Team Providers Care Coal Bagger Name Role Phone Fadi Wilkinson Primary Care Provider [phone] Allergies No known active allergies Medications AMOXICILLIN/POTA [...] file Insurance MEDICARE PART A & B [facility] EXTENSION MEDICARE SUPPLEMENT MEDICARE PART A & B [employer] MEDICARE SUPPLEMENT [facility] MED[facility] SUPPLEMENT MEDICARE PART A & B [facility] MEDICARE SUPPLEMENT MEDICARE PART A & B [facility] EXT[facility]ION MEDICARE SUPPLEMENT MEDICARE PART A & B [facility] EX[facility]ION MEDICARE SUPPLEMENT MEDICARE PART A & B Member Subscriber Plan / Payer ( fective 2015-Present) Name:Marjorie Guerrero Member ID:[id number] Relation to Subscriber:Self Name:Marjorie Guerrero Subscriber ID:[id number] Payer ID:[id number] Group ID:Not on file Type:Medicare Address: [employer] [address] MEDICARE SUPPLEMENT MEDICARE PART A & B [facility] MEDICARE SUPPLEMENT MEDICARE PART A & B [facility] EXTENSION MEDICARE SUPPLEMENT Care Teams Coal Bagger Relationship Specialty Start Date End Date Fadi Wilkinson DO [email or web address] PCP - General Internal Medicine 06/28/23 Additional Source Comments The information contained in this document represents components of the legal health record. It is not the complete legal health record.[facility]
--- OUTSIDE RECORDS SUMMARY | 2024-10-27 13:39 | XMS_ITS | Patient Health Record ---
Author Organization [facility] Address [address] [facility] [place] [address] Care Team Providers Care Area Relief Pilot Name Role Phone Jaja WEISS, Fadi Primary Care Provider Jasmyne Denson Unavailable [phone] Allergies No Known Allergies Reason For Referral [...] Problem Acquired hammer toe of right foot (7207048314444962) Other hammer toe(s) (acquired), right foot (M20.41) Active confirmed Problem Acquired hammer toe of left foot (0672148140615874) Other hammer toe(s) (acquired), left foot (M20.42) Active confirmed Problem Localized, primary osteoarthritis of the ankle and/or foot (952639192) Arthritis of joint of lesser toe, right (M19.071) Active confirmed Vital Signs Blood pressure diastolic 76 mm Hg 05/03/2024 Height 5ft3in in 05/03/2024 Blood pressure systolic 130 mm Hg 05/03/2024 Weight 220 lbs 05/03/2024 BMI 38.97 kg/m2 05/03/2024 Encounters Encounter Location Date Provider Diagnosis [facility] [address] 05/03/2024 Jasmyne Gil Pain in right toe(s) M79.674 ; Other hammer toe(s) (acquired), right foot M20.41 ; Arthritis of joint of lesser toe, right M19.071 [facility] [place] [facility] [address] 02/22/2024 Jasmyne Gil [address] [address] 05/03/2024 Jasmyne iGl Assessments Encounter Date Diagnosis (ICD Code) Assessment Notes Treatment Notes Treatment Clinical Notes Section Notes 05/03/2024 Pain in right toe(s) (ICD-10 - M79.674) 05/03/2024 Other hammer toe(s) (acquired), right foot (ICD-10 - M20.41) 05/03/2024 Arthritis of joint of lesser toe, right (ICD-10 - M19.071) 05/03/2024 [place] (ICD-10 - L84) Plan Of Treatment Pending Test Test Name Order Date X ray : Foot, right 3V 05/03/2024 29880 - Tenotomy, open flexor 03/14/2020 Insurance Providers Payer Name Payer Address Payer Phone Subscriber Number Group Number Insured Name Patient Relationship to Insured Coverage Start Date Coverage End Date Medicare National [employer] [address] [place] [address] [id number] Marjorie Guerrero Self - patient is the insured [employer] [address] [place] [address] [id number] Marjorie Guerrero Self - patient is [...] right shoulder removal 2016 endovenous lazer surgery [phone] colonoscopy 2016 endoscopy 2016 hammer toe surgery 04/22/2018 endovenous laser 03/25/2020 removal bone spurs right shoulder 2017 ruptured vericose veins [phone] Hospitalization History Reason Date(Month/Year) Spiral fracture- left arm 2011
--- OUTSIDE RECORDS SUMMARY | 2024-10-27 13:39 | XMS_ITS | Patient Health Record ---
Author Organization [facility] Address [address] [facility] [address] [place] [address] Care Team Providers Care Blower Insulator Name Role Phone BROOKS NIETO Primary Care Provider Soraya Mejia Unavailable [phone] Allergies No Known Allergies Reason For Referral [...] Status Risk Notes Problem Vitamin D deficiency (22568717) Vitamin D deficiency, unspecified (E55.9) Active confirmed Problem Postmenopausal atrophic vaginitis (57111972) Postmenopausal atrophic vaginitis (N95.2) Active confirmed Problem Age-related osteoporosis (261441202) Age-related osteoporosis without current pathological fracture (M81.0) Active confirmed Problem Urinary incontinence (900591281) Unspecified urinary incontinence (R32) Active confirmed Problem Hyperparathyroidism (39105248) Hyperparathyroid ism, unspecified (E21.3) Active confirmed Problem Morbid obesity (disorder) (614724872) Morbid (severe) obesity due to excess calories (E66.01) Active confirmed Problem Localized morphea (706833394) Lichen sclerosus et atrophicus (L90.0) Active confirmed Problem Unspecified menopausal and perimenopausal disorder (N95.9) Active confirmed Problem Vitamin D deficiency (14574491) Vitamin D deficiency, unspecified (E55.9) Active confirmed Problem Leiomyoma of uterus (03831130) Leiomyoma of uterus, unspecified (218.9) Active confirmed Major Problem Hypothyroidism (81083000) Unspecified hypothyroidism (244.9) Active confirmed Major Problem Gout (89337293) Gout, unspecified (274.9) Active confirmed Major Problem Essential hypertension (92443221) Unspecified essential hypertension (401.9) Active confirmed Major Problem Menopausal symptom (69199274) Symptomatic menopausal or female climacteric states (627.2) Active confirmed Major Problem Gynecological examination normal (396184209559005) Routine gynecological examination (V72.31) Active confirmed Major Problem Screening for malignant neoplasm of colon (048122527) Special screening for malignant neoplasms, colon (V76.51) Active confirmed Major Vital Signs Temperature 97.4 degrees Fahrenheit 10/29/2023 Blood pressure diastolic 76 mm Hg 10/29/2023 Height 62.25 in 10/29/2023 Blood pressure systolic 122 mm Hg 10/29/2023 Weight 225 lbs 10/29/2023 BMI 40.82 kg/m2 10/29/2023 Encounters Encounter Location Date Provider Diagnosis [place] [address] [address] 10/29/2023 Soraya Love Encounter for gynecological examination (general) (routine) with abnormal findings Z01.411 ; Encounter for screening mammogram for malignant neoplasm of breast Z12.31 ; Family history of malignant neoplasm of breast Z80.3 ; Age-related osteoporosis without current pathological fracture M81.0 ; Lichen sclerosus et atrophicus L90.0 and Leiomyoma of uterus, unspecified D25.9 [facility] [employer] [facility] [place] [address] [address] 10/29/2023 Soraya Love Assessments Encounter Date Diagnosis [...] W/TRANSVAGINAL 2017 Next Appt Details Provider Name:Soraya rizo, 02/14/2025 11:00:00 AM, [address] [facility], [address], [place], [address], Insurance Providers Payer Name Payer Address Payer Phone Subscriber Number Group Number Insured Name Patient Relationship to Insured Coverage Start Date Coverage End Date MEDICARE [address] [place], [place] [id number] ARMINDA, SOFYA Self - patient is the insured [facility] [address] [facility] [place] [address] [id number] SOFYA HILLIARD Self - patient is [...]
--- NOTE | 2024-10-27 13:40 | A.SPINEOV_ITS ---
Intake Visit Reasons: questions before sx Intake Note: Ms. Guerrero is here today to Discuss Surgery and has some questions before surgery. 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 She had additional questions regarding preoperative medication use which were all answered. The surgery is planned for 11/02/2024. 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
== END 2024-10-27 14:30 | disposition home or self-care (01) ==
LOC: HO.HNS 13:25
PROVIDERS: PCP Internal Medicine; Visit Provider Neurological Surgery
DX: D33.9 Benign neoplasm of central nervous system, unspecified (principal)
CPT/HCPCS: 99212

== ENCOUNTER → 2024-10-27 13:25 | Outpatient (BNVA) | payer MEDICARE, OTHER, SELFPAY | PROVIDERS: PCP Internal Medicine; Visit Provider Neurological Surgery | DX: D33.9 Benign neoplasm of central nervous system, unspecified (principal) | CPT/HCPCS: 99212 ==

== ENCOUNTER 2024-11-02 07:20 | Day surgery (SDC) | payer MEDICARE, OTHER, SELFPAY ==
--- OUTSIDE RECORDS SUMMARY | 2023-09-22 06:00 | XMS_ITS ---
Author Organization [facility] Address [address] [facility] [address] [place] [address] Care Team Providers Care Hub Associate Name Role Phone BROOKS NIETO Primary Care Provider Soraya Mejia Unavailable [phone] REASON FOR VISIT INTERVAL - MED CHECK Encounters Encounter Location Date Provider Diagnosis [facility] [employer] [address] [address] 09/22/2023 Soraya Love Plan Of Treatment Next Appt Details Provider Name:Soraya rizo, 11/02/2024 01:20:00 PM, [address] [place] [address], [address], [place], [address], Progress Notes * SOFYA HILLIARDDOB:[birth year] (74 yo F)Acc No.[id number]:09/22/2023 Patient: CROW HUTCHINSONRICIA Appointment Provider: Marshall Love M.D. :1950 A ge:73 Y S ex:Female Date:09/22/2023 Address:[address] [place], [place] [phone] Pcp:BROOKS NIETO Subjective: * Chief Complaints: * [...] current pathological fracture, Postmenopausal atrophic vaginitis. * Claim Technician History: G ravida/ Para 0 /0. S [...] Electronic signature of Riki Love MD on 10/13/2024 at 06:57 AM EDT Sign off status: Pending * Appointment Provider: Marshall Love M.D. Date: 09/22/2023 Generated for Sarah nicholson/Laura/Sergeiitting on: 0 10/13/2024 06:57 AM EDT
--- NOTE | 2024-10-13 | ECG_ITS ---
Test Reason : preop Blood Pressure : */* mmHG Vent. Rate : 63 BPM Atrial Rate : 63 BPM P-R Int : 180 ms QRS Dur : 88 ms QT Int : 410 ms P-R-T Axes : 46 8 12 degrees QTcB Int : 419 ms Normal sinus rhythm Possible Anterior infarct (cited on or before 24-Aug-2021) Abnormal ECG When compared with ECG of 24-Aug-2021 13:13, No significant change was found Referred By: Xiomy Quintero Electronically Signed By: Jarek Swanson
--- OUTSIDE RECORDS SUMMARY | 2024-10-13 06:57 | XMS_ITS | Patient Health Record ---
Author Organization [facility] Address [address] [facility] [place] [address] Care Team Providers Care Auto Collision Repair Instructor Name Role Phone Jaja WEISS, Fadi Primary Care Provider Jasmyne Denson Unavailable [phone] Allergies No Known Allergies Reason For Referral [...] Problem Acquired hammer toe of right foot (6559840819138233) Other hammer toe(s) (acquired), right foot (M20.41) Active confirmed Problem Acquired hammer toe of left foot (8900707177624264) Other hammer toe(s) (acquired), left foot (M20.42) Active confirmed Problem Localized, primary osteoarthritis of the ankle and/or foot (062428238) Arthritis of joint of lesser toe, right (M19.071) Active confirmed Vital Signs Blood pressure diastolic 76 mm Hg 05/03/2024 Height 5ft3in in 05/03/2024 Blood pressure systolic 130 mm Hg 05/03/2024 Weight 220 lbs 05/03/2024 BMI 38.97 kg/m2 05/03/2024 Encounters Encounter Location Date Provider Diagnosis [facility] [address] 05/03/2024 Jasmyne Gil Pain in right toe(s) M79.674 ; Other hammer toe(s) (acquired), right foot M20.41 ; Arthritis of joint of lesser toe, right M19.071 [facility] [place] [facility] [address] 02/22/2024 Jasmyne Gil [address] [address] 05/03/2024 Jasmyne Gil Assessments Encounter Date Diagnosis (ICD Code) Assessment Notes Treatment Notes Treatment Clinical Notes Section Notes 05/03/2024 Pain in right toe(s) (ICD-10 - M79.674) 05/03/2024 Other hammer toe(s) (acquired), right foot (ICD-10 - M20.41) 05/03/2024 Arthritis of joint of lesser toe, right (ICD-10 - M19.071) 05/03/2024 [place] (ICD-10 - L84) Plan Of Treatment Pending Test Test Name Order Date X ray : Foot, right 3V 05/03/2024 86641 - Tenotomy, open flexor 03/14/2020 Insurance Providers Payer Name Payer Address Payer Phone Subscriber Number Group Number Insured Name Patient Relationship to Insured Coverage Start Date Coverage End Date Medicare National Govt Svcs Inc [address] [place] [address] [id number] Marjorie Guerrero Self - patient is the insured 6 [employer] [address] [place] [address] [id number] Marjorie Guerrero Self - patient is [...] right shoulder removal 2016 endovenous lazer surgery 7313-4479 colonoscopy 2016 endoscopy 2016 hammer toe surgery 04/22/2018 endovenous laser 03/25/2020 removal bone spurs right shoulder 2017 ruptured vericose veins [phone] Hospitalization History Reason Date(Month/Year) Spiral fracture- left arm 2011
--- OUTSIDE RECORDS SUMMARY | 2024-10-13 06:57 | XMS_ITS | Clinical Summary ---
Author Organization [facility] Address [address] [address] Phone Care Team Providers Care Spaghetti Press Helper Name Role Phone Fadi Wilkinson Primary Care Provider [phone] Allergies No known active allergies Medications AMOXICILLIN/POTA [...] Insurance MEDICARE PART A & B [facility] EXT[facility]ION MEDICARE SUPPLEMENT MEDICARE PART A & B [facility] MEDICARE SUPPLEMENT MEDICARE PART A & [facility] MED[facility] SUPPLEMENT MEDICARE PART A & B [facility] MEDICARE SUPPLEMENT MEDICARE PART A & B [facility] EXTENSION MEDICARE SUPPLEMENT MEDICARE PART A & B [facility] EXT[facility]ION MEDICARE SUPPLEMENT MEDICARE PART A & B Member Subscriber Plan / Payer ( fective 2015-Present) Name:Marjorie Guerrero Member ID:[id number] Relation to Subscriber:Self Name:Marjorie Guerrero Subscriber ID:[id number] Payer ID:[id number] Group ID:Not on file Type:Medicare Address: [employer] [address] MEDICARE SUPPLEMENT MEDICARE PART A & B [facility] MEDICARE SUPPLEMENT MEDICARE PART A & B [facility] EXTENSION MEDICARE SUPPLEMENT Care Teams Spaghetti Press Helper Relationship Specialty Start Date End Date Fadi Wilkinson DO [email or web address] PCP - General Internal Medicine 06/28/23 Additional Source Comments The information contained in this document represents components of the legal health record. It is not the complete legal health record.[facility]
--- OUTSIDE RECORDS SUMMARY | 2024-10-13 06:57 | XMS_ITS | Patient Health Record ---
Author Organization [facility] Address [address] [place] [address] Care Team Providers Care Enrollment Clerk Name Role Phone Mamadou Magdaleno M.D. Primary Care Provider Patti judjanessaWil Pickett Unavailable [phone] Allergies Allergen (clinical drug ingredient) Drug/Non Drug [...] Status Risk Notes Problem Vitamin B6 deficiency (739524526) Vitamin B<SUB>6</SUB> deficiency (266.1) Active confirmed Problem Vitamin deficiency (54200844) Deficiency of other vitamins (269.1) Active confirmed Problem Iron deficiency anemia (280.9) Active confirmed Plan Of Treatment Future Test Test Name Order Date UPPER GI ENDOSCOPY 05/15/2014 COLONOSCOPY 05/15/2014 Insurance Providers Payer Name Payer Address Payer Phone Subscriber Number Group Number Insured Name Patient Relationship to Insured Coverage Start Date Coverage End Date [employer] [address] [place] [address] [phone] [id number] SOFYA HILLIARD Self - patient is the insured Medical (General) History Medical History History ICD Code colonoscopy 05-20-2005-neg ex cept for diverticulosis---3 hemoccult cards negative as well HTN Denies [place],DM,CVA,Lung disease,renal dise ase Hypothyroidism--thyroid cancer as below Gout B12 deficiency--receiving B12 shots Surgical History Surgery Date(Month/Year) Gastric bypass in December [address] Gonzalez with a subswquent 90 pound weight loss Eye surgery-Lasik cholecystectomy vein stripping in her 's left knee replacement in 2010 Thyroidectomy in 2000 for cancer Having LE vein surgeries with
[2024-10-13 13:19] VITALS: BP 129/61; PULSE 69; RESP 16; O2SAT 96; BMI 34.0
[2024-10-13 14:26] LABS: Hematocrit 41.8 % (37.0-47.0); Hemoglobin 13.7 g/dl (12.0-16.0); Mean Corpuscular HGB Conc 32.8 g/dl (31.0-35.0); Mean Corpuscular Hemoglobin 31.4 pg (27.0-33.0); Mean Corpuscular Volume 95.7 fL (80.0-98.0); NRBC Abs Auto 0.000 X10*3/uL (0.0-0.012); NRBC Pct Auto 0.0 /100WBC (0.0-0.2); Platelet Count 234 X10*3/uL (160-400); Red Blood Count 4.37 X10*6/uL (4.20-5.50); White Blood Count 6.2 X10*3/uL (4.8-10.8)
[2024-10-13 14:54] LABS: Anion Gap 11 (12-20); Blood Urea Nitrogen 20 mg/dL (9-16); Calcium 9.5 mg/dL (8.4-10.2); Carbon Dioxide 29 mmol/L (22-29); Chloride 101 mmol/L (96-108); Creatinine Clr Calc Pharmacy 69.7; Estimated Glomerular Filt Rate > 60; Potassium 4.4 mmol/L (3.3-5.1); Sodium 137 mmol/L (135-145)
[2024-11-02] VITALS (8 sets, daily range): BP systolic 136–159; BP diastolic 57–67; PULSE 62–79; RESP 15–18; TEMP 36.2–36.6; O2SAT 96–100; BMI 32.8
--- NOTE | ~2024-11-02 | FL_ITS ---
EXAMINATION: XR FLUOROSCOPY WITH IMAGES CLINICAL INFORMATION: L3-4 mass excision. COMPARISON: MR lumbar 09/21/2024. TECHNIQUE: Fluoroscopy provided to: Dr. Ramey Fluoroscopy time: 8 seconds DAP: 2.0653 Gycm2 Images: 1 FINDINGS: Solitary spot image of the lateral lumbar spine during L3-4 mass excision. Please refer to full operative report for detail. FL/FL guidance in OR IMPRESSION: Fluoroscopic guidance. Electronically signed by: Moris Arreaga MD 11/02/2024 12:02 PM EDT
[2024-11-02] MEDS: Lactated Ringers 1,000 ML 100 ML IVCONT (08:14)
--- NOTE | 2024-11-02 09:18 | MHC.SHP ---
Pre-Procedural Eval Section A - 24 Hr Update-Section A only Date of Service: 11/02/24 The patient is an INPATIENT: No Section B - Complete if H&P > 30 days Chief Complaint: Benign neoplasm of central nervous system, Allergies: Allergies Allergy/AdvReac Type Severity Reaction Status Date / Time No Known Allergies Allergy Verified 11/02/24 08:09 Review of Systems Sugical H&P ROS: Negative: Constitution, Cardiovascular, Respiratory, Neurological, Psychiatric, Hem-Onc, Allergic/Immunologic, Gastrointestinal, Genitourinary, Musculoskeletal, Integumentary, Endocrine and Eyes/Ears/Nose/Throat Exam Surgical H&P Exam: Normal: HEENT, Normal: Heart, Normal: Lungs, Normal: Extremities, Normal: Abdomen, Normal: Skin and Normal: Neurological (Awake, alert) Plan Diagnosis/Plan: Unchanged I have reviewed the history and physical and performed a pertinent physical examination on my patient. No changes have occurred unless specified. 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
--- NOTE | 2024-11-02 09:21 | HO.ANESPROP2 ---
Documented by User: Xiomy Quintero NP 10/17/24 13:01 HPI - Anesthesia Eval Consult details Narrative: 74 yr old female for L3-4 Extradural Mass Excision (Synovial Cyst) No CP/SOB with walking on treadmill. JUAREZ: on CPAP Paroxysmal atrial fibrillation: on eliquis. Follows with Dr. Ferrari, last visit Mar 2024, stable. Asthma/COPD: follows with Dr. Leo, last visit 09/21/24, stable on maintenance meds, no wheezing, no need for albuterol except few times in 6 months. 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) Ascending aorta enlargement (Acute) Hand pain, left (Acute) COPD (chronic obstructive pulmonary disease) (Acute) Paroxysmal atrial fibrillation (Acute) Essential hypertension (Acute) Postoperative hypothyroidism (Acute) Obesity (BMI 30-39.9) (Acute) Generalized anxiety disorder (Acute) Osteoporosis (Acute) JUAREZ on CPAP (Acute) Anemia (Acute) Meningioma (Acute) Vitamin D deficiency (Acute) Allergic rhinitis (Acute) Morbid obesity (Acute) Postsurgical hypothyroidism (Acute) Osteoarthritis (Acute) Past Medical History Medical History OAB (overactive bladder) Asthma Obesity (BMI 30-39.9) Anemia Meningioma Abrasion, multiple sites Vitamin D deficiency Osteoporosis History of thyroid cancer Generalized anxiety disorder Essential hypertension Grief counseling Environmental and seasonal allergies Allergic rhinitis JUAREZ on CPAP COPD (chronic obstructive pulmonary disease) Left humeral fracture Morbid obesity Postsurgical hypothyroidism Papillary thyroid carcinoma Osteoarthritis Gout Pernicious anemia Varicose veins of right lower extremity with pain Surgical History Surgical History Hx of tonsillectomy (~1956) Hx of colonoscopy Hx of shoulder surgery (2016) Hx of cholecystectomy (2001) History of total left knee replacement (TKR) History of thyroidectomy, total (06/09/00) Gastric bypass status for obesity (2003) H/O vein stripping Social History Social History (Updated 10/13/24 @ 10:22 by Marjorie Archer RN) Household Members: None Housing: House Are you a primary animal care taker to a significant other at home: No Do you presently have visiting nurse or other home services: No Alcohol intake: former Patient Tobacco Use Status: Former Tobacco user Tobacco use type: Cigarette e-Cigarette/Vaping Use: Never Used Use of substances other than those prescribed or required for medical reasons: No Have you been hit, kicked, punched, or otherwise hurt by someone within the past year? If so, by whom?: No Are you DNR?: No Advance Directives: No Advance Directives Information Provided: Yes Advance Directives on File: No Advance Directives Date on File: 06/03/11 Poor oral hygiene: No Current occupational status: retired Cognitive needs: No Hearing needs: No Vision needs: Yes Meds Allergies Allergy/AdvReac Type Severity Reaction Status Date / Time No Known Allergies Allergy Verified 11/02/24 08:09 Home Medications ?Medication ?Instructions ?Recorded ?Confirmed ?Last Taken ?Type albuterol sulfate 90 mcg/actuation 2 puff inhalation Q4H PRN 08/24/21 10/13/24 Unknown History aerosol inhaler (Ventolin HFA) Shortness Of Breath clonazepam 0.5 mg tablet 1 tab PO DAILY PRN anxiety 08/24/21 10/13/24 Unknown History calcium citrate 1,000 mg PO BID 08/29/21 10/13/24 Unknown History diclofenac sodium 1 % topical gel 2 g topical QID 08/29/21 10/13/24 Unknown History (Arthritis Pain (diclofenac)) alendronate 70 mg tablet 70 mg PO QWEEK 10/24/21 10/13/24 Unknown History allopurinol 100 mg tablet 200 mg PO DAILY 03/15/23 10/13/24 Unknown History tirzepatide (weight loss) 7.5 7.5 mg subcut .QWEEK-Wednesday09/21/24 10/13/24 10/24/24 History mg/0.5 mL subcutaneous pen injector (Zepbound) tramadol 50 mg tablet 50 mg PO Q6H PRN Pain 09/21/24 10/13/24 Unknown History acetaminophen 650 mg 1,950 mg PO Q12H PRN Pain 10/13/24 10/13/24 Unknown History tablet,extended release cholecalciferol (vitamin D3) 50 50 mcg PO DAILY 10/13/24 10/13/24 Unknown History mcg (2,000 unit) capsule (Vitamin D3) cyanocobalamin (vitamin B-12) 100 100 mcg PO DAILY 10/13/24 10/13/24 Unknown History mcg tablet (Vitamin B-12) diltiazem HCl 180 mg 180 mg PO DAILY 10/13/24 10/13/24 Unknown History capsule,extended release 24 hr fluticasone propionate 50 1 spray intranasal DAILY 10/13/24 10/13/24 Unknown History mcg/actuation nasal spray,suspension (Flonase Allergy Relief) mirabegron 25 mg tablet,extended 25 mg PO DAILY 10/13/24 10/13/24 Unknown History release 24 hr (Myrbetriq) multivitamin 1 tab PO DAILY 10/13/24 10/13/24 Unknown History vit C 250 mg-vit E 90 mg-zinc 40 1 tab PO BID 10/13/24 10/13/24 Unknown History mg-copper 1 [id number] capsule (PreserVision AREDS-2) Exam Height,Weight and Vital Signs: Height 5 ft 3 in Weight 87.09 kg Last Vital Signs Pulse 69 10/13/24 13:19 Resp 16 10/13/24 13:19 BP 129/61 10/13/24 13:19 Pulse Ox 96 10/13/24 13:19 O2 Del Method Room Air 10/13/24 13:19 Pertinent Lab Results Pertinent Lab Results: Laboratory Tests 10/13/24 14:04 WBC 6.2 RBC 4.37 Hgb 13.7 Hct 41.8 Plt Count 234 Sodium 137 Potassium 4.4 BUN 20 H Creatinine 0.74 Narrative Narrative: EKG 10/13/24 Vent. Rate : 63 BPM Atrial Rate : 63 BPM P-R Int : 180 ms QRS Dur : 88 ms QT Int : 410 ms P-R-T Axes : 46 8 12 degrees QTcB Int : 419 ms Normal sinus rhythm Possible Anterior infarct (cited on or before 24-Aug-2021) Abnormal ECG When compared with ECG of 24-Aug-2021 13:13, No significant change was found Echo 01/2024 Conclusions: - 1. Low normal LV ejection fraction 50-55% with impaired relaxation filling pattern 2. Early mild aortic stenosis 3. Mildly dilated left atrium 4. Mildly dilated ascending aorta at 4 cm 5. Normal RV systolic pressure 6. No gross pericardial effusion Airway Mallampati Class: III TM Dist: >3cm Neck ROM: Full Loose/Missing/Broken Teeth: No Heart: RRR Lungs: CTAB Documented by User: Gema Nagy DO 11/02/24 09:23 HPI - Anesthesia Eval Anesthesia Pre-Procedure Meds Is the patient on any of the following meds?: GLP1/DPP4 PMFSH Past Medical History Medical History OAB (overactive bladder) Asthma Obesity (BMI 30-39.9) Anemia Meningioma Abrasion, multiple sites Vitamin D deficiency Osteoporosis History of thyroid cancer Generalized anxiety disorder Essential hypertension Grief counseling Environmental and seasonal allergies Allergic rhinitis JUAREZ on CPAP COPD (chronic obstructive pulmonary disease) Left humeral fracture Morbid obesity Postsurgical hypothyroidism Papillary thyroid carcinoma Osteoarthritis Gout Pernicious anemia Varicose veins of right lower extremity with pain Family History Family history of problems with anesthesia: No Surgical History Surgical History Hx of tonsillectomy (~1956) Hx of colonoscopy Hx of shoulder surgery (2016) Hx of cholecystectomy (2001) History of total left knee replacement (TKR) History of thyroidectomy, total (06/09/00) Gastric bypass status for obesity (2003) H/O vein stripping History of Problems with Anesthesia: No Social History Social History (Updated 10/13/24 @ 10:22 by Marjorie Archer RN) Household Members: None Housing: House Are you a primary animal care taker to a significant other at home: No Do you presently have visiting nurse or other home services: No Alcohol intake: former Patient Tobacco Use Status: Former Tobacco user Tobacco use type: Cigarette e-Cigarette/Vaping Use: Never Used Use of substances other than those prescribed or required for medical reasons: No Have you been hit, kicked, punched, or otherwise hurt by someone within the past year? If so, by whom?: No Are you DNR?: No Advance Directives: No Advance Directives Information Provided: Yes Advance Directives on File: No Advance Directives Date on File: 06/03/11 Poor oral hygiene: No Current occupational status: retired Cognitive needs: No Hearing needs: No Vision needs: Yes Meds Allergies Allergy/AdvReac Type Severity Reaction Status Date / Time No Known Allergies Allergy Verified 11/02/24 08:09 Home Medications ?Medication ?Instructions ?Recorded ?Confirmed ?Last Taken ?Type albuterol sulfate 90 mcg/actuation 2 puff inhalation Q4H PRN 08/24/21 10/13/24 Unknown History aerosol inhaler (Ventolin HFA) Shortness Of Breath clonazepam 0.5 mg tablet 1 tab PO DAILY PRN anxiety 08/24/21 10/13/24 Unknown History calcium citrate 1,000 mg PO BID 08/29/21 10/13/24 Unknown History diclofenac sodium 1 % topical gel 2 g topical QID 08/29/21 10/13/24 Unknown History (Arthritis Pain (diclofenac)) alendronate 70 mg tablet 70 mg PO QWEEK 10/24/21 10/13/24 Unknown History allopurinol 100 mg tablet 200 mg PO DAILY 03/15/23 10/13/24 Unknown History tirzepatide (weight loss) 7.5 7.5 mg subcut .QWEEK-Wednesday09/21/24 10/13/24 10/24/24 History mg/0.5 mL subcutaneous pen injector (Zepbound) tramadol 50 mg tablet 50 mg PO Q6H PRN Pain 09/21/24 10/13/24 Unknown History acetaminophen 650 mg 1,950 mg PO Q12H PRN Pain 10/13/24 10/13/24 Unknown History tablet,extended release cholecalciferol (vitamin D3) 50 50 mcg PO DAILY 10/13/24 10/13/24 Unknown History mcg (2,000 unit) capsule (Vitamin D3) cyanocobalamin (vitamin B-12) 100 100 mcg PO DAILY 10/13/24 10/13/24 Unknown History mcg tablet (Vitamin B-12) diltiazem HCl 180 mg 180 mg PO DAILY 10/13/24 10/13/24 Unknown History capsule,extended release 24 hr fluticasone propionate 50 1 spray intranasal DAILY 10/13/24 10/13/24 Unknown History mcg/actuation nasal spray,suspension (Flonase Allergy Relief) mirabegron 25 mg tablet,extended 25 mg PO DAILY 10/13/24 10/13/24 Unknown History release 24 hr (Myrbetriq) multivitamin 1 tab PO DAILY 10/13/24 10/13/24 Unknown History vit C 250 mg-vit E 90 mg-zinc 40 1 tab PO BID 10/13/24 10/13/24 Unknown History mg-copper 1 [id number] capsule (PreserVision AREDS-2) Exam Exam Date and Time: 11/02/24 0920 Height,Weight and Vital Signs: Height 5 ft 3 in Weight 87.09 kg Last Vital Signs Pulse 69 10/13/24 13:19 Resp 16 10/13/24 13:19 BP 129/61 10/13/24 13:19 Pulse Ox 96 10/13/24 13:19 O2 Del Method Room Air 10/13/24 13:19 Vital Signs Pulse Rate 69 10/13/24 13:19 Respiratory Rate 16 10/13/24 13:19 Blood Pressure 129/61 10/13/24 13:19 Pulse Oximetry 96 10/13/24 13:19 Oxygen Delivery Method Room Air 10/13/24 13:19 Temperature 97.8 F 11/02/24 08:16 Pulse Rate 79 11/02/24 08:16 Respiratory Rate 15 11/02/24 08:16 Blood Pressure 148/62 H 11/02/24 08:16 Pulse Oximetry 96 11/02/24 08:16 Oxygen Delivery Method Room Air 11/02/24 08:16 Airway Mallampati Class: II TM Dist: >3cm Neck ROM: Full Loose/Missing/Broken Teeth: No (patient denies any loose or broken teeth) Heart: S1S2 Assessment and Plan Assessment Anesthesia Assessment: Anesthesia Plan Discussed and Chart Reviewed Final Anesthetic Review Family History of Problems with Anesthesia: No History of Problems with Anesthesia: No NPO: Yes ASA Class: III Final Preanesthetic Review: No Changes in Pt Med Stat, Meds/Allgs Chart Reviewed, Consent Obtained/Reviewed and Anes Risks/Benef Reviewed Patient Risk: Low Procedure Risk: Intermediate Anesthetic Plan Anesthetic Plan: GA and Agree w/ Assess. and Plan Disposition: Standard PACU
--- NOTE | 2024-11-02 10:15 | PM.DS ---
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: Status: Acute DS: Summary Time Attestation Discharge Coordination Time (in mins): 5 Quality: Safe Use of Opioids Does Pt have an Active Cancer Diagnosis on the Problem List?: No Quality: Stroke Does the patient have a stroke diagnosis?: No Physical Exam Vital Signs: Vital Signs: Last Vital Signs Temp 97.8 F 11/02/24 08:16 Pulse 79 11/02/24 08:16 Resp 15 11/02/24 08:16 BP 148/62 H 11/02/24 08:16 Pulse Ox 96 11/02/24 08:16 O2 Del Method Room Air 11/02/24 08:16 BMI result Body Mass Index 32.8 Discharge Plan Discharge Patient Disposition: Home, Self-Care Referrals: Fdai Wilkinson MD [Primary Care Provider, Internal Medicine] - 1 Week Discharge Medications: New docusate sodium [Colace] 100 mg capsule 100 mg PO BID Qty: 20 0RF oxycodone 5 mg tablet 5 mg PO Q4H PRN (Reason: pain) Qty: 20 0RF Rx Instructions: Partial Fill upon patient request. Continued (DME) Flexichamber Spacer See Rx Instructions .ROUTE .MEDSUPPLY Qty: 1 0RF Rx Instructions: As directed levothyroxine [Levoxyl] 137 mcg tablet 137 mcg PO DAILY 90 Days Qty: 90 3RF Incruse Ellipta 62.5 mcg/actuation blister with device 1 inh inhalation DAILY 90 Days Qty: 90 3RF fluticasone furoate-vilanterol [Breo Ellipta] 200-25 mcg/dose blister with device 1 inh inhalation DAILY 90 Days Qty: 180 3RF albuterol sulfate [Ventolin HFA] 90 mcg/actuation HFA aerosol inhaler 2 puff inhalation Q4H PRN (Reason: Shortness Of Breath) clonazepam 0.5 mg tablet 1 tab PO DAILY PRN (Reason: anxiety) allopurinol 100 mg tablet 200 mg PO DAILY multivitamin Tablet 1 tab PO DAILY diltiazem HCl 180 mg capsule,extended release 24hr 180 mg PO DAILY fluticasone propionate [Flonase Allergy Relief] 50 mcg/actuation [place],Suspension 1 spray INTRANASAL DAILY Rx Instructions: administer into each nostril cholecalciferol (vitamin D3) [Vitamin D3] 50 mcg (2,000 unit) Capsule 50 mcg PO DAILY mirabegron [Myrbetriq] 25 mg Tablet Extended Release 24 Hr 25 mg PO DAILY PreserVision AREDS-2 250-90-40-1 mg Capsule 1 tab PO BID cyanocobalamin (vitamin B-12) [Vitamin B-12] 100 mcg Tablet 100 mcg PO DAILY acetaminophen 650 mg Tablet Extended Release 1,950 mg PO Q12H PRN (Reason: Pain) alendronate 70 mg tablet 70 mg PO QWEEK calcium citrate 200 mg (950 mg) tablet 1,000 mg PO BID diclofenac sodium [Arthritis Pain (diclofenac)] 1 % gel 2 g topical QID Rx Instructions: apply to single elbow, wrist or hand; for hand includes palm/fingers/back of hand tramadol 50 mg tablet 50 mg PO Q6H PRN (Reason: Pain) Zepbound 7.5 mg/0.5 mL pen injector 7.5 mg subcut .QWEEK-WEDNESDAY Held Eliquis 5 mg tablet 5 mg PO BID Qty: 180 1RF Hold Instructions: Resume on 11/05/24. You may resume Eliquis 3 days after surgery Discharge Orders: Discharge Order (Routine); Ordered 11/02/24 Ordered By: Carl Dubois Diet: Advance to usual diet Activity on Discharge: As tolerated Activity Restrictions/Additional Instructions: After your spinal surgery we ask you to observe the following restrictions/guidelines: Activity: It is normal to feel some discomfort as you increase your activity, but that will improve with time. We ask you avoid heavy lifting or acitivities that cause pain. As a general rule, 8lbs is a safe limit for lifting right after surgery. Walk as much as you feel comfortable but not to exhaustion. You will feel extra tired the first few days after surgery. Stay well hydrated. It is OK to walk up and down stairs You may return to driving when you are off narcotics (such as vicodin, oxycodone, dilaudid, etc), and you are back to normal functional capacity. If you have any concerns please check with office before driving. Return to work is specific to each patient and each surgery, so please speak with your doctor/PA at first follow up. Please bring paperwork such as FMLA at that time if you need it filled out. Medications: You can resume Eliquis 3 days after surgery For optimum pain control, it is best to start with a combination of 500 mg of Tylenol every 4 hours with 600 mg of Motrin every 8 hours, and use narcotics as needed in between for breakthrough pain. We will give you a short supply of narcotics after surgery (usually one weeks worth). If you need more please call the office but do not use more than prescribed. You will need to give our office 48 hours notice if you need narcotics refilled and we do not fill narcotics on weekends or evenings. If you are on a narcotic, it is a good idea to take a stool softener such as colace or senna to avoid constipation If you take blood thinner such as aspirin, Plavix, Coumadin, Effient, Eliquis etc for conditions such as Afib, DVT, Pulmonary embolus, coronary disease, stents etc please speak with your surgeon about specific details as to when you can resume these medications. Follow up: Please call the office, , after surgery to arrange a 3 week follow up for wound check. Wound Care: You may remove your dressing on the first day after surgery. ?You may ?leave open to air. Please do not remove the steri strips underneath. they will fall off on their own in one week. IT IS NORMAL FOR THE WOUND TO OOZE OR BE BLOODY FOR A FEW DAYS AFTER SURGERY. ?IF THIS HAPPENS JUST PLACE NEW DRESSING OVER IT TO AVOID STAINING CLOTHES. You may shower on post op day # 1 We ask that you do not let the water soak the wound. If it does get wet, just towel dry lightly. Please do not scrub your incision or place any type of chemical/ointment on the wound. No tub baths, pools or jacuzzis for one month. If you have any leaking or redness from your wound, or fevers, please call office Print Language: Indian
--- NOTE | 2024-11-02 11:26 | W.PM.OPN ---
Operative Note Operative Note Date of Service: 11/02/24 Narrative: Preoperative Diagnosis: Extradural benign mass (synovial cyst) causing severe central spinal stenosis Operation: L3-4 Laminotomy for removal of extradural benign mass with use of microscope Consent Informed Consent was obtained for this operation. I have explained the nature, purpose and benefits of the operation. I have discussed the risks and benefit of the operation including possible complications or adverse events with patient/family. Alternative(s) were discussed with the patient with their relative benefits and risks as well as the consequences of not accepting the operation were included in obtaining consent. Surgeon: SHELBY WYATT MD, PHD Procedure Assisted By: Carl maloney Description of Procedure This 74 year old female is suffering from neurogenic claudication due to a large extradural benign mass compressing causing severe central spinal stenosis. The patient was offered a removal of the mass to decompress the nervous structures. The procedure complications were explained. The patient was consented. The patient was brought to the operating room and endotracheally intubated. The patient was turned in prone position on the Dru frame. Prep and drape was done followed by timeout. Physician assistant professor of philosophy provided access. A mid lumbar incision was made followed by release of the paravertebral muscle on the right side to expose the L3-4 lamina and facet joint. An intraoperative x-ray was obtained to confirm the correct level. The microscope was brought in. I took over the procedure. The high-speed drill was used to do a L3-4 laminotomy. The flavum ligament was opened to expose the underlying thecal sac . A large cystic mass was identified that was stuck to the L4 nerve root and thecal sac. I tried to get it dissection between the cyst and the dura but the towards so entangled that that would result in a dural tear. I perforated the cyst and remove the intra cystic material. I eventually was able to dissect the cyst away from the L4 nerve roots with removal of the outer layer of the dura. A piece of DuraGen was laid down in that area precautionary. I removed the cystic wall from the facet joint and was able to retrieve more cystic material cranially. I coagulated the cystic part. The thecal sac was well decompressed as well as the exiting nerve root.The microscope was removed. Hemostasis was done. Incision was closed in 2 layers. Steri-Strips were used to approximate incision. An OpSite with Tegaderm was used to cover the incision. All sponge needle counts were correct. Patient was extubated and transported in stable is to recovery room. Anesthesia: General Estimated Blood Loss (ml): Minimal Duration of Surgery: Under 60 Minutes Postoperative Plan: Discharge to home
[2024-11-02] MEDS: oxyCODONE HCl Immed Release 5 MG TABLET PO (12:20)
== END 2024-11-02 12:45 | disposition home or self-care (01) ==
PROVIDERS: Nurse Practitioner; PCP Internal Medicine; Visit Provider Neurological Surgery
PROC: (CPT 63267; principal; 2024-11-02 10:30)
DX: D33.9 Benign neoplasm of central nervous system, unspecified (principal); M71.38 Other bursal cyst, other site; M48.062 Spinal stenosis, lumbar region with neurogenic claudication; R20.0 Anesthesia of skin; I48.91 Unspecified atrial fibrillation; I10 Essential (primary) hypertension; J45.909 Unspecified asthma, uncomplicated; G47.33 Obstructive sleep apnea (adult) (pediatric); M10.9 Gout, unspecified; M81.0 Age-related osteoporosis without current pathological fracture; Z79.51 Long term (current) use of inhaled steroids; Z79.1 Long term (current) use of non-steroidal anti-inflammatories (NSAID); Z79.01 Long term (current) use of anticoagulants; Z79.899 Other long term (current) drug therapy; Z88.8 Allergy status to other drugs, medicaments and biological substances; Z98.84 Bariatric surgery status; Z90.49 Acquired absence of other specified parts of digestive tract; Z98.890 Other specified postprocedural states; Z87.891 Personal history of nicotine dependence
CPT/HCPCS: 63267; 36415; 80048; 85027; 93005; C1763; J0131; J0690; J1100; J1885; J2003; J2405; J2704; J3010

== ENCOUNTER → 2024-11-02 07:20 | Outpatient (BNV) | payer MEDICARE, OTHER, SELFPAY | PROVIDERS: PCP Internal Medicine; Visit Provider Neurological Surgery | DX: D33.9 Benign neoplasm of central nervous system, unspecified (principal); M48.062 Spinal stenosis, lumbar region with neurogenic claudication | CPT/HCPCS: 63267; 69990; 99499 ==

== ENCOUNTER 2024-11-15 15:18 | Outpatient (AMB) | payer MEDICARE, OTHER, SELFPAY ==
--- OUTSIDE RECORDS SUMMARY | 2023-09-22 06:00 | XMS_ITS ---
Author Organization [facility] Address [address] [facility] [address] [place] [address] Care Team Providers Care Supervisor Fabrication Name Role Phone BROOKS NIETO Primary Care Provider Soraya Mejia Unavailable [phone] REASON FOR VISIT INTERVAL - MED CHECK Encounters Encounter Location Date Provider Diagnosis [facility] [address] [address] 09/22/2023 Soraya Love Plan Of Treatment Next Appt Details Provider Name:Soraya rizo, 02/14/2025 11:00:00 AM, [address] [place] [address], [facility] [address], [place], [address], Progress Notes * SOFYA HILLIARDDOB:[birth year] (74 yo F)Acc No.[id number]:09/22/2023 Patient: CROW HUTCHINSONRICIA Appointment Provider: Marshall Love M.D. :1950 A ge:73 Y S ex:Female Date:09/22/2023 Address:[address] [place], [place] [id number] Pcp:BROOKS NIETO Subjective: * Chief Complaints: * [...] current pathological fracture, Postmenopausal atrophic vaginitis. * Childbirth Educator History: G ravida/ Para 0 /0. S [...] Electronic signature of Riki Love MD on 11/15/2024 at 06:47 PM EDT Sign off status: Pending * Appointment Provider: Marshall Love M.D. Date: 09/22/2023 Generated for Sarah nicholson/Laura/Sergeiitting on: 0 11/15/2024 06:47 PM EDT
--- OUTSIDE RECORDS SUMMARY | 2023-11-17 07:00 | XMS_ITS ---
Author Organization [facility] Address [address] [facility] [address] [place] [address] Care Team Providers Care Gear Setter Name Role Phone BROOKS NIETO Primary Care Provider Soraya Mejia Unavailable [phone] REASON FOR VISIT ULTRA - FIBROIDS Encounters Encounter Location Date Provider Diagnosis [facility] [address] [place] [address] 11/17/2023 Soraya Love Plan Of Treatment Next Appt Details Provider Name:Soraya rizo, 02/14/2025 11:00:00 AM, [address] [facility], [address], [place], [address], Progress Notes * SOFYA HILLIARDDOB:[birth year] (74 yo F)Acc No.[id number]:11/17/2023 PROGRESS NOTES Patient: Bhavesh VINES SOFYA Appointment Provider: Marshall Love M.D. :1950 A ge:73 Y S ex:Female Date:11/17/2023 Address:[address] [place], [place] [phone] Pcp:BROOKS NIETO Subjective: * Chief Complaints: * [...] 11/17/2023 Generated for Sarah nicholson/Laura/Jorge on: 0 11/15/2024 06:47 PM EDT
--- OUTSIDE RECORDS SUMMARY | 2024-11-02 09:20 | XMS_ITS ---
Author Organization [facility] Address [address] [facility] [address] [place] [address] Care Team Providers Care Funeral Planning Counselor Name Role Phone BROOKS NIETO Primary Care Provider Soraya Mejia Unavailable [phone] REASON FOR VISIT LR MEDICARE PE Encounters Encounter Location Date Provider Diagnosis [facility] [address] [place] [address] 11/02/2024 Soraya Love Plan Of Treatment Next Appt Details Provider Name:Soraya rizo, 02/14/2025 11:00:00 AM, [address] [facility], [address], [place], [address], Progress Notes * SOFYA HILLIARDDOB:[birth year] (74 yo F)Acc No.[id number]:11/02/2024 PROGRESS NOTES Patient: CROW HUTCHINSONRICIA Appointment Provider: Marshall Love M.D. :1950 A ge:74 Y S ex:Female Date:11/02/2024 Address:[address] [place], [place] [id number] Pcp:BROOKS NIETO Subjective: * Chief Complaints: * 1 . LR MEDICARE PE. * Medical History: Objective: * Vitals: Assessment: Plan: * Treatment: * Images: Billing Information: * Visit Code: * Procedure Codes: * Electronic signature of Riki Love MD on 11/15/2024 at 06:47 PM EDT Sign off status: Pending * Appointment Provider: Marshall Love M.D. Date: 0 11/02/2024 Generated for Sarah nicholson/Laura/Jorge on: 0 11/15/2024 06:47 PM EDT
--- NOTE | 2024-11-15 15:25 | A.OFFVIS_ITS ---
Vital Signs 11/15/24 15:26 Height 5 ft 3 in Weight 179 lb 10.828 oz BMI 31.8 BP 130/70 Blood Pressure Location Lt brachial Position Sitting Pulse 90 Pulse Source Pulse Oximeter Pulse Oximetry (%) 97 Oxygen Delivery Method Room Air Intake Visit Reasons: Obstructive sleep apnea Intake Note: pt is here for follow up and she is here to discuss the need for cpap after weight loss. Watershed Coordinator Required: No Allergies No Known Allergies Allergy (Verified 11/15/24 15:52) Medication List - Last Reconciled 11/15/24 by Ilene Leo MD acetaminophen ER 1,950 mg PO Q12H PRN albuterol sulfate 90 mcg/actuation (Ventolin HFA) 2 puffs inhalation Q4H PRN alendronate 70 mg PO QWEEK allopurinol 200 mg PO DAILY apixaban (Eliquis) 5 mg PO BID Held on 11/02/24. Instructions: Resume on 11/05/24. You may resume Eliquis 3 days after surgery calcium citrate 1,000 mg PO BID cholecalciferol (vitamin D3) (Vitamin D3) 50 mcg PO DAILY clonazepam 1 tab PO DAILY PRN cyanocobalamin (vitamin B-12) (Vitamin B-12) 100 mcg PO DAILY diclofenac sodium 1% (Arthritis Pain (diclofenac)) 2 grams topical QID diltiazem HCl CD 180 mg PO DAILY docusate sodium (Colace) 100 mg PO BID fluticasone furoate-vilanterol 200-25 mcg/dose (Breo Ellipta) 1 inh inhalation DAILY 90 days fluticasone propionate 50 mcg/actuation (Flonase Allergy Relief) 1 spray intranasal DAILY inhalational spacing device (Flexichamber spacer) As directed levothyroxine (Levoxyl) 137 mcg PO DAILY 90 days mirabegron ER (Myrbetriq) 25 mg PO DAILY multivitamin 1 tab PO DAILY oxycodone 5 mg PO Q4-6H PRN tirzepatide (weight loss) (Zepbound) 7.5 mg subcut .QWEEK-WEDNESDAY tramadol 50 mg PO Q6H PRN umeclidinium 62.5 mcg/actuation (Incruse Ellipta) 1 inh inhalation DAILY 90 days vit C,Y-Ei-yzedv-lutein-zeaxan 250-90-40-1 mg (PreserVision AREDS-2) 1 tab PO BID Do you need a note to return to daycare/school/sports/work: No HPI HPI Obstructive sleep apnea: Details: THIS 74 YEARS OLD VERY PLEASANT FEMALE IS HERE FOR FOLLOW-UP FOR HER SLEEP APNEA AND COPD. SHE HAS BEEN USING CPAP REGULARLY AND BENEFITTING. NOW IN THE LAST 1 YEAR SHE HAS LOST SIGNIFICANT AMOUNT OF WEIGHT, BECAUSE SHE HAS BEEN ON ZEPBOUND INJECTIONS. SHE HAS LOST CLOSE TO 40-50 LB OF WEIGHT. NOW SHE IS GETTING TIRED OF USING THE CPAP. SHE COMES TODAY TO ASK IF SHE STILL NEEDS TO USE THE CPAP. BREATHING HAS BEEN VERY STABLE WITH HER CURRENT REGIMEN, DENIES ANY COUGH OR WHEEZING, AND WITH THE WEIGHT LOSS HER SHORTNESS OF BREATH ON EXERTION IS ALSO MUCH LESS. [facility] Medical History OAB (overactive bladder) Asthma Obesity (BMI 30-39.9) Anemia Meningioma Abrasion, multiple sites Vitamin D deficiency Osteoporosis History of thyroid cancer Generalized anxiety disorder Essential hypertension Grief counseling Environmental and seasonal allergies Allergic rhinitis JUAREZ on CPAP COPD (chronic obstructive pulmonary disease) Left humeral fracture Morbid obesity Postsurgical hypothyroidism Papillary thyroid carcinoma Osteoarthritis Gout Pernicious anemia Varicose veins of right lower extremity with pain Surgical History Hx of tonsillectomy (~1956) Hx of colonoscopy Hx of shoulder surgery (2016) Hx of cholecystectomy (2001) History of total left knee replacement (TKR) History of thyroidectomy, total (06/09/00) Gastric bypass status for obesity (2003) H/O vein stripping Social History Household Members: None Housing: House Are you a primary critical care nurse practitioner to a significant other at home: No Do you presently have visiting nurse or other home services: No Alcohol intake: former Patient Tobacco Use Status: Former Tobacco user Tobacco use type: Cigarette e-Cigarette/Vaping Use: Never Used Advance Directives Date on File: 06/03/11 Current occupational status: retired Cognitive needs: No Hearing needs: No Vision needs: Yes Review of Systems Const All systems reviewed & are unremarkable except as noted in HPI and below Eyes Reports no additional complaints ENT Reports nasal congestion (mild occasional ) Card Reports dyspnea on exertion Resp Reports cough (mild intermittent ) and Reports dyspnea on exertion GI Reports no additional complaints Reports no additional complaints Musc Reports back pain and Reports arthralgias Neuro Reports no additional complaints Psych Reports no additional complaints Endo Reports no additional complaints Jerardo/Lymph Reports no additional complaints Physical Exam Vital Signs: Last Vital Signs Pulse 90 11/15/24 15:26 BP 130/70 11/15/24 15:26 Pulse Ox 97 11/15/24 15:26 Oxygen Delivery Method Room Air 11/15/24 15:26 BMI result Body Mass Index 31.8 Const General: healthy appearing (Except for being overweight), comfortable, no acute distress, alert and awake Orientation/consciousness: patient oriented x3 HEENT Head: Yes normal to inspection General nose exam: No nasal polyps present, No nasal discharge present and Other nasal findings present (Mild nasal congestion) Face and sinus: Yes sinuses nontender Mouth: oropharynx normal Throat: Yes posterior oropharynx normal Eyes General: appearance normal, both eyes and all related structures Neck Neck: Yes normal visual inspection, Yes no lymphadenopathy, Yes trachea midline and Yes no JVD Thyroid: Thyroid normal Chest Chest palpation & inspection: normal inspection of the chest, normal palpation of entire chest wall and no tenderness Resp Other: Percussion note resonant, breath sounds are distant with prolonged expiratory phase. Both sides are clear no wheezes rhonchi or crepitations are heard. Cardio Palpation: normal PMI Rate: regular rate Rhythm: regular rhythm Heart sounds: no gallops and no murmurs GI Palpation (GI): Soft to palpation, nontender, No hepatosplenomegaly present and no masses Auscultation: normal bowel sounds Back/Spine/Pelvis Thoracic/Lumbar Spine: thoracic and lumbar spine normal to inspection and thoraco-lumbar ROM limited Skin General skin exam: no rashes or lesions noted Neuro General: patient oriented x3 and no focal motor deficits Cranial nerves: Yes CN's II-XII intact bilaterally Extrem General: Yes normal to inspection, Yes no clubbing, cyanosis or edema and Yes no calf tenderness Psych Appearance: grossly normal and well kempt Speech and movement: Normal speech and movement present Results Reviewed Results Reviewed: COMPLIANCE REPORT IS REVIEWED SHE HAS USED 30/30 NIGHTS WITH AVERAGE USAGE FOR 12 HOURS 26 MINUTES ( that includes some usage during the daytime when she is watching TV) She is on relatively low pressure of 8 cm. There is some air leak. Residual AHI only 1.4 Assessment & Plan Assessment & Plan (1) COPD (chronic obstructive pulmonary disease): Comment: Patient has severe obstructive airway disorder. Controlled fairly well with the current regimen . She is very happy with the use of Breo and Incruse Ellipta Code(s): J44.9 - Chronic obstructive pulmonary disease, unspecified Category: Medical Plan: Advised to continue using the inhalers.( Breo and Incruse ) May use albuterol HFA 2 puffs q.6 hours p.r.n. (2) JUAREZ on CPAP: Comment: KNOWN CASE OF CHRONIC JUAREZ , PARTLY DUE TO HER GROSS OBESITY AND PARTLY DUE TO MILD RETROGANTHIA OF THE LOWER JAW. SHE HAS THE NEW CPAP MACHINE, WHICH HAS BEEN WORKING WELL., NOW SHE IS USING NASAL PILLOWS AND FEELS MORE COMFORTABLE WITH THAT, COMPLIANCE IS GOOD. PRESSURE IS 8 CM. USES NASAL PILLOWS. THERE IS A SOME AIR LEAK, BUT RESIDUAL AHI ONLY 1.3 * PATIENT WANTS TO TRY WITHOUT CPAP. Code(s): G47.33 - Obstructive sleep apnea (adult) (pediatric); Z99.89 - Dependence on other enabling machines and devices Category: Medical Plan: I TOLD HER TO STOP USING THE CPAP AND SEE HOW SHE DOES WITH THE SLEEP. I ALSO EXPLAINED THAT BECAUSE SHE HAS RETROGNATHIA ABNORMALITY OF THE LOWER JAW SHE MAY STILL HAVE SOME RESIDUAL SLEEP APNEA. SHE IS GOING TO REPORT TO ME WITHIN 2 MONTHS HOW IS HER SLEEP. IF SHE HAS ANY SYMPTOMS THEN WE MAY HAVE TO DO A SLEEP STUDY. (3) Obesity (BMI 30-39.9): Comment: Continues to be obese. But has lost about 42 lb in the last 6 months, as she has been on Zepbound injection. Current BMI= 31.8 she is excited about this. Code(s): E66.9 - Obesity, unspecified Category: Medical Plan: COMMENDED FOR LOSING MORE WEIGHT. ADVISED THAT SHE SHOULD CONTINUE WITH ZEPBOUND THERAPY. Coding Level of Care Code Est Pt Level 3 (18819) Diagnoses COPD (chronic obstructive pulmonary disease) J44.9 JUAREZ on CPAP G47.33; Z99.89 Obesity (BMI 30-39.9) E66.9
[2024-11-15 15:26] VITALS: BP 130/70; PULSE 90; O2SAT 97; BMI 31.8
--- OUTSIDE RECORDS SUMMARY | 2024-11-15 18:47 | XMS_ITS | Patient Health Record ---
Author Organization [facility] Address [address] [place] [id number] Care Team Providers Care Steam Fitter Supervisor Name Role Phone Mamadou Magdaleno M.D. Primary Care Provider Patti Wil Casillas [phone] Allergies Allergen (clinical drug ingredient) Drug/Non Drug [...] Status Risk Notes Problem Vitamin B6 deficiency (432855569) Vitamin B<SUB>6</SUB> deficiency (266.1) Active confirmed Problem Vitamin deficiency (21872187) Deficiency of other vitamins (269.1) Active confirmed Problem Iron deficiency anemia (15652838) Iron deficiency anemia (280.9) Active confirmed Encounters Encounter Location Date Provider Diagnosis [facility] [address] [place] [id number] 10/13/2024 Wil Rucker Plan Of Treatment Future Test Test Name Order Date UPPER GI ENDOSCOPY 05/15/2014 COLONOSCOPY 05/15/2014 Insurance Providers Payer Name Payer Address Payer Phone Subscriber Number Group Number Insured Name Patient Relationship to Insured Coverage Start Date Coverage End Date [employer] [address] [place] [address] [id number] SOFYA HILLIARD Self - patient is the [...]
--- OUTSIDE RECORDS SUMMARY | 2024-11-15 18:47 | XMS_ITS | Clinical Summary ---
Author Organization [facility] Address [address] [address] Phone Care Team Providers Care Nailhead Operator Name Role Phone Fadi Wilkinson Primary Care Provider [phone] Allergies No known active allergies Medications AMOXICILLIN/POTA [...] COLONOSCOPY 07/22/1995 OSTEOPOROSIS SCREENING INITIAL (ONE-TIME) 07/22/2015 INFLUENZA VACCINE (#1) 2024 , 12/08/2020, 11/29/2018, Additional history exists COVID-19 VACCINE (2024- season) 2024 05/11/2023, 12/08/2022, 11/27/2021, Additional history exists Adult [...] Insurance MEDICARE PART A & B [facility] MEDICARE SUPPLEMENT MEDICARE PART A & B [employer] MEDICARE SUPPLEMENT MEDICARE PART A & B [employer] MEDICARE SUPPLEMENT MEDICARE PART A & B [facility] MEDICARE SUPPLEMENT MEDICARE PART A & B [facility] [id number] MEDICARE PART A & B [facility] MEDICARE SUPPLEMENT MEDICARE PART A & B [facility] [employer] MEDICARE SUPPLEMENT MEDICARE PART A & [facility] SUPP[facility] MEDICARE PART A & B [facility] MEDICARE SUPPLEMENT Care Teams Nailhead Operator Relationship Specialty Start Date End Date Fadi Wilkinson DO [email or web address] PCP - General Internal Medicine 06/28/23 Additional Source Comments The information contained in this document represents components of the legal health record. It is not the complete legal health record.[facility]
--- OUTSIDE RECORDS SUMMARY | 2024-11-15 18:47 | XMS_ITS | Patient Health Record ---
Author Organization [facility] Address [address] [place] [address] [address] [place] [address] Care Team Providers Care Breastfeeding Peer Counselor Name Role Phone BROOKS NIETO Primary Care Provider Soraya Mejia Unavailable [phone] Allergies No Known Allergies Reason For Referral [...] Status Risk Notes Problem Vitamin D deficiency (62068644) Vitamin D deficiency, unspecified (E55.9) Active confirmed Problem Postmenopausal atrophic vaginitis (32422171) Postmenopausal atrophic vaginitis (N95.2) Active confirmed Problem Age-related osteoporosis (529057554) Age-related osteoporosis without current pathological fracture (M81.0) Active confirmed Problem Urinary incontinence (220687233) Unspecified urinary incontinence (R32) Active confirmed Problem Hyperparathyroidism (90139297) Hyperparathyroid ism, unspecified (E21.3) Active confirmed Problem Morbid obesity (disorder) (502187980) Morbid (severe) obesity due to excess calories (E66.01) Active confirmed Problem Localized morphea (159958003) Lichen sclerosus et atrophicus (L90.0) Active confirmed Problem Unspecified menopausal and perimenopausal disorder (N95.9) Active confirmed Problem Vitamin D deficiency (41873586) Vitamin D deficiency, unspecified (E55.9) Active confirmed Problem Leiomyoma of uterus (25510530) Leiomyoma of uterus, unspecified (218.9) Active confirmed Major Problem Hypothyroidism (01245412) Unspecified hypothyroidism (244.9) Active confirmed Major Problem Gout (27361465) Gout, unspecified (274.9) Active confirmed Major Problem Essential hypertension (83750145) Unspecified essential hypertension (401.9) Active confirmed Major Problem Menopausal symptom (11686914) Symptomatic menopausal or female climacteric states (627.2) Active confirmed Major Problem Gynecological examination normal (659350606555869) Routine gynecological examination (V72.31) Active confirmed Major Problem Screening for malignant neoplasm of colon (749106485) Special screening for malignant neoplasms, colon (V76.51) Active confirmed Major Plan Of Treatment Pending Test Test Name [...] Details Provider Name:Soraya rizo, 02/14/2025 11:00:00 AM, [address] [place] [address], [address], [place], [address], Insurance Providers Payer Name Payer Address Payer Phone Subscriber Number Group Number Insured Name Patient Relationship to Insured Coverage Start Date Coverage End Date MEDICARE [address] [place] , [place] [id number] SOFYA HILLIARD Self - patient is the insured [facility] [address] [place] [address] [phone] [id number] SOFYA HILLIARD Self - patient is [...]
--- OUTSIDE RECORDS SUMMARY | 2024-11-15 18:48 | XMS_ITS | Patient Health Record ---
Author Organization [facility] Address [address] [facility] [place] [address] Care Team Providers Care Trust Evaluation Supervisor Name Role Phone Jaja WEISS, Fadi Primary Care Provider Jasmyne Denson Unavailable [phone] Allergies No Known Allergies Reason For Referral [...] Problem Acquired hammer toe of right foot (2121135221482273) Other hammer toe(s) (acquired), right foot (M20.41) Active confirmed Problem Acquired hammer toe of left foot (8868797648211328) Other hammer toe(s) (acquired), left foot (M20.42) Active confirmed Problem Localized, primary osteoarthritis of the ankle and/or foot (929401587) Arthritis of joint of lesser toe, right (M19.071) Active confirmed Vital Signs Blood pressure diastolic 76 mm Hg 05/03/2024 Height 5ft3in in 05/03/2024 Blood pressure systolic 130 mm Hg 05/03/2024 Weight 220 lbs 05/03/2024 BMI 38.97 kg/m2 05/03/2024 Encounters Encounter Location Date Provider Diagnosis [facility] [address] 05/03/2024 Jasmyne Gil Pain in right toe(s) M79.674 ; Other hammer toe(s) (acquired), right foot M20.41 ; Arthritis of joint of lesser toe, right M19.071 [facility] [place] [facility] [address] 02/22/2024 Jasmyne Gil [address] [address] 05/03/2024 Jasmyne Gil Assessments Encounter Date Diagnosis (ICD Code) Assessment Notes Treatment Notes Treatment Clinical Notes Section Notes 05/03/2024 Pain in right toe(s) (ICD-10 - M79.674) 05/03/2024 Other hammer toe(s) (acquired), right foot (ICD-10 - M20.41) 05/03/2024 Arthritis of joint of lesser toe, right (ICD-10 - M19.071) 05/03/2024 [place] (ICD-10 - L84) Plan Of Treatment Pending Test Test Name Order Date X ray : Foot, right 3V 05/03/2024 32893 - Tenotomy, open flexor 03/14/2020 Insurance Providers Payer Name Payer Address Payer Phone Subscriber Number Group Number Insured Name Patient Relationship to Insured Coverage Start Date Coverage End Date Medicare [employer] [address] [place] [address] [id number] Marjorie Guerrero Self - patient is the insured [employer] [address] [place] [address] [id number] Marjorie Guerrero Self - patient is [...] right shoulder removal 2016 endovenous lazer surgery [id number] colonoscopy 2016 endoscopy 2016 hammer toe surgery 04/22/2018 endovenous laser 03/25/2020 removal bone spurs right shoulder 2017 ruptured vericose veins [id number] Hospitalization History Reason Date(Month/Year) Spiral fracture- left arm 2011
== END 2024-11-15 15:53 | disposition home or self-care (01) ==
LOC: HO.HPS 15:19
PROVIDERS: PCP Internal Medicine; Visit Provider Internal Medicine
DX: J44.9 Chronic obstructive pulmonary disease, unspecified (principal); G47.33 Obstructive sleep apnea (adult) (pediatric); Z99.89 Dependence on other enabling machines and devices; E66.9 Obesity, unspecified
CPT/HCPCS: 99213

== ENCOUNTER → 2024-11-15 15:18 | Outpatient (BNVA) | payer MEDICARE, OTHER, SELFPAY | PROVIDERS: PCP Internal Medicine; Visit Provider Internal Medicine | DX: G47.33 Obstructive sleep apnea (adult) (pediatric) (principal); J44.9 Chronic obstructive pulmonary disease, unspecified; E66.9 Obesity, unspecified; Z68.31 Body mass index [BMI] 31.0-31.9, adult; Z99.89 Dependence on other enabling machines and devices; Z87.891 Personal history of nicotine dependence | CPT/HCPCS: 99212 ==

== ENCOUNTER 2024-11-20 12:59 | Emergency (ER) | payer MEDICARE, OTHER, SELFPAY ==
--- NOTE | ~2024-11-20 | XR_ITS ---
EXAMINATION: XR CHEST CLINICAL INFORMATION: Difficulty breathing COMPARISON: May 10, 2017 TECHNIQUE: 2 views of the chest were obtained. FINDINGS: The lungs are clear. Heart size is normal. There is no sign of pleural effusion. There has been no interval change. XR/XR chest 2V IMPRESSION: No acute disease Electronically signed by: Abundio Esquivel MD 11/20/2024 01:35 PM EDT RP
[2024-11-20 13:15] VITALS: BP 162/64; PULSE 86; RESP 16; TEMP 36.1; O2SAT 95; BMI 22.3
--- NOTE | 2024-11-20 13:16 | ED.GENADULT ---
HPI - General Adult General Chief complaint: General Medical Stated complaint: Weight Loss Dry Mouth Etc Post Surgery 11/02 Time Seen by Provider: 11/20/24 17:07 Source: patient Mode of arrival: ambulatory Limitations: no limitations History of Present Illness ED Provider: Dr. Roma Argueta HPI narrative: Patient comes to the emergency room complaining of dry mouth. Patient states that it is worse at night and when she gets very mouth, she panics. Patient states that she has recently lost 55 lb, patient is taking Zepbound to lose weight. Patient states that she uses CPAP at home at bedtime. Otherwise no new medications. Patient denies any new symptoms other than dry mouth. Denies chest pain or shortness of breath. Patient states that she is compliant with her medications for atrial fibrillation. Earlier today, when patient arrived, she reported shortness of breath. However, when I spoke to the patient, she denies chest pain or shortness of breath. Patient states that this mostly happens only when she panics about having dry mouth late at night. Related Data Home Medications ?Medication ?Instructions ?Recorded ?Confirmed albuterol sulfate 90 mcg/actuation 2 puff inhalation Q4H PRN 08/24/21 11/15/24 aerosol inhaler (Ventolin HFA) Shortness Of Breath clonazepam 0.5 mg tablet 1 tab PO DAILY PRN anxiety 08/24/21 11/15/24 calcium citrate 1,000 mg PO BID 08/29/21 11/15/24 diclofenac sodium 1 % topical gel 2 g topical QID 08/29/21 11/15/24 (Arthritis Pain (diclofenac)) alendronate 70 mg tablet 70 mg PO QWEEK 10/24/21 11/15/24 allopurinol 100 mg tablet 200 mg PO DAILY 03/15/23 11/15/24 tirzepatide (weight loss) 7.5 7.5 mg subcut .QWEEK-Wednesday09/21/24 11/15/24 mg/0.5 mL subcutaneous pen injector (Zepbound) tramadol 50 mg tablet 50 mg PO Q6H PRN Pain 09/21/24 11/15/24 acetaminophen 650 mg 1,950 mg PO Q12H PRN Pain 10/13/24 11/15/24 tablet,extended release cholecalciferol (vitamin D3) 50 50 mcg PO DAILY 10/13/24 11/15/24 mcg (2,000 unit) capsule (Vitamin D3) cyanocobalamin (vitamin B-12) 100 100 mcg PO DAILY 10/13/24 11/15/24 mcg tablet (Vitamin B-12) diltiazem HCl 180 mg 180 mg PO DAILY 10/13/24 11/15/24 capsule,extended release 24 hr fluticasone propionate 50 1 spray intranasal DAILY 10/13/24 11/15/24 mcg/actuation nasal spray,suspension (Flonase Allergy Relief) mirabegron 25 mg tablet,extended 25 mg PO DAILY 10/13/24 11/15/24 release 24 hr (Myrbetriq) multivitamin 1 tab PO DAILY 10/13/24 11/15/24 vit C 250 mg-vit E 90 mg-zinc 40 1 tab PO BID 10/13/24 11/15/24 mg-copper 1 of-kzktcg-bqrqxu capsule (PreserVision AREDS-2) Previous Rx's ?Medication ?Instructions ?Recorded inhalational spacing device #1 ea 05/28/21 (Flexichamber spacer) apixaban 5 mg tablet (Eliquis) 5 mg PO BID #180 tabs 06/04/22 Held on 11/02/24. Instructions: Resume on 11/05/24. You may resume Eliquis 3 days after surgery levothyroxine 137 mcg tablet 137 mcg PO DAILY 90 days #90 tabs 09/03/22 (Levoxyl) umeclidinium 62.5 mcg/actuation 1 inh inhalation DAILY copd 90 02/14/24 blister powder for inhalation days #90 ea (Incruse Ellipta) fluticasone furoate 200 1 inh inhalation DAILY COPD 90 05/03/24 mcg-vilanterol 25 mcg/dose days #180 ea inhalation powder (Breo Ellipta) docusate sodium 100 mg capsule 100 mg PO BID #20 caps 11/02/24 (Colace) oxycodone 5 mg tablet 5 mg PO Q4-6H PRN pain #30 tabs 11/06/24 saliva substitute combo no.9 15 ml mucous membrane TID #473 mL 11/20/24 (Biotene Dry Mouth Oral Rinse mouthwash) Allergies Allergy/AdvReac Type Severity Reaction Status Date / Time No Known Allergies Allergy Verified 11/20/24 13:18 Review of Systems Review of Systems: Constitutional : No Weight loss, No Fever, No Chills, No Night Sweats, No Fatigue, No Malaise ENT/Mouth : Complaining of dry mouth, No Hearing loss, No Ear Pain, No Nasal Congestion, No Sinus Pain, No Hoarseness, No sore throat, No Rhinorrhea, No Swallowing Difficulty Eyes: No Eye Pain, No Swelling, No Redness, No Foreign Body, No Discharge, No Vision Changes Cardiovascular : No Chest Pain, No SOB, No Dyspnea on Exertion, No Orthopnea, No Edema, No Palpitations Respiratory : No Cough, No Sputum, No Wheezing, No Smoke Exposure, No Dyspnea Gastrointestinal : No Nausea, No Vomiting, No Diarrhea, No Constipation, No abdominal Pain, No Hematochezia, No Melena Genitourinary : no irregular bleeding, No Dysuria, No Urinary Frequency, No Hematuria, No Urinary Incontinence, No Urgency, No Flank Pain, No Urinary Flow Changes, No Hesitancy Musculoskeletal : No joint pain, No Myalgias, No Joint Swelling Skin : No Skin Lesions, No rash Neuro : No Weakness, No Numbness, No Paresthesias, No Loss of Consciousness, No Dizziness, No Headache Psych : Anxiety triggered by dry mouth, No Depression, No SI/HI/AH/VH, No Social Issues, Heme/Lymph: No Bruising, No Bleeding,No Lymphadenopathy Endocrine : No Polyuria, No Polydipsia, No Temperature Intolerance PMFSH Past Medical History Medical History OAB (overactive bladder) Asthma Obesity (BMI 30-39.9) Anemia Meningioma Abrasion, multiple sites Vitamin D deficiency Osteoporosis History of thyroid cancer Generalized anxiety disorder Essential hypertension Grief counseling Environmental and seasonal allergies Allergic rhinitis JUAREZ on CPAP COPD (chronic obstructive pulmonary disease) Left humeral fracture Morbid obesity Postsurgical hypothyroidism Papillary thyroid carcinoma Osteoarthritis Gout Pernicious anemia Varicose veins of right lower extremity with pain Surgical History Hx of tonsillectomy (~1956) Hx of colonoscopy Hx of shoulder surgery (2016) Hx of cholecystectomy (2001) History of total left knee replacement (TKR) History of thyroidectomy, total (06/09/00) Gastric bypass status for obesity (2003) H/O vein stripping Social History Social History Household Members: None Housing: House Are you a primary memory care director to a significant other at home: No Do you presently have visiting nurse or other home services: No Alcohol intake: former Patient Tobacco Use Status: Former Tobacco user Tobacco use type: Cigarette e-Cigarette/Vaping Use: Never Used Advance Directives: Yes Advance Directives on File: Yes Advance Directives Date on File: 06/03/11 Current occupational status: retired Cognitive needs: No Hearing needs: No Vision needs: Yes Physical Exam ED Exam Exam: Appearance: Alert. Oriented X3. No acute distress. Eyes: Pupils equal, round and reactive to light. ENT: Pharynx normal. Patient does have dry mouth Neck: Normal inspection. Neck supple. No lymph nodes noted. No crepitus CVS: Normal heart rate and rhythm. Pulses normal. Normal S1 and S2 Respiratory: No respiratory distress. Breath sounds normal. No Wheezing. No rales Abdomen: Soft and nontender. No rigidity. No distention. Skin: Skin warm and dry. Normal skin color. Normal skin turgor. Extremities: No lower extremity edema. No Lacerations. No Rash Neuro: Oriented X 3. No motor deficit. No sensory deficit. Moving all extremities. No slurred speech. CN 2 through 12 grossly intact Psych: calm, cooperative, normal affect Vital Signs: Vital Signs - 24 hr 11/20/24 13:15 11/20/24 16:31 Temperature 97.0 F 97.2 F Pulse Rate 86 89 Respiratory Rate 16 16 Blood Pressure 162/64 H 123/60 Pulse Oximetry 95 97 Oxygen Delivery Method Room Air Room Air BMI result Body Mass Index 22.3 Course Course Course Narrative: This is a Rapid Medical Examination (RME) performed by Josué Flores PA-C in triage. Full HPI, ROS, assessment and treatment plan per primary provider in the Main ED. Hx: 74 yo F here for eval of dry mouth and difficulty breathing, primarily at night. wears CPAP machine. had a cyst removed from her back on 11/02/24 - concerned this may be related. recently started on zepbound w/ rapid weight loss . PE/vitals: well appearing Plan: labs, viral swabs Medical Decision Making Medical Decision Making MDM Narrative: My interpretation of EKG: My interpretation of labs: No significant abnormality in patient's hematology and chemistry, normal LFTs, normal magnesium, lipase normal, serology negative for influenza and COVID. Normal BNP and troponin Chest x-ray does not show any acute abnormality. On physical exam, patient has dry mouth, IV fluids versus p.o. fluids were offered. Patient prefers p.o. fluids. Patient states that she has an appointment pending with her patient services rep next month, she may need another sleep study test. Since she lost a significant amount of weight, 55 lb, patient is hoping to get off BiPAP and maybe this will help resolve her dry mouth. Otherwise, at this time, patient has been chest pain or shortness of breath. Differential Diagnosis Differential Diagnoses: The differential diagnosis associated with the presentation includes (Medication side-effect, dehydration, anxiety) Admission/Observation Consideration of admission/observation: Escalation of care including admission/observation considered Lab Data MDM Lab Attestation statement: I reviewed the patient's lab results. 11/20/24 14:06 11/20/24 14:06 Labs: Lab Results 11/20/24 Range/Units 14:06 WBC 7.4 (4.8-10.8) X10*3/uL RBC 4.53 (4.20-5.50) X10*6/uL Hgb 14.2 (12.0-16.0) g/dl Hct 41.4 (37.0-47.0) % MCV 91.4 (80.0-98.0) fL MCH 31.3 (27.0-33.0) pg MCHC 34.3 (31.0-35.0) g/dl RDW 14.5 (11.0-16.0) % Plt Count 289 (160-400) X10*3/uL MPV 10.5 (9.4-12.3) fL Immature Gran % (Auto) 0.1 (0.0-0.4) % Neut % (Auto) 75.0 H (45-73) % Lymph % (Auto) 14.7 L (20-40) % [facility] % (Auto) 9.3 (2-11) % Eos % (Auto) 0.5 (0-4) % Baso % (Auto) 0.4 (0-2) % Lymph # (Auto) 1.1 L (1.2-4.9) X10*3/uL [facility] # (Auto) 0.7 (0.1-1.2) X10*3/uL Eos # (Auto) 0.0 (0.0-0.4) X10*3/uL Baso # (Auto) 0.0 (0.0-0.2) X10*3/uL Abs Immat Gran (auto) 0.01 (0.00-0.03) X10*3/uL Absolute Neuts (auto) 5.6 (2.0-8.3) x10*3/uL Absolute Nucleated RBC 0.000 (0.0-0.012) X10*3/uL Nucleated RBC % (auto) 0.0 (0.0-0.2) /100WBC Sodium 142 (135-145) mmol/L Potassium 4.0 (3.3-5.1) mmol/L Chloride 106 (96-108) mmol/L Carbon Dioxide 29 (22-29) mmol/L Anion Gap 11 L (12-20) BUN 17 H (9-16) mg/dL Creatinine 0.67 (0.5-1.4) mg/dL Estim Creat Clear Calc 63.6 Estimated GFR > 60 Random Glucose 99 (60-115) mg/dL Calcium 9.3 (8.4-10.2) mg/dL Magnesium 1.9 (1.6-2.6) mg/dL Total Bilirubin 0.7 (0.0-1.0) mg/dL AST 29 (5-31) U/L ALT 21 (0-31) U/L Alkaline Phosphatase 73 (39-117) U/L Troponin I High Sens 3.3 (<3.5-17.0) ng/L NT-Pro-B Natriuret Pep 153.7 (<300) pg/mL Total Protein 6.8 (6.5-8.0) g/dL Albumin 4.3 (3.5-5.0) g/dL Lipase 45 (8-78) U/L COVID-19 (THIERNO) Negative (Negative) COVID-19 Clin Com See Note Influenza Type A (ANNE MARIE) Negative (Negative) Influenza Type B (ANNE MARIE) Negative (Negative) Influenza A & B Note See Note Independent Interpretation I performed an independent interpretation of an: Plain X-Ray Radiology Impression Discussion of test interpretation with radiology: I have reviewed the radiologist's reading. Radiologist Impression: The lungs are clear. Heart size is normal. There is no sign of pleural effusion. There has been no interval change Discharge Plan Discharge Clinical Impression: Dry mouth Patient Disposition: Home, Self-Care Instructions: Mouthwash (Into the mouth) Additional Instructions: Please make sure that you drink plenty of fluids. Please follow-up with your primary care physician tomorrow. If you have any worsening or new symptoms, please return to the emergency room or call 911 Prescriptions: New Biotene Dry Mouth Oral Rinse Mouthwash 15 ml mucous membrane TID Qty: 473 0RF Rx Instructions: swish for 15-30 secs , then spit out; do not swallow No Action (DME) Flexichamber Spacer See Rx Instructions .ROUTE .MEDSUPPLY Qty: 1 0RF Rx Instructions: As directed Eliquis 5 mg tablet 5 mg PO BID Qty: 180 1RF levothyroxine [Levoxyl] 137 mcg tablet 137 mcg PO DAILY 90 Days Qty: 90 3RF Incruse Ellipta 62.5 mcg/actuation blister with device 1 inh inhalation DAILY 90 Days Qty: 90 3RF fluticasone furoate-vilanterol [Breo Ellipta] 200-25 mcg/dose blister with device 1 inh inhalation DAILY 90 Days Qty: 180 3RF oxycodone 5 mg tablet 5 mg PO Q4-6H PRN (Reason: pain) Qty: 30 0RF Rx Instructions: Partial Fill upon patient request. albuterol sulfate [Ventolin HFA] 90 mcg/actuation HFA aerosol inhaler 2 puff inhalation Q4H PRN (Reason: Shortness Of Breath) clonazepam 0.5 mg tablet 1 tab PO DAILY PRN (Reason: anxiety) allopurinol 100 mg tablet 200 mg PO DAILY multivitamin Tablet 1 tab PO DAILY diltiazem HCl 180 mg capsule,extended release 24hr 180 mg PO DAILY fluticasone propionate [Flonase Allergy Relief] 50 mcg/actuation Era,Suspension 1 spray INTRANASAL DAILY Rx Instructions: administer into each nostril cholecalciferol (vitamin D3) [Vitamin D3] 50 mcg (2,000 unit) Capsule 50 mcg PO DAILY mirabegron [Myrbetriq] 25 mg Tablet Extended Release 24 Hr 25 mg PO DAILY PreserVision AREDS-2 250-90-40-1 mg Capsule 1 tab PO BID cyanocobalamin (vitamin B-12) [Vitamin B-12] 100 mcg Tablet 100 mcg PO DAILY acetaminophen 650 mg Tablet Extended Release 1,950 mg PO Q12H PRN (Reason: Pain) docusate sodium [Colace] 100 mg capsule 100 mg PO BID Qty: 20 0RF alendronate 70 mg tablet 70 mg PO QWEEK calcium citrate 200 mg (950 mg) tablet 1,000 mg PO BID diclofenac sodium [Arthritis Pain (diclofenac)] 1 % gel 2 g topical QID Rx Instructions: apply to single elbow, wrist or hand; for hand includes palm/fingers/back of hand tramadol 50 mg tablet 50 mg PO Q6H PRN (Reason: Pain) Zepbound 7.5 mg/0.5 mL pen injector 7.5 mg subcut .QWEEK-WEDNESDAY Print Language: French
[2024-11-20 14:11] LABS: MANUAL DIFF FLAG NO
[2024-11-20 14:14] LABS: Hematocrit 41.4 % (37.0-47.0); Hemoglobin 14.2 g/dl (12.0-16.0); Imm Gran Abs Auto 0.01 X10*3/uL (0.00-0.03); Imm Gran Pct Auto 0.1 % (0.0-0.4); Lymphocytes Absolute Auto 1.1 X10*3/uL (1.2-4.9); Mean Corpuscular HGB Conc 34.3 g/dl (31.0-35.0); Mean Corpuscular Hemoglobin 31.3 pg (27.0-33.0); Mean Corpuscular Volume 91.4 fL (80.0-98.0); NRBC Abs Auto 0.000 X10*3/uL (0.0-0.012); NRBC Pct Auto 0.0 /100WBC (0.0-0.2); Platelet Count 289 X10*3/uL (160-400); Red Blood Count 4.53 X10*6/uL (4.20-5.50); White Blood Count 7.4 X10*3/uL (4.8-10.8)
[2024-11-20 14:28] LABS: Alanine Aminotransferase 21 U/L (0-31); Albumin Level 4.3 g/dL (3.5-5.0); Alkaline Phosphatase 73 U/L (39-117); Anion Gap 11 (12-20); Aspartate Amino Transferase 29 U/L (5-31); Blood Urea Nitrogen 17 mg/dL (9-16); Calcium 9.3 mg/dL (8.4-10.2); Carbon Dioxide 29 mmol/L (22-29); Chloride 106 mmol/L (96-108); Creatinine Clr Calc Pharmacy 63.6; Estimated Glomerular Filt Rate > 60; Lipase 45 U/L (8-78); Magnesium 1.9 mg/dL (1.6-2.6); Potassium 4.0 mmol/L (3.3-5.1); Sodium 142 mmol/L (135-145); Total Protein 6.8 g/dL (6.5-8.0)
[2024-11-20 14:51] LABS: COVID-19 Test Negative (Negative); IDNOW Serial# 55D5AD1C; IDNOW Serial# 58CA691E; Influenza B2 Negative (Negative)
[2024-11-20 16:31] VITALS: BP 123/60; PULSE 89; RESP 16; TEMP 36.2; O2SAT 97
--- NOTE | 2024-11-20 17:41 | ECG_ITS ---
Test Reason : SOB Blood Pressure : */* mmHG Vent. Rate : 85 BPM Atrial Rate : 85 BPM P-R Int : 160 ms QRS Dur : 70 ms QT Int : 376 ms P-R-T Axes : 39 -9 9 degrees QTcB Int : 447 ms Normal sinus rhythm Inferior infarct , age undetermined Anterior infarct (cited on or before 24-Aug-2021) Abnormal ECG When compared with ECG of 13-Oct-2024 14:09, Inferior infarct is now Present Questionable change in initial forces of Anterior leads Nonspecific T wave abnormality now evident in Anterolateral leads Referred By: Roma Argueta Electronically Signed By: Jarek Swanson
[2024-11-20 17:49] LABS: NT Pro B Type Natriuretic Pept 153.7 pg/mL (<300); Troponin-I High Sensitivity 3.3 ng/L (<3.5-17.0)
--- OUTSIDE RECORDS SUMMARY | 2024-11-20 18:20 | XMS_ITS ---
Patient Health Record
[2024-11-20 18:54] VITALS: BP 123/60; PULSE 89; RESP 16; TEMP 36.2; O2SAT 97
== END 2024-11-20 18:57 | disposition home or self-care (01) ==
PROVIDERS: Physician Assistant Medical; Emergency Provider Emergency Medicine; PCP Internal Medicine
DX: R68.2 Dry mouth, unspecified (principal); I48.91 Unspecified atrial fibrillation; J45.909 Unspecified asthma, uncomplicated; Z79.899 Other long term (current) drug therapy
CPT/HCPCS: 71046; 80053; 83690; 83735; 83880; 84484; 85025; 87502; 87635; 93005; 99283; 99284

== ENCOUNTER → 2024-11-20 13:19 | Outpatient (BNV) | payer MEDICARE, OTHER, SELFPAY | PROVIDERS: PCP Internal Medicine; Visit Provider Radiology Diagnostic Radiology | DX: R06.02 Shortness of breath (principal) | CPT/HCPCS: 71046 ==

== ENCOUNTER → 2024-11-20 17:41 | Outpatient (BNV) | payer MEDICARE, OTHER, SELFPAY | PROVIDERS: Emergency Provider Emergency Medicine; PCP Internal Medicine; Visit Provider Internal Medicine Cardiovascular Disease | DX: R94.31 Abnormal electrocardiogram [ECG] [EKG] (principal); R06.02 Shortness of breath | CPT/HCPCS: 93010 ==

== ENCOUNTER 2024-11-23 13:18 | Outpatient (AMB) | payer MEDICARE, OTHER, SELFPAY ==
--- OUTSIDE RECORDS SUMMARY | 2023-09-22 06:00 | XMS_ITS ---
Author Organization [facility] Address [address] [facility] [address] [place] [address] Care Team Providers Care Automotive Quality Manager Name Role Phone BROOKS NIETO Primary Care Provider Soraya Mejia Unavailable [phone] REASON FOR VISIT INTERVAL - MED CHECK Encounters Encounter Location Date Provider Diagnosis [facility] [address] [address] 09/22/2023 Soraya Love Plan Of Treatment Next Appt Details Provider Name:Soraya rizo, 02/14/2025 11:00:00 AM, [address] [place] [address], [facility] [address], [place], [address], Progress Notes * SOFYA HILLIARDDOB:[birth year] (74 yo F)Acc No.[id number]:09/22/2023 Patient: DASHAWN HUTCHINSONIA Appointment Provider: Marshall Love M.D. :1950 A ge:73 Y S ex:Female Date:09/22/2023 Address:[address] [place], [place] [phone] Pcp:BROOKS NIETO Subjective: * Chief Complaints: * [...] current pathological fracture, Postmenopausal atrophic vaginitis. * Forepart Reducer History: G ravida/ Para 0 /0. S [...] Electronic signature of Riki Love MD on 11/23/2024 at 05:55 PM EDT Sign off status: Pending * Appointment Provider: Marshall Love M.D. Date: 09/22/2023 Generated for Sarah nicholson/Laura/Sergeiitting on: 0 11/23/2024 05:55 PM EDT
--- OUTSIDE RECORDS SUMMARY | 2023-11-17 07:00 | XMS_ITS ---
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 Name Role Phone BROOKS NIETO Primary Care Provider Soraya Mejia Unavailable [phone] REASON FOR VISIT ULTRA - FIBROIDS Encounters Encounter Location Date Provider Diagnosis [facility] [address] [place] [address] 11/17/2023 Soraya Love Plan Of Treatment Next Appt Details Provider Name:Soraya rizo, 02/14/2025 11:00:00 AM, [address] [facility], [address], [place], [address], Progress Notes * SOFYA HILLIARDDOB:[birth year] (74 yo F)Acc No.[id number]:11/17/2023 PROGRESS NOTES Patient: Bhavesh VINES SOFYA Appointment Provider: Marshall Love M.D. :1950 A ge:73 Y S ex:Female Date:11/17/2023 Address:[address] [place], [place] [phone] Pcp:BROOKS NIETO Subjective: * Chief Complaints: * [...] 11/17/2023 Generated for Sarah nicholson/Laura/Jorge on: 0 11/23/2024 05:55 PM EDT
--- OUTSIDE RECORDS SUMMARY | 2024-11-02 09:20 | XMS_ITS ---
Author Organization [facility] Address [address] [facility] [address] [place] [address] Care Team Providers Care Clinical Research Coordinator Name Role Phone BROOKS NIETO Primary Care Provider Soraya Mejia Unavailable [phone] REASON FOR VISIT LR MEDICARE PE Encounters Encounter Location Date Provider Diagnosis [facility] [address] [place] [address] 11/02/2024 Soraya Love Plan Of Treatment Next Appt Details Provider Name:Soraya rizo, 02/14/2025 11:00:00 AM, [address] [facility], [address], [place], [address], Progress Notes * SOFYA HILLIARDDOB:[birth year] (74 yo F)Acc No.[id number]:11/02/2024 PROGRESS NOTES Patient: CROW HUTCHINSONRICIA Appointment Provider: Marshall Love M.D. :1950 A ge:74 Y S ex:Female Date:11/02/2024 Address:[address] [place], [place] [id number] Pcp:BROOKS NIETO Subjective: * Chief Complaints: * [...] 11/02/2024 Generated for Sarah nicholson/Laura/Jorge on: 0 11/23/2024 05:55 PM EDT
--- NOTE | 2024-11-23 13:20 | HO.SPINEOV ---
Intake Visit Reasons: 1st post op Intake Note: Ms. Guerrero is here today for her 1st post op. 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 She is doing great 3 weeks out from her synovial cyst resection at L3-4. Her leg pains are gone, she is walking better, back to driving and doing most of her activities. Her wound is healed up beautifully. Her strength is full. We discussed activity guidelines, restrictions and expectations after synovial cyst resection. She will follow up with us in 6 weeks. 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
--- OUTSIDE RECORDS SUMMARY | 2024-11-23 17:55 | XMS_ITS | Patient Health Record ---
Author Organization [facility] Address [address] [place] [id number] Care Team Providers Care Early Childhood Director Name Role Phone Mamadou Magdaleno M.D. Primary Care Provider Patti Wil Casillas [phone] Allergies Allergen (clinical drug ingredient) Drug/Non Drug [...] Status Risk Notes Problem Vitamin B6 deficiency (384139607) Vitamin B<SUB>6</SUB> deficiency (266.1) Active confirmed Problem Vitamin deficiency (87475651) Deficiency of other vitamins (269.1) Active confirmed Problem Iron deficiency anemia (93593307) Iron deficiency anemia (280.9) Active confirmed Encounters Encounter Location Date Provider Diagnosis [facility] [address] [place] [address] 10/13/2024 Wil Rucker Plan Of Treatment Future Test Test Name Order Date UPPER GI ENDOSCOPY 05/15/2014 COLONOSCOPY 05/15/2014 Insurance Providers Payer Name Payer Address Payer Phone Subscriber Number Group Number Insured Name Patient Relationship to Insured Coverage Start Date Coverage End Date [employer] [address] [place] [address] [id number] SOFYA HILLIARD Self - patient is the insured Medical (General) History Medical History History ICD Code colonoscopy 05-20-2005-neg ex cept for diverticulosis---3 hemoccult cards negative as well HTN Denies NE,DM,CVA,Lung disease,renal dise ase Hypothyroidism--thyroid cancer as below Gout B12 deficiency--receiving B12 shots Surgical History Surgery Date(Month/Year) Gastric bypass in December [address] Gonzalez with a subswquent 90 pound weight loss Eye surgery-Lasik cholecystectomy vein stripping in her 20's left knee replacement in 2010 Thyroidectomy in 2000 for cancer Having LE vein surgeries with
--- OUTSIDE RECORDS SUMMARY | 2024-11-23 17:55 | XMS_ITS | Patient Health Record ---
Author Organization [facility] Address [address] [facility] [address] [address] [place] [address] Care Team Providers Care Certified Prosthetist/Orthotist Name Role Phone BROOKS NIETO Primary Care Provider Soraya Mejia Unavailable [phone] Allergies No Known Allergies Reason For Referral [...] Status Risk Notes Problem Vitamin D deficiency (85074684) Vitamin D deficiency, unspecified (E55.9) Active confirmed Problem Postmenopausal atrophic vaginitis (02504475) Postmenopausal atrophic vaginitis (N95.2) Active confirmed Problem Age-related osteoporosis (658815362) Age-related osteoporosis without current pathological fracture (M81.0) Active confirmed Problem Urinary incontinence (328237801) Unspecified urinary incontinence (R32) Active confirmed Problem Hyperparathyroidism (20110623) Hyperparathyroid ism, unspecified (E21.3) Active confirmed Problem Morbid obesity (disorder) (178154543) Morbid (severe) obesity due to excess calories (E66.01) Active confirmed Problem Localized morphea (874966341) Lichen sclerosus et atrophicus (L90.0) Active confirmed Problem Unspecified menopausal and perimenopausal disorder (N95.9) Active confirmed Problem Vitamin D deficiency (12547218) Vitamin D deficiency, unspecified (E55.9) Active confirmed Problem Leiomyoma of uterus (76939160) Leiomyoma of uterus, unspecified (218.9) Active confirmed Major Problem Hypothyroidism (66092120) Unspecified hypothyroidism (244.9) Active confirmed Major Problem Gout (22310755) Gout, unspecified (274.9) Active confirmed Major Problem Essential hypertension (36084901) Unspecified essential hypertension (401.9) Active confirmed Major Problem Menopausal symptom (90435916) Symptomatic menopausal or female climacteric states (627.2) Active confirmed Major Problem Gynecological examination normal (296152798463506) Routine gynecological examination (V72.31) Active confirmed Major Problem Screening for malignant neoplasm of colon (530994677) Special screening for malignant neoplasms, colon (V76.51) [...] Details Provider Name:Soraya rizo, 02/14/2025 11:00:00 AM, [address] [place] [address], [address], [place], [address], Insurance Providers Payer Name Payer Address Payer Phone Subscriber Number Group Number Insured Name Patient Relationship to Insured Coverage Start Date Coverage End Date MEDICARE [address] [place] , [place] [id number] SOFYA HILLIARD Self - patient is the insured [facility] [address] [place] [address] [phone] [id number] SOFYA HILLIARD Self - patient is [...]
--- OUTSIDE RECORDS SUMMARY | 2024-11-23 17:55 | XMS_ITS | Clinical Summary ---
Author Organization [facility] Address [address] [address] Phone Care Team Providers Care Geosciences Professor Name Role Phone Fadi Wilkinson Primary Care Provider [phone] Allergies No known active allergies Medications AMOXICILLIN/POTA [...] file Insurance MEDICARE PART A & B [facility] MEDICARE SUPPLEMENT MEDICARE PART A & B [employer] MEDICARE SUPPLEMENT MEDICARE PART A & B [employer] MEDICARE SUPPLEMENT MEDICARE PART A & B [facility] MEDICARE SUPPLEMENT MEDICARE PART A & B [facility] [place] [phone] MEDICARE PART A & B [facility] MEDICARE SUPPLEMENT MEDICARE PART A & B [facility] [id number] MEDICARE SUPPLEMENT [facility] SU[facility] MEDIC[facility] PART A & B [facility] MEDICARE SUPPLEMENT Care Teams Geosciences Professor Relationship Specialty Start Date End Date Fadi Wilkinson DO [email or web address] PCP - General Internal Medicine 06/28/23 Additional Source Comments The information contained in this document represents components of the legal health record. It is not the complete legal health record.[facility]
--- OUTSIDE RECORDS SUMMARY | 2024-11-23 17:56 | XMS_ITS | Patient Health Record ---
Author Organization [facility] Address [address] [place] [address] Care Team Providers Care Powder Core Tester Name Role Phone Jaja WEISS, Fadi Primary Care Provider Jasmyne Denson Unavailable [phone] Allergies No Known Allergies Reason For Referral [...] Problem Acquired hammer toe of right foot (5721160166389174) Other hammer toe(s) (acquired), right foot (M20.41) Active confirmed Problem Acquired hammer toe of left foot (2581105236163091) Other hammer toe(s) (acquired), left foot (M20.42) Active confirmed Problem Localized, primary osteoarthritis of the ankle and/or foot (141637509) Arthritis of joint of lesser toe, right (M19.071) Active confirmed Vital Signs Blood pressure diastolic 76 mm Hg 05/03/2024 Height 5ft3in in 05/03/2024 Blood pressure systolic 130 mm Hg 05/03/2024 Weight 220 lbs 05/03/2024 BMI 38.97 kg/m2 05/03/2024 Encounters Encounter Location Date Provider Diagnosis [facility] [address] 05/03/2024 Jasmyne Gil Pain in right toe(s) M79.674 ; Other hammer toe(s) (acquired), right foot M20.41 ; Arthritis of joint of lesser toe, right M19.071 and [place] [facility] [address] 02/22/2024 Jasmyne Gil [address] [address] 05/03/2024 Jasmyne Gil Assessments Encounter Date Diagnosis (ICD Code) Assessment Notes Treatment Notes Treatment Clinical Notes Section Notes 05/03/2024 Pain in right toe(s) (ICD-10 - M79.674) 05/03/2024 Other hammer toe(s) (acquired), right foot (ICD-10 - M20.41) 05/03/2024 Arthritis of joint of lesser toe, right (ICD-10 - M19.071) 05/03/2024 [place] (ICD-10 - L84) Plan Of Treatment Pending Test Test Name Order Date X ray : Foot, right 3V 05/03/2024 81269 - Tenotomy, open flexor 03/14/2020 Insurance Providers Payer Name Payer Address Payer Phone Subscriber Number Group Number Insured Name Patient Relationship to Insured Coverage Start Date Coverage End Date Medicare National Govt Svcs [employer] [address] [place] [address] [id number] Marjorie Guerrero Self - patient is the insured 6 [employer] [address] [place] [address] [id number] Marjorie Guerrero Self - patient is [...] right shoulder removal 2016 endovenous lazer surgery 9423-4599 colonoscopy 2016 endoscopy 2016 hammer toe surgery 04/22/2018 endovenous laser 03/25/2020 removal bone spurs right shoulder 2017 ruptured vericose veins [phone] Hospitalization History Reason Date(Month/Year) Spiral fracture- left arm 2011
--- OUTSIDE RECORDS SUMMARY | 2024-11-23 17:56 | XMS_ITS | Data Portability ---
Author Organization [facility] Patient Home Address [address] [place] [address] Assessment Encounter Date Assessment Date Assessment LastModified [...] Organization Details Last Modified Time Details Appointments ER Follow up 2024 02:30P M CIARRA AYALA Not available Not available Not available ANNUAL EXAM 2024 09:30A M CIARRA AYALA Not available Not available Not available Lab None recorded. Referral None recorded. Procedures None recorded. Surgeries None recorded. Imaging MRI, brain, w/wo contrast 2023 024 [facility] Central Scheduling, [address], [place], [address], 02/02/2024 08:32:36 Medication Orders prednison e 10 mg tablet 2024 025 [facility][id number], [address], [place], [address], 08/11/2024 11:28:19 baclofen 10 mg tablet 2024 025 [facility] [address] [place], [address], 08/11/2024 11:28:19 Zepbound 5 mg/0.5 mL subcutane ous pen injector 2024 025 [facility] [address] [place], [address], 08/11/2024 11:26:22 Zepbound 2.5 mg/0.5 mL subcutane ous pen injector 2024 025 [facility], [facility], [place], [address], 05/23/2024 12:11:05 prednison e 10 mg tablet 2024 025 [facility] [address] [place], [address], 08/11/2024 11:26:32 amoxicill in 875 mg-potass ium clavulana te 125 mg tablet 2024 025 [facility] [address] [place], [address], 08/11/2024 10:57:08 solifenac in 10 mg tablet 2023 024 [facility], [facility], [place], [address], 01/26/2024 09:19:50 Patient TargetsNo targets recorded. Patient InstructionsNo instructions recorded. Reason for Referral None Reported. Results Created Date Observation Date Name Description Value Unit Range Abnormal Flag Note LastModifiedBy Organization Detail LastModifiedTime 01/26/2007/31/2020 US, head + neck, soft tissu e No observ ation record ed. Not Available 2023 09:39:37 11/27/20 24 08/24/2021 CT, head + brain , [...] contr ast No observ ation record ed. [address] (Medical Records) [address] [place], [address], 02/15/2024 15:43:40 02/15/20 24 02/13/2024 MRI, brain , w/wo contr ast No observ ation record ed. [address] (Medical Records) [address] [place] [address], [address], 02/15/2024 15:43:40 02/25/20 24 01/31/2024 bone densi ty No observ ation record ed. [email or web address] Not Available 2023 09:03:50 03/06/19 25 01/31/2024 bone densi ty No observ ation record ed. [email or web address] [facility] [address], [address], 03/06/2024 10:26:34 03/06/19 25 01/31/2024 DEXA No observ ation record ed. [email or web address] [address], [address], 03/06/2024 11:04:34 03/06/19 25 01/31/2024 bone densi ty No observ ation record ed. [address], [address], 03/06/2024 11:04:53 03/06/19 25 01/31/2024 bone densi ty No observ ation record ed. [email or web address] [address] [place], [address], 03/06/2024 13:44:05 08/31/19 25 08/30/2024 XR, hip + pelvi s, bilat eral, 2 view No observ ation record ed. [facility] (Medical Records) [address] [place], [address], 08/30/2024 16:47:25 08/31/19 25 08/30/2024 XR, hip + pelvi s, bilat eral, 2 view No observ ation record ed. [facility] (Medical Records) [address] [place], [address], 08/30/2024 16:47:26 08/31/19 25 08/30/2024 XR, lumbo sacra l spine , 2 or 3 view No observ ation record ed. [facility] (Medical Records) [address] [place], [address], 08/30/2024 16:47:26 08/31/19 25 08/30/2024 XR, lumbo sacra l spine , 2 or 3 view No observ ation record ed. [facility] (Medical Records) [address] [place], [address], 08/30/2024 16:47:26 09/14/19 25 09/13/2024 MAMMO , scree micaela, digit al, bilat eral No observ ation record ed. [email or web address] [facility] [address] [facility] [address], [place], [address], 09/14/2024 07:41:39 09/15/19 25 09/14/2024 MRI, lumba r spine , w/o contr ast No observ ation record ed. [facility] (Medical Records) [address] [place], [address], 09/15/2024 12:45:32 09/22/1909/21/2024 MRI, lumba r spine , w/ contr ast No observ ation record ed. [facility] (Medical Records) [address] [place], [address], 09/25/2024 10:57:03 11/03/1911/02/2024 imagi ng/di agnos tic resul t No observ ation record ed. [email or web address] [facility] (Medical Records) [address] [place], [address], 11/03/2024 08:20:17 11/21/19 25 11/20/2024 XR, chest , 2 view No observ ation record ed. [facility] (Medical Records) [address] [place], [address], 11/20/2024 13:42:54 Result Notes None recorded. Problems Name Problem SNOMED Code Status Onset Date Resolution Date Notes Provider Name and Address Organization Details Recorded Time Phlebiti s 20628547 Active 2022 [facility] 3 08:41:18 Herpes zoster 8459416 Active 2022 Yudith daily [place] [facility] 3 08:41:23 Late onset asthma 747214366 Active 2022 [facility] 3 08:41:35 Sleep apnea 00483485 Active 2022 on CPAP [facility] 3 08:44:27 History of malignan t neoplasm of thyroid 377531856 Active 2022 [facility] 3 08:42:02 Hammer toe 454684906 Active 2022 correctiv e surgery 04/22/2018 CIARRA AYALA [address] [place], [address], [facility] 3 09:52:08 Hyperten sive disorder 51234052 Active 2022 Yudith Arias null, [facility] 3 08:43:15 Paroxysm al atrial fibrilla tion 494040521 Active 2022 Yudith Arias null, [facility] 3 08:43:20 Chronic obstruct joseph pulmonar y disease 18244853 Active 2022 Yudith Arias null, [facility] 3 08:43:49 Anxiety 98617426 Active 2022 Yuidth Arias null, [facility] 3 08:43:57 Gout 89472301 Active 2022 Yudith Arias null, [facility] 3 08:44:03 Fracture of humerus 30016011 Active 2022 Yudith Arias null, [facility] 3 08:44:14 Osteopor osis 09462370 Active 2022 Yudith Arias null, [facility] 3 08:44:33 Pernicio us anemia 44860203 [facility] 2022 [facility] 08:44:41 Vitamin D deficien cy 02319942 Active 2022 CIARRA AYALA [address] [place], [address], [facility] 3 09:47:05 Hematoma of lower leg 031106126 Active 2022 Fadi Wilkinson DO [address] [place], [address], [facility] 3 12:49:51 Inguinal pain 759828216 Active 2022 CIARRA AYALA [address] [place], [address], [facility] 3 10:09:55 Mass of uterus 41508102372 9109 Active 2022 CIARRA AYALA [address] [place], [address], [facility] 3 13:45:02 Acute bacteria l sinusiti s 55656825 Active 2022 CIARRA AYALA [address] [place], [address], [facility] 3 09:33:03 Urinary incontin ence 813976905 Active 2022 CIARRA AYALA [address] [place], [address], [facility] 3 09:35:08 Acute sinusiti s 03249727 Active 2023 CIARRA AYALA [address] [place], [address], [facility] 4 14:50:48 Seasonal allergic rhinitis 371120235 Active 2023 CIARRA AYALA [address] [place], [address], [facility] 4 10:22:32 Hypothyr oidism 91400085 Active 2023 CIARRA AYALA [address] [place], [address], [facility] 4 10:23:00 Intracra nial meningio sd 710764526 Active 2023 CIARRA AYALA [address] [place], [address], [facility] 4 09:21:59 Atrial fibrilla tion 73264836 Active 2023 CIARRA AYALA [address] [place], [address], [facility] 4 09:25:09 Acute bronchit is 42561838 Active 2024 CIARRA AYALA [address] [place], [address], [facility] 10:20:24 Acute low back pain 488602968 Active 2024 CIARRA AYALA [address] [place], [address], [facility] 11:25:15 Acute back pain with sciatica 308455104 Active 2024 CIARRA AYALA [address] [place], [address], [facility] 5 10:13:42 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 Procedures Surgical History Date Name Laterality Status Provider Name and Address Organization Details Recorded Time hammer toe operation completed CIARRA AYALA [address] [place], [address], [facility] 05/07/2022 09:52:24 thyroidectomy completed CIARRA MATHEWS [address] [place], [address], [facility] 05/07/2022 09:52:55 laparoscopic sleeve gastrectomy completed CIARRA AYALA [address] [place], [address], [facility] 05/07/2022 09:53:06 total knee replacement completed CIARRA AYALA [address] [place], [address], [facility] 05/07/2022 09:53:23 cholecystectomy completed CIARRA ECHOLS [address] [place], [address], [facility] 05/07/2022 09:53:32 Imaging Results None recorded. Procedure [...] meloxicam 15 mg tablet TAKE 1 TABLET BY MOUTH EVERY DAY WITH A MEAL FOR 30 DAYS active Not Available Not Available No [...] Not Available Not Available Not Avai lable [facility] active Not Available Not A vailable Not [...] Not Available Not Available No t Available oxycodone 5 mg tablet Take 1 tablet 3 times a day by oral route as needed for 7 days. 10/27 completed Not Available Not Available Not Available escitalopra m 10 mg tablet TAKE [...] Not Available Not Available No t Available [facility] USE DIRECTED. active Not [...] Relief 50 mcg/actuati on nasal spray,suspe nsion Nucla 1 spray every day by intranasa l [...] Updated DateTime 5 160.02 cm 41.5 kg/m2 016762. 41 g 74 /min 97 % 97 % 162/78 mm[Hg] Rowena Jaime [facility] 5 10:01:44 Date Recorded Body height Body mass index (BMI) Body weight Heart rate Oxygen saturation Oxygen saturation in Arterial blood by Pulse oximetry Systolic And Diastolic Provider Name and Address Organization Details Last Updated DateTime 5 160.02 cm 39.3 kg/m2 721375. 51 g 75 /min 99 % 99 % 142/86 mm[Hg] Jared Quispe [facility] 5 10:04:39 Date Recorded Body height Body mass index (BMI) Body weight Heart rate Oxygen saturation Oxygen saturation in Arterial blood by Pulse oximetry Systolic And Diastolic Provider Name and Address Organization Details Last Updated DateTime 5 160.02 cm 36.4 kg/m2 22315.5 9 g 73 /min 96 % 96 % 124/74 mm[Hg] Rowena Jaime [facility] 5 11:08:41 Date Recorded Body height Body mass index (BMI) Body weight Heart rate Oxygen saturation Oxygen saturation in Arterial blood by Pulse oximetry Systolic And Diastolic Provider Name and Address Organization Details Last Updated DateTime 4 160.02 cm 40.2 kg/m2 446611. 11 g 77 /min 95 % 95 % 166/80 mm[Hg] Rowena Jaime [facility] 09:14:50 Social History Question Answer Notes LastModified by Organizat ion Details LastModified Time Tobacco Smoking Status Former Smoker Yudith Hugo daily [facility] 05/07/2022 09:32:24 Are You Blind Or Do You Have Difficulty Seeing? No Information not available 05/07/2022 What Is Your Level Of Caffeine Consumption? Occasional Information not available 05/07/2022 In The 14 Days Before Symptom Onset, Have You Had Close Contact With A Laboratory-confi rmed COVID-19 While That Case Was Ill? No [email or web address] Information not available 02/19/2023 In The 14 Days Before Symptom Onset, Have You Had Close Contact With A Person Who Is Under Investigation For COVID-19 While That Person Was Ill? No Information not available 02/19/2023 Have You Been To An Area Known To Be High Risk For COVID-19? No [email or web address] Information not available 02/19/2023 Are You Deaf [...] Status Question Answer Note LastModified by Organizat [employer] Details LastModified Time Do you use any illicit or recreational drugs? No [email or web address] Information not available 02/19/2023 Do you or have you ever used any other forms of tobacco or nicotine? No [email or web address] Information not available 02/19/2023 What is your level of alcohol consumption? Occasional Information not available 05/07/2022 Are you currently employed? No Information not available 12/10/2023 Are you able to walk independently without assistance or assistive devices? [email or web address] Information not available 05/07/2022 Do you have difficulty doing errands alone? No Information not available 05/07/2022 Are you able to care for yourself independently? Yes Information not available 05/07/2022 Do you have difficulty dressing, bathing, grooming, or toileting? No Information not available 05/07/2022 What is your exercise level? Moderate Information not available 05/07/2022 Mental Status Question Answer Note LastModified by Organizat ion Details LastModified Time Do you feel stressed (tense, restless, nervous, or anxious, or unable to sleep at night)? [id number] Information not available 05/07/2022 Do you have [...] Recorded Time influenza, unspecified formulation 2 kp daily [facility] 05/07/2022 09:32:19 COVID-19, mRNA, LNP-S, PF, 100 mcg/0.5mL dose or 50 mcg/0.25mL dose 1 kp daily [facility] 05/07/2022 09:36:54 COVID-19, mRNA, LNP-S, PF, 100 mcg/0.5mL dose or 50 mcg/0.25mL dose 1 kp daily [facility] 05/07/2022 09:36:59 COVID-19, mRNA, LNP-S, PF, 100 mcg/0.5mL dose or 50 mcg/0.25mL dose 1 kp daily [facility] 05/07/2022 09:37:05 COVID-19, mRNA, LNP-S, PF, 100 mcg/0.5mL dose or 50 mcg/0.25mL dose 2 kp daily [facility] 05/07/2022 09:37:10 COVID-19, mRNA, LNP-S, PF, 30 mcg/0.3 mL dose 2 kp daily [facility] 05/07/2022 09:37:20 zoster recombinant 0 completed Nader daily [facility] 09/13/2022 09:32:02 zoster recombinant 1 [facility]/13/2022 09:32:24 influenza, unspecified formulation 4 completed CIARRA AYALA [address] [place] [address], [address], [facility] 12/10/2023 13:45:44 Past Encounters Encounter ID Performer Location Encounter Start Date Encounter Closed Date Diagnosis/Indication Diagnosis SNOMED-CT Code Diagnosis ICD10 Code Diagnosis IMO Codes Diagnosis Note [id number] Fadi Wilkinson DO [facility] [address] [facility],[place] [address] 05/07/2022 09:19:18 05/07/2022 10:05:56 Paroxysmal atrial fibrillation 290271424 I48.0 stable Chronic ob structive pulmonary disease 94840758 J41.0 stable Gout 78991526 M10.041 stable Pernicious anemia 103016 09 D51.0 will recheck levels Vitamin D deficiency 347 51177 E55.9 will recheck levels History of malignant neoplasm of thyroid 894490311 Z85.850 stable, thyroid removedsee s endo through [facility] Hypertensive disorder 38 327703 I10 will set up with lab workkit [facility] [id number] Fadi Wilkinson [facility] [address] [facility],[place] [address] 06/24/2022 11:55:19 06/24/2022 15:24:16 Hypertensive disorder 74364697 I10 doing well Paroxysmal atrial fibrillation 003046542 I48.0 no palpitatio ns since presentati on Hematoma of lower leg 44 3846238 S80.12XD resolved [id number] Fadi Wilkinson [facility] [address] [facility],[place] [address] 09/14/2022 15:29:09 09/14/2022 16:37:22 Chronic obstructive pulmonary disease 30947372 J41.0 stableneed s refillphar magi changed in chart Hypertensive disorder 38 371310 I10 stable Paroxysmal atrial fibrillation 599771550 I48.0 stable [id number] Fadi Wilkinson [facility] [address] [facility],[place] [address] 11/09/2022 08:56:24 11/09/2022 10:11:54 Anxiety 57426299 F41.1 stable Chronic ob structive pulmonary disease 55649952 J41.0 stableneed s refillphar magi changed in chart Hypertensive disorder 38 517015 I10 stable Paroxysmal atrial fibrillation 110351705 I48.0 stable Pernicious anemia 773266 09 D51.0 will recheck levels Vitamin D deficiency 347 00981 E55.9 will recheck levels History of left total knee replacement 6925689227 287004 Z96.652 will set up with XR [id number] Fadi Wilkinson [facility] [address] [facility],[place] [address] 02/19/2023 08:27:30 02/19/2023 11:18:39 Acute bacterial sinusitis 05244163 J01.00 Urinary incontinence 165 893660 N39.3 doing well on myrbetriq Anxiety 50985457 F41.1 stable [id number] Fadi Wilkinson [facility] [address] [facility], [place] [address] 12/10/2023 13:31:34 12/10/2023 14:13:56 Active or passive immunization 444851926 Z23 stable Adult heal th examination 908397836 Z00.00 BP is excellent Depression screening 171 688985 Z13.31 SCREENING NEGATIVE [id number] Fadi Wilkinson [facility] [address] [facility],[place] [address] 01/26/2024 09:08:37 01/26/2024 09:33:39 Renewal of prescription 533653179 Z76.0 stable Urinary incontinence 165 544769 N39.3 stable Intracrani al meningioma 584912378 D32.0 case from her onc from thyroid case, recommende d fu screening Atrial fibrillation 4943 6004 I48.0 stable Chronic ob structive pulmonary disease 99358831 J41.0 stable [id number] Fadi Wilkinson [facility] [address] [facility],[place] [address] 03/10/2024 09:47:35 03/10/2024 15:39:35 Acute bronchitis 14174026 J20.8 [id number] Fadi Wilkinson [facility] [address] [facility],[place] [address] 03/24/2024 09:53:55 03/24/2024 10:32:40 Intracranial meningioma 877455443 D32.0 stable Atrial fibrillation 4943 6004 I48.0 stable Chronic ob structive pulmonary disease 42737185 J41.0 stable Body mass index 40+ - severely obese 062252981 Z68.41 under obesity, JUAREZ, heart disease/af ib, HTN and HLD [id number] Fadi Wilkinson [facility] [address] [facility],[place] [address] 05/10/2024 09:53:51 05/10/2024 14:41:18 Body mass index 40+ - severely obese 126305837 Z68.41 needs next dose up Acute bact erial sinusitis 97314738 J01.00 improving [id number] Fadi Wilkinson [facility] [address] [facility],[place] [address] 08/11/2024 10:46:35 08/11/2024 12:14:30 Depression screening 267635048 Z13.31 SCREENING NEGATIVE Acute low back pain 2788 22617 M54.50 89515897 will set up with prednisone and baclofen Health Concerns Section Related Observation LastModified by Organization Detai ls LastModified Time None Recorded Concern Status LastModified by Organization Details LastModified Time None Recorded Advance Directives Directive None Recorded Payers Insurance Date Sequence Insurance Name Policy Number Policy Roberts Covered Member ID Roberts Member ID Guarantor Name 08/11/2024 2 [facility] - [facility] [id number] Marjorie Guerrero [id number] Marjorie Guerrero 08/11/2024 1 MEDICARE B-NE: [facility] [employer] Marjorie Guerrero [id number] Marjorie Guerrero Notes Date Note Type [...] wellno other questions today CIARRA AYALA [address] [place], [address], [facility] 01/26/2024 09:30:02 5 text/html ROS [...] was negative x1 today CIARRA AYALA [address] [place], [address], [facility] 03/10/2024 15:14:27 5 text/html ROS as noted in the HPI f/u weight loss/sleep apnea patient is diagnosed with JUAREZ, atrial fibrillation, HLD, HTNrecommended by her fur stylist to start on Zepbound for the obesity [...] heart will fu with the order and CIARRA GARCIA [address] [place], [address], [facility] 03/24/2024 10:28:11 5 text/html ROS [...] infection will monitor symptoms CIARRA AYALA [address] [place], [address], [facility] 05/10/2024 10:17:46 5 text/html ROS [...] update me on Wednesday CIARRA AYALA [address] [place], [address], [facility] 08/11/2024 11:31:58 OBGyn Episode No OBEpisode recorded.
== END 2024-11-23 13:35 | disposition home or self-care (01) ==
LOC: HO.HNS 13:18
PROVIDERS: PCP Internal Medicine; Visit Provider Physician Assistant
DX: D33.9 Benign neoplasm of central nervous system, unspecified (principal)
CPT/HCPCS: 99024

== ENCOUNTER → 2024-11-23 13:18 | Outpatient (BNVA) | payer MEDICARE, OTHER, SELFPAY | PROVIDERS: PCP Internal Medicine; Visit Provider Physician Assistant | DX: Z47.89 Encounter for other orthopedic aftercare (principal); D33.9 Benign neoplasm of central nervous system, unspecified | CPT/HCPCS: 99212 ==

== ENCOUNTER 2025-01-04 13:17 | Outpatient (AMB) | payer MEDICARE, OTHER, SELFPAY ==
--- OUTSIDE RECORDS SUMMARY | 2023-11-17 06:00 | XMS_ITS ---
Author Organization [facility] Address [address] [facility] [address] [place] [address] Care Team Providers Care Clinical Nurse Specialist Name Role Phone BROOKS NIETO Primary Care Provider Soraya Mejia Unavailable [phone] REASON FOR VISIT ULTRA - FIBROIDS Encounters Encounter Location Date Provider Diagnosis [facility] [address] [place] [address] 11/17/2023 Soraya Love Plan Of Treatment Next Appt Details Provider Name:Soraya rizo, 02/14/2025 11:00:00 AM, [address] [facility], [address], [place], [address], Progress Notes * SOFYA HILLIARDDOB:[birth year] (74 yo F)Acc No.[id number]:11/17/2023 PROGRESS NOTES Patient: Bhavesh VINES SOFYA Appointment Provider: Marshall Love M.D. :1950 A ge:73 Y S ex:Female Date:11/17/2023 Address:[address] [place], [place] [phone] Pcp:BROOKS NIETO Subjective: * Chief Complaints: * 1 . ULTRA - FIBROIDS. * Medical History: Objective: * Vitals: Assessment: Plan: * Treatment: * Images: Billing Information: * Visit Code: * Procedure Codes: * Electronic signature of Riki Love MD on 01/04/2025 at 04:08 PM EST Sign off status: Pending * Appointment Provider: Marshall Love M.D. Date: 0 11/17/2023 Generated for Sarah nicholson/Laura/Jorge on: 1 03/06/2024 04:08 PM EST
--- NOTE | 2025-01-04 13:22 | HO.SPINEOV ---
Intake Visit Reasons: 2nd post op Intake Note: Ms. Guerrero is here today for her 2nd post op. 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 She is doing very well. She rates her pain level at 0. She has resumed all of her normal activities. Her wound looks excellent, it is completely healed. She is able to stand up out of a chair on her own independently and walk without any pain. At this point we can see her back on an as-needed basis since she is doing so well. She has no restrictions. 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
--- OUTSIDE RECORDS SUMMARY | 2025-01-04 16:09 | XMS_ITS | Patient Health Record ---
Author Organization [facility] Address [address] [place] [address] Care Team Providers Care Rn Invasive Name Role Phone Jaja WEISS, Fadi Primary Care Provider Jasmyne Denson Unavailable [phone] Allergies No Known Allergies Reason For Referral [...] Problem Acquired hammer toe of right foot (2894240270668951) Other hammer toe(s) (acquired), right foot (M20.41) Active confirmed Problem Acquired hammer toe of left foot (9900484500583389) Other hammer toe(s) (acquired), left foot (M20.42) Active confirmed Problem Localized, primary osteoarthritis of the ankle and/or foot (353527153) Arthritis of joint of lesser toe, right (M19.071) Active confirmed Vital Signs Blood pressure diastolic 76 mm Hg 05/03/2024 Height 5ft3in in 05/03/2024 Blood pressure systolic 130 mm Hg 05/03/2024 Weight 220 lbs 05/03/2024 BMI 38.97 kg/m2 05/03/2024 Encounters Encounter Location Date Provider Diagnosis [facility] [address] 05/03/2024 Jasmyne Gil Pain in right toe(s) M79.674 ; Other hammer toe(s) (acquired), right foot M20.41 ; Arthritis of joint of lesser toe, right M19.071 [facility] [address] 02/22/2024 Jasmyne Gil [address] [address] 05/03/2024 Jasmyne Gil Assessments Encounter Date Diagnosis (ICD Code) Assessment Notes Treatment Notes Treatment Clinical Notes Section Notes 05/03/2024 Pain in right toe(s) (ICD-10 - M79.674) 05/03/2024 Other hammer toe(s) (acquired), right foot (ICD-10 - M20.41) 05/03/2024 Arthritis of joint of lesser toe, right (ICD-10 - M19.071) 05/03/2024 Dietrich (ICD-10 - L84) Plan Of Treatment Pending Test Test Name Order Date X ray : Foot, right 3V 05/03/2024 14198 - Tenotomy, open flexor 03/14/2020 Insurance Providers Payer Name Payer Address Payer Phone Subscriber Number Group Number Insured Name Patient Relationship to Insured Coverage Start Date Coverage End Date Medicare [employer] [address] [place] [address] [id number] Marjorie Guerrero Self - patient is the insured [employer] [address] [place] [address] [id number] Marjorie Guerrero Self - patient is [...] right shoulder removal 2016 endovenous lazer surgery [phone] colonoscopy 2016 endoscopy 2016 hammer toe surgery 04/22/2018 endovenous laser 03/25/2020 removal bone spurs right shoulder 2017 ruptured vericose veins [id number] Hospitalization History Reason Date(Month/Year) Spiral fracture- left arm 2011
--- OUTSIDE RECORDS SUMMARY | 2025-01-04 16:09 | XMS_ITS | Data Portability ---
Author Organization [facility], Telehealth Patient Home Address [address] [place] [address] Assessment Encounter Date Assessment Date Assessment LastModified by Organization Details LastModified Time 03/10/2024 03/10/2024 Patient agreed and verbally consents to this audio and video Telehealth appt via a secure platform [email or web address] Not available 03/10/2024 15:09:43 Plan of Treatment Reminders Order Date Submit Date Provider Last Modified By Organization Details Last Modified Time Details Appointments ANNUAL EXAM 2025 09:30A M CIARRA AYALA Not available Not available Not available Lab None recorded. Referral None recorded. Procedures None recorded. Surgeries None recorded. Imaging US, echocardi ogram 2024 025 [facility] Central Scheduling, [address] [place] [address], [address], 11/29/2024 09:21:52 exercise stress test 2024 025 [email or web address] 10 [facility] Central Scheduling, [address] [place] [address], [address], 12/12/2024 10:12:09 Medication Orders pilocarpi ne 5 mg tablet 2024 025 [facility]/Pharmacy #[id number], [address] [place], [address], 11/28/2024 14:49:09 prednison e 10 mg tablet 2024 025 [facility]Pharmacy #[id number], [address] [place], [address], 08/11/2024 11:28:19 baclofen 10 mg tablet 2024 025 [facility]Pharmacy #0373, [address] [place], [address], 08/11/2024 11:28:19 Zepbound 5 mg/0.5 mL subcutane ous pen injector 2024 025 [facility]Pharmacy #[id number], [address] [place], [address], 08/11/2024 11:26:22 Zepbound 2.5 mg/0.5 mL subcutane ous pen injector [address] [facility], [facility], [place], [address], 05/23/2024 12:11:05 prednison e 10 mg tablet 2024 025 [facility]/Pharmacy #0373, [address] [place], [address], 08/11/2024 11:26:32 amoxicill in 875 mg-potass ium clavulana te 125 mg tablet 2024 025 [facility]/Pharmacy #[id number], [address] [place], [address], 08/11/2024 10:57:08 Patient TargetsNo targets recorded. Patient InstructionsNo instructions recorded. Reason for Referral None Reported. Results Created Date Observation Date Name Description Value Unit Range Abnormal Flag Note LastModifiedBy Organization Detail LastModifiedTime 02/15/2002/13/2024 MRI, brain , w/wo contr ast No observ ation record ed. [email or web address] [place] [address] (Medical Records) [address] [place] [address], [address], 02/15/2024 15:43:40 02/15/2002/1202/13/2024 MRI, brain , w/wo contr ast No observ ation record ed. [email or web address] [facility] (Medical Records) [address] [place], [address], 02/15/2024 15:43:40 02/25/20 24 01/31/2024 bone densi ty No observ ation record ed. [facility] Not Available 2023 09:03:50 03/06/19 25 01/31/2024 bone densi ty No observ ation record ed. [facility] [address], [address], 03/06/2024 10:26:34 03/06/19 25 01/31/2024 DEXA No observ ation record ed. [facility] [address] [place] [address], [address], 03/06/2024 11:04:34 03/06/19 25 01/31/2024 bone densi ty No observ ation record ed. [facility] [address] [place] [address], [address], 03/06/2024 11:04:53 03/06/19 25 01/31/2024 bone densi ty No observ ation record ed. [facility] [address], [address], 03/06/2024 13:44:05 08/31/19 25 08/30/2024 XR, hip + pelvi s, bilat eral, 2 view No observ ation record ed. [facility] (Medical Records) [address] [place], [address], 08/30/2024 16:47:25 08/31/19 25 08/30/2024 XR, hip + pelvi s, bilat eral, 2 view No observ ation record ed. [facility] (Medical Records) [address] [place], [address], 08/30/2024 16:47:26 08/31/19 25 08/30/2024 XR, lumbo sacra l spine , 2 or 3 view No observ ation record ed. [facility] (Medical Records) [address] [place], [address], 08/30/2024 16:47:26 08/31/19 25 08/30/2024 XR, lumbo sacra l spine , 2 or 3 view No observ ation record ed. [facility] (Medical Records) [address] [place], [address], 08/30/2024 16:47:26 09/14/19 25 09/13/2024 MAMMO , scree micaela, digit al, bilat eral No observ ation record ed. [email or web address] [facility] [address], [place], [address], 09/14/2024 07:41:39 09/15/19 25 09/14/2024 MRI, lumba r spine , w/o contr ast No observ ation record ed. [facility] (Medical Records) [address] [place], [address], 09/15/2024 12:45:32 09/22/19 25 09/21/2024 MRI, lumba r spine , w/ contr ast No observ ation record ed. [facility] (Medical Records) [address] [place], [address], 09/25/2024 10:57:03 11/03/19 25 11/02/2024 imagi ng/di agnos tic resul t No observ ation record ed. [email or web address] (Medical Records) [address] [place], [address], 11/03/2024 08:20:17 11/21/19 25 11/20/2024 XR, chest , 2 view No observ ation record ed. [facility] (Medical Records) [address] [facility], [place], [address], 11/20/2024 13:42:54 Result Notes None recorded. Problems Name Problem SNOMED Code Status Onset Date Resolution Date Notes Provider Name and Address Organization Details Recorded Time Phlebiti s 53623244 Active 2022 Yudith daily [facility] 3 08:41:18 Herpes zoster 6711959 Active 2022 Yudith daily [facility] 3 08:41:23 Late onset asthma 529963233 Active 2022 Yudith daily [facility] 3 08:41:35 Sleep apnea 39249791 Active 2022 on CPAP Yudith daily [facility] 3 08:44:27 History of malignan t neoplasm of thyroid 361085784 Active 2022 Yudith daily [facility] 3 08:42:02 Hammer toe 253023563 Active 2022 correctiv e surgery 04/22/2018 CIARRA AYALA [address] [place], [address], [facility] 3 09:52:08 Hyperten sive disorder 46588777 Active 2022 Yudith daily [facility] 3 08:43:15 Paroxysm al atrial fibrilla tion 011455594 Active 2022 Yudith daily [facility] 3 08:43:20 Chronic obstruct joseph pulmonar y disease 10840401 Active 2022 Yudith daily [facility] 3 08:43:49 Anxiety 98220063 Active 2022 Yudith daily [facility] 3 08:43:57 Gout 68827340 Active 2022 Yudith daily [facility] 3 08:44:03 Fracture of humerus 73955409 Active 2022 Yudith Arias null, [facility] 3 08:44:14 Osteopor osis 13401043 Active 2022 Yudith Arias null, [facility] 3 08:44:33 Pernicio us anemia 95104562 Active 2022 Yudith Arias null, [facility] 3 08:44:41 Vitamin D deficien cy 81979950 Active 2022 CIARRA AYALA [address] [place], [address], [facility] 3 09:47:05 Hematoma of lower leg 707325950 Active 2022 Fadi Wilkinson, DO [address] [place], [address], [facility] 3 12:49:51 Inguinal pain 213609722 Active 2022 CIARRA AYALA [address] [place], [address], [facility] 3 10:09:55 Mass of uterus 87849843342 9109 Active 2022 CIARRA AYALA [address] [place], [address], [facility] 3 13:45:02 Acute bacteria l sinusiti s 91140349 Active 2022 CIARRA AYALA [address] [place], [address], [place] [facility] 3 09:33:03 Urinary incontin ence 604460889 Active 2022 CIARRA AYALA [address] [place], [address], [place] [facility] 3 09:35:08 Acute sinusiti s 36190602 Active 2023 CIARRA AYALA [address] [place], [address], [facility] 4 14:50:48 Seasonal allergic rhinitis 732998823 Active 2023 CIARRA AYALA [address] [place], [address], [facility] 4 10:22:32 Hypothyr oidism 92701699 Active 2023 CIARRA AYALA [address] [place], [address], [facility] 4 10:23:00 Intracra nial meningio dc 109586450 Active 2023 CIARRA AYALA [address] [place], [address], [facility] 4 09:21:59 Atrial fibrilla tion 61897164 Active 2023 CIARRA AYALA [address] [place], [address], [facility] 4 09:25:09 Acute bronchit is 16856748 Active 2024 CIARRA AYALA [address] [place], [address], [facility] 5 10:20:24 Acute low back pain 891272027 Active 2024 CIARRA AYALA [address] [place], [address], [facility] 5 11:25:15 Acute back pain with sciatica 825393870 Active 2024 CIARRA AYALA [address] [place] [address], [address], [facility] 5 10:13:42 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 CIARRA AYALA [address] [place], [address], [facility] 16:53:29 Lesion of spinal cord Active 2024 CIARRA AYALA [address] [place], [address], [facility] 12:46:10 Degenera tive lumbar spinal stenosis 772547378 Active 2024 CIARRA AYALA [address] [place], [address], [facility] 07:00:37 Xerostom ia 18793422 Active 2024 CIARRA AYALA [address] [place], [address], [facility] 14:46:04 Electroc ardiogra m abnormal 000116888 Active 2024 CIARRA AYALA [address] [place], [address], [facility] 14:47:33 Obstruct joseph sleep apnea syndrome 13692136 Active 2024 CIARRA AYALA [address] [place], [address], [facility] 14:57:02 Problem Notes None recorded. Procedures Surgical History Date Name Laterality Status Provider Name and Address Organization Details Recorded Time hammer toe operation completed CIARRA AYALA [address] [place], [address], [facility] 05/07/2022 09:52:24 thyroidectomy completed CIARRA MATHEWS [address] [place], [address], [facility] 05/07/2022 09:52:55 laparoscopic sleeve gastrectomy completed CIARRA AYALA [address] [place], [address], [facility] 05/07/2022 09:53:06 total knee replacement completed CIARRA AYALA [address] [place], [address], [facility] 05/07/2022 09:53:23 cholecystectomy completed CIARRA ECHOLS [address] [facility], [place], [address], [facility] 05/07/2022 09:53:32 Imaging Results None recorded. Procedure Notes None recorded. Medical Equipment None Reported. Allergies No known drug allergies Medications Name Sig Start Date Stop Date Status Note LastModified by Organization Details LastModified Time Prescriptio n - Prior Authorizati on Request active Not Available Not Available N ot Available quetiapine 25 mg tablet TAKE 1-2 TABLETS DAILY AT BEDTIME NEEDED FOR INSOMNIA 05/10 completed Not Available Not Available Not Available celecoxib 200 mg capsule TAKE 1 CAPSULE DAILY active Not Available Not Available No t Available pilocarpine 5 mg tablet TAKE 1 TABLET BY MOUTH THREE TIMES A DAY DIRECTED FOR 30 DAYS active Not Available Not [...] EVERY 6 HOURS NEEDED FOR 7 DAYS active Not Available Not Available No [...] No t Available oxycodone 5 mg tablet TAKE 1 TABLET (5 MG) ORALLY EVERY 4 TO 6 HOURS NEEDED FOR PAIN PARTIAL FILL UPON PATIENT REQUEST. 11/28 completed Not Available Not Available Not Available [...] Not Available Not Available No t Available [facility] spacer USE DIRECTED. active Not Available [...] Relief 50 mcg/actuati on nasal spray,suspe nsion [place] 1 spray every day by intranasa l [...] 7.5 mg/0.5 mL subcutaneou s pen injector 2024 active Not Available Not Available Not Avai lable Vitals Date Recorded Body height Body mass index (BMI) Body weight Heart rate Oxygen saturation Oxygen saturation in Arterial blood by Pulse oximetry Systolic And Diastolic Provider Name and Address Organization Details Last Updated DateTime 5 160.02 cm 41.5 kg/m2 169358. 41 g 74 /min 97 % 97 % 162/78 mm[Hg] Rowena Jaime [facility] 5 10:01:44 Date Recorded Body height Body mass index (BMI) Body weight Heart rate Oxygen saturation Oxygen saturation in Arterial blood by Pulse oximetry Systolic And Diastolic Provider Name and Address Organization Details Last Updated DateTime 5 160.02 cm 39.3 kg/m2 025069. 51 g 75 /min 99 % 99 % 142/86 mm[Hg] Jared Quispe [facility] 5 10:04:39 Date Recorded Body height Body mass index (BMI) Body weight Heart rate Oxygen saturation Oxygen saturation in Arterial blood by Pulse oximetry Systolic And Diastolic Provider Name and Address Organization Details Last Updated DateTime 5 160.02 cm 36.4 kg/m2 53663.5 9 g 73 /min 96 % 96 % 124/74 mm[Hg] Rowena Jaime [facility] 5 11:08:41 Date Recorded Body height Body mass index (BMI) Body weight Heart rate Oxygen saturation Oxygen saturation in Arterial blood by Pulse oximetry Systolic And Diastolic Provider Name and Address Organization Details Last Updated DateTime 5 160.02 cm 36.3 kg/m2 70374.4 4 g 73 /min 98 % 98 % 124/74 mm[Hg] Mary Ramires [facility] 14:27:42 Social History Question Answer Notes LastModified by Organizat ion Details LastModified Time Tobacco Smoking Status Former Smoker Yudith Hugo daily [facility] 05/07/2022 09:32:24 Are You Blind Or Do You Have Difficulty Seeing? No Information not available 05/07/2022 What Is Your Level Of Caffeine Consumption? Occasional Information not available 05/07/2022 In The 14 Days Before Symptom Onset, Have You Had Close Contact With A Laboratory-confi rmed COVID-19 While That Case Was Ill? No [email or web address] Information not available 02/19/2023 In The 14 Days Before Symptom Onset, Have You Had Close Contact With A Person Who Is Under Investigation For COVID-19 While That Person Was Ill? No [email or web address] Information not available 02/19/2023 Have You Been To An Area Known To Be High Risk For COVID-19? No [email or web address] Information not available 02/19/2023 Are You Deaf [...] Date Of Your Most Recent Tobacco Screening? 11/28/2024 [email or web address] Information not available 11/28/2024 How Many Children Do You Have? 0 [...] Functional Status Question Answer Note LastModified by OrganBluetest Details LastModified Time Do you use any illicit or recreational drugs? No [email or web address] Information not available 02/19/2023 Do you or have you ever used any other forms of tobacco or nicotine? No [email or web address] Information not available 02/19/2023 What is your [...] anxious, or unable to sleep at night)? [id number] Information not available 05/07/2022 Do you have [...] Time influenza, unspecified formulation 2 kp daily [facility] 05/07/2022 09:32:19 COVID-19, mRNA, LNP-S, PF, 100 mcg/0.5mL dose or 50 mcg/0.25mL dose 1 kp daily [facility] 05/07/2022 09:36:54 COVID-19, mRNA, LNP-S, PF, 100 mcg/0.5mL dose or 50 mcg/0.25mL dose 1 kp daily [facility] 05/07/2022 09:36:59 COVID-19, mRNA, LNP-S, PF, 100 mcg/0.5mL dose or 50 mcg/0.25mL dose 1 kp daily [facility] 05/07/2022 09:37:05 COVID-19, mRNA, LNP-S, PF, 100 mcg/0.5mL dose or 50 mcg/0.25mL dose 2 kp daily [facility] 05/07/2022 09:37:10 COVID-19, mRNA, LNP-S, PF, 30 mcg/0.3 mL dose 2 kp daily [facility] 05/07/2022 09:37:20 zoster recombinant 0 completed Nader daily [facility] 09/13/2022 09:32:02 zoster recombinant 1 completed Nader Wilkinson [facility] 09/13/2022 09:32:24 influenza, unspecified formulation 4 completed CIARRA AYALA [address] [place] [address], [address], [facility] 12/10/2023 13:45:44 Past Encounters Encounter ID Performer Location Encounter Start Date Encounter Closed Date Diagnosis/Indication Diagnosis SNOMED-CT Code Diagnosis ICD10 Code Diagnosis IMO Codes Diagnosis Note [id number] Fadi Wilkinson [facility] [address] [facility],[place] [address] 05/07/2022 09:19:18 05/07/2022 10:05:56 Paroxysmal atrial fibrillation 122975690 I48.0 stable Chronic ob structive pulmonary disease 37431756 J41.0 stable Gout 55618555 M10.041 stable Pernicious anemia 076058 09 D51.0 will recheck levels Vitamin D deficiency 347 25993 E55.9 will recheck levels History of malignant neoplasm of thyroid 934294269 Z85.850 stable, thyroid removedsee s endo through [facility] Hypertensive disorder 38 125725 I10 will set up with lab workkit lemons today at [facility] [id number] Fadi Wilkinson [facility] [address] [facility],[place] [address] 06/24/2022 11:55:19 06/24/2022 15:24:16 Hypertensive disorder 11954211 I10 doing well Paroxysmal atrial fibrillation 980444336 I48.0 no palpitatio ns since presentati on Hematoma of lower leg 44 1976673 S80.12XD resolved [id number] Fadi Wilkinson [facility] [address] [facility],[place] [address] 09/14/2022 15:29:09 09/14/2022 16:37:22 Chronic obstructive pulmonary disease 07824687 J41.0 stableneed s refillphar magi changed in chart Hypertensive disorder 38 901955 I10 stable Paroxysmal atrial fibrillation 450342836 I48.0 stable [id number] Fadi Wilkinson [facility] [address] [facility],[place] [address] 11/09/2022 08:56:24 11/09/2022 10:11:54 Anxiety 39483458 F41.1 stable Chronic ob structive pulmonary disease 77774618 J41.0 stableneed s refillphar magi changed in chart Hypertensive disorder 38 172777 I10 stable Paroxysmal atrial fibrillation 811192439 I48.0 stable Pernicious anemia 181264 09 D51.0 will recheck levels Vitamin D deficiency 347 10319 E55.9 will recheck levels History of left total knee replacement 9880730349 122543 Z96.652 will set up with XR [id number] Fadi Wilkinson [facility] [address] [facility] [facility],[place] [address] 02/19/2023 08:27:30 02/19/2023 11:18:39 Acute bacterial sinusitis 95431854 J01.00 Urinary incontinence 165 689051 N39.3 doing well on myrbetriq Anxiety 71581915 F41.1 stable [id number] Fadi Wilknison [facility] [address] [facility] [address] 12/10/2023 13:31:34 12/10/2023 14:13:56 Active or passive immunization 274184734 Z23 stable Adult heal th examination 006661535 Z00.00 BP is excellent Depression screening 171 997334 Z13.31 SCREENING NEGATIVE [id number] Fadi Wilkinson [facility] [address] [facility],[place] [address] 01/26/2024 09:08:37 01/26/2024 09:33:39 Renewal of prescription 907423829 Z76.0 stable Urinary incontinence 165 390833 N39.3 stable Intracrani al meningioma 802247164 D32.0 case from her onc from thyroid case, recommende d fu screening Atrial fibrillation 4943 6004 I48.0 stable Chronic ob structive pulmonary disease 31820443 J41.0 stable [id number] Fadi Wilkinson [facility] [address],[place] [address] 03/10/2024 09:47:35 03/10/2024 15:39:35 Acute bronchitis 26249387 J20.8 [id number] Fadi Wilkinson [facility] [address] [facility],[place] [address] 03/24/2024 09:53:55 03/24/2024 10:32:40 Intracranial meningioma 382325247 D32.0 stable Atrial fibrillation 4943 6004 I48.0 stable Chronic ob structive pulmonary disease 69017326 J41.0 stable Body mass index 40+ - severely obese 500146865 Z68.41 under obesity, JUAREZ, heart disease/af ib, HTN and HLD [id number] Fadi Wilkinson [facility] [address] [facility],[place] [address] 05/10/2024 09:53:51 05/10/2024 14:41:18 Body mass index 40+ - severely obese 347824752 Z68.41 needs next dose up Acute bact erial sinusitis 61976140 J01.00 improving [id number] Fadi Wilkinson [facility] [address] [facility] [facility],[place] [address] 08/11/2024 10:46:35 08/11/2024 12:14:30 Depression screening 317157781 Z13.31 SCREENING NEGATIVE Acute low back pain 2788 39808 M54.50 43510359 will set up with prednisone and baclofen [id number] Fadi Wilkinson [facility] [address] [facility],[place] [address] 11/28/2024 14:21:07 11/29/2024 08:25:36 Depression screening 083482602 Z13.31 SCREENING NEGATIVE Xerostomia 92541157 K11. 7 8025 trial pilocarpin e until she sees pulm Electrocar diogram abnormal 090682952 R94.31 910956 recommende d stress test and echo Obstructiv e sleep apnea syndrome 99014642 G47.33 029448 stable Health Concerns Section Related Observation LastModified by Organization Detai ls LastModified Time None Recorded Concern Status LastModified by Organization Details LastModified Time None Recorded Advance Directives Directive None Recorded Payers Insurance Date Sequence Insurance Name Policy Number Policy Roberts Covered Member ID Roberts Member ID Guarantor Name 12/12/2024 2 [facility] INDEMNITY [facility] (INDEMNITY) [id number] Marjorie Guerrero [id number] Marjorie Guerrero 12/12/2024 1 MEDICARE B-ID: [facility] [employer] SERVICES Marjorie Guerrero [id number] Marjorie Guerrero Notes Date Note Type Note Provider Name and Address Organization Details Recorded Time 5 text/html ROS as noted in the HPI c/o URI symptoms The patient is participating in this appointment via telemedicine communication with a phone call/video calling service ([employer])The patient consents to use of these platforms [...] was negative x1 today CIARRA AYALA [address] [place], [address], [facility] 03/10/2024 15:14:27 5 text/html ROS as noted in the HPI f/u weight loss/sleep apnea patient is diagnosed with JUAREZ, atrial fibrillation, HLD, HTNrecommended by her restorative coordinator to start on Zepbound for the obesity [...] with the order and CIARRA GARCIA [address] [place], [address], [facility] 03/24/2024 10:28:11 5 text/html ROS [...] infection will monitor symptoms CIARRA AYALA [address] [place], [address], [facility] 05/10/2024 10:17:46 5 text/html ROS [...] update me on Wednesday CIARRA AYALA [address] [place], [address], [facility] 08/11/2024 11:31:58 5 text/html ROS as noted in the HPI ER f/u current weight is 171 lbs very dry month, went to ER concerned sig problemnot related to medication since she has been on it for awhile now without complicationscould be related to the zepbound and weight loss causing issues with her CPAP the patient will continue to increase fluids as well 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
--- OUTSIDE RECORDS SUMMARY | 2025-01-04 16:09 | XMS_ITS | Data Portability ---
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 Fixed that for her and did a quick cleaning. She LOVES the hearing aids....descr ibes them as 'Life Changing Lo Godoy [facility] nurcuioli Not available 06/08/2024 13:46:27 Plan of Treatment Reminders Order Date Submit Date Provider Last Modified By Organization Details Last Modified Time Details Appointments None record ed. Lab None record ed. Referral None record ed. Procedures None record ed. Surgeries None record ed. Imaging None record ed. Medication Orders None record ed. Patient TargetsNo targets recorded. Patient InstructionsNo instructions recorded. Reason for Referral None Reported. Problems Name Problem SNOMED Code Status Onset Date Resolution Date Notes Provider Name and Address Organization Details Recorded Time Obstructi ve sleep apnea syndrome 29162396 Active 2018 Obstructi ve sleep apnea (adult) (pediatri c); Note: Date Diagnosed : 08/31/2018 2:28 PM (G47.33) Not Available [facility] 4 02:31:01 Mild intermitt ent asthma 175477865 Active 2018 Mild intermitt ent asthma NOS; Note: Date Diagnosed : 08/31/2018 2:28 PM (J45.20) Not Available [facility] 4 02:31:05 Dysphonia 82367379 Active 2018 Hoarsenes s; Note: Date Diagnosed : 08/31/2018 2:28 PM (R49.0) [facility] 4 02:31:14 Sensorine ural hearing loss of bilateral ears 149705758 Active 2018 Sensorine ural hearing loss, bilateral ; Note: Date Diagnosed : 08/31/2018 2:46 PM (H90.3) Not Available [facility] 4 02:31:04 Otalgia of right ear 5719866750 Active 2018 Otalgia, right ear; Note: Date Diagnosed : 11/03/2018 12:50 PM (H92.01) Not Available [facility] 4 02:30:56 Bilateral earache 002474845 Active 2019 Otalgia, bilateral ; Note: Date Diagnosed : 03/27/2019 10:54 AM (H92.03) [facility] 4 02:31:10 Bilateral temporoma ndibular joint pain [id number] 819642 Active 2019 Arthralgi a of bilateral temporoma ndibular joint; Note: Date Diagnosed : 03/27/2019 10:54 AM (M26.623) Not Available [facility] 4 02:31:15 Abrasion of skin of right ear 48744915069 620825 Active 2019 Abrasion of right ear, initial encounter ; Note: Date Diagnosed : 03/27/2019 11:00 AM (S00.411A ) Not Available [facility] 4 02:31:10 Atopic dermatiti s 23081895 Active 2020 Other atopic dermatiti s; Note: Date Diagnosed : 03/15/2020 1:31 PM (L20.89) Not Available [facility] 4 02:31:06 Problem Notes None recorded. Medical Equipment None Reported. Allergies Allergen ID Allergen Name Allergen Category Reaction Reaction Severity Criticality Documentation Date Start Date Code Code System Note Provider Name and Address Organization Details Recorded Time 85893 ampicilli n medicatio n other Not available Not available 07/13/2023 733 RxNorm React ion: unkno wn, unspe cifie d;; Not Available [facility] 4 01:00:49 Medications Name Sig Start Date Stop Date Status Note LastModified by Organization Details LastModified Time celecoxib 200 mg capsule TAKE 1 CAPSULE DAILY active Not Available Not Available No t Available prednisone 10 mg tablet TAKE 2 TABLETS BY MOUTH EVERY DAY FOR 10 DAYS active Not Available Not Available No t Available Levoxyl 125 mcg tablet 2018 active Medicatio n ID: [id number] Du ration Value: 90 Brand Name: Levoxyl S end Method: E-Prescri bed Subs Allowed: No subs Medi cationGen ericName: Levoxyl Not Available Not Available Not Available cetirizine 10 mg tablet 2020 active Medicatio n ID: [id number] Br and Name: cetirizin e Send Method: E-Prescri bed Subs Allowed: subs OK Specia l Instructi on: TAKE 1 TABLET BY MOUTH AT BEDTIME NEEDED FOR ALLERGY SYMPTOMS Medicatio nGenericN naga: cetirizin e Not Available Not Available Not Available azithromyc in 250 mg tablet TAKE 2 TABLETS BY MOUTH TODAY, THEN TAKE 1 TABLET DAILY FOR 4 DAYS DIRECTED active Not Available Not Available No t Available diltiazem CD 180 mg capsule,ex tended release 24 hr TAKE 1 CAPSULE DAILY active Not Available Not Available No t Available alendronat e 70 mg tablet PLEASE SEE ATTACHED FOR DETAILED DIRECTION S active Not Available Not Available No t Available clonazepam 0.5 mg tablet TAKE 1 TABLET DAILY NEEDED active Not Available Not Available No t Available amlodipine 2.5 mg tablet 2018 active Medicatio n ID: [id number] Du ration Value: 90 Brand Name: amlodipin e Send Method: E-Prescri bed Subs Allowed: subs OK Medica tionGener icName: amlodipin e Not Available Not Available Not Available allopurino l 100 mg tablet TAKE 2 TABLETS ONCE DAILY active Not Available Not Available No t Available aspirin 81 mg tablet,del ayed release 2018 active Medicatio n ID: [id number] Br and Name: aspirin S end Method: E-Prescri bed Subs Allowed: subs OK Medica tionGefadi icName: aspirin Not Available Not Available Not Available clotrimazo le-betamet hasone 1 %-0.05 % topical cream APPLY TO AFFECTED AREA TWICE A DAY EXTERNALL Y FOR 14 DAYS (MUST LAST 30 DAYS) active Not Available Not Available No t Available montelukas t 10 mg tablet 2018 active Medicatio n ID: [id number] Du ration Value: 30 Brand Name: monteluka st Send Method: E-Prescri bed Subs Allowed: subs OK Specia l Instructi on: 1 TABLET IN THE EVENING ONCE A DAY ORALLY 30 DAY(S) Me dicationG enericNam e: monteluka st Not Available Not Available Not Available codeine 10 mg-guaifen esin 100 mg/5 mL oral liquid TAKE 10 ML BY MOUTH EVERY 4 HOURS active Not Available Not Available No t Available clobetasol 0.05 % topical ointment 2018 active Medicatio n ID: [id number] Du ration Value: 30 Brand Name: clobetaso l Send Method: E-Prescri bed Subs Allowed: subs OK Medica tiBranden icName: clobetaso l Not Available Not Available Not Available ibuprofen 600 mg tablet 2018 active Medicatio n ID: [id number] Du ration Value: 60 Brand Name: ibuprofen Send Method: E-Prescri bed Subs Allowed: subs OK Specia l Instructi on: 1 TAB THREE TIMES A DAY Medic ationGene ricName: ibuprofen Not Available Not Available Not Available estradiol 0.01% (0.1 mg/gram) vaginal cream active Not Available Not Available Not Available methylpred nisolone 4 mg tablets in a dose pack TAKE 6 TABLETS ON DAY 1 DIRECTED ON PACKAGE AND DECREASE BY 1 TAB EACH DAY FOR A TOTAL OF 6 DAYS active Not Available Not Available No t Available ferrous sulfate 325 mg (65 mg iron) tablet,del ayed release 2018 active Medicatio n ID: [id number] Br and Name: ferrous sulfate S end Method: E-Prescri bed Subs Allowed: subs OK Medica tionGener icName: ferrous sulfate Not Available Not Available Not Available losartan 100 mg tablet 2018 active Medicatio n ID: [id number] Du ration Value: 7 Brand Name: losartan Send Method: E-Prescri bed Subs Allowed: subs OK Specia l Instructi on: TAKE 1 TABLET BY MOUTH EVERY DAY Medic ationGene ricName: losartan Not Available Not Available Not Available amoxicilli n 875 mg-potassi um clavulanat e 125 mg tablet TAKE 1 TABLET BY MOUTH EVERY 12 HOURS FOR 7 DAYS active Not Available Not Available No t Available Levoxyl 137 mcg tablet TAKE 1 TABLET DAILY active Not Available Not Available No t Available solifenaci n 10 mg tablet TAKE 1 TABLET DAILY DIRECTED active Not Available Not Available No t Available PreserVisi on AREDS 4,296 mcg-226 mg-90 mg capsule 2018 active Medicatio n ID: [id number] Br and Name: PreserVis ion AREDS Sen d Method: E-Prescri bed Subs Allowed: subs OK Medica tionGener icName: PreserVis ion AREDS Not Available Not Available Not Available Prilosec 2018 active Medicatio n ID: [id number] Br and Name: prilosec Send Method: E-Prescri bed Subs Allowed: subs OK Medica tionGener icName: prilosec Not Available Not Available Not Available calcium citrate 2018 active Medicatio n ID: [id number] Br and Name: calcium citrate S end Method: E-Prescri bed Subs Allowed: subs OK Medica tionGener icName: calcium citrate Not Available Not Available Not Available ProAir HFA 90 mcg/actuat ion aerosol inhaler 2 puff 2018 active Medicatio n ID: [id number] Du ration Value: 30 Brand Name: ProAir HFA Send Method: E-Prescri bed Subs Allowed: subs OK Medica tionGener icName: ProAir HFA Not Available Not Available Not Available DermOtic Oil 0.01 % ear drops Instill 2 drop twice a week as directed 2020 active Medicatio n ID: [id number] Pr escribed By Name: NIKOLE Cotter Name: DermOtic Oil Send Method: E-Prescri bed Subs Allowed: subs OK Medica tionGener icName: DermOtic Oil Not Available Not Available Not Available Symbicort 160 mcg-4.5 mcg/actuat ion HFA aerosol inhaler 2018 active Medicatio n ID: [id number] Br and Name: Symbicort Send Method: E-Prescri bed Subs Allowed: subs OK Medica tionGener icName: Symbicort Not Available Not Available Not Available Vitamin D3 50 mcg (2,000 unit) capsule 2018 active Medicatio n ID: [id number] Br and Name: Vitamin D3 Send Method: E-Prescri bed Subs Allowed: subs OK Medica tionGener icName: Vitamin D3 Not Available Not Available Not Available mirabegron ER 25 mg tablet,ext ended release 24 hr TAKE 1 TABLET DAILY active Not Available Not Available No t Available Eliquis 5 mg tablet TAKE 1 TABLET TWICE A DAY FOR ATRIAL FIBRILLAT ION active Not Available Not Available No t Available Incruse Ellipta 62.5 mcg/actuat ion powder for inhalation USE 1 INHALATIO N ORALLY DAILY FOR CHRONIC OBSTRUCTI VE PULMONARY DISEASE active Not Available Not Available No t Available Flonase Allergy Relief 50 mcg/actuat ion nasal spray,susp ension 2 puff into both nostrils 2018 active Medicatio n ID: [id number] Du ration Value: 30 Brand Name: Flonase Allergy Relief Se nd Method: E-Prescri bed Subs Allowed: subs OK Medica tionGener icName: Flonase Allergy Relief Not Available Not Available Not Available Breo Ellipta 200 mcg-25 mcg/dose powder for inhalation USE 1 INHALATIO N ORALLY DAILY FOR CHRONIC OBSTRUCTI VE PULMONARY DISEASE active Not Available Not Available No t Available Spiriva Respimat 1.25 mcg/actuat ion solution for inhalation 2018 active Medicatio n ID: [id number] Br and Name: Spiriva Respimat Send Method: E-Prescri bed Subs Allowed: subs OK Medica tionGener icName: Spiriva Respimat Not Available Not Available Not Available vitamin B12 1,000 mcg-folic acid 400 mcg sublingual lozenge 2018 active Medicatio n ID: [id number] Br and Name: vitamin S04-mblhe acid Send Method: E-Prescri bed Subs Allowed: subs OK Medica tionGener icName: vitamin G09-vznsx acid Not Available Not Available Not Available Zepbound 5 mg/0.5 mL subcutaneo us pen injector INJECT 5 MG SUBCUTANE OUSLY WEEKLY active Not Available Not Available No t Available Zepbound 2.5 mg/0.5 mL subcutaneo us pen injector INJECT 2.5 MG SUBCUTANE OUSLY WEEKLY active Not Available Not Available No t Available Vitals None Recorded Social History None recorded. Functional Status None recorded. Mental Status None recorded. Family History Nothing Reported. Medical History No medical history recorded. Gynecological HistoryNo gynecological history recorded. Obstetrics History GPAL:G 0 P 0 0 0 0 Past Encounters Encounter ID Performer Location Encounter Start Date Encounter Closed Date Diagnosis/Indication Diagnosis SNOMED-CT Code Diagnosis ICD10 Code Diagnosis IMO Codes Diagnosis Note [id number] LO GODOY [place], [facility]A [facility] [place] [address] [place] [address] 05/10/2024 15:50:26 05/10/2024 23:44:40 Sensorineural hearing loss of bilateral ears 592041351 H90.3 Patient here wanting new hearing aids but she has never worn the ones she has consistent ly. When we really discussed her reasons, they were really excuses rather than reasons. I gently suggested this to her and she did agree.We decided, rather than have her waste more money on new aids, that she work on wearing the ones that she has. Did a quick check of her air conduction thresholds which were stable. Checked and cleaned her hearing aids and conducted Verifit.I did change her to medium open domes which seemed to fit better.She will make inserting them part of her morning routine by putting them in BEFORE she takes her daily meds. Fingers crossed that this will work.She does understand that the aids are almost 6 years old and that she may still want newer technology if she's actually wearing themLo Godoy MA CCC-A [id number] LO GODOY [place], [place]ASON[place] 100 [facility] ite 100 [place] [address] 06/08/2024 13:28:55 06/19/2024 12:36:37 Sensorineural hearing loss of bilateral ears 613286891 H90.3 Patient here wanting new hearing aids but she has never worn the ones she has consistent ly. When we really discussed her reasons, they were really excuses rather than reasons. I gently suggested this to her and she did agree.We decided, rather than have her waste more money on new aids, that she work on wearing the ones that she has. Did a quick check of her air conduction thresholds which were stable. Checked and cleaned her hearing aids and conducted Verifit.I did change her to medium open domes which seemed to fit better.She will make inserting them part of her morning routine by putting them in BEFORE she takes her daily meds. Fingers crossed that this will work.She does understand that the aids are almost 6 years old and that she may still want newer technology if she's actually wearing themLo Godoy MA [facility] Health Concerns Section Related Observation LastModified by Organization Detai ls LastModified Time None Recorded Concern Status LastModified by Organization Details LastModified Time None Recorded Advance Directives Directive None Recorded Payers Insurance Date Sequence Insurance Name Policy Number Policy Roberts Covered Member ID Roberts Member ID Guarantor Name 06/19/2024 2 [facility] INDEMNITY PLAN (INDEMNITY) [id number] Marjorie Guerrero [id number] Marjorie Guerrero 06/08/2024 1 [place] [employer] Marjorie Guerrero [id number] Marjorie Guerrero Notes Date Note Type Note Provider Name and Address Organization Details Recorded Time 05/10/2024 text/html Longstanding hearing loss. Has never worn hearing aids consistently LO GODOY MA, CCC-A [address] [place] [address], [id number], [facility] - [facility] Former[facility] 05/11/2024 09:41:26 OBGyn Episode No OBEpisode recorded.
--- OUTSIDE RECORDS SUMMARY | 2025-01-04 16:09 | XMS_ITS | Patient Health Record ---
Author Organization [facility] Address [address] [place] [address] [address] [place] [address] Care Team Providers Care Nuclear Technician Name Role Phone BROOKS NIETO Primary Care Provider Soraya Mejia Unavailable [phone] Allergies No Known Allergies Reason For Referral [...] Status Risk Notes Problem Vitamin D deficiency (54331828) Vitamin D deficiency, unspecified (E55.9) Active confirmed Problem Postmenopausal atrophic vaginitis (53740174) Postmenopausal atrophic vaginitis (N95.2) Active confirmed Problem Age-related osteoporosis (256974159) Age-related osteoporosis without current pathological fracture (M81.0) Active confirmed Problem Urinary incontinence (932555327) Unspecified urinary incontinence (R32) Active confirmed Problem Hyperparathyroidism (14287234) Hyperparathyroid ism, unspecified (E21.3) Active confirmed Problem Morbid obesity (disorder) (719358728) Morbid (severe) obesity due to excess calories (E66.01) Active confirmed Problem Localized morphea (124056194) Lichen sclerosus et atrophicus (L90.0) Active confirmed Problem Unspecified menopausal and perimenopausal disorder (N95.9) Active confirmed Problem Vitamin D deficiency (99942948) Vitamin D deficiency, unspecified (E55.9) Active confirmed Problem Leiomyoma of uterus (54480271) Leiomyoma of uterus, unspecified (218.9) Active confirmed Major Problem Hypothyroidism (36374088) Unspecified hypothyroidism (244.9) Active confirmed Major Problem Gout (81465172) Gout, unspecified (274.9) Active confirmed Major Problem Essential hypertension (02525502) Unspecified essential hypertension (401.9) Active confirmed Major Problem Menopausal symptom (54366061) Symptomatic menopausal or female climacteric states (627.2) Active confirmed Major Problem Gynecological examination normal (195591829831101) Routine gynecological examination (V72.31) Active confirmed Major Problem Screening for malignant neoplasm of colon (909314920) Special screening for malignant neoplasms, colon (V76.51) [...] Details Provider Name:Soraya rizo, 02/14/2025 11:00:00 AM, [address] [place] [address], [address], [place], [address], Insurance Providers Payer Name Payer Address Payer Phone Subscriber Number Group Number Insured Name Patient Relationship to Insured Coverage Start Date Coverage End Date MEDICARE [address] [place] , [place] [id number] SOFYA HILLIARD Self - patient is the insured [facility] [address] [place] [address] [phone] [id number] SOFYA HILLIARD Self - patient is [...]
--- OUTSIDE RECORDS SUMMARY | 2025-01-04 16:09 | XMS_ITS | Clinical Summary ---
Author Organization [facility] Address [address] [address] Phone Care Team Providers Care Payment Specialist Name Role Phone Fadi Wilkinson Primary Care Provider [phone] Allergies No known active allergies Medications AMOXICILLIN/POTA [...] MEDICARE PART A & B [facility] MEDICARE SUPPLEMENT MEDICARE PART A & B [employer] MEDICARE SUPPLEMENT MEDICARE PART A & B [employer] MEDICARE SUPPLEMENT MEDICARE PART A & B [facility] MEDICARE SUPPLEMENT MEDICARE PART A & B [facility] [place] [phone] MEDICARE PART A & B [facility] MEDICARE SUPPLEMENT MEDICARE PART A & B [facility] [employer] MEDICARE SUPPLEMENT MEDICARE PART A & B [facility] MEDIC[facility] SUPPLEMENT MEDICARE PART A & B [facility] MEDICARE SUPPLEMENT Care Teams Payment Specialist Relationship Specialty Start Date End Date Fadi Wilkinson DO [email or web address] PCP - General Internal Medicine 06/28/23 Additional Source Comments The information contained in this document represents components of the legal health record. It is not the complete legal health record.[facility]
== END 2025-01-04 13:31 | disposition home or self-care (01) ==
LOC: HO.HNS 13:18
PROVIDERS: PCP Internal Medicine; Visit Provider Physician Assistant
DX: D33.9 Benign neoplasm of central nervous system, unspecified (principal)
CPT/HCPCS: 99024

== ENCOUNTER → 2025-01-04 13:17 | Outpatient (BNVA) | payer MEDICARE, OTHER, SELFPAY | PROVIDERS: PCP Internal Medicine; Visit Provider Physician Assistant | DX: Z47.89 Encounter for other orthopedic aftercare (principal); D33.9 Benign neoplasm of central nervous system, unspecified | CPT/HCPCS: 99212 ==

== ENCOUNTER → 2025-01-11 08:49 | Outpatient (REF) | payer MEDICARE, OTHER, SELFPAY ==
--- OUTSIDE RECORDS SUMMARY | 2023-09-22 05:00 | XMS_ITS ---
Author Organization [facility] Address [address] [facility] [address] [place] [address] Care Team Providers Care Automatic Seamer Name Role Phone BROOKS NIETO Primary Care Provider Soraya Mejia Unavailable [phone] REASON FOR VISIT INTERVAL - MED CHECK Encounters Encounter Location Date Provider Diagnosis [facility] [address] [address] 09/22/2023 Soraya Love Plan Of Treatment Next Appt Details Provider Name:Soraya rizo, 02/14/2025 11:00:00 AM, [address] [place] [address], [facility] [address], [place], [address], Progress Notes * SOFYA HILLIARDDOB:[birth year] (74 yo F)Acc No.[id number]:09/22/2023 Patient: CROW HUTCHINSONRICIA Appointment Provider: Marshall Love M.D. :1950 A ge:73 Y S ex:Female Date:09/22/2023 Address:[address] [place], [place] [id number] Pcp:BROOKS NIETO Subjective: * Chief Complaints: * 1 . INTERVAL - MED CHECK. * Medical History: G out, unspecified, Essential (primary) hypertension, Hypothyroidism, unspecified, Menopausal and female climacteric states, Leiomyoma of uterus, unspecified, Morbid (severe) obesity due to excess calories, Lichen sclerosus et atrophicus, Disorder of bone density and structure, unspecified, Family history of malignant neoplasm of breast, Vitamin D deficiency, unspecified, Age-related osteoporosis without current pathological fracture, Postmenopausal atrophic vaginitis. * Business Unit Manager History: G ravida/ Para 0 /0. S exual activity c urrently sexually active. L ast Pap Smear: NIL, NEG HPV, 11/23/17 NIL, NEG HRHPV, 04/2013. M ammogram: < 50% density, 09/08/21 < 50% density, 09/06/20 < 50% density, 09/06/19 < 50% density, 09/02/18 < 50% density, 08/2017 normal, 08/27/2016 normal, 08/27/15 < 50% density, 07/2013. L MP and menses M solomon. E ndoscopy * 2 016. C olonoscopy 2 016, 2005. B one Density: , 10/26/18, 08/22/14, 07/2012. * OB History: T otal pregnancies 0 . Objective: * Vitals: Assessment: Plan: * Treatment: * Images: Billing Information: * Visit Code: * Procedure Codes: * Electronic signature of Riki Love MD on 01/11/2025 at 09:18 AM EST Sign off status: Pending * Appointment Provider: Marshall Love M.D. Date: 0 09/22/2023 Generated for Sarah nicholson/Laura/Jorge on: 03/13/2024 09:18 AM EST
--- OUTSIDE RECORDS SUMMARY | 2023-11-17 06:00 | XMS_ITS ---
Author Organization [facility] Address [address] [facility] [address] [place] [address] Care Team Providers Care Census Taker Name Role Phone BROOKS NIETO Primary Care Provider Soraya Mejia Unavailable [phone] REASON FOR VISIT ULTRA - FIBROIDS Encounters Encounter Location Date Provider Diagnosis [facility] [address] [place] [address] 11/17/2023 Soraya Love Plan Of Treatment Next Appt Details Provider Name:Soraya rizo, 02/14/2025 11:00:00 AM, [address] [facility], [address], [place], [address], Progress Notes * SOFYA HILLIARDDOB:[birth year] (74 yo F)Acc No.[id number]:11/17/2023 PROGRESS NOTES Patient: Bhavesh VINES SOFYA Appointment Provider: Marshall Love M.D. :1950 A ge:73 Y S ex:Female Date:11/17/2023 Address:[address] [place], [place] [phone] Pcp:BROOKS NIETO Subjective: * Chief Complaints: * 1 . ULTRA - FIBROIDS. * Medical History: Objective: * Vitals: Assessment: Plan: * Treatment: * Images: Billing Information: * Visit Code: * Procedure Codes: * Electronic signature of Riki Love MD on 01/11/2025 at 09:18 AM EST Sign off status: Pending * Appointment Provider: Marshall Love M.D. Date: 0 11/17/2023 Generated for Sarah nicholson/Laura/Jorge on: 1 03/13/2024 09:18 AM EST
--- OUTSIDE RECORDS SUMMARY | 2024-11-02 08:20 | XMS_ITS ---
Author Organization [facility] Address [address] [facility] [facility] [address] [place] [address] Care Team Providers Care Die Sinking Machine Operator Name Role Phone BROOKS NIETO Primary Care Provider Soraya Mejia Unavailable [phone] REASON FOR VISIT LR MEDICARE PE Encounters Encounter Location Date Provider Diagnosis [facility] [address] [place] [address] 11/02/2024 Soraya Love Plan Of Treatment Next Appt Details Provider Name:Soraya rizo, 02/14/2025 11:00:00 AM, [address] [facility], [address], [place], [address], Progress Notes * SOFYA HILLIARDDOB:[birth year] (74 yo F)Acc No.[id number]:11/02/2024 PROGRESS NOTES Patient: Bhavesh VINES SOFYA Appointment Provider: Marshall Love M.D. :1950 A ge:74 Y S ex:Female Date:11/02/2024 Address:[address] [place], [place] [id number] Pcp:BROOKS NIETO Subjective: * Chief Complaints: * 1 . LR MEDICARE PE. * Medical History: Objective: * Vitals: Assessment: Plan: * Treatment: * Images: Billing Information: * Visit Code: * Procedure Codes: * Electronic signature of Riki Love MD on 01/11/2025 at 09:19 AM EST Sign off status: Pending * Appointment Provider: Marshall Love M.D. Date: 0 11/02/2024 Generated for Sarah nicholson/Laura/Jorge on: 1 03/13/2024 09:19 AM EST
--- NOTE | 2025-01-11 08:55 | CA_ITS ---
Transthoracic Echocardiogram Patient (Last, First, Middle): Marjorie Guerrero C Gender: Female Date of : 1950 Age: 74 Procedure Date: 01/11/2025 Procedure Type: Transthoracic Echocardiogram Location: OP Height: 160.02 cm Weight: 81.19 kg BSA: 1.84 m2 Heart Rate: 70 bpm BP: 128 / 68 mmHg Statistician Applied: SB Referring MD: Osmar Ferrari MD Legislators: Osmar Ferrari MD Symptoms: I77.89 - Other specified disorders of arteries and arterioles Study Quality: Adequate w contrast ECG Rhythm: Sinus Conclusions: - 1. Low normal LV ejection fraction 50-55% with impaired relaxation filling pattern 2. Mildly dilated left atrium 3. Mild aortic regurgitation with early mild aortic stenosis 4. Mildly dilated ascending aorta at 4 cm 5. No gross pericardial effusion Findings Procedure Information Contrast agent, definity, is being given per protocol without apparent complications. Left Ventricle Normal left ventricular cavity size. There is normal left ventricular wall thickness. The left ventricular systolic function is low normal. The visually estimated ejection fraction is between 50-55%. Spectral Doppler is indicative of an impaired relaxation filling pattern. E/E prime ratio is between 8 and 15 consistent with indeterminate filling pressures. Right Ventricle Normal right ventricular cavity size and systolic function. Atria The left atrium is mildly dilated. There is an interatrial septal aneurysm seen bowing to the right. The right atrium is likely dilated. Aortic Valve There is mild calcification of the aortic valve. The peak aortic gradient is 9 mmHg.The mean gradient is 5 mmHg. The aortic valve area is 1.99 cm2. There is mild aortic valve regurgitation. Mitral Valve There is mild anterior and posterior mitral leaflet thickening. There is mild mitral valve regurgitation. There is no mitral valve stenosis. Pulmonic Valve The pulmonic valve is likely normal. There is trace pulmonic valve regurgitation. Tricuspid Valve Likely normal tricuspid valve structure and function. Tricuspid regurgitation envelope is inadequate for calculation of right ventricular systolic pressure. Normal right atrial pressure. Great Vessels The pulmonary artery was not well visualized. There is mild dilatation of the ascending aorta measuring 4.00 cm. Venous The inferior vena cava is normal in size and collapses greater than 50% with inspiration. Pericardium/Pleural There is no evidence of pericardial effusion. Measurements 2D Linear Measurements IVSd: 0.86 0.6-0.9/0.6-1.0 cm LVIDd: 5.16 3.9-5.3/4.2-5.9 cm LVIDd Index: 2.80 2.4-3.2/2.2-3.1 cm/m2 LVIDs: 3.53 2.0-3.6 cm LVPWd: 0.91 0.7-1.1 cm LA Diam: 4.30 2.7-3.8/3.0-4.0 cm LAIDs Index: 2.34 1.5-2.3 cm/m2 LV Mass: 202.19 67-162/88-224 g LV Mass Index: 109.89 43-95/49-115 g/m2 LVOT Diam: 2.10 3.0+(-)1.3 cm 2D Systolic Function EF 4C: 54.50 >55% EF 2C: 52.10 >55% EF BiP: 52.90 >55% Mitral Valve MV Pk E: 0.52 MV PK A: 0.94 MV Decel Time: 154.00 E/A: 0.50 E'Lateral: 5.44 E'Medial: 3.81 E/E' Med: 13.60 E/E' Lat: 9.50 PHT: 45.00 MVA PHT: 4.89 Decel Queens: 3.36 Aortic Valve AoV Pk Aleksander: 1.47 AoV Mn Aleksander: 1.04 AoV VTI: 0.34 AoV Pk Grad: 9.00 Aov Mn Grad: 5.00 LEWIS Cont.VTI: 1.99 LVOT LVOT Pk Aleksander: 0.81 LVOT Mn Aleksander: 0.52 LVOT VTI: 0.19 LVOT Pk Grad: 3.00 LVOT Mn Grad: 1.00 LVOT Diam: 2.10 LVOT Area: 3.46 Diastolic Function MV Pk E: 0.52 MV Pk A: 0.94 E/A: 0.50 E'Medial: 3.81 E/E' Med: 13.60 E' Laterial: 5.44 E/E' Lat: 9.50 Right Ventricle TAPSE (mm): 22.40 TVS' Aleksander: 13.80 Tricuspid Valve RA Press: 3.00 Great Vessels Aorta Sinus of Valsalva: 3.47 2.0-3.5 cm Ao Asc: 4.00 2.1-3.4 cm Updated in Other Vendor System with Status of Final Osmar Ferrari MD electronically signed on 01/12/2025 2:33:22 PM with status of Final
--- NOTE | 2025-01-11 09:00 | CA_ITS ---
Acquisition Time: 2025-01-11 10:18:11 Total Exercise Time: 00:05:13 Test Indications: ABN EKG Medications: SEE H&P Protocol: JUAN DAVID Max HR: 127 BPM 86% of Pred: 146 BPM Max BP: 154/94 mmHG Max Work Load: 7.0 METS Exercise stress test with exercise 5 mins 13 secs of Juan David Protocol, achieving 86% MPHR, with reports of mild SOB, no chest pain, with isolated PACs and PVCs, rare vent couplets, with normotensive response to exercise. Without any EKG changes meeting criteria for ischemia. In recovery, breathing improved to baseline. Test reviewed with Dr. Ferrari. Referred By: Deena Chowdhury Electronically Signed By: Paul Iraheta
--- OUTSIDE RECORDS SUMMARY | 2025-01-11 09:18 | XMS_ITS | Patient Health Record ---
Author Organization [facility] Address [address] [place] [address] [address] [place] [address] Care Team Providers Care Merchandising Representative Name Role Phone BROOKS NIETO Primary Care Provider Soraya Mejia Unavailable [phone] Allergies No Known Allergies Reason For Referral [...] Status Risk Notes Problem Vitamin D deficiency (76628637) Vitamin D deficiency, unspecified (E55.9) Active confirmed Problem Postmenopausal atrophic vaginitis (89751563) Postmenopausal atrophic vaginitis (N95.2) Active confirmed Problem Age-related osteoporosis (974618894) Age-related osteoporosis without current pathological fracture (M81.0) Active confirmed Problem Urinary incontinence (123480679) Unspecified urinary incontinence (R32) Active confirmed Problem Hyperparathyroidism (23464276) Hyperparathyroid ism, unspecified (E21.3) Active confirmed Problem Morbid obesity (disorder) (367347017) Morbid (severe) obesity due to excess calories (E66.01) Active confirmed Problem Localized morphea (052182339) Lichen sclerosus et atrophicus (L90.0) Active confirmed Problem Unspecified menopausal and perimenopausal disorder (N95.9) Active confirmed Problem Vitamin D deficiency (95709396) Vitamin D deficiency, unspecified (E55.9) Active confirmed Problem Leiomyoma of uterus (55878049) Leiomyoma of uterus, unspecified (218.9) Active confirmed Major Problem Hypothyroidism (02964402) Unspecified hypothyroidism (244.9) Active confirmed Major Problem Gout (34599729) Gout, unspecified (274.9) Active confirmed Major Problem Essential hypertension (33989072) Unspecified essential hypertension (401.9) Active confirmed Major Problem Menopausal symptom (41643706) Symptomatic menopausal or female climacteric states (627.2) Active confirmed Major Problem Gynecological examination normal (640562551591244) Routine gynecological examination (V72.31) Active confirmed Major Problem Screening for malignant neoplasm of colon (957179825) Special screening for malignant neoplasms, colon (V76.51) [...] Details Provider Name:Soraya rizo, 02/14/2025 11:00:00 AM, [address] [place] [address], [address], [place], [address], Insurance Providers Payer Name Payer Address Payer Phone Subscriber Number Group Number Insured Name Patient Relationship to Insured Coverage Start Date Coverage End Date MEDICARE [address] [place] , [place] [id number] SOFYA HILLIARD Self - patient is the insured [facility] [address] [place] [address] [phone] [id number] SOFYA HILLIARD Self - patient is [...]
--- OUTSIDE RECORDS SUMMARY | 2025-01-11 09:18 | XMS_ITS | Patient Health Record ---
Author Organization [facility] Address [address] [place] [address] Care Team Providers Care Home Care Provider Name Role Phone Mamadou Magdaleno M.D. Primary Care Provider Patti Wil Casillas Unavailable [phone] Allergies Allergen (clinical drug ingredient) Drug/Non Drug [...] 100 GM as directed Orally a s directed; Duration: 1 dose 05/16/2014 Active LORazepam .5mg 1 tablet as needed Orally prn Active Ibuprofen 600mg 1 tablet Orally prn Active Problems Problem Type SNOMED Code ICD Code Onset Dates Problem Status W/U Status Risk Notes Problem Vitamin B6 deficiency (664192860) Vitamin B<SUB>6</SUB> deficiency (266.1) Active confirmed Problem Vitamin deficiency (35745486) Deficiency of other vitamins (269.1) Active confirmed Problem Iron deficiency anemia (00001258) Iron deficiency anemia (280.9) Active confirmed Encounters Encounter Location Date Provider Diagnosis [facility] [address] [place] [address] 10/13/2024 Wil Rucker Plan Of Treatment Future Test Test Name Order Date UPPER GI ENDOSCOPY 05/15/2014 COLONOSCOPY 05/15/2014 Insurance Providers Payer Name Payer Address Payer Phone Subscriber Number Group Number Insured Name Patient Relationship to Insured Coverage Start Date Coverage End Date [employer] [address] [place] [address] [id number] ARMINDA SOFYA Self - patient is the insured Medical (General) History Medical History History ICD Code colonoscopy 05-20-2005-neg ex cept for diverticulosis---3 hemoccult cards negative as well HTN Denies DC,DM,CVA,Lung disease,renal dise ase Hypothyroidism--thyroid cancer as below Gout B12 deficiency--receiving B12 shots Surgical History Surgery Date(Month/Year) Gastric bypass in December [address] Gonzalez with a subswquent 90 pound weight loss Eye surgery-Lasik cholecystectomy vein stripping in her 20's left knee replacement in 2010 Thyroidectomy in 2000 for cancer Having LE vein surgeries with
--- OUTSIDE RECORDS SUMMARY | 2025-01-11 09:18 | XMS_ITS | Data Portability ---
Author Organization [place] [facility] Address [address] [address] Care Team Providers Care Fiber Optics Engineer Name Role Phone BROOKS NIETO Primary Care Provider [phone] Assessment Encounter Date Assessment Date Assessment LastModified by Organization Details LastModified Time 05/10/2024 05/10/2024 Hearing Aid Fitting Details Date: Pen Or Pencil Assembly Machine Operator & Model: Phonak Audeo M90 R's Color: Champagne Ear coupling: Medium open domes Serial Numbers Right: [id number] Left: [id number] Warranty Expiration: 12-05-2021 Accessories: Programs: [email or web address] Not available 05/11/2024 09:33:32 06/08/2024 06/08/2024 06-08-2024 Patient had cleaned her aids and changed domes but didn't get the retention tail on correctly. Fixed that for her and did a quick cleaning. She LOVES the hearing aids....descr ibes them as 'Life Changing Lo Godoy [facility]-a [email or web address] Not available 06/08/2024 13:46:27 Plan of [...] Recorded Time Obstructi ve sleep apnea syndrome 10903746 Active 2018 Obstructi ve sleep apnea (adult) (pediatri c); Note: Date Diagnosed : 08/31/2018 2:28 PM (G47.33) Not Available [facility] 4 02:31:01 Mild intermitt ent asthma 115486627 Active 2018 Mild intermitt ent asthma NOS; Note: Date Diagnosed : 08/31/2018 2:28 PM (J45.20) Not Available [facility] 4 02:31:05 Dysphonia 99386771 Active 2018 Hoarsenes s; Note: Date Diagnosed : 08/31/2018 2:28 PM (R49.0) [facility] Available [facility] 4 02:31:14 Sensorine ural hearing loss of bilateral ears 874434332 Active 2018 Sensorine ural hearing loss, bilateral ; Note: Date Diagnosed : 08/31/2018 2:46 PM (H90.3) Not Available [facility] 4 02:31:04 Otalgia of right ear 3949540345 Active 2018 Otalgia, right ear; Note: Date Diagnosed : 11/03/2018 12:50 PM (H92.01) Not Available [facility] 4 02:30:56 Bilateral earache 811760534 Active 2019 Otalgia, bilateral ; Note: Date Diagnosed : 03/27/2019 10:54 AM (H92.03) Not Available [facility] 4 02:31:10 Bilateral temporoma ndibular joint pain 74300963578 474580 Active 2019 Arthralgi a of bilateral temporoma ndibular joint; Note: Date Diagnosed : 03/27/2019 10:54 AM (M26.623) Not Available [facility] 4 02:31:15 Abrasion of skin of right ear 03887079632 633309 Active 2019 Abrasion of right ear, initial encounter ; Note: Date Diagnosed : 03/27/2019 11:00 AM (S00.411A ) Not Available [facility] 4 02:31:10 Atopic dermatiti s 84347995 Active 2020 Other atopic dermatiti s; Note: Date Diagnosed : 03/15/2020 1:31 PM (L20.89) Not Available [facility] 4 02:31:06 Problem Notes None recorded. Medical Equipment None Reported. Allergies Allergen ID Allergen Name Allergen Category Reaction Reaction Severity Criticality Documentation Date Start Date Code Code System Note Provider Name and Address Organization Details Recorded Time 10449 ampicilli n medicatio n other Not available Not available 07/13/2023 733 RxNorm React ion: unkno wn, unspe cifie d;; Not Available [facility] 4 01:00:49 Medications Name Sig Start Date [...] mcg tablet 2018 active Medicatio n ID: [id number] Du ration Value: 90 Brand Name: Levoxyl S end Method: E-Prescri bed Subs Allowed: No subs Medi cationGen ericName: Levoxyl Not Available Not Available Not Available cetirizine 10 mg tablet 2020 active Medicatio n ID: [id number] Br and Name: cetirizin e Send Method: [...] mg tablet 2018 active Medicatio n ID: [id number] Du ration Value: 90 Brand Name: amlodipin e Send Method: E-Prescri bed Subs Allowed: subs OK Medica tionGener icName: amlodipin e Not Available Not Available Not Available allopurino l 100 mg tablet TAKE 2 TABLETS ONCE DAILY active Not Available Not Available No t Available aspirin 81 mg tablet,del ayed release 2018 active Medicatio n ID: [id number] Br and Name: aspirin S end Method: [...] mg tablet 2018 active Medicatio n ID: [id number] Du ration Value: 30 Brand Name: monteluka [...] topical ointment 2018 active Medicatio n ID: [id number] Du ration Value: 30 Brand Name: clobetaso l Send Method: E-Prescri bed Subs Allowed: subs OK Medica tiBranden icName: clobetaso l Not Available Not Available Not Available ibuprofen 600 mg tablet 2018 active Medicatio n ID: [id number] Du ration Value: 60 Brand Name: ibuprofen [...] ayed release 2018 active Medicatio n ID: [id number] Br and Name: ferrous sulfate S end Method: E-Prescri bed Subs Allowed: subs OK Medica tionGener icName: ferrous sulfate Not Available Not Available Not Available losartan 100 mg tablet 2018 active Medicatio n ID: [id number] Du ration Value: 7 Brand Name: losartan [...] mg capsule 2018 active Medicatio n ID: [id number] Br and Name: PreserVis ion AREDS Sen d Method: E-Prescri bed Subs Allowed: subs OK Medica tionGener icName: PreserVis ion AREDS Not Available Not Available Not Available Prilosec 2018 active Medicatio n ID: [id number] Br and Name: prilosec Send Method: E-Prescri bed Subs Allowed: subs OK Medica tionGener icName: prilosec Not Available Not Available Not Available calcium citrate 2018 active Medicatio n ID: [id number] Br and Name: calcium citrate S end Method: E-Prescri bed Subs Allowed: subs OK Medica tionGener icName: calcium citrate Not Available Not Available Not Available ProAir HFA 90 mcg/actuat ion aerosol inhaler 2 puff 2018 active Medicatio n ID: [id number] Du ration Value: 30 Brand Name: ProAir HFA Send Method: E-Prescri bed Subs Allowed: subs OK Medica tionGener icName: ProAir HFA Not Available Not Available Not Available DermOtic Oil 0.01 % ear drops Instill 2 drop twice a week as directed 2020 active Medicatio n ID: [id number] Pr escribed By Name: NIKOLE Cotter Name: DermOtic Oil Send Method: E-Prescri bed Subs Allowed: subs OK Medica tionGener icName: DermOtic Oil Not Available Not Available Not Available Symbicort 160 mcg-4.5 mcg/actuat ion HFA aerosol inhaler 2018 active Medicatio n ID: [id number] Br and Name: Symbicort Send Method: E-Prescri bed Subs Allowed: subs OK Medica tionGener icName: Symbicort Not Available Not Available Not Available Vitamin D3 50 mcg (2,000 unit) capsule 2018 active Medicatio n ID: [id number] Br and Name: Vitamin D3 Send Method: [...] both nostrils 2018 active Medicatio n ID: [id number] Du ration Value: 30 Brand Name: Flonase [...] for inhalation 2018 active Medicatio n ID: [id number] Br and Name: Spiriva Respimat Send Method: E-Prescri bed Subs Allowed: subs OK Medica tionGener icName: Spiriva Respimat Not Available Not Available Not Available vitamin B12 1,000 mcg-folic acid 400 mcg sublingual lozenge 2018 active Medicatio n ID: [id number] Br and Name: vitamin B16-xqppo acid Send Method: E-Prescri bed Subs Allowed: subs OK Medica tionGener icName: vitamin H98-hahje acid Not Available Not Available Not Available [...] ICD10 Code Diagnosis IMO Codes Diagnosis Note [id number] LO GODOY MA, JASON-A [place] [address] [place] [address] 05/10/2024 15:50:26 05/10/2024 23:44:40 Sensorineural hearing loss of bilateral ears 171247639 H90.3 Patient here wanting new hearing aids [...] she's actually wearing themLo Godoy MA CCC-A [id number] LO GODOY MA, JASON-A [place] 100 [facility] ite 100 [place] [address] 06/08/2024 13:28:55 06/19/2024 12:36:37 Sensorineural hearing loss of bilateral ears 410245723 H90.3 Patient here wanting new hearing aids [...] if she's actually wearing themLo Godoy MA [facility] Health Concerns Section Related Observation LastModified by Organization Detai ls LastModified Time None Recorded Concern Status LastModified by Organization Details LastModified Time None Recorded Advance Directives Directive None Recorded Payers Insurance Date Sequence Insurance Name Policy Number Policy Roberts Covered Member ID Roberts Member ID Guarantor Name 06/19/2024 2 [facility] IN[facility] (INDEMNITY) [id number] Marjorie Guerrero [id number] Marjorie Guerrero 06/08/2024 1 [place]IC[place] [employer] Marjorie Guerrero [id number] Marjorie Guerrero Notes Date Note Type Note Provider Name and Address Organization Details Recorded Time 05/10/2024 text/html Longstanding hearing loss. Has never worn hearing aids consistently LO GODOY MA, CCC-A [address] [place] [address], [phone], [facility] 05/11/2024 09:41:26 OBGyn Episode No OBEpisode recorded.
--- OUTSIDE RECORDS SUMMARY | 2025-01-11 09:18 | XMS_ITS | Clinical Summary ---
Author Organization [facility] Address [address] [address] Phone Care Team Providers Care Kaitara Taraka Name Role Phone Fadi Wilkinson Primary Care Provider [phone] Allergies No known active allergies Medications AMOXICILLIN/POTA [...] on patient's age to complete this topic IPV VACCINES Aged Out No longer eligi ble based on patient's age to complete this topic MENINGOCOCCAL VACCINES (ACWY) Aged Out No longer eligible based on patient's age to complete this topic MENINGOCOCCAL VACCINES (B) Aged Out N o longer eligible based on patient's age to complete this topic Medical Devices Not on file Insurance MEDICARE PART A & B [facility] MEDICARE SUPPLEMENT MEDICARE PART A & [facility] MEDIC[facility] PART A & B [facility] MEDICARE SUPPLEMENT MEDICARE PART A & B [facility] MEDICARE SUPPLEMENT MEDICARE PART A & B [facility] MEDICARE SUPPLEMENT MEDICARE PART A & B [facility] MEDICARE SUPPLEMENT MEDICARE PART A & B [employer] [place] [id number] MEDICARE PART A & B [employer] MEDICARE SUPPLEMENT MEDICARE PART A & B [facility] MEDICARE SUPPLEMENT Care Teams Kaitara Taraka Relationship Specialty Start Date End Date Fadi Wilkinson DO [email or web address] PCP - General Internal Medicine 06/28/23 Additional Source Comments The information contained in this document represents components of the legal health record. It is not the complete legal health record.[facility]
--- OUTSIDE RECORDS SUMMARY | 2025-01-11 09:19 | XMS_ITS | Data Portability ---
Author Organization [facility], Telehealth Patient Home Address [address] [place] [address] Assessment Encounter Date Assessment Date Assessment LastModified [...] recorded. Imaging US, echocardi ogram 2024 025 [facility] Central Scheduling, [address] [place] [address], [address], 11/29/2024 09:21:52 exercise stress test 2024 025 [email or web address] 10 [facility] Central Scheduling, [address] [place] [address], [address], 12/12/2024 10:12:09 Medication Orders pilocarpi ne 5 mg tablet 2024 025 [facility]Pharmacy #[id number], [address] [place], [address], 11/28/2024 14:49:09 prednison e 10 mg tablet 2024 025 [facility]Pharmacy #0373, [address] [place], [address], 08/11/2024 11:28:19 baclofen 10 mg tablet 2024 025 [facility]Ph[facility]acy #0373, [address] [place], [address], 08/11/2024 11:28:19 Zepbound 5 mg/0.5 mL subcutane ous pen injector 2024 025 [facility]/Pharmacy #0373, [address] [place], [address], 08/11/2024 11:26:22 Zepbound 2.5 mg/0.5 mL subcutane ous pen injector 2024 025 [facility], [facility], [place], [address], 05/23/2024 12:11:05 prednison e 10 mg tablet 2024 025 [facility]/Pharmacy #0373, [address] [place], [address], 08/11/2024 11:26:32 amoxicill in 875 mg-potass ium clavulana te 125 mg tablet 2024 025 [facility]/Pharmacy #0373, [address] [place], [address], 08/11/2024 10:57:08 Patient TargetsNo targets recorded. Patient InstructionsNo instructions recorded. Reason for Referral None Reported. Results Created Date Observation Date Name Description Value Unit Range Abnormal Flag Note LastModifiedBy Organization Detail LastModifiedTime 02/15/2002/13/2024 MRI, brain , w/wo contr ast No observ ation record ed. [email or web address] [place] [address] (Medical Records) [address] [place] [address], [address], 02/15/2024 15:43:40 02/15/2002/1202/13/2024 MRI, brain , w/wo contr ast No observ ation record ed. [facility] (Medical Records) [address] [place], [address], 02/15/2024 15:43:40 02/25/20 24 01/31/2024 bone densi ty No observ ation record ed. [facility] Not Available 2023 09:03:50 03/06/19 25 01/31/2024 bone densi ty No observ ation record ed. [facility] [address], [address], 03/06/2024 10:26:34 03/06/19 25 01/31/2024 DEXA No observ ation record ed. [facility] [address] [place] [address], [address], 03/06/2024 11:04:34 03/06/19 25 01/31/2024 bone densi ty No observ ation record ed. [facility] [address] [place] [address], [address], 03/06/2024 11:04:53 03/06/19 25 01/31/2024 bone densi ty No observ ation record ed. [facility] [address], [address], 03/06/2024 13:44:05 08/31/19 25 08/30/2024 XR, hip + pelvi s, bilat eral, 2 view No observ ation record ed. [facility] (Medical Records) [address] [place], [address], 08/30/2024 16:47:25 08/31/19 25 08/30/2024 XR, hip + pelvi s, bilat eral, 2 view No observ ation record ed. [facility] (Medical Records) [address] [place], [address], 08/30/2024 16:47:26 08/31/19 25 08/30/2024 XR, lumbo sacra l spine , 2 or 3 view No observ ation record ed. [facility] (Medical Records) [address] [place], [address], 08/30/2024 16:47:26 08/31/19 25 08/30/2024 XR, lumbo sacra l spine , 2 or 3 view No observ ation record ed. [facility] (Medical Records) [address] [place], [address], 08/30/2024 16:47:26 09/14/19 25 09/13/2024 MAMMO , scree micaela, digit al, bilat eral No observ ation record ed. [email or web address] [facility] [address] [facility] [address], [place], [address], 09/14/2024 07:41:39 09/15/19 25 09/14/2024 MRI, lumba r spine , w/o contr ast No observ ation record ed. [facility] (Medical Records) [address] [place], [address], 09/15/2024 12:45:32 09/22/19 25 09/21/2024 MRI, lumba r spine , w/ contr ast No observ ation record ed. [facility] (Medical Records) [address] [place], [address], 09/25/2024 10:57:03 11/03/19 25 11/02/2024 imagi ng/di agnos tic resul t No observ ation record ed. [email or web address] (Medical Records) [address] [place], [address], 11/03/2024 08:20:17 11/21/19 25 11/20/2024 XR, chest , 2 view No observ ation record ed. [facility] (Medical Records) [address] [facility], [place], [address], 11/20/2024 13:42:54 Result Notes None recorded. Problems Name Problem SNOMED Code Status Onset Date Resolution Date Notes Provider Name and Address Organization Details Recorded Time Phlebiti s 62669990 Active 2022 Yudith daily [facility] 3 08:41:18 Herpes zoster 6419399 Active 2022 Yudith dialy [facility] 3 08:41:23 Late onset asthma 613150336 Active 2022 Yudith daily [facility] 3 08:41:35 Sleep apnea 73937062 Active 2022 on CPAP Yudith daily [facility] 3 08:44:27 History of malignan t neoplasm of thyroid 166924944 Active 2022 Yudith daily [facility] 3 08:42:02 Hammer toe 652226284 Active 2022 correctiv e surgery 04/22/2018 CIARRA AYALA [address] [place], [address], [facility] 3 09:52:08 Hyperten sive disorder 23500753 Active 2022 Yudith daily [facility] 3 08:43:15 Paroxysm al atrial fibrilla tion 681002750 Active 2022 Yudith daily [facility] 3 08:43:20 Chronic obstruct joseph pulmonar y disease 51359654 Active 2022 Yudith daily [facility] 3 08:43:49 Anxiety 44453716 Active 2022 Yudith daily [facility] 3 08:43:57 Gout 58868295 Active 2022 Yudith daily [facility] 3 08:44:03 Fracture of humerus 35050707 Active 2022 Yudith Arias null, [facility] 3 08:44:14 Osteopor osis 95905590 Active 2022 Yudith Arias null, [facility] 3 08:44:33 Pernicio us anemia 32350208 Active 2022 Yudith Arias null, [facility] 3 08:44:41 Vitamin D deficien cy 13475824 Active 2022 ICARRA AYALA [address] [place], [address], [facility] 3 09:47:05 Hematoma of lower leg 242827984 Active 2022 Fadi Wilkinson, DO [address] [place], [address], [facility] 3 12:49:51 Inguinal pain 243473093 Active 2022 CIARRA AYALA [address] [place], [address], [facility] 3 10:09:55 Mass of uterus 68265789610 9109 Active 2022 CIARRA AYALA [address] [place], [address], [facility] 3 13:45:02 Acute bacteria l sinusiti s 13661734 Active 2022 CIARRA AYALA [address] [place], [address], [facility] 3 09:33:03 Urinary incontin ence 748741889 Active 2022 CIARRA AYALA [address] [place], [address], [facility] 3 09:35:08 Acute sinusiti s 95644751 Active 2023 CIARRA AYALA [address] [place], [address], [facility] 4 14:50:48 Seasonal allergic rhinitis 438034990 Active 2023 CIARRA AYALA [address] [place], [address], [facility] 4 10:22:32 Hypothyr oidism 92523304 Active 2023 CIARRA AYALA [address] [place], [address], [facility] 4 10:23:00 Intracra nial meningio ky 885711383 Active 2023 CIARRA AYALA [address] [place], [address], [facility] 4 09:21:59 Atrial fibrilla tion 03905260 Active 2023 CIARRA AYALA [address] [place], [address], [facility] 4 09:25:09 Acute bronchit is 95435668 Active 2024 CIARRA AYALA [address] [place], [address], [facility] 5 10:20:24 Acute low back pain 499946287 Active 2024 CIARRA AYALA [address] [place], [address], [facility] 5 11:25:15 Acute back pain with sciatica 215897008 Active 2024 CIARRA AYALA [address] [place] [address], [address], [facility] 5 10:13:42 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 CIARRA AYALA [address] [place], [address], [facility] 16:53:29 Lesion of spinal cord Active 2024 CIARRA AYALA [address] [place], [address], [facility] 12:46:10 Degenera tive lumbar spinal stenosis 650769139 Active 2024 CIARRA AYALA [address] [place], [address], [facility] 07:00:37 Xerostom ia 13968322 Active 2024 CIARRA AYALA [address] [place], [address], [facility] 14:46:04 Electroc ardiogra m abnormal 124762640 Active 2024 CIARRA AYALA [address] [place], [address], [facility] 14:47:33 Obstruct joseph sleep apnea syndrome 91618483 Active 2024 CIARRA AYALA [address] [place], [address], [facility] 14:57:02 Problem Notes None recorded. Procedures Surgical History Date Name Laterality Status Provider Name and Address Organization Details Recorded Time hammer toe operation completed CIARRA AYALA [address] [place], [address], [facility] 05/07/2022 09:52:24 thyroidectomy completed CIARRA MATHEWS [address] [place], [address], [facility] 05/07/2022 09:52:55 laparoscopic sleeve gastrectomy completed CIARRA AYALA [address] [place], [address], [facility] 05/07/2022 09:53:06 total knee replacement completed CIARRA AYALA [address] [place], [address], [facility] 05/07/2022 09:53:23 cholecystectomy completed CIARRA ECHOLS [address] [facility], [place], [address], [facility] 05/07/2022 09:53:32 Imaging Results None [...] mg tablet TAKE 1 TABLET DAILY DIRECTED 2024 active Not Available Not Available Not Avai lable ProAir HFA 90 mcg/actuati on aerosol inhaler [...] Not Available Not Available No t Available [facility] USE DIRECTED. active Not [...] Relief 50 mcg/actuati on nasal spray,suspe nsion [place] 1 spray every day by intranasa l [...] Updated DateTime 5 160.02 cm 41.5 kg/m2 959448. 41 g 74 /min 97 % 97 % 162/78 mm[Hg] Rowena Jaime [facility] 5 10:01:44 Date Recorded Body height Body mass index (BMI) Body weight Heart rate Oxygen saturation Oxygen saturation in Arterial blood by Pulse oximetry Systolic And Diastolic Provider Name and Address Organization Details Last Updated DateTime 5 160.02 cm 39.3 kg/m2 791109. 51 g 75 /min 99 % 99 % 142/86 mm[Hg] Jared Quispe [facility] 5 10:04:39 Date Recorded Body height Body mass index (BMI) Body weight Heart rate Oxygen saturation Oxygen saturation in Arterial blood by Pulse oximetry Systolic And Diastolic Provider Name and Address Organization Details Last Updated DateTime 5 160.02 cm 36.4 kg/m2 56587.5 9 g 73 /min 96 % 96 % 124/74 mm[Hg] Rowena Jaime [facility] 5 11:08:41 Date Recorded Body height Body mass index (BMI) Body weight Heart rate Oxygen saturation Oxygen saturation in Arterial blood by Pulse oximetry Systolic And Diastolic Provider Name and Address Organization Details Last Updated DateTime 5 160.02 cm 36.3 kg/m2 76385.4 4 g 73 /min 98 % 98 % 124/74 mm[Hg] Mary Ramires [facility] 14:27:42 Social History Question Answer Notes LastModified by Organizat ion Details LastModified Time Tobacco Smoking Status Former Sm[facility] 05/07/2022 09:32:24 Are You Blind Or Do You Have Difficulty Seeing? No Information not available 05/07/2022 What Is Your Level Of Caffeine Consumption? Occasional Information not available 05/07/2022 In The 14 Days Before Symptom Onset, Have You Had Close Contact With A Laboratory-confi rmed COVID-19 While That Case Was Ill? No [email or web address] Information not available 02/19/2023 In The 14 Days Before Symptom Onset, Have You Had Close Contact With A Person Who Is Under Investigation For COVID-19 While That Person Was Ill? No [email or web address] Information not available 02/19/2023 Have You Been To An Area Known To Be High Risk For COVID-19? No [email or web address] Information not available 02/19/2023 Are You Deaf [...] Of Your Most Recent Tobacco Screening? 11/28/2024 [email or web address] Information not available 11/28/2024 How Many Children [...] use any illicit or recreational drugs? No [email or web address] Information not available 02/19/2023 Do you or [...] anxious, or unable to sleep at night)? [id number] Information not available 05/07/2022 Do you have [...] Time influenza, unspecified formulation 2 kp daily [facility] 05/07/2022 09:32:19 COVID-19, mRNA, LNP-S, PF, 100 mcg/0.5mL dose or 50 mcg/0.25mL dose 1 kp daily [facility] 05/07/2022 09:36:54 COVID-19, mRNA, LNP-S, PF, 100 mcg/0.5mL dose or 50 mcg/0.25mL dose 1 kp daily [facility] 05/07/2022 09:36:59 COVID-19, mRNA, LNP-S, PF, 100 mcg/0.5mL dose or 50 mcg/0.25mL dose 1 kp daily [facility] 05/07/2022 09:37:05 COVID-19, mRNA, LNP-S, PF, 100 mcg/0.5mL dose or 50 mcg/0.25mL dose 2 kp daily [facility] 05/07/2022 09:37:10 COVID-19, mRNA, LNP-S, PF, 30 mcg/0.3 mL dose 2 kp daily [facility] 05/07/2022 09:37:20 zoster recombinant 0 completed Nader daily [facility] 09/13/2022 09:32:02 zoster recombinant 1 kp Wilkinson [facility] 09/13/2022 09:32:24 influenza, unspecified formulation 4 completed CIARRA AYALA [address] [place], [address], [facility] 12/10/2023 13:45:44 Past Encounters Encounter ID Performer Location Encounter Start Date Encounter Closed Date Diagnosis/Indication Diagnosis SNOMED-CT Code Diagnosis ICD10 Code Diagnosis IMO Codes Diagnosis Note [id number] Fadi Wilkinson [facility] [address] [facility],[place] [address] 05/07/2022 09:19:18 05/07/2022 10:05:56 Paroxysmal atrial fibrillation 872786060 I48.0 stable Chronic ob structive pulmonary disease 97913600 J41.0 stable Gout 33975448 M10.041 stable Pernicious anemia 277121 09 D51.0 will recheck levels Vitamin D deficiency 347 99872 E55.9 will recheck levels History of malignant neoplasm of thyroid 238032112 Z85.850 stable, thyroid removedsee s endo through [facility] Hypertensive disorder 38 043719 I10 will set up with lab workkit s today at [facility] [id number] Fadi Wilkinson [facility] Internal Medicine [address] [facility],[place] [address] 06/24/2022 11:55:19 06/24/2022 15:24:16 Hypertensive disorder 89260606 I10 doing well Paroxysmal atrial fibrillation 383369439 I48.0 no palpitatio ns since presentati on Hematoma of lower leg 44 3571859 S80.12XD resolved [id number] Fadi Wilkinson [facility] Medicine [address] [facility],[place] [address] 09/14/2022 15:29:09 09/14/2022 16:37:22 Chronic obstructive pulmonary disease 12252536 J41.0 stableneed s refillphar magi changed in chart Hypertensive disorder 38 243057 I10 stable Paroxysmal atrial fibrillation 516165616 I48.0 stable [id number] Fadi Wilkinson [facility] [address] [facility],[place] [address] 11/09/2022 08:56:24 11/09/2022 10:11:54 Anxiety 44000230 F41.1 stable Chronic ob structive pulmonary disease 86771255 J41.0 stableneed s refillphar magi changed in chart Hypertensive disorder 38 445388 I10 stable Paroxysmal atrial fibrillation 157927796 I48.0 stable Pernicious anemia 374822 09 D51.0 will recheck levels Vitamin D deficiency 347 58016 E55.9 will recheck levels History of left total knee replacement 0087339592 242784 Z96.652 will set up with XR [id number] Fadi Wilkinson [facility] Medicine [address] [facility],[place] [address] 02/19/2023 08:27:30 02/19/2023 11:18:39 Acute bacterial sinusitis 25648336 J01.00 Urinary incontinence 165 200037 N39.3 doing well on myrbetriq Anxiety 77336794 F41.1 stable [id number] Fadi Wilkinson [facility] Medicine [address] [facility],[place] [address] 12/10/2023 13:31:34 12/10/2023 14:13:56 Active or passive immunization 341847172 Z23 stable Adult heal th examination 427098821 Z00.00 BP is excellent Depression screening 171 648149 Z13.31 SCREENING NEGATIVE [id number] Fadi Wilkinson [facility] [address] [facility],[place] [address] 01/26/2024 09:08:37 01/26/2024 09:33:39 Renewal of prescription 732643076 Z76.0 stable Urinary incontinence 165 363744 N39.3 stable Intracrani al meningioma 984799980 D32.0 case from her onc from thyroid case, recommende d fu screening Atrial fibrillation 4943 6004 I48.0 stable Chronic ob structive pulmonary disease 42982085 J41.0 stable [id number] Fadi Wilkinson [facility] Medicine [address] [facility],[place] [address] 03/10/2024 09:47:35 03/10/2024 15:39:35 Acute bronchitis 71679496 J20.8 [id number] Fadi Wilkinson [facility] [address] [facility],[place] [address] 03/24/2024 09:53:55 03/24/2024 10:32:40 Intracranial meningioma 483125433 D32.0 stable Atrial fibrillation 4943 6004 I48.0 stable Chronic ob structive pulmonary disease 93472718 J41.0 stable Body mass index 40+ - severely obese 737237440 Z68.41 under obesity, JUAREZ, heart disease/af ib, HTN and HLD [id number] Fadi Wilkinson [facility] [address] [facility] [address] 05/10/2024 09:53:51 05/10/2024 14:41:18 Body mass index 40+ - severely obese 343709305 Z68.41 needs next dose up Acute bact erial sinusitis 48485563 J01.00 improving [id number] Fadi Wilkinson [facility] [address] [facility],[place] [address] 08/11/2024 10:46:35 08/11/2024 12:14:30 Depression screening 998552075 Z13.31 SCREENING NEGATIVE Acute low back pain 2788 43116 M54.50 30480861 will set up with prednisone and baclofen [id number] Fadi Wilkinson [facility] Internal Medicine [address] [facility],[place] [address] 11/28/2024 14:21:07 11/29/2024 08:25:36 Depression screening 129004441 Z13.31 SCREENING NEGATIVE Xerostomia 86019783 K11. 7 8025 trial pilocarpin e until she sees pulm Electrocar diogram abnormal 479439303 R94.31 583123 recommende d stress test and echo Obstructiv e sleep apnea syndrome 79436288 G47.33 171681 stable Health Concerns Section Related Observation LastModified by Organization Detai ls LastModified Time None Recorded Concern Status LastModified by Organization Details LastModified Time None Recorded Advance Directives Directive None Recorded Payers Insurance Date Sequence Insurance Name Policy Number Policy Roberts Covered Member ID Roberts Member ID Guarantor Name 12/12/2024 2 [facility] (INDEMNITY) [id number] Marjorie Guerrero [id number] Marjorie Guerrero 12/12/2024 1 MEDICARE B-[place]: [employer] SERVICES Marjorie Guerrero [id number] Marjorie Guerrero Notes Date Note Type [...] was negative x1 today CIARRA AYALA [address] [place], [address], [facility] 03/10/2024 15:14:27 5 text/html ROS as noted in the HPI f/u weight loss/sleep apnea patient is diagnosed with JUAREZ, atrial fibrillation, HLD, HTNrecommended by her roving or yarn color checker to start on Zepbound for the obesity [...] with the order and CIARRA GARCIA [address] [place], [address], [facility] 03/24/2024 10:28:11 5 text/html ROS [...] infection will monitor symptoms CIARRA AYALA [address] [place], [address], [facility] 05/10/2024 10:17:46 5 text/html ROS [...] update me on Wednesday CIARRA AYALA [address] [place], [address], [facility] 08/11/2024 11:31:58 5 text/html ROS as noted [...] to increase fluids as well fu after roller turner to let me know if it is partly the mask causing issues if her JUAREZ is really well controlled and having less events for now starting the patient on pilocarpine 5 mg TID, starting one tab per day to help with the discomfort for the dry mouth CIARRA AYALA [address] [place], [address], [facility] 11/28/2024 14:57:18 OBGyn Episode No OBEpisode recorded.
--- OUTSIDE RECORDS SUMMARY | 2025-01-11 09:20 | XMS_ITS | Patient Health Record ---
Author Organization [facility] Address [address] [facility] [place] [address] Care Team Providers Care Inserter Promotional Item Name Role Phone Jaja WEISS, Fadi Primary Care Provider Jasmyne Denson Unavailable [phone] Allergies No Known Allergies Reason For Referral [...] Problem Acquired hammer toe of right foot (0090832397965225) Other hammer toe(s) (acquired), right foot (M20.41) Active confirmed Problem Acquired hammer toe of left foot (6492602147580912) Other hammer toe(s) (acquired), left foot (M20.42) Active confirmed Problem Localized, primary osteoarthritis of the ankle and/or foot (605751626) Arthritis of joint of lesser toe, right (M19.071) Active confirmed Vital Signs Blood pressure diastolic 76 mm Hg 05/03/2024 Height 5ft3in in 05/03/2024 Blood pressure systolic 130 mm Hg 05/03/2024 Weight 220 lbs 05/03/2024 BMI 38.97 kg/m2 05/03/2024 Encounters Encounter Location Date Provider Diagnosis [facility] [address] 05/03/2024 Jasmyne Gil Pain in right toe(s) M79.674 ; Other hammer toe(s) (acquired), right foot M20.41 ; Arthritis of joint of lesser toe, right M19.071 and [place] [facility] [address] 02/22/2024 Jasmyne Gil [address] [address] 05/03/2024 Jasymne Gil Assessments Encounter Date Diagnosis (ICD Code) Assessment Notes Treatment Notes Treatment Clinical Notes Section Notes 05/03/2024 Pain in right toe(s) (ICD-10 - M79.674) 05/03/2024 Other hammer toe(s) (acquired), right foot (ICD-10 - M20.41) 05/03/2024 Arthritis of joint of lesser toe, right (ICD-10 - M19.071) 05/03/2024 [place] (ICD-10 - L84) Plan Of Treatment Pending Test Test Name Order Date X ray : Foot, right 3V 05/03/2024 43218 - Tenotomy, open flexor 03/14/2020 Insurance Providers Payer Name Payer Address Payer Phone Subscriber Number Group Number Insured Name Patient Relationship to Insured Coverage Start Date Coverage End Date Medicare National [employer] [address] [place] [address] [id number] Marjorie Guerrero Self - patient is the insured 6 [employer] [address] [place] [address] [id number] Marjorie Guerrero Self - patient is [...] right shoulder removal 2016 endovenous lazer surgery 0827-4435 colonoscopy 2016 endoscopy 2016 hammer toe surgery 04/22/2018 endovenous laser 03/25/2020 removal bone spurs right shoulder 2017 ruptured vericose veins [phone] Hospitalization History Reason Date(Month/Year) Spiral fracture- left arm 2011
== END ==
LOC: HO.CARD 08:49
PROVIDERS: PCP Internal Medicine; Visit Provider Physician Assistant
DX: I77.89 Other specified disorders of arteries and arterioles (principal); R94.31 Abnormal electrocardiogram [ECG] [EKG]
CPT/HCPCS: 93017; 93306; Q9957

== ENCOUNTER → 2025-01-11 09:00 | Outpatient (BNV) | payer MEDICARE, OTHER, SELFPAY | PROVIDERS: PCP Internal Medicine | DX: I51.7 Cardiomegaly (principal); I35.2 Nonrheumatic aortic (valve) stenosis with insufficiency; I77.810 Thoracic aortic ectasia | CPT/HCPCS: 93016; 93018; 93320; 93325; 93350; 93352 ==